=== PATIENT | male | born 1955 | race Caucasian/White ===

== ENCOUNTER 2018-07-13 08:00 | Day surgery (SDC) | payer BC ==
[2018-07-13] MEDS ORDERED: Ringers Lactate 1,000 ML IV ONE (08:10)
[2018-07-13 08:38] LABS: Absolute Lymphocytes (CBC) 1.2 K/uL (0.7-4.9); Absolute Monocytes 0.5 K/uL (0.1-1.3); Absolute Neutrophil 2.9 K/uL (1.8-8.0); Basophils % 0.4 % (0-1.3); Eosinophils % 4.4 % (0-4.4); Hematocrit 48.8 % (39.6-49.0); Lymphocytes % 24.9 % (15.3-44.8); MCH 30.5 pg (27.0-35.0); MCV 89.9 fL (80-100); Monocytes % 10.2 % (3.3-12.3); RBC Red Blood Cell Count 5.42 M/uL (4.33-5.43)
[2018-07-13] MEDS ORDERED: SIMETHICONE 40 MG/ 0.6 ML ONE (08:42)
[2018-07-13 08:53] LABS: Potassium 3.9 mmol/L (3.5-5.1)
[2018-07-13] MEDS ORDERED: PROPOFOL 200 MG/20 ML VIAL IV ONE (09:07)
[2018-07-13] MEDS ORDERED: LIDOCAINE 1% MPF 2 ML AMPULE ONE (09:07)
--- NOTE | 2018-07-13 09:28 | RAD REPORT ---
EXAM DESCRIPTION: Ryland Soler (2 Views)07/13/2018 8:43 am CLINICAL HISTORY: Preop for colonoscopy COMPARISON: October 2017 FINDINGS: The lungs appear clear of acute infiltrate. The heart is normal size IMPRESSION: No acute abnormalities displayed
--- NOTE | 2018-07-13 09:36 | ENDO RPT ---
[address], [address] COLONOSCOPY PROCEDURE REPORT EXAM DATE: 07/13/2018 PATIENT NAME: Allan Driver MR #: [id number] BIRTHDATE: 1955 ATTENDING: Mk Anders M.D. STATUS: outpatient LEARNING TECHNOLOGIST: Marta Valentino and Maite Lima RN INDICATIONS: The patient is a 63 yr old Male here for a colonoscopy due to history of colon cancer PROCEDURE PERFORMED: Colonoscopy MEDICATIONS: Per Anesthesia. ESTIMATED BLOOD LOSS: None CONSENT: The patient understands the risks and benefits of the procedure and understands that these risks include, but are not limited to: sedation, allergic reaction, infection, perforation and/or bleeding. Alternative means of evaluation and treatment include, among others: physical exam, x-rays, and/or surgical intervention. The patient elects to proceed with this endoscopic procedure. DESCRIPTION OF PROCEDURE: During intra-op preparation period all mechanical medical equipment was checked for proper function. Hand hygiene and appropriate measures for infection prevention was taken. Procedure, possible complications, alternatives including, but not limited to possibility of bleeding, perforation, tear, infection, sepsis, need for surgery, need for blood transfusion, were explained to the patient. After the risks, benefits and alternatives of the procedure were thoroughly explained, Informed consent was verified, confirmed and timeout was successfully executed by the treatment team. The patient was placed in the left lateral position. A digital rectal exam was performed and revealed an enlarged prostate. After appropriate level of anesthesia, the scope was passed. The EC-[id number] ([id number]) endoscope was introduced through the anus and advanced to the cecum, which was identified by the ileocecal valve. The quality of the prep was good. The instrument was then slowly withdrawn as the colon was fully examined. Scope withdrawal time was 10 minutes. COLON FINDINGS: Mild diverticulosis was noted throughout the entire examined colon. Retroflexed views revealed no abnormalities. The scope was then completely withdrawn from the patient and the procedure terminated. ADVERSE EVENTS: There were no complications. IMPRESSIONS: 1. Mild diverticulosis was noted throughout the entire examined colon 2. Internal hemorrhoids RECOMMENDATIONS: 1. fiber rich diet 2. follow-up: office 1 week(s) 3. increase dietary water 4. no seeds in diet RECALL: Return in 1 year(s) history of colon cancer Mk Anders M.D. eSigned: Mk Anders M.D. 07/13/2018 9:36 AM cc: Luis Antonio Ortega M.D. CPT CODES: ICD9 CODES: PATIENT NAME: Allan Driver MR#: [id number]
[2018-07-13 10:33] VITALS: TEMP 98
[2018-07-13 10:35] VITALS: BP 117/76; O2SAT 96
--- NOTE | 2018-07-13 17:13 | EKG ---
Test Date: 2018-07-13 Test Time: 08:18:29 Technical Assistance Consultant: MAX MEASUREMENT RESULTS: Intervals: Rate: 64 SD: 148 QRSD: 92 QT: 424 QTc: 437 [place]: P: 61 SD: 148 QRS: -39 T: -13 INTERPRETIVE STATEMENTS: Sinus rhythm with premature supraventricular complexes Left axis deviation Possible anterior, age undetermined Abnormal ECG Compared to ECG 10/30/2017 14:04:19 Left-axis deviation now present Possible myocardial infarct finding now present Electronically Signed On 07-13-18 17:13:18 WINERY CELLAR HAND by Edvin Nicole
== END 2018-07-13 10:30 | disposition home or self-care (01) ==
LOC: OR 08:00
PROVIDERS: ATTEND Surgery
PROC: 0DJD8ZZ Inspection of Lower Intestinal Tract, Via Natural or Artificial Opening Endoscopic (ICD-10-PCS; principal; 2018-07-13 09:00)
DX: K57.90 Diverticulosis of intestine, part unspecified, without perforation or abscess without bleeding (principal); K64.8 Other hemorrhoids; I10 Essential (primary) hypertension; Z85.038 Personal history of other malignant neoplasm of large intestine
CPT/HCPCS: 36415; 71046; 80048; 85025; 93005; G0103; J2001; J2704

== ENCOUNTER 2020-02-04 12:56 | Emergency (ER) | payer BC, OTHER ==
[2020-02-04] MEDS ORDERED: HYDROCODONE/APAP 10/325 TAB ONE (16:06)
[2020-02-04] MEDS ORDERED: KETOROLAC 30 MG/ML INJ ONE (16:06)
--- OUTSIDE RECORDS SUMMARY | 2020-02-04 16:19 | XMS REPORT | Summary of Care ---
:1955 Author Organization [facility] [place] Address [address] [place] [address]- Encounter HQ Bela(FIN) [id number] Date(s): 01/09/20 - 01/09/20 [facility] [place] [address] [place] [address]- [phone] Discharge Disposition: Home or Self Care Attending Physician: Rancho Snow MD Referring Physician: Rancho Snow MD Vital Signs Most recent to oldest [Reference Range]: 1 Height 182.88 cm (01/09/20 11:23 AM) Blood Pressure [90-140/60-90 mmHg] 173/102 mmHg *HI* (01/09/20 11:23 AM) Respiratory Rate [14-20 BRMIN] 16 BRMIN (01/09/20 11:23 AM) Peripheral Pulse Rate [60-100 bpm] 68 bpm (01/09/20 11:23 AM) Weight 91.364 kg (01/09/20 11:23 AM) Body Mass Index 27.32 m2 (01/09/20 11:23 AM) Problem List Condition Effective Dates Status Health Status Informant Hip pain, right(Confirmed) Active HTN - Hypertension(Confirmed) Active Radiculopathy, lumbar Active region(Confirmed) Paresthesia(Confirmed) Active Allergies, Adverse Reactions, Alerts No Known Allergies Medications baclofen 10 mg oral tablet 10 mg = 1 tab, PO, BID, # 60 tab, 4 Refill(s), Pharmacy: [facility]/pharmacy #[id number] Start Date: 01/09/20 Stop Date: 06/07/20 Status: OrderedcloNIDine 0.1 mg oral tablet 0.1 mg = 1 tab, PO, Daily, 0 Refill(s) Start Date: 01/09/20 Status: Orderedhydrochlorothiazide 12.5 mg oral tablet 12.5 mg = 1 tab, PO, Daily, # 30 tab, 0 Refill(s) Start Date: 01/09/20 Status: OrderedLotrel 10 mg-20 mg oral capsule 1 cap, PO, Daily, # 30 cap, 0 Refill(s) Start Date: 01/09/20 Status: Orderedmagnesium oxide 250 mg oral tablet 250 mg = 1 tab, PO, Daily, 0 Refill(s) Start Date: 01/09/20 Status: OrderedToprol-XL 200 mg oral tablet, extended release 200 mg = 1 tab, PO, Daily, 0 Refill(s) Start Date: 01/09/20 Status: Ordered Results No data available for this section Immunizations No data available for this section Procedures No data available for this section Social History Social History Type Response Employment/School Status: Employed. Smoking Status Never smoker; Exposure to To bacco Smoke None; Cigarette Smoking Last 365 Days No; Reg Smoking Cessation Counseling No entered on: 01/09/20 Assessment and Plan No data available for this section
--- OUTSIDE RECORDS SUMMARY | 2020-02-04 16:19 | XMS REPORT | Summary of Care ---
:1955 Author Organization [facility] Address [address] [place] [address]- Encounter HQ Bela(FIN) [id number] Date(s): 02/01/20 - 02/01/20 [facility] [address] [place], [place] [address]- [phone] Discharge Disposition: Home or Self Care Attending Physician: Rancho Snow MD Referring Physician: Rancho Snow MD Vital Signs Most recent to oldest [Reference Range]: 1 Height 187.96 cm (02/01/20 11:28 AM) Temperature Oral [96.4-99.1 DegF] 99.7 DegF *HI* (02/01/20 11:28 AM) Blood Pressure [90-140/60-90 mmHg] 159/90 mmHg *HI* (02/01/20 11:28 AM) Respiratory Rate [14-20 BRMIN] 16 BRMIN (02/01/20 11:28 AM) Peripheral Pulse Rate [60-100 bpm] 71 bpm (02/01/20 11:28 AM) Weight 90 kg (02/01/20 11:28 AM) Body Mass Index 25.47 m2 (02/01/20 11:28 AM) Problem List Condition Effective Dates Status Health Status Informant Hip pain, right(Confirmed) Active HTN - Hypertension(Confirmed) Active Radiculopathy, lumbar Active region(Confirmed) Colon cancer(Confirmed) Active Leg pain(Confirmed) Active Paresthesia(Confirmed) Active Allergies, Adverse Reactions, Alerts No Known Allergies Medications gabapentin 300 mg oral capsule 300 mg = 1 cap, PO, BID, # 60 cap, 2 Refill(s), Pharmacy: [facility]/pharmacy #[id number] Start Date: 02/01/20 Stop Date: 05/01/20 Status: Ordered Results No data available for this section Immunizations No data available for this section Procedures No data available for this section Social History Social History Type Response Employment/School Status: Employed. Smoking Status Never smoker; Exposure to To bacco Smoke None; Cigarette Smoking Last 365 Days No; Reg Smoking Cessation Counseling No entered on: 02/01/20 Assessment and Plan No data available for this section
--- OUTSIDE RECORDS SUMMARY | 2020-02-04 16:19 | XMS REPORT | Continuity of Care Document ---
:1955 Author Organization [facility] Care Team Providers Name Role Phone [facility] Unavailable Un available Problems Problem Status Onset Classification Date Comments Sourc e Date Reported Hip pain Active Problem 02/03/2020 [facility] (finding) Neuro Hypertensive Active Problem 02/03/2020 [facility] disorder, Neuro systemic arterial (disorder) Lumbar Active Problem 02/03/2020 [facility] radiculopathy Neuro (disorder) Paresthesia Active Problem 02/03/2020 [facility] (finding) Neuro Malignant tumor Active Problem 02/03/2020 [facility] of colon Neuro (disorder) Pain in lower Active Problem 02/03/2020 [facility] limb (finding) Neuro Medications Medication Details Route Status Patient Ordering Order Source Instructions Provider Date gabapentin 300 MG 300 mg = Active [facility] Oral Capsule 1 cap, 020 Neuro PO, BID, # 60 cap, 2 Refill(s) , Pharmacy: [facility]/pharm [facility] #[id number] baclofen 10 mg oral 10 mg = 1 Active Mi naveen tablet tab, PO, 020 Neuro BID, # 60 tab, 4 Refill(s) , Pharmacy: [facility]/pharm acy #[id number] magnesium oxide 250 250 mg = Active Mis christa mg oral tablet 1 tab, 020 Neuro PO, Daily, 0 Refill(s) Amlodipine 10 MG / 1 cap, Active [facility] Benazepril PO, 020 Neuro hydrochloride 20 MG Daily, # Oral Capsule [Lotrel 30 cap, 0 10/20] Refill(s) 24 HR Metoprolol 200 mg = Active [facility] r Tartrate 200 MG 1 tab, 020 Neuro Extended Release PO, Tablet [Toprol] Daily, 0 Refill(s) Clonidine 0.1 mg = Active [facility] Hydrochloride 0.1 MG 1 tab, 020 Jade ro Oral Tablet PO, Daily, 0 Refill(s) hydrochlorothiazide 12.5 mg = Active Mi naveen 12.5 mg oral tablet 1 tab, 020 Neur o PO, Daily, # 30 tab, 0 Refill(s) Allergies, Adverse Reactions, Alerts No Known Medication Allergies Immunizations No Data Provided for This Section Results No Data Provided for This Section Pathology Reports No Data Provided for This Section Diagnostic Reports No Data Provided for This Section Consultation Notes No Data Provided for This Section Discharge Summaries No Data Provided for This Section History and Physicals No Data Provided for This Section Vital Signs Vital Sign Value Date Comments Source Systolic (mm Hg) 159 02/01/2020 [facility] Diastolic (mm Hg) 90 02/01/2020 [facility] 16 02/01/2020 [facility] Height 187.96 cm 02/01/2020 [facility] Weight 90 02/01/2020 [facility] BMI Calculated 25.47 02/01/2020 [facility] Temperature Oral (F) 99.7 F 02/01/2020 [facility] Systolic (mm Hg) 173 01/09/2020 [facility] Diastolic (mm Hg) 102 [facility] 68 01/09/2020 [facility] Respitory Rate 16 01/09/2020 [facility] Height 182.88 cm 01/09/2020 [facility] Weight 91.364 01/09/2020 [facility] BMI Calculated 27.32 01/09/2020 [facility] [place] [facility] Encounters Location Location Encounter Encounter Reason Attending ADM [place] Stat Source Details Type Number For Provider Date Date Visit Outpatient [id number] [facility] 01/08 Active [facility] [id number] [place] 01/08 01/09 [facility]2019 [facility] [place] [facility] [id number] [place] 01/31 Active [facility] Outpatient [id number] [place] 01/31 02/01 [facility] [place]20192020 Neuro [place] [facility] [id number] [place] 03/04 Active [facility] Greg Procedures No Data Provided for This Section Assessment and Plan No Data Provided for This Section Plan of Care No Data Provided for This Section Social History Social History Date Source Social History TypeResponse 01/09/2020 [facility] Employment/School Status: Employed. Smoking Status Never smoker; Exposure to Tobacco Smoke None; Cigarette Smoking Last 365 Days No; Reg Smoking Cessation Counseling No entered on: 6/5/20 Family History No Data Provided for This Section Advance Directives No Data Provided for This Section Functional Status No Data Provided for This Section
--- NOTE | 2020-02-04 16:33 | RAD REPORT ---
EXAM DESCRIPTION: RAD - Hip Right 2 View - 02/04/2020 4:11 pm CLINICAL HISTORY: Right hip pain FINDINGS: No fracture or dislocation is seen. Mild to moderate osteoarthritis involves the right hip mainly consisting of joint space narrowing and subchondral sclerosis
--- NOTE | 2020-02-04 16:33 | RAD REPORT ---
EXAM DESCRIPTION: RAD - Pelvis - 02/04/2020 4:11 pm CLINICAL HISTORY: Right hip pain FINDINGS: No fracture or dislocation is seen. Mild to moderate osteoarthritis involves the right hip mainly consisting of joint space narrowing and subchondral sclerosis
[2020-02-04 17:17] LABS: Urine Blood NEGATIVE (NEG); Urine Glucose NEGATIVE (NEG); Urine Protein NEGATIVE (NEG)
[2020-02-04 17:26] LABS: Urine Bacteria NONE SEEN /HPF (NONE SEEN); Urine Culture Reflex Order NOT NEEDED; Urine RBC <5 /HPF (NONE SEEN)
--- NOTE | 2020-02-04 18:53 | RAD REPORT ---
EXAM DESCRIPTION: MRI - Lumbar Spine Wo Con - 02/04/2020 6:21 pm CLINICAL HISTORY: Right leg radiculopathy COMPARISON: None. TECHNIQUE: Sagittal T1, T2 and STIR weighted sequences were obtained. Axial T1 and T2 sequences were obtained through the lumbar disc levels. FINDINGS: Round area of increased signal on T1 weighted sequences within the L1 vertebral body proba bubba hemangioma Mild spondylosis L1-2 Disc bulge with annular fissure L2-3. Mild narrowing of the thecal sac which measures 9.5 millimeters Small left lateral disc bulge L3-4 results in mild moderate narrowing of neural foramina. Thecal sac measures 9.5 millimeters Small right lateral disc bulge L4-5 in combination with facet hypertrophy result in mild to moderate narrowing of the right neural foramina. Mild narrowing of the thecal sac Mild spondylosis L5-S1 Small right paracentral disc herniation T12-L1 IMPRESSION: Spondylosis L3-4 resulting in mild to moderate left foraminal stenosis Spondylosis L4-5 resulting in mild to moderate right foraminal stenosis Mild central spinal stenosis L2-3 and L3-4 Small right paracentral disc herniation T12-L1
--- NOTE | 2020-02-04 19:22 | ER ---
Nurse's Notes [facility] Name: Allan Driver Age: 64 yrs Sex: Male : 1955 Arrival Date: 02/04/2020 Time: 13:00 Bed 30 Private MD: Rancho Snow W Diagnosis: Low back pain;Radiculopathy, lumbar region Presentation: 02/03 13:26 Chief complaint: Patient states: Diagnosed with arthritis to R hip/ lumbar and bulging ss disc pressing on sciatic nerve [address] Snow. Pt reports that pain has not improved and now he is unable to walk using his R leg. Coronavirus screen: Proceed with normal triage. Patient denies a cough. Patient denies shortness of breath or difficulty breathing. Patient denies measured and/or subjective temperature greater than 100.4F prior to today's visit. Patient denies travel on a cruise ship or to a country the [facility] currently lists as an affected area. Patient denies contact with known and/or suspected case of COVID-19. Ebola Screen: Patient denies exposure to infectious person. Patient denies travel to an Ebola-affected area in the 21 days before illness onset. Initial Sepsis Screen: Does the patient meet any 2 criteria? No. Patient's initial sepsis screen is negative. Does the patient have a suspected source of infection? No. Patient's initial sepsis screen is negative. Risk Assessment: Do you want to hurt yourself or someone else? Patient reports no desire to harm self or others. Onset of symptoms was 2019. 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 - Social history:: Smoking status: Patient denies any tobacco usage or history of. Screenin:15 Abuse screen: Denies threats or abuse. Nutritional screening: No deficits noted. aa5 Tuberculosis screening: No symptoms or risk factors identified. Fall Risk No fall in past 12 months (0 pts). No secondary diagnosis (0 pts). No IV (0 pts). Ambulatory Aid- None/Bed Rest/Nurse Assist (0 pts). Mental Status- Oriented to own ability (0 pts). Total [place] Fall Scale indicates No Risk (0-24 pts). Assessment: 15:15 General: Appears uncomfortable, Behavior is calm, cooperative. Pain: Complains of pain aa5 in right hip Pain does not radiate. Pain currently is 8 out of 10 on a pain scale. Quality of pain is described as sharp, Is continuous, Aggravated by increased activity, weight bearing, Pt reports unable to bear weight to right leg at this time. Neuro: Level of Consciousness is awake, alert, obeys commands, Oriented to person, place, time, situation. Cardiovascular: Capillary refill < 3 seconds is brisk in bilateral fingers Patient's skin is warm and dry. Respiratory: Airway is patent Respiratory effort is even, unlabored, Respiratory pattern is regular, symmetrical. GI: No signs and/or symptoms were reported involving the gastrointestinal system. : No signs and/or symptoms were reported regarding the genitourinary system. EENT: No signs and/or symptoms were reported regarding the EENT system. Derm: Skin is pink, warm \T\ dry. Musculoskeletal: Range of motion: intact in all extremities. 15:55 Reassessment: To bedside to medicate pt, portable x-ray at bedside. . aa5 16:06 Reassessment: Patient is alert, oriented x 3, equal unlabored respirations, skin aa5 warm/dry/pink. Pt notified of wait time for radiology results, call mcpherson within reach . 17:00 Reassessment: Pt reports pain has improved, rates pain 5/10 on a pain scale. Pt able to aa5 bear weight to right leg at this time, ambulatory to restroom with assistance, pt refused wheelchair to restroom at this time, pt hunching over while ambulating to restroom, PA notified of findings. . 17:00 Reassessment: Urine micro sent to lab . aa5 18:05 Reassessment: Pt currently in MRI. aa5 18:55 Reassessment: Patient is alert, oriented x 3, equal unlabored respirations, skin aa5 warm/dry/pink. Pt sitting up in bed, pt states pain has increased after MRI, PA was notified. . 19:05 General: Appears in no apparent distress. Behavior is calm, cooperative, appropriate jv1 for age. Pain: Complains of pain in right hip pain Pain does not radiate. Pain currently is 5 out of 10 on a pain scale. Quality of pain is described as sharp, Is continuous. Neuro: Level of Consciousness is awake, alert, obeys commands, Oriented to person, place, time, situation. Cardiovascular: Capillary refill < 3 seconds is brisk in bilateral fingers Patient's skin is warm and dry. Respiratory: Airway is patent Respiratory effort is even, unlabored, Respiratory pattern is regular, symmetrical. GI: No signs and/or symptoms were reported involving the gastrointestinal system. : No signs and/or symptoms were reported regarding the genitourinary system. EENT: No signs and/or symptoms were reported regarding the EENT system. Derm: Skin is pink, warm \T\ dry. Musculoskeletal: Range of motion: intact in all extremities. 19:54 Reassessment: Provider changed order of dexamethasone to be given IM instead of IV. jv1 20:11 Reassessment: Patient is alert, oriented x 3, equal unlabored respirations, skin jv1 warm/dry/pink. pt alert oriented x 3, no negative reactions from medicines given. pt state he is feeling better. Patient states feeling better. Vital Signs: 13:26 BP 147 / 93; Pulse 62; Resp 16; Temp 98.3(TE); Pulse Ox 100% on R/A; Weight 88.45 kg; ss Height 6 ft. 2 in. (187.96 cm); Pain 8/10; 17:10 BP 145 / 95; Pulse 70; Resp 16 S; Pulse Ox 99% on R/A; aa5 18:55 BP 135 / 95; Pulse 72; Resp 18 S; Pulse Ox 98% on R/A; aa5 19:55 BP 142 / 90; Pulse 75; Resp 18; Temp 98.5; Pulse Ox 99% on R/A; Pain 4/10; jv1 20:12 BP 129 / 93; Pulse 77; Resp 18; Temp 98.2; Pulse Ox 99% ; Pain 1/10; jv1 13:26 Body Mass Index 25.04 (88.45 kg, 187.96 cm) ss ED Course: 13:00 Patient arrived in ED. as 13:00 Rancho Snow MD is Private Physician. as 13:29 Triage completed. ss 13:29 Arm band placed on right wrist. ss 15:13 Sandy Taveras, RN is Primary Nurse. aa5 15:15 Patient has correct armband on for positive identification. Placed in gown. Bed in low aa5 position. Call light in reach. Side rails up X2. 15:21 Yandel Bear PA is PHCP. cp 15:21 Xiang Washburn MD is Attending Physician. cp 16:12 XRAY Pelvis In Process Unspecified. EDMS 16:12 XRAY Hip RIGHT 2 view In Process Unspecified. EDMS 18:21 MRI Lumbar Spine wo Con In Process Unspecified. EDMS 19:00 Report given to MERRY Padilla. aa5 19:20 Rancho Snow MD is Referral Physician. cp 20:13 No provider procedures requiring assistance completed. Patient did not have IV access jv1 during this emergency room visit. Administered Medications: 16:05 Drug: HYDROcodone-acetaminophen 10 mg-325 mg 1 tabs Route: PO; aa5 17:00 Follow up: Response: Pain is decreased aa5 16:05 Drug: TORadol 30 mg Route: IM; Site: right deltoid; aa5 17:00 Follow up: Response: No adverse reaction; Pain is decreased aa5 19:54 CANCELLED (md changed order): Decadron - Dexamethasone 10 mg IVP once jv1 19:54 Drug: Dexamethasone 10 mg Route: IM; Site: right gluteus; jv1 20:14 Follow up: Response: No adverse reaction jv1 Outcome: 19:21 Discharge ordered by MD. cp 20:13 Discharged to home ambulatory. jv1 20:13 Condition: stable 20:13 Discharge instructions given to patient, Instructed on discharge instructions, follow up and referral plans. medication usage, Demonstrated understanding of instructions, follow-up care, Prescriptions given X 3. 20:14 Patient left the ED. jv1 Signatures: Dispatcher [employer] EDIN Jada Sosa as Sandy Taveras, RN RN aa5 Jenny Martines RN RN Yandel Bear PA PA cp Valerie Santos RN RN jv1
--- NOTE | 2020-02-04 19:22 | EDPHYS ---
Physician Documentation [facility] Name: Allan Driver Age: 64 yrs Sex: Male : 1955 Arrival Date: 02/04/2020 Time: 13:00 Bed 30 Private MD: Rancho Snow W ED Physician Xiang Washburn HPI: 02/03 15:32 This 64 yrs old Male presents to ER via Ambulatory with complaints of Trouble cp Walking - sciatic nerve. 15:35 The patient presents to the emergency department with weakness of the right lower cp extremity, that is moderate, difficult walking, paresthesias of the right lower extremity, that is moderate. Onset: The symptoms/episode began/occurred 3 day(s) ago, and became worse yesterday. Associated signs and symptoms: Pertinent positives: pain to right hip, Pertinent negatives: altered mental status, fever, bowel or bladder incontinence, saddle anesthesia. Severity of symptoms: in the emergency department the symptoms are unchanged despite home interventions. Patient's baseline: Neuro: alert and fully oriented, Motor: no deficits, Ambulation: walks without assistance, Speech: normal, The patient has a previous history of lower back injury. Patient reports receiving steroid injections for lower back pain in the past. Historical: - Allergies: 13:29 No Known Allergies; ss - PMHx: 13:29 adrenal mass; colon cancer; Hypertension; ss - PSHx: 13:29 colectomy; ss - Immunization history:: Adult Immunizations up to date. - Social history:: Smoking status: Patient denies any tobacco usage or history of. ROS: 15:40 Constitutional: Negative for body aches, chills, fever, poor PO intake. cp 15:40 Eyes: Negative for injury, pain, redness, and discharge. cp 15:40 Cardiovascular: Negative for chest pain, edema. 15:40 Respiratory: Negative for cough, shortness of breath, wheezing. 15:40 Abdomen/GI: Negative for abdominal pain, vomiting, diarrhea, constipation, black/tarry stool, rectal bleeding, bowel incontinence. 15:40 Back: Positive for pain at rest, pain with movement, of the right low back. 15:40 : Negative for urinary symptoms, flank pain, difficulty urinating, bladder incontinence, testicular pain 15:40 MS/extremity: Positive for pain, paresthesias, of the right leg, Negative for injury or acute deformity, decreased range of motion, swelling. 15:40 Neuro: Positive for weakness, of the right leg, Negative for altered mental status, headache. 15:40 All other systems are negative. Exam: 15:45 Constitutional: The patient appears in no acute distress, alert, awake, cp non-diaphoretic, non-toxic, well developed, well nourished, uncomfortable. 15:45 Head/Face: Normocephalic, atraumatic. cp 15:45 Eyes: Periorbital structures: appear normal, Conjunctiva: normal, no exudate, no injection, Sclera: no appreciated abnormality, Lids and lashes: appear normal, bilaterally. 15:45 Neck: ROM/movement: is normal, is supple, without pain, no range of motions limitations. 15:45 Chest/axilla: Inspection: normal. 15:45 Cardiovascular: Rate: normal, Rhythm: regular. 15:45 Respiratory: the patient does not display signs of respiratory distress, Respirations: normal, no use of accessory muscles, no retractions, labored breathing, is not present. 15:45 Abdomen/GI: Inspection: abdomen appears normal, Bowel sounds: active, all quadrants, Palpation: abdomen is soft and non-tender, in all quadrants. 15:45 Back: pain, that is moderate, of the right low back, ROM is painful, with all cp movement, vertebral tenderness, is not appreciated, Straight leg raises: right lower extremity illicits pain, at 45 degrees. 15:45 Musculoskeletal/extremity: ROM: limited passive range of motion due to pain, in the right leg, Perfusion: the extremity is normally perfused throughout, the right leg decreased sensation, DVT Exam: No signs of deep vein thrombosis. 15:45 Neuro: Motor: moves all fours, strength is normal, Sensation: numbness, that is cp moderate, of the right leg, Gait: is unsteady, Deep tendon reflexes are 2+ (normal) in the right patellar, right Achilles, left patellar and left Achilles, Babinski testing is normal, negative clonus test bilaterally. Vital Signs: 13:26 BP 147 / 93; Pulse 62; Resp 16; Temp 98.3(TE); Pulse Ox 100% on R/A; Weight 88.45 kg; ss Height 6 ft. 2 in. (187.96 cm); Pain 8/10; 17:10 BP 145 / 95; Pulse 70; Resp 16 S; Pulse Ox 99% on R/A; aa5 18:55 BP 135 / 95; Pulse 72; Resp 18 S; Pulse Ox 98% on R/A; aa5 19:55 BP 142 / 90; Pulse 75; Resp 18; Temp 98.5; Pulse Ox 99% on R/A; Pain 4/10; jv1 20:12 BP 129 / 93; Pulse 77; Resp 18; Temp 98.2; Pulse Ox 99% ; Pain 1/10; jv1 13:26 Body Mass Index 25.04 (88.45 kg, 187.96 cm) ss MDM: 15:30 Patient medically screened. 19:20 Data reviewed: vital signs, nurses notes, lab test result(s), radiologic studies, MRI, cp plain films, I have discussed the patient's presentation/case with the attending Emergency Department Physician; and as a result, I will discharge patient. 19:20 Counseling: I had a detailed discussion with the patient and/or guardian regarding: the cp historical points, exam findings, and any diagnostic results supporting the discharge/admit diagnosis, lab results, radiology results, the need for outpatient follow up, for definitive care, a family practitioner, a neurologist, to return to the emergency department if symptoms worsen or persist or if there are any questions or concerns that arise at home. Response to treatment: the patient's symptoms have markedly improved after treatment, and as a result, I will discharge patient. ED course: VSS. Pain markedly improved and patient observed ambulating w/o assistance. Will discharge to home for continued monitoring. 19:24 ED course: no active prescriptions for narcotic pain meds found on website of [facility] prescription monitoring for patient. 02/03 15:32 Order name: Urine Microscopic Only; Complete Time: 19: cp 02/03 17:13 Order name: Urine Dipstick--Ancillary (enter results); Complete Time: 19:07 em1 02/03 15:31 Order name: XRAY Pelvis; Complete Time: 19:07 cp 02/03 15:31 Order name: XRAY Hip RIGHT 2 view; Complete Time: 19:07 cp 02/03 15:34 Order name: MRI Lumbar Spine wo Con; Complete Time: 19:07 cp 02/03 15:32 Order name: Urine Dipstick-Ancillary (obtain specimen); Complete Time: 17:06 cp Administered Medications: 16:05 Drug: HYDROcodone-acetaminophen 10 mg-325 mg 1 tabs Route: PO; aa5 17:00 Follow up: Response: Pain is decreased aa5 16:05 Drug: TORadol 30 mg Route: IM; Site: right deltoid; aa5 17:00 Follow up: Response: No adverse reaction; Pain is decreased aa5 19:54 CANCELLED ( changed order): Decadron - Dexamethasone 10 mg IVP once jv1 19:54 Drug: Dexamethasone 10 mg Route: IM; Site: right gluteus; jv1 20:14 Follow up: Response: No adverse reaction jv1 Disposition: 02/04 03:33 Co-signature as Attending Physician, Xiang Washburn MD I agree with the assessment and kdr plan of care. Disposition: 02/04/20 19:21 Discharged to Home. Impression: Low back pain, Radiculopathy, lumbar region. - Condition is Stable. - Discharge Instructions: Back Pain, Adult, Lumbosacral Radiculopathy, Back Exercises. - Prescriptions for Tylenol- Codeine #3 300-30 mg Oral Tablet - take 2 tablets by ORAL route every 6 hours As needed; 20 tablet. Cyclobenzaprine 10 mg Oral Tablet - take 1 tablet by ORAL route every 8 hours As needed; 20 tablet. Medrol (Shaquille) 4 mg Oral Tablets, Dose Pack - take 1 tablet by ORAL route as directed - follow package instructions; 1 packet. - Medication Reconciliation Form, Thank You Letter, Antibiotic Education, Prescription Opioid Use form. - Follow up: Rancho Snow MD; When: 2 - 3 days; Reason: Recheck today's complaints. Follow up: Private Physician; When: 2 - 3 days; Reason: Recheck today's complaints. - Problem is an ongoing problem. - Symptoms have improved. Signatures: Dispatcher [employer] EDMS Xiang Washburn MD MD [facility] Sandy Taveras RN RN aa5 Jenny Martines RN RN ss Yandel Bear, GARRY PA cp Valerie Santos RN RN jv1 Corrections: (The following items were deleted from the chart) 02/03 19:54 19:10 Decadron - Dexamethasone 10 mg IVP once ordered. cp jv1 20:14 19:21 02/04/2020 19:21 Discharged to Home. Impression: Low back pain; Radiculopathy, jv1 lumbar region. Condition is Stable. Forms are Medication Reconciliation Form, Thank You Letter, Antibiotic Education, Prescription Opioid Use. Follow up: Rancho Snow; When: 2 - 3 days; Reason: Recheck today's complaints. Follow up: Private Physician; When: 2 - 3 days; Reason: Recheck today's complaints. Problem is an ongoing problem. Symptoms have improved. cp
[2020-02-04] MEDS ORDERED: dexAMETHasone 10 MG/ML VIAL ONE (19:50)
[2020-02-04 20:25] VITALS: O2SAT 99
[2020-02-04 20:27] VITALS: BP 129/93; TEMP 98.2
== END 2020-02-04 20:14 | disposition home or self-care (01) ==
LOC: ER 12:56
DX: M54.16 Radiculopathy, lumbar region (principal); I10 Essential (primary) hypertension; Z85.038 Personal history of other malignant neoplasm of large intestine
CPT/HCPCS: 72170; 73502; 72148; 96372; 99283; J1100; 81003; 81015

== ENCOUNTER 2020-08-24 14:45 | Emergency (ER) | payer OTHER ==
--- OUTSIDE RECORDS SUMMARY | 2020-08-24 14:48 | XMS REPORT | Summary of Care ---
:1955 Author Organization [facility] Address [address] [place] [address] Care Team Providers Name Role Phone Alvin Clark MD Primary Care Provider Reason for Visit Reason Comments Notification Encounter Details Date Type Department Care Team Description 06/12/2020 Telephone [facility] Orthopaedic Toby Franks MD Notification Surgery- [place] [address] [facility] [address], [place] [address] [address], [place] [phone] Allergies No Known Allergiesdocumented as of this encounter (statuses as of 06/13/2020) Medications Medication Sig Dispensed Refills Start Date End Date Status cloniDINE (CATAPRES-TTS 3) Apply 1 Patch 0 Active 0.3 mg/24 hr patch to skin weekly. amlodipine-benazepril Take 1 0 Active (LOTREL) 10-20 mg per capsule by capsule mouth daily. metoprolol succinate XL Take 200 mg 0 Active (TOPROL XL) 200 mg 24 hr by mouth tablet daily. hydroCHLOROthiazide 25 mg Take 25 mg by 0 04/21/2020 Active tablet mouth every morning. cloNIDine HCL 0.1 mg Take 1 tablet 0 03/28/2020 Active tablet by mouth 2 (two) times daily. tamsulosin 0.4 mg 24 hr Take 0.4 mg 0 2020 Active capsule by mouth daily. HYDROcodone-acetaminophen TAKE 1 TABLET 0 05/02/2020 Active 7.5-325 mg per tablet BY MOUTH TWICE A DAY FOR 15 DAYS meloxicam 15 mg tablet Take 1 tablet 30 tablet 0 05/16/2020 Active by mouth daily for 30 days. documented as of this encounter (statuses as of 06/13/2020) Active Problems No known active problemsdocumented as of this encounter (statuses as of 06/13/2020) Social History Tobacco Use Types Packs/Day Years Used Date Never Smoker Smokeless Tobacco: Never Used Alcohol Use Drinks/Week oz/Week Comments Yes 0 Standard drinks or equivalent 0.0 Approx. 1-2 beers daily Sex Assigned at Date Recorded Not on file COVID-19 Exposure Response Date Recorded In the last month, have you been in contact with No / Unsure 05/22/2020 8:51 AM CDT someone who was confirmed or suspected to have Coronavirus / COVID-19? documented as of this encounter Last Filed Vital Signs Not on filedocumented in this encounter Miscellaneous Notes Telephone Encounter - Madelin Hall - 06/13/2020 9:30 AM CDTCalled patient and asked him to call registration for the quote. There was no answer so I left a message with the number to the hospital. Madelin Hall 06/13/2020 9:32 AM elephone Encounter - Radha Doyle - 06/12/2020 3:25 PM CDTPatient called checking the status of his quote for surgery? Please call the patient when ready. Thank you. documented in this encounter Plan of Treatment Health Maintenance Due Date Last Done Comments HEPATITIS C (HCV) SCREEN 1955 Depression Screening 1968 DTaP,Tdap,and Td Vaccines (1 - 02/28/1975 Tdap) COLON CANCER SCREENING ANNUAL 02/28/2006 FIT/FOBT COLON CANCER SCREENING FIT DNA 02/28/2006 EVERY 3 YEARS COLON CANCER SCREENING 02/28/2006 SIGMOIDOSCOPY EVERY 5 YEARS COLONOSCOPY 02/28/2006 Colorectal Cancer Screening 02/28/2006 Zoster Recombinant Vaccine 02/28/2006 (SHINGRIX) (1 of 2) INFLUENZA VACCINE (#1) 2020 PNEUMOCOCCAL 0-64 YEARS COMBINED Aged Out No longer eligible based on SERIES patient's age to complete this topic documented as of this encounter Implants Implanted Type Area Production 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 Manager Device Shelf Model / Serial Identifier Expiration / Lot Date Lens LENS Left: Eye Jesu 10/26/2020 [id number] / Implanted: Qty: 1 on 01/28/2016 by Shad Tong MD at [facility] 5 [id number] / [id number] Acrysof Iq LENS Right: Jesu 08/28/2020 [id number] / Implanted: Qty: 1 on 02/11/2016 by Shad Tong MD at [facility] Eye 1 [id number] / [id number] documented as of this encounter Results Not on filedocumented in this encounter Insurance Payer Benefit Plan / Subscriber ID Effective Dates Phone Addre ss Type Group COMMERCIAL COMMERCIAL [id number] 2020-Mariama [place]/PPO/PO NON-CONTRACT NON-CONTRACT t S GENERIC GENERIC documented as of this encounter
--- OUTSIDE RECORDS SUMMARY | 2020-08-24 14:48 | XMS REPORT | Continuity of Care Document ---
:1955 Author Organization [facility] Care Team Providers Name Role Phone [facility] Unavailable Un available Problems Problem Status Onset Classification Date Comments Sourc e Date Reported Hip pain Active Problem 04/19/2020 [facility] (finding) Neuro Hypertensive Active Problem 04/19/2020 Mische r disorder, Neuro systemic arterial (disorder) Lumbar Active Problem 04/19/2020 [facility] radiculopathy Neuro (disorder) Paresthesia Active Problem 04/19/2020 [facility] (finding) Neuro Malignant tumor Active Problem 04/19/2020 Mis christa of colon Neuro (disorder) Pain in lower Active Problem 04/19/2020 Misch er limb (finding) Neuro Medications Medication Details Route Status Patient Ordering Order Source Instructions Provider Date tramadol 50 mg = 1 Active [facility] hydrochloride 50 MG tab, PO, 020 Jade ro Oral Tablet Q8H, X 30 day, # 90 tab, 1 Refill(s) , Pharmacy: [id number], 187.96, cm, 02/01/20 11:28:00 CDT, Height, 90, kg, 02/01/20 11:28:00 CDT, Weight gabapentin 300 MG 300 mg = Active Misch er Oral Capsule 1 cap, 020 Neuro PO, BID, # 60 cap, 2 Refill(s) , Pharmacy: [id number] baclofen 10 mg oral 10 mg = 1 Active Mi naveen tablet tab, PO, 020 Neuro BID, # 60 tab, 4 Refill(s) , Pharmacy: [id number] magnesium oxide 250 250 mg = Active Mis christa mg oral tablet 1 tab, 020 Neuro PO, Daily, 0 Refill(s) Amlodipine 10 MG / 1 cap, Active Misch er Benazepril PO, 020 Neuro hydrochloride 20 MG Daily, # Oral Capsule [Lotrel 30 cap, 0 06/17] Refill(s) 24 HR Metoprolol 200 mg = [...] Comments Source Systolic (mm Hg) 159 [place] [facility] [place] Diastolic (mm Hg) 90 02/01/2020 [facility] [place] Heart Rate 71 02/01/2020 [facility] Respitory Rate 16 02/01/2020 [facility] Height 187.96 cm 02/01/2020 [facility] Weight 90 02/01/2020 [facility] BMI Calculated 25.47 02/01/2020 [facility] Temperature Oral (F) 99.7 F 02/01/2020 [facility] Systolic (mm Hg) 173 01/09/2020 [facility] [place]ade ro Diastolic (mm Hg) 102 01/09/2020 [facility] [place] Heart Rate 68 01/09/2020 [facility] Respitory Rate 16 01/09/2020 [facility] Height 182.88 cm 01/09/2020 [facility] Weight 91.364 01/09/2020 [facility] BMI Calculated 27.32 01/09/2020 [facility] Encounters Location Location Encounter Encounter Reason Attending ADM MT Stat us Source Details Type Number For Provider Date Date Visit Outpatient [id number] [place] 01[place]08 [facility] [place] [facility] [id number] [place] 01[place]08 [place]09 [facility] [facility] /2019 [place] Out[place] [id number] [place] 01/31 Active [facility]2019 [place] [facility] Outpatient [id number] [place] 01/31 02/01 [facility] /2019 Neuro [place] Outpatient [id number] [place] 03/04 Active [facility] Krell Greg Outpatient [id number] [place] 03/04 Active [facility] Ambulatory [id number] [place] 03/04 03/04 [facility] [place] /2019 Neuro [place] [facility] Ambulatory [id number] [place] 03/04 03/04 [facility] [place] /2019 Neuro [place] [facility] Outside [id number] 04/15 04/17 Mis christa Neurology Medical /2019 Neuro [place] Records Procedures No Data Provided for This Section [...] Smoking Cessation Counseling No entered on: 02/01/20 Family History No Data Provided for This Section Advance Directives No Data Provided for This Section Functional Status No Data Provided for This Section
--- OUTSIDE RECORDS SUMMARY | 2020-08-24 14:48 | XMS REPORT | Continuity of Care Document ---
:1955 Author Organization [facility] t Address [address] [place] [address] Care Team Providers Name Role Phone Tiny GOYAL L Attending Clinician Gabriela REECE S Attending Clinician Benjamin Snow Attending Clinician Problems Condition Condition Condition Status Onset Resolution Last Treating Co mments Source Name Details Category Date Date Treatment Clinician Date Hip pain Problem Active 2020-04-19 Mem oria (finding) 00:36:43 l Hip pain Delfin n (finding) Active Problem 04/19/2020 [facility] Hypertensi Problem Active 2020-04-19 M emoria ve 00:36:43 l disorder, Greg systemic Hypertensi arterial ve (disorder) disorder, systemic arterial (disorder) Active Problem 04/19/2020 [facility] Lumbar Problem Active 2020-04-19 Memor ia radiculopa 00:36:43 l thy Lumbar Greg (disorder) radiculopa thy (disorder) Active Problem 04/19/2020 [facility] Paresthesi Problem Active 2020-04-19 M emoria a 00:36:43 l (finding) Greg Paresthesi a (finding) Active Problem 04/19/2020 [facility] Malignant Problem Active 2020-04-19 Me moria tumor of 00:36:43 l colon [place] (disorder) Malignant tumor of colon (disorder) Active Problem 04/19/2020 [facility] Pain in Problem Active 2020-04-19 Isaias jose m lower limb 00:36:43 l (finding) Pain in Herm amparo lower limb (finding) Active Problem 04/19/2020 [facility] Allergies, Adverse Reactions, Alerts This patient has no known allergies or adverse reactions. Social History Social Habit Start Date Stop Date Quantity Comments Source Social History 2020-01-09 2020-01-09 [facility] 23:35:06 23:35:06 Medications Ordered Filled Start Stop Current Ordering Indication Dosage Frequency Signature Comments Components Source Medication Medication Date Date Medication? Clinician (SIG) Name Name tramadol Yes 50 mg = 1 Isaias jose m hydrochlori 6-18 tab, PO, l de 50 MG 00:35: Q8H, X 30 Herm amparo Oral Tablet 00 day, # 90 tab, 1 Refill(s), Pharmacy: [id number], 187.96, cm, 02/01/20 11:28:00 CDT, Height, 90, kg, 02/01/20 11:28:00 CDT, Weight gabapentin 2019- Yes 300 mg = 1 M emoria 300 MG Oral 6-05 cap, PO, l Capsule 17:15: BID, # 60 Mary nn 00 cap, 2 Refill(s), Pharmacy: [id number] baclofen 10 2019-0 Yes 10 mg = 1 M emoria mg oral 5-13 tab, PO, l tablet 16:59: BID, # 60 Delfin n 00 tab, 4 Refill(s), Pharmacy: [id number] magnesium 2019-0 Yes 250 mg = 1 Me moria oxide 250 5-13 tab, PO, l mg oral 16:27: Daily, 0 Delfin n tablet 00 Refill(s) Amlodipine 2019-0 Yes 1 cap, PO, M emoria 10 MG / 5-13 Daily, # l Benazepril 16:27: 30 cap, 0 He rmann hydrochlori 00 Refill(s) de 20 MG Oral Capsule [Lotrel 06/17] 24 HR 2019-0 Yes 200 mg = 1 Memori a Metoprolol 5-13 tab, PO, l Tartrate 16:27: Daily, 0 Mary nn 200 MG 00 Refill(s) Extended Release Tablet [Toprol] Clonidine 2019-0 Yes 0.1 mg = 1 Me moria Hydrochlori 5-13 tab, PO, l de 0.1 MG 16:27: Daily, 0 Herm amparo Oral Tablet 00 Refill(s) hydrochloro 2020-0 Yes 12.5 mg = M gradyria thiazide 5-13 1 tab, PO, l 12.5 mg 16:27: Daily, # Delfin n oral tablet 00 30 tab, 0 Refill(s) Vital Signs Vital Name Observation Time Observation Value Comments Source Systolic (mm Hg) 2020-02-01 16:28:00 Isaias rial [place] Diastolic (mm Hg) 2020-02-01 16:28:00 Mem orial [place] Heart Rate 2020-02-01 16:28:00 [facility] Respitory Rate 2020-02-01 16:28:00 Memori al [place] Height 2020-02-01 16:28:00 187.96 cm [facility] [place] Weight 2020-02-01 16:28:00 [facility] [place] BMI Calculated 2020-02-01 16:28:00 Memori al [place] Temperature Oral (F) 2020-02-01 16:28:00 99.7 F [facility] Systolic (mm Hg) 2020-01-09 16:23:00 Isaias rial [place] Diastolic (mm Hg) 2020-01-09 16:23:00 Mem orial Greg Heart Rate 2020-01-09 16:23:00 [facility] [place] Respitory Rate 2020-01-09 16:23:00 Memori al [place] Height 2020-01-09 16:23:00 182.88 cm [facility] [place] Weight 2020-01-09 16:23:00 [facility] [place] BMI Calculated 2020-01-09 16:23:00 Memori al Greg Procedures This patient has no known procedures. Encounters Start End Encounter Admission Attending Care Care Encounter Source Date/Time Date/Time Type Type Clinicians Facility Department ID 2020-06-12 2020-06-12 [id number] 00:00:00 00:00:00 Toby Hingi [id number] Surgical [id number] Specialti [id number] [address] 2020-06-09 2020-06-09 Telephone Tiny [facility] [id number] 00:00:00 00:00:00 Toby Reis [employer] [id number] Surgical [id number] Specialti [id number] [address] 2020-05-22 2020-05-22 Office Gabriela NMARMOND [id number] 08:41:49 09:33:[address] [facility] [id number] Surgical .[id number] Special [id number] [address] 2020-04-15 2020-04-16 Outpatient MHMISCHER MHMISCHER [id number] 09:13:53 23:59:59 00 2020-03-04 2020-03-04 Outpatient Gwendolyn GABBYSCHER MISCHER [id number] 15:45:00 15:45:00 [place] 02 Benjamin 2020-03-04 2020-03-04 Outpatient Gwendolyn MISCHER MHMISCHER [id number] 15:45:00 15:45:00 [place] 03 Benjamin 2020-02-01 2020-02-01 Outpatient MICHEL SnowMISCHER MHMISCHER [id number] 11:15:00 23:59:59 [place] Benjamin 2020-01-09 2020-01-09 Outpatient Gwendolyn MISCHER MISCHER [id number] 11:30:00 23:59:59 [place] 00 Benjamin Results This patient has no known results.
--- OUTSIDE RECORDS SUMMARY | 2020-08-24 14:49 | XMS REPORT | Summary of Care ---
:1955 Author Organization [facility] Address [address] [place] [address] Care Team Providers Name Role Phone Alvin Clark MD Primary Care Provider Reason for Visit Reason Comments Notification Closing encounter Encounter Details Date Type Department Care Team Description 06/09/2020 Telephone [facility] Orthopaedic Toby Franks otification (Closing Surgery- Maxx Reis MD encounter) [address], [address] [place] [place] [address] [address] [place], [place] [phone] [id number] Allergies No Known Allergiesdocumented as of this encounter (statuses as of 06/29/2020) Medications Medication Sig Dispensed Refills Start Date End Date Status cloniDINE (CATAPRES-TTS Apply 1 Patch 0 Active 3) 0.3 mg/24 hr patch to skin weekly. [...] Take 1 tablet 30 tablet 0 05/16/2020 by mouth daily for 30 days. documented as of this encounter (statuses as of 06/29/2020) Active Problems No known active problemsdocumented as of this encounter (statuses as of 06/29/2020) Social History Tobacco Use Types Packs/Day Years [...] this encounter Miscellaneous Notes Telephone Encounter - Sepideh Mejia RN - 06/29/2020 6:18 PM [facility]STAccess Center[facility] Open Encounter Maintenance Chart Review: see encounter from 06/12/2020. Nurse Note: RN closing encounter in [facility] r/t clinical action items completed. Sepideh Mejia RN [facility] Access Center Triage Nurse elephone Encounter - Radha Doyle - 06/09/2020 9:10 AM CDTPatient is still waiting on a quote for his Right Hip Replacement? He also is thinking about having his surgery on 06/30/2020 but is waiting on quote to make that final decision. He also uses Dr. Clark as his action installer and I will send a cardiac clearance once decision on surgery date has been made. Thank you. 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 Device Shelf Model / Serial Identifier Expiration / Lot Date Lens LENS Left: Eye Jesu 10/26/2020 [id number] / Implanted: Qty: 1 on 01/28/2016 by Shad Tong MD at [facility] 7 [id number] / [id number] Acrysof Iq LENS Right: Jesu 08/28/2020 [id number] / Implanted: Qty: 1 on 02/11/2016 by Shad Tong MD at [facility] Eye 1 [id number] / [id number] documented as of this encounter Results Not on filedocumented in this encounter Insurance Payer Benefit Plan / Subscriber ID Effective Dates Phone Addre ss Type Group COMMERCIAL COMMERCIAL [id number] 2020-[place]/PPO/PO NON-CONTRACT NON-CONTRACT t S GENERIC GENERIC documented as of this encounter
[2020-08-24 16:17] LABS: Urine Bacteria >50 /HPF (NONE SEEN)
[2020-08-24 16:19] LABS: Urine Blood 1+ (NEG); Urine Glucose NEGATIVE (NEG); Urine Protein TRACE (NEG); Urine Specific Gravity 1.025 (1.005-1.030)
[2020-08-24] MEDS ORDERED: ONDANSETRON 4 MG/2 ML VIAL ONE (20:03)
[2020-08-24] MEDS ORDERED: FENTANYL CITR 100 MCG/2 ML ONE (20:03)
[2020-08-24] MEDS ORDERED: NA CHLORIDE 0.9% 500 ML ONE ×2 (20:03→21:40)
[2020-08-24] MEDS ORDERED: CEFTRIAXONE/SWI 1gm 1 GM/10 ML SYR ONE (20:04)
[2020-08-24 20:07] LABS: Absolute Lymphocytes (CBC) 1.3 K/uL (0.7-4.9); Basophils % 0.5 % (0-1.3); Hematocrit 42.3 % (39.6-49.0); Lymphocytes % 13.2 % (15.3-44.8); RBC Red Blood Cell Count 4.78 M/uL (4.33-5.43)
[2020-08-24 20:26] LABS: Albumin 3.3 g/dL (3.4-5.0); Bilirubin Direct 0.2 mg/dL (0-0.2); Bilirubin Total 0.8 mg/dL (0.2-1.0); Potassium 3.8 mmol/L (3.5-5.1); Protein, Total 7.5 g/dL (6.4-8.2)
--- NOTE | 2020-08-24 20:47 | RAD REPORT ---
EXAM DESCRIPTION: CT - Stone Protocol - 08/24/2020 8:11 pm CLINICAL HISTORY: left side abdomen pain COMPARISON: Abdomen Pelvis Wo Contrast dated 10/31/2017 TECHNIQUE: Axial 5 mm thick images were obtained without oral or IV contrast. The [id number] span s the entirety of the system including uppermost abdomen and lung bases. All CT scans are performed using dose optimization technique as appropriate and may include automated exposure control or mA/KV adjustment according to patient size. FINDINGS: No hydronephrosis is present and no obstructing ureteral calculi. No suspicious renal mass es. Isodense masses and pyelonephritis are not excluded on a stone protocol CT scan. A 2.7 centimeter left adrenal adenoma is present unchanged from comparison. Urinary bladder is mostly contracted. Enl arged prostate gland is present projecting into the bladder base. Numerous phleboliths are present al adonay the pelvic floor. Imaged portions of the liver, spleen and pancreas show no suspicious findings on non-contrast imaging . No gallbladder or biliary tree abnormality identified. Small hiatal hernia is present. No acute bowel finding. Moderate stool volume present in the colon. S urgical clips are present of the small bowel right colon anastomosis. No mass or bulky lymphadenopathy. Bilateral fat filled inguinal hernias are present. No free air, jacy e fluid or inflammatory stranding. No significant bony abnormality. IMPRESSION: No hydronephrosis or obstructing calculi. No acute finding identifiable. Isodense masses and pyelonephritis are not excluded on stone protocol technique. Patient has an enlarged prostate gland projecting into the bladder base. This is not substantially di fferent from 2018.
--- NOTE | 2020-08-24 21:08 | ER ---
Nurse's Notes [facility] Name: Allan Driver Age: 65 yrs Sex: Male : 1955 Arrival Date: 08/24/2020 Time: 14:48 Bed 15 Private MD: Diagnosis: Urinary tract infection, site not specified Presentation: 08/24 15:31 Chief complaint: Patient states: Difficulty urinating x 1 week. Reports L hip pain to L ca1 groin pain since last night. Reports burning with urination, urinary urgency and frequency. Denies fever. Coronavirus screen: Client denies travel out of the [place] in the last 14 days. At this time, the client does not indicate any symptoms associated with coronavirus-19. Ebola Screen: Patient negative for fever greater than or equal to 101.5 degrees Fahrenheit, and additional compatible Ebola Virus Disease symptoms Patient denies exposure to infectious person. Patient denies travel to an Ebola-affected area in the 21 days before illness onset. No symptoms or risks identified at this time. Initial Sepsis Screen: Does the patient meet any 2 criteria? No. Patient's initial sepsis screen is negative. Does the patient have a suspected source of infection? No. Patient's initial sepsis screen is negative. Risk Assessment: Do you want to hurt yourself or someone else? Patient reports no desire to harm self or others. Onset of symptoms was August 24, 2020. 15:31 Method Of Arrival: Wheelchair ca1 15:31 Acuity: NAYANA 3 ca1 Historical: - Allergies: 15:37 No Known Allergies; ca1 - PMHx: 15:37 adrenal mass; Hypertension; colon cancer; ca1 - PSHx: 15:37 colectomy; ca1 - Immunization history:: Adult Immunizations up to date, Flu vaccine is not up to date. - Social history:: Smoking status: Patient denies any tobacco usage or history of. Screenin:30 Abuse screen: Denies threats or abuse. Denies injuries from another. Nutritional zb screening: No deficits noted. Tuberculosis screening: No symptoms or risk factors identified. Fall Risk None identified. Assessment: 19:30 General: Appears in no apparent distress. uncomfortable, Behavior is calm, cooperative, zb appropriate for age, Denies fever, feeling ill, fatigue, chills. Pain: Complains of pain in left femoral area Pain radiates to groin Pain currently is 1 out of 10 on a pain scale. at worst was 10 out of 10 on a pain scale. Quality of pain is described as throbbing, Pain began 1 day ago. Is continuous, Alleviated by nothing. Aggravated by repositioning, Also complains of nausea. Neuro: Level of Consciousness is awake, alert, obeys commands, Oriented to person, place, time, situation. Cardiovascular: Heart tones S1 S2 present Capillary refill < 3 seconds in bilateral fingers Patient's skin is warm and dry. Respiratory: Airway is patent Respiratory effort is even, unlabored, Respiratory pattern is regular, symmetrical, Breath sounds are clear bilaterally. GI: Abdomen is round distended, Bowel sounds present X 4 quads. Abd is non tender X 4 quads Abd is rigid X 4 quads. Reports constipation. : : Reports burning with urination, since yesterday. EENT: No signs and/or symptoms were reported regarding the EENT system. Derm: Skin is intact, is healthy with good turgor, Skin is dry, Skin is normal, Skin temperature is warm. Musculoskeletal: Circulation, motion, and sensation intact. Capillary refill < 3 seconds, in bilateral fingers. Range of motion: intact in all extremities. 20:30 Reassessment: Patient appears in no apparent distress at this time. Patient and/or zb family updated on plan of care and expected duration. Pain level reassessed. Patient is alert, oriented x 3, equal unlabored respirations, skin warm/dry/pink. pt at bedside. 21:37 Reassessment: Patient appears in no apparent distress at this time. Patient and/or zb family updated on plan of care and expected duration. Pain level reassessed. Patient is alert, oriented x 3, equal unlabored respirations, skin warm/dry/pink. pt wheeled to restroom d/c pending completion of IV fluids pt states he feels a little better. still continues to grimance with movement. 22:16 Reassessment: Patient appears in no apparent distress at this time. Patient and/or zb family updated on plan of care and expected duration. Pain level reassessed. Patient is alert, oriented x 3, equal unlabored respirations, skin warm/dry/pink. pt still experiencing some discomfort. family at bedside expressing desire to leave. Vital Signs: 15:31 BP 114 / 72; Pulse 54; Resp 18 S; Temp 97.9(TE); Pulse Ox 100% on R/A; Weight 92.99 kg ca1 (M); Height 6 ft. 2 in. (187.96 cm); Pain 10/10; 21:30 BP 124 / 83; Pulse 62; Resp 18; Pulse Ox 100% on R/A; zb 22:17 BP 116 / 80; Pulse 68; Resp 18; Pulse Ox 99% on R/A; zb 15:31 Body Mass Index 26.32 (92.99 kg, 187.96 cm) ca1 ED Course: 14:48 Patient arrived in ED. ag5 15:35 Triage completed. ca1 15:37 Arm band placed on right wrist. ca1 19:15 Yandel Bear PA is PHCP. cp 19:16 Iraj Borden MD is Attending Physician. cp 19:30 Patient has correct armband on for positive identification. Call light in reach. Adult zb w/ patient. Pulse ox on. NIBP on. Door closed. Noise minimized. 19:30 Inserted saline lock: 20 gauge in right antecubital area, using aseptic technique. zb 19:37 Shelli Bates, RN is Primary Nurse. zb 20:11 CT Stone Protocol In Process Unspecified. EDMS 22:18 No provider procedures requiring assistance completed. IV discontinued, intact, zb bleeding controlled, No redness/swelling at site. Pressure dressing applied. Administered Medications: 20:00 Drug: fentaNYL (PF) 25 mcg Route: IVP; Site: right antecubital; zb 20:10 Follow up: Response: No adverse reaction; RASS: Alert and Calm (0) zb 20:00 Drug: NS 0.9% 500 ml Route: IV; Rate: bolus; Site: right antecubital; zb 21:30 Follow up: Response: No adverse reaction; IV Status: Completed infusion; IV Intake: zb 500ml 20:01 Drug: Rocephin 1 grams Route: IV; Rate: calculated rate; Site: right antecubital; zb 20:30 Follow up: Response: No adverse reaction; IV Status: Completed infusion; IV Intake: 10mlzb 20:01 Drug: Zofran (Ondansetron) 4 mg Route: IVP; Site: right antecubital; zb 20:30 Follow up: Response: No adverse reaction zb 21:00 Drug: fentaNYL (PF) 25 mcg Route: IVP; Site: right antecubital; zb 22:19 Follow up: Response: No adverse reaction; RASS: Alert and Calm (0) zb 21:33 Drug: Cipro 500 mg Route: PO; zb 22:19 Follow up: Response: No adverse reaction zb 21:36 Drug: NS 0.9% 500 ml Route: IV; Rate: bolus; Site: right antecubital; zb 22:21 Follow up: Response: No adverse reaction; IV Status: Completed infusion; IV Intake: zb 500ml Intake: 20:30 IV: 10ml; Total: 10ml. zb 21:30 IV: 500ml; Total: 510ml. zb 22:21 IV: 500ml; Total: 1010ml. zb Outcome: 21:07 Discharge ordered by MD. cp 22:18 Discharged to home via wheelchair. zb 22:18 Condition: stable 22:18 Discharge instructions given to patient, family, Instructed on discharge instructions, follow up and referral plans. medication usage, Demonstrated understanding of instructions, follow-up care, medications, Prescriptions given X 3. 22:36 Patient left the ED. dm5 Signatures: Dispatcher [employer] EDViviane Garcia RN RN [email or web address] Yandel Bear PA PA cp Acob, Cheryl RN Melisa Leiva Zipporah, RN RN zb
--- NOTE | 2020-08-24 21:08 | EDPHYS ---
Physician Documentation [facility] Name: Allan Driver Age: 65 yrs Sex: Male : 1955 Arrival Date: 08/24/2020 Time: 14:48 Bed 15 Private MD: ED Physician Iraj Borden HPI: 08/24 19:35 This 65 yrs old Male presents to ER via Wheelchair with complaints of cp Abdominal Pain, Groin Pain, Hip Pain. 19:35 The patient presents with abdominal pain in the left lower quadrant. cp 19:35 Onset: The symptoms/episode began/occurred last night. cp 19:35 The patient presents with urinary symptoms, dysuria, times 1 week. Associated signs and cp symptoms: Pertinent negatives: fever. Historical: - Allergies: 15:37 No Known Allergies; ca1 - PMHx: 15:37 adrenal mass; Hypertension; colon cancer; ca1 - PSHx: 15:37 colectomy; ca1 - Immunization history:: Adult Immunizations up to date, Flu vaccine is not up to date. - Social history:: Smoking status: Patient denies any tobacco usage or history of. ROS: 19:45 Constitutional: Negative for body aches, chills, fever, poor PO intake. cp 19:45 Eyes: Negative for injury, pain, redness, and discharge. cp 19:45 ENT: Negative for ear pain, sore throat, difficulty swallowing, difficulty handling secretions. 19:45 Respiratory: Negative for cough, shortness of breath, wheezing. 19:45 Abdomen/GI: Positive for abdominal pain, of the left lower quadrant, Negative for vomiting, diarrhea, constipation. 19:45 : Positive for urinary symptoms, urinary frequency, burning with urination, difficulty urinating, Negative for testicular pain 19:45 Neuro: Negative for altered mental status, headache, weakness. 19:45 All other systems are negative. Exam: 19:50 Constitutional: The patient appears in no acute distress, alert, awake, non-toxic, well cp developed, well nourished, uncomfortable. 19:50 Head/Face: Normocephalic, atraumatic. cp 19:50 Eyes: Periorbital structures: appear normal, Conjunctiva: normal, no exudate, no injection, Sclera: no appreciated abnormality, Lids and lashes: appear normal, bilaterally. 19:50 ENT: External ear(s): are unremarkable, Nose: is normal, Mouth: Lips: moist, Oral mucosa: moist, Posterior pharynx: Airway: no evidence of obstruction, patent. 19:50 Chest/axilla: Inspection: normal, Palpation: is normal, no crepitus, no tenderness. 19:50 Cardiovascular: Rate: bradycardic, Rhythm: regular. 19:50 Respiratory: the patient does not display signs of respiratory distress, Respirations: normal, no use of accessory muscles, no retractions, labored breathing, is not present, Breath sounds: are clear throughout, no decreased breath sounds, no stridor, no wheezing. 19:50 Abdomen/GI: Inspection: abdomen appears normal, Bowel sounds: active, all quadrants, Palpation: soft, in all quadrants, moderate abdominal tenderness, in the left lower quadrant, rebound tenderness, is not appreciated, involuntary guarding, is not appreciated. 19:50 Back: CVA tenderness, is absent. 19:50 Neuro: Orientation: to person, place \T\ time. Mentation: is normal, Motor: moves all fours, strength is normal. Vital Signs: 15:31 BP 114 / 72; Pulse 54; Resp 18 S; Temp 97.9(TE); Pulse Ox 100% on R/A; Weight 92.99 kg ca1 (M); Height 6 ft. 2 in. (187.96 cm); Pain 10/10; 21:30 BP 124 / 83; Pulse 62; Resp 18; Pulse Ox 100% on R/A; zb 22:17 BP 116 / 80; Pulse 68; Resp 18; Pulse Ox 99% on R/A; zb 15:31 Body Mass Index 26.32 (92.99 kg, 187.96 cm) ca1 MDM: 19:27 Patient medically screened. cp 21:06 Data reviewed: vital signs, nurses notes, lab test result(s), radiologic studies, CT cp scan, and as a result, I will discharge patient. 21:06 Differential diagnosis: UTI, urinary retention, prostatitis, urethritis, kidney stone cp diverticulitis, non-specific abd pain, Pyelonephritis. 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 Response to treatment: the patient's symptoms have mildly improved after treatment, and as a result, I will discharge patient. 08/24 15:55 Order name: Urine Culture [facility] 08/24 15:55 Order name: Urine Microscopic Only; Complete Time: 19:26 [facility] 08/24 20:10 Interpretation: Normal except: UWBC 10-20; URBC 5-10; UBACT >50. 08/24 15:56 Order name: Urine Dipstick--Ancillary (enter results); Complete Time: 19:26 [facility] 08/24 20:10 Interpretation: Normal except: UBLD 1+; U NIT POSITIVE; UESTR 1+. 08/24 19:33 Order name: Basic Metabolic Panel; Complete Time: 20:28 08/24 20:28 Interpretation: Normal except: BUN 30; CRE 1.70; GFR 41. 08/24 19:33 Order name: CBC with Diff; Complete Time: 20:09 08/24 20:09 Interpretation: Normal except: JAMIA% 78.2; LYM% 13.2. 08/24 19:33 Order name: Hepatic Function; Complete Time: 20:28 08/24 19:33 Order name: Lipase; Complete Time: 20:28 08/24 19:33 Order name: CT Stone Protocol; Complete Time: 20:48 08/24 15:49 Order name: Urine Dipstick-Ancillary (obtain specimen); Complete Time: 15:49 [facility] 08/24 19:33 Order name: IV Saline Lock; Complete Time: 19:48 08/24 19:33 Order name: Labs collected and sent; Complete Time: 19:48 08/24 20:49 Order name: PO challenge; Complete Time: 21:43 cp Administered Medications: 20:00 Drug: fentaNYL (PF) 25 mcg Route: IVP; Site: right antecubital; zb 20:10 Follow up: Response: No adverse reaction; RASS: Alert and Calm (0) zb 20:00 Drug: NS 0.9% 500 ml Route: IV; Rate: bolus; Site: right antecubital; zb 21:30 Follow up: Response: No adverse reaction; IV Status: Completed infusion; IV Intake: zb 500ml 20:01 Drug: Rocephin 1 grams Route: IV; Rate: calculated rate; Site: right antecubital; zb 20:30 Follow up: Response: No adverse reaction; IV Status: Completed infusion; IV Intake: 10mlzb 20:01 Drug: Zofran (Ondansetron) 4 mg Route: IVP; Site: right antecubital; zb 20:30 Follow up: Response: No adverse reaction zb 21:00 Drug: fentaNYL (PF) 25 mcg Route: IVP; Site: right antecubital; zb 22:19 Follow up: Response: No adverse reaction; RASS: Alert and Calm (0) zb 21:33 Drug: Cipro 500 mg Route: PO; zb 22:19 Follow up: Response: No adverse reaction zb 21:36 Drug: NS 0.9% 500 ml Route: IV; Rate: bolus; Site: right antecubital; zb 22:21 Follow up: Response: No adverse reaction; IV Status: Completed infusion; IV Intake: zb 500ml Disposition: 08/24/20 21:07 Discharged to Home. Impression: Urinary tract infection, site not specified. - Condition is Fair. - Discharge Instructions: Urinary Tract Infection, Adult. - Prescriptions for Zofran 4 mg Oral Tablet - take 1 tablet by ORAL route every 12 hours As needed; 20 tablet. Cipro 500 mg Oral Tablet - take 1 tablet by ORAL route every 12 hours for 10 days; 20 tablet. Tramadol 50 mg Oral Tablet - take 1 tablet by ORAL route every 8 hours as needed; 12 tablet. - Work release form, Medication Reconciliation Form, Thank You Letter, Antibiotic Education, Prescription Opioid Use form. - Follow up: Private Physician; When: 2 - 3 days; Reason: Recheck today's complaints. - Problem is new. - Symptoms have improved. Addendum: 08/31/2020 07:37 Co-signature as Attending Physician, Iraj Borden MD I agree with the assessment and t w4 plan of care. Signatures: Dispatcher [employer] EDViviane Garcia RN RN dm5 Yandel Bear PA PA cp Wadley, Terrence, MD MD tw4 Lesly Tracy RN RN ca1 Brown, Shelli, RN RN zb Corrections: (The following items were deleted from the chart) 08/24 22:36 21:07 08/24/2020 21:07 Discharged to Home. Impression: Urinary tract infection, site dm5 not specified. Condition is Fair. Forms are Medication Reconciliation Form, Thank You Letter, Antibiotic Education, Prescription Opioid Use. Follow up: Private Physician; When: 2 - 3 days; Reason: Recheck today's complaints. Problem is new. Symptoms have improved. cp
[2020-08-24] MEDS ORDERED: CIPROFLOXACIN HCL 500 MG TAB ONE (21:40)
[2020-08-24 22:57] VITALS: TEMP 97.9
[2020-08-24 23:00] VITALS: BP 116/80; O2SAT 99
[2020-08-25] MEDS ORDERED: LIDOCAINE VISCOUS 2% SOLN 15 ML UDC ONE (23:37)
[2020-08-28] MEDS ORDERED: ONDANSETRON 4 MG/2 ML VIAL ONE (15:14)
[2020-08-28] MEDS ORDERED: MORPHINE 4 MG/ML SYR ONE ×2 (15:14→18:06)
[2020-08-28] MEDS ORDERED: NA CHLORIDE 0.9% 100 ML ONE (17:31)
[2020-08-28] MEDS ORDERED: CEFTRIAXONE/SWI 1gm 1 GM/10 ML SYR ONE (17:31)
[2020-08-28] MEDS ORDERED: NA CHLORIDE 0.9% 1,000 ML ONE (18:07)
== END 2020-08-24 22:36 | disposition home or self-care (01) ==
LOC: ER 14:45
DX: N39.0 Urinary tract infection, site not specified (principal); I10 Essential (primary) hypertension; Z85.038 Personal history of other malignant neoplasm of large intestine
CPT/HCPCS: 96365; 96361; 87088; 85025; 87086; 80048; 36415; 80076; 87077; 87186; 83690; 76377; 74176; 96375; 99284; J3010; J0696; J7040 ×2; J2405; 81003; 81015

== ENCOUNTER 2020-08-28 14:21 | Observation (INO) | payer OTHER ==
--- OUTSIDE RECORDS SUMMARY | 2020-08-28 14:24 | XMS REPORT | Continuity of Care Document ---
:1955 Author Organization [facility] Care Team Providers Name Role Phone [facility] Unavailable Un available Problems Problem Status Onset [...] # 90 tab, 1 Refill(s) , Pharmacy: [id number], 187.96, cm, 02/01/20 11:28:00 CDT, Height, 90, kg, 02/01/20 11:28:00 CDT, Weight gabapentin 300 MG 300 mg = Active Misch er Oral Capsule 1 cap, 020 Neuro PO, BID, # 60 cap, 2 Refill(s) , Pharmacy: [facility] #[id number] baclofen 10 mg oral 10 mg = 1 Active Mi naveen tablet tab, PO, 020 Neuro BID, # 60 tab, 4 Refill(s) , Pharmacy: [facility][id number] magnesium oxide 250 250 mg [...] Comments Source Systolic (mm Hg) 159 02/01/2020 [facility] Jade ro Diastolic (mm Hg) 90 02/01/2020 [facility] Ne uro Heart Rate 71 02/01/2020 [facility] Neuro Respitory Rate 16 02/01/2020 [facility] Neuro Height 187.96 cm 02/01/2020 [facility] Neuro Weight 90 02/01/2020 [facility] Neuro BMI Calculated 25.47 02/01/2020 [facility] Neuro Temperature Oral (F) 99.7 F 02/01/2020 [facility] Neuro Systolic (mm Hg) 173 01/09/2020 [facility] Jade ro Diastolic (mm Hg) 102 01/09/2020 [facility] Ne uro Heart Rate 68 01/09/2020 [facility] Neuro Respitory Rate 16 01/09/2020 [facility] Neuro Height 182.88 cm 01/09/2020 [facility] Neuro Weight 91.364 01/09/2020 [facility] Neuro BMI Calculated 27.32 01/09/2020 [facility] Neuro Encounters Location Location Encounter Encounter Reason Attending ADM NH Stat us Source Details Type Number For Provider Date Date Visit Outpatient [id number] [place] 01/08 [facility]2019 [place] MNA Outpatient [id number] [place] 01/08 01/09 [facility] Neurology [facility] /2019 [place] Outpatient [id number] [place] 01[place]31 Active [facility]2019 [place] MNA Outpatient [id number] [place] 01/31 02/01 [facility] Neurology [facility] /2019 [place] Outpatient [id number] [place] 03/04 Active [facility] K[place] Greg Outpatient [id number] [place] 03/04 Active [facility] Krell Greg MNA Ambulatory [id number] [place] 03/04 03/04 [facility] [place] /2019 [place] MNA Ambulatory [id number] [place] 03/04 03/04 [facility] [place] /2019 [place] MNA Outside [id number] 04/15 04/17 [facility] /2019 [place] Records Procedures No Data Provided for This [...]
--- OUTSIDE RECORDS SUMMARY | 2020-08-28 14:24 | XMS REPORT | Continuity of Care Document ---
:1955 Author Organization [facility] t Address [address] [place] [address] Care Team Providers Name Role Phone Tiny [...] Me moria tumor of 00:36:43 l colon [place] (disorder) Malignant tumor of colon (disorder) Active [...] Quantity Comments Source Social History 2020-01-09 2020-01-09 [facility] artis 23:35:06 23:35:06 Medications Ordered Filled Start Stop Current Ordering Indication Dosage Frequency Signature Comments Components Source Medication Medication Date Date Medication? Clinician (SIG) Name Name tramadol Yes 50 mg = 1 Isaias jose m hydrochlori 6-18 tab, PO, l de 50 MG 00:35: Q8H, X 30 Herm amparo Oral Tablet 00 day, # 90 tab, 1 Refill(s), Pharmacy: [id number], 187.96, cm, 02/01/20 11:28:00 CDT, Height, 90, kg, 02/01/20 11:28:00 CDT, Weight gabapentin 2019- Yes 300 mg = 1 M emoria 300 MG Oral 6-05 cap, PO, l Capsule 17:15: BID, # 60 Mary nn 00 cap, 2 Refill(s), Pharmacy: [id number] baclofen 10 2019-0 Yes 10 mg = 1 M emoria mg oral 5-13 tab, PO, l tablet 16:59: BID, # 60 Delfin n 00 tab, 4 Refill(s), Pharmacy: [id number] magnesium 2019-0 Yes 250 mg = [...] Systolic (mm Hg) 2020-02-01 16:28:00 Isaias rial [place] Diastolic (mm Hg) 2020-02-01 16:28:00 Mem orial [place] Heart Rate 2020-02-01 16:28:00 [facility] Respitory Rate 2020-02-01 16:28:00 Memori al [place] Height 2020-02-01 16:28:00 187.96 cm [facility] [place] Weight 2020-02-01 16:28:00 [facility] [place] BMI Calculated 2020-02-01 16:28:00 Memori al [place] Temperature Oral (F) 2020-02-01 16:28:00 99.7 F [facility] Systolic (mm Hg) 2020-01-09 16:23:00 Isaias rial [place] Diastolic (mm Hg) 2020-01-09 16:23:00 Mem orial [place] Heart Rate 2020-01-09 16:23:00 [facility] [place] Respitory Rate 2020-01-09 16:23:00 Memori al [place] Height 2020-01-09 16:23:00 182.88 cm [facility] [place] Weight 2020-01-09 16:23:00 [facility] [place] BMI Calculated 2020-01-09 16:23:00 Memori al [place] Procedures This patient has no known procedures. Encounters Start End Encounter Admission Attending Care Care Encounter Source Date/Time Date/Time Type Type Clinicians Facility Department ID 2020-06-12 2020-06-12 [id number] 00:00:00 00:00:00 Toby Soteira [id number] Surgical [id number] Specialti [id number] [address] [place] 2020-06-09 2020-06-09 Telephone Tiny [facility] [id number] 00:00:00 00:00:00 Toby Reis Sample6 [id number] Surgical [id number] Specialti [id number] [address] [place] 2020-05-22 2020-05-22 Office Gabriela DEARMOND [id number] 08:41:49 09:33:00 Visit [facility] [id number] Surgical .[id number] Special [id number] [address] [place] 2020-04-15 2020-04-16 Outpatient MHMISCHER MHMISCHER [id number] 09:13:53 23:59:59 00 2020-03-04 2020-03-04 Outpatient Gwendolyn GABBYSCHER MISCHER [id number] 15:45:00 15:45:00 [place] 02 [place] 2020-03-04 2020-03-04 Outpatient Gwendolyn MISCHER MHMISCHER [id number] 15:45:00 15:45:00 [place] 03 [place] 2020-02-01 2020-02-01 Outpatient MICHEL SnowMISCHER MHMISCHER [id number] 11:15:00 23:59:59 [place] Benjamin 2020-01-09 2020-01-09 Outpatient Gwendolyn MISCHER MISCHER [id number] 11:30:00 23:59:59 [place] 00 Benjamin Results This patient has no known results.
[2020-08-28 15:14] LABS: Absolute Lymphocytes (CBC) 0.9 K/uL (0.7-4.9); Basophils % 0.5 % (0-1.3); Hematocrit 45.2 % (39.6-49.0); Lymphocytes % 13.1 % (15.3-44.8); MPV 7.8 fL (7.6-11.3); RBC Red Blood Cell Count 5.18 M/uL (4.33-5.43)
--- NOTE | 2020-08-28 15:14 | RAD REPORT ---
EXAM DESCRIPTION: CT - Stone Protocol - 08/28/2020 3:02 pm CLINICAL HISTORY: ABD PAIN COMPARISON: Stone Protocol dated 08/24/2020 TECHNIQUE: Axial 3 mm thick images were obtained without oral or IV contrast. The [id number] span s the entirety of the system including uppermost abdomen and lung bases. All CT scans are performed using dose optimization technique as appropriate and may include automated exposure control or mA/KV adjustment according to patient size. FINDINGS: Trace amount of pleural thickening or pleural effusions seen at the left base. Cardiac kim houette is enlarged without pericardial effusion. No hydronephrosis is present and no obstructing ureteral calculi. No suspicious renal masses. Isodens e masses and pyelonephritis are not excluded on a stone protocol CT scan. A 2.5 centimeter left adren al mass is present showing 6 Hounsfield units attenuation consistent with adenoma. Urinary bladder is fully contracted precluding assessment of bladder lumen or bladder florentino. No bladder calculi seen. Prominent prostate gland seen. Imaged portions of the liver, spleen and pancreas show no suspicious findings on non-contrast imaging . No gallbladder or biliary tree abnormality identified. No gastric dilatation or wall thickening. No small bowel dilatation. Moderate stool volume seen throu ghout the colon. Anastomosis near the tip of the cecum and ileocecal valve noted and stable. Rectum a nastomosis without suspicious finding. No mass or bulky lymphadenopathy. Large bilateral fat filled inguinal hernias present. No free air, f ree fluid or inflammatory stranding. Disc and bone degenerative changes are present. No acute bone finding. IMPRESSION: No hydronephrosis, obstructing calculus or acute renal/ureteral finding. Isodense masses and pyelonephritis are not excluded on stone protocol technique. Urinary bladder is fully contracted precluding accurate assessment of the bladder florentino or bladder roman men.
[2020-08-28 15:24] LABS: Potassium 3.9 mmol/L (3.5-5.1)
[2020-08-28 15:56] LABS: Urine Amorphous Sediment 1+ /HPF (NONE SEEN); Urine Bacteria 20-50 /HPF (NONE SEEN); Urine Mucus 1+ /HPF (NONE SEEN); Urine RBC <5 /HPF (NONE SEEN)
[2020-08-28 16:12] LABS: Urine Blood TRACE (NEG); Urine Glucose NEGATIVE (NEG); Urine Protein 2+ (NEG); Urine Specific Gravity >1.030 (1.005-1.030)
--- NOTE | 2020-08-28 17:08 | RAD REPORT ---
EXAM DESCRIPTION: US - Scrotum Testicles - 08/28/2020 4:40 pm CLINICAL HISTORY: testicular pain and swelling Preliminary findings provided at the time of the study. COMPARISON: Pelvis dated 02/04/2020 FINDINGS: Bilateral homogeneous testicular tissue with no mass lesion. Doppler evaluation shows a no rmal, symmetric blood flow pattern. A 2 millimeter right epididymal cyst is present. No bilateral epi didymal enlargement or hyperemia. Small to moderate left hydrocele is present. No varicocele seen. No scrotal wall thickening or edema. IMPRESSION: Small to moderate left hydrocele. Exam otherwise unremarkable.
--- NOTE | 2020-08-28 18:46 | ER ---
Nurse's Notes [facility] Name: Allan Driver Age: 65 yrs Sex: Male : 1955 Arrival Date: 08/28/2020 Time: 14:23 Bed 18 Private MD: Rodrigo Turcios R Diagnosis: Urinary tract infection, site not specified;Acute kidney failure;Left testicular pain;Hydrocele, unspecified Presentation: 08/28 14:27 Chief complaint: Patient states: Was here Tuesday and was diagnosed with UTI. No kidney ca1 stone. Prescribed abx and tramadol. Pain persisted and still the same. Reports LLQ, L inguinal area pain, L testicular pain and swelling. Denies fever. Coronavirus screen: Client denies travel out of the [place] in the last 14 days. At this time, the client does not indicate any symptoms associated with coronavirus-19. Ebola Screen: Patient negative for fever greater than or equal to 101.5 degrees Fahrenheit, and additional compatible Ebola Virus Disease symptoms Patient denies exposure to infectious person. Patient denies travel to an Ebola-affected area in the 21 days before illness onset. No symptoms or risks identified at this time. Initial Sepsis Screen: Does the patient meet any 2 criteria? No. Patient's initial sepsis screen is negative. Does the patient have a suspected source of infection? No. Patient's initial sepsis screen is negative. Risk Assessment: Do you want to hurt yourself or someone else? Patient reports no desire to harm self or others. Onset of symptoms was August 28, 2020. 14:27 Method Of Arrival: Ambulatory ca1 14:27 Acuity: NAYANA 3 ca1 Triage Assessment: 14:31 General: Appears distressed, uncomfortable, Behavior is cooperative, appropriate for bp age, anxious. Pain: Complains of pain in left lower quadrant. EENT: No deficits noted. Neuro: No deficits noted. Cardiovascular: No deficits noted. Respiratory: No deficits noted. GI: Reports lower abdominal pain. : No signs and/or symptoms were reported regarding the genitourinary system. Derm: No deficits noted. Musculoskeletal: No deficits noted. Historical: - Allergies: 14:30 No Known Allergies; ca1 - PMHx: 14:30 adrenal mass; colon cancer; Hypertension; ca1 - PSHx: 14:30 colectomy; ca1 - Immunization history:: Adult Immunizations up to date, Flu vaccine is not up to date. - Social history:: Smoking status: Patient denies any tobacco usage or history of. Screenin:30 Abuse screen: Denies threats or abuse. Denies injuries from another. Nutritional bp screening: No deficits noted. Tuberculosis screening: No symptoms or risk factors identified. Fall Risk None identified. Assessment: 14:30 General: SEE TRIAGE NOTE. bp 16:30 Reassessment: No changes from previously documented assessment. Patient and/or family bp updated on plan of care and expected duration. Pain level reassessed. Patient is alert, oriented x 3, equal unlabored respirations, skin warm/dry/pink. U/S COMPLETED. 18:02 Reassessment: Patient appears in no apparent distress at this time. No changes from bp previously documented assessment. Patient and/or family updated on plan of care and expected duration. Pain level reassessed. Patient is alert, oriented x 3, equal unlabored respirations, skin warm/dry/pink. IVF INFUSING. 18:27 Reassessment: No changes from previously documented assessment. Patient and/or family bp updated on plan of care and expected duration. Pain level reassessed. Patient is alert, oriented x 3, equal unlabored respirations, skin warm/dry/pink. REPEAT U/S COMPLETE. 19:24 Reassessment: admiting dr to bedside discussing plans to admit. ll2 19:25 Reassessment: Patient and/or family updated on plan of care and expected duration. Pain ll2 level reassessed. Patient is alert, oriented x 3, equal unlabored respirations, skin warm/dry/pink. 20:01 Reassessment: report given to MERRY Stuart. ll2 Vital Signs: 14:27 BP 112 / 80; Pulse 58; Resp 15 S; Temp 97.1(TE); Pulse Ox 99% on R/A; Weight 92.99 kg ca1 (R); Height 6 ft. 2 in. (187.96 cm) (R); Pain 7/10; 15:30 BP 101 / 66; Pulse 60; Resp 16; Pulse Ox 98% ; bp 16:30 BP 117 / 76; Pulse 55; Resp 16; Pulse Ox 96% ; bp 17:30 BP 121 / 86; Pulse 56; Resp 19; Pulse Ox 96% ; bp 18:29 BP 118 / 74; Pulse 63; Resp 16; Pulse Ox 95% ; bp 14:27 Body Mass Index 26.32 (92.99 kg, 187.96 cm) ca1 ED Course: 14:23 Patient arrived in ED. ag5 14:23 Rodrigo Turcios MD is Private Physician. ag5 14:29 Triage completed. ca1 14:30 Antonio Nugent, RN is Primary Nurse. bp 14:30 Arm band placed on right wrist. ca1 14:30 Patient has correct armband on for positive identification. Placed in gown. Bed in low bp position. Call light in reach. Side rails up X2. Adult w/ patient. 14:32 Corazon Og FNP-C is PHCP. kb 14:32 Yandel Rhoades MD is Attending Physician. kb 15:01 Inserted saline lock: 20 gauge in right antecubital area, using aseptic technique. dh4 Blood collected. 15:02 CT Stone Protocol In Process Unspecified. EDMS 16:40 US Scrotum Testicles In Process Unspecified. EDMS 18:34 US Rp Exam Complete In Process Unspecified. EDMS 18:45 Preet Chu MD is Hospitalizing Provider. kb 19:25 Pulse ox on. NIBP on. ll2 19:25 COVID swab sent to lab. ll2 20:01 Report given to report given to MERRY stuart. ll2 20:08 No provider procedures requiring assistance completed. Patient admitted, IV remains in ll2 place. Administered Medications: 15:10 Drug: morphine 4 mg Route: IVP; Site: right antecubital; bp 17:13 Follow up: Response: No adverse reaction bp 15:10 Drug: Zofran (Ondansetron) 4 mg Route: IVP; Site: right antecubital; bp 17:12 Follow up: Response: No adverse reaction bp 17:15 Drug: Rocephin 1 grams Route: IV; Rate: calculated rate; Site: right antecubital; bp 17:58 Drug: morphine 4 mg Route: IVP; Site: right antecubital; bp 17:58 Drug: NS 0.9% 1000 ml Route: IV; Rate: 1000 ml; Site: right antecubital; bp 19:23 Follow up: Response: No adverse reaction; IV Status: Completed infusion; IV Intake: ll2 1000ml Intake: 19:23 IV: 1000ml; Total: 1000ml. ll2 Outcome: 18:46 Decision to Hospitalize by Provider. kb 20:08 Admitted to Med/surg accompanied by tech, via wheelchair, Report called to MERRY stuart ll2 20:08 Condition: stable 20:08 Instructed on the need for admit. 20:08 Patient left the ED. ll2 Signatures: Dispatcher [employer] EDCorazon Barone, TRAY LINE WORKER-C TRAY LINE WORKER-Antonio Coelho, RN RN Lesly Tracy RN RN [facility] Melisa Kelly [facility] Domingo Barajas [facility] Marycarmen Benson RN RN ll2
--- NOTE | 2020-08-28 18:46 | EDPHYS ---
Physician Documentation [facility] Name: Allan Driver Age: 65 yrs Sex: Male : 1955 Arrival Date: 08/28/2020 Time: 14:23 Bed 18 Private MD: Rodrigo Turcios R ED Physician Yandel Rhoades HPI: 08/28 15:03 This 65 yrs old Male presents to ER via Ambulatory with complaints of UTI. kb 15:03 The patient presents with scrotal pain, of the left side, with swelling, with erythema. kb Onset: The symptoms/episode began/occurred 5 day(s) ago. Modifying factors: The symptoms are alleviated by nothing, the symptoms are aggravated by movement, pressure. Associated signs and symptoms: Pertinent positives: abdominal pain, Pertinent negatives: constipation, diarrhea, dysuria, fever, hematuria, nausea, vomiting. Severity of symptoms: At their worst the symptoms were moderate, in the emergency department the symptoms are unchanged. The patient has not experienced similar symptoms in the past. The patient has been recently seen at the [facility] Emergency Department, this week. Pt states he was seen here on Tuesday and diagnosed with a UTI. States he has had left groin and abd pain since last week. Tuesday the pain got worse and moved into the left testicle. Came on Tuesday because he couldn't stand the pain any longer. States he was sent home with pain medication and antibiotics, but they haven't helped. Now c/o more severe left testicle and left groin pain with testicular swelling. Tried to follow up with DR Wallace and Tam, but neither are seeing patients.. Historical: - Allergies: 14:30 No Known Allergies; ca1 - PMHx: 14:30 adrenal mass; colon cancer; Hypertension; ca1 - PSHx: 14:30 colectomy; ca1 - Immunization history:: Adult Immunizations up to date, Flu vaccine is not up to date. - Social history:: Smoking status: Patient denies any tobacco usage or history of. ROS: 18:40 Constitutional: Negative for fever, chills, and weight loss, Cardiovascular: Negative kb for chest pain, palpitations, and edema, Respiratory: Negative for shortness of breath, cough, wheezing, and pleuritic chest pain, Back: Negative for injury and pain, MS/Extremity: Negative for injury and deformity, Skin: Negative for injury, rash, and discoloration, Neuro: Negative for headache, weakness, numbness, tingling, and seizure. 18:40 Abdomen/GI: Positive for abdominal pain, Negative for nausea, vomiting, and diarrhea. 18:40 : Positive for testicular pain of the left testicle. Exam: 18:40 Constitutional: This is a well developed, well nourished patient who is awake, alert, kb and in no acute distress. Head/Face: Normocephalic, atraumatic. Chest/axilla: Normal chest wall appearance and motion. Nontender with no deformity. No lesions are appreciated. Cardiovascular: Regular rate and rhythm with a normal S1 and S2. No gallops, murmurs, or rubs. Normal PMI, no JVD. No pulse deficits. Respiratory: Lungs have equal breath sounds bilaterally, clear to auscultation and percussion. No rales, rhonchi or wheezes noted. No increased work of breathing, no retractions or nasal flaring. Skin: Warm, dry with normal turgor. Normal color with no rashes, no lesions, and no evidence of cellulitis. MS/ Extremity: Pulses equal, no cyanosis. Neurovascular intact. Full, normal range of motion. Neuro: Awake and alert, GCS 15, oriented to person, place, time, and situation. Cranial nerves II-XII grossly intact. Motor strength 5/5 in all extremities. Sensory grossly intact. Cerebellar exam normal. Normal gait. 18:40 Abdomen/GI: Inspection: abdomen appears normal, Bowel sounds: normal, in all quadrants, Palpation: soft, in all quadrants, mild abdominal tenderness, in the left lower quadrant. 18:40 : Male external genitalia: swelling, of the left testicle is noted, scrotal, that is mild, tenderness, of the left testicle is noted, that is moderate. Vital Signs: 14:27 BP 112 / 80; Pulse 58; Resp 15 S; Temp 97.1(TE); Pulse Ox 99% on R/A; Weight 92.99 kg ca1 (R); Height 6 ft. 2 in. (187.96 cm) (R); Pain 7/10; 15:30 BP 101 / 66; Pulse 60; Resp 16; Pulse Ox 98% ; bp 16:30 BP 117 / 76; Pulse 55; Resp 16; Pulse Ox 96% ; bp 17:30 BP 121 / 86; Pulse 56; Resp 19; Pulse Ox 96% ; bp 18:29 BP 118 / 74; Pulse 63; Resp 16; Pulse Ox 95% ; bp 14:27 Body Mass Index 26.32 (92.99 kg, 187.96 cm) ca1 MDM: 14:32 Patient medically screened. kb 18:38 Data reviewed: vital signs, nurses notes. Data interpreted: Pulse oximetry: on room air kb is 95 %. Interpretation: normal. Counseling: I had a detailed discussion with the patient and/or guardian regarding: the historical points, exam findings, and any diagnostic results supporting the discharge/admit diagnosis, lab results, radiology results, the need for further work-up and treatment in the hospital. Physician consultation: Preet hCu MD was contacted at 18:39, regarding admission, to the medical/surgical unit. patient's condition, and will see patient in ED, shortly. 08/28 14:34 Order name: Basic Metabolic Panel; Complete Time: 15:30 kb 08/28 14:34 Order name: CBC with Diff; Complete Time: 15:30 kb 08/28 14:34 Order name: Urine Microscopic Only; Complete Time: 15:57 kb 08/28 15:03 Order name: Urine Dipstick--Ancillary (enter results); Complete Time: 16:15 em1 08/28 15:57 Order name: Urine Culture EDUT 08/28 14:34 Order name: CT Stone Protocol; Complete Time: 15:16 kb 08/28 14:43 Order name: US Scrotum Testicles; Complete Time: 17:09 kb 08/28 17:23 Order name: US Rp Exam Complete; Complete Time: 19:26 kb 08/28 14:34 Order name: IV Saline Lock; Complete Time: 15:00 kb 08/28 14:34 Order name: Labs collected and sent; Complete Time: 15:00 kb 08/28 14:34 Order name: Urine Dipstick-Ancillary (obtain specimen); Complete Time: 15:00 kb 08/28 19:23 Order name: Diet Heart Healthy; Complete Time: 19:24 ll2 Administered Medications: 15:10 Drug: morphine 4 mg Route: IVP; Site: right antecubital; bp 17:13 Follow up: Response: No adverse reaction bp 15:10 Drug: Zofran (Ondansetron) 4 mg Route: IVP; Site: right antecubital; bp 17:12 Follow up: Response: No adverse reaction bp 17:15 Drug: Rocephin 1 grams Route: IV; Rate: calculated rate; Site: right antecubital; bp 17:58 Drug: morphine 4 mg Route: IVP; Site: right antecubital; bp 17:58 Drug: NS 0.9% 1000 ml Route: IV; Rate: 1000 ml; Site: right antecubital; bp 19:23 Follow up: Response: No adverse reaction; IV Status: Completed infusion; IV Intake: ll2 1000ml Disposition: 08/29 06:59 Co-signature as Attending Physician, Yandel Rhoades MD I agree with the assessment and killian plan of care. Disposition: 08/28/20 18:46 Hospitalization ordered by Preet Chu for Observation. Preliminary diagnosis are Urinary tract infection, site not specified, Acute kidney failure, Left testicular pain, Hydrocele, unspecified. - Bed requested for Telemetry/MedSurg (observation). - Status is Observation. ll2 - Condition is Stable. - Problem is new. - Symptoms are unchanged. Signatures: Dispatcher [employer] EDUT Corazon Og, BLAINE-C OIL DISPENSER-Keshia Ashraf RN RN mw Anderson, Corey, MD MD cha Peltier, Brian, RN RN Lesly Howard, RN Marycarmen Rojas, RN RN ll2 Corrections: (The following items were deleted from the chart) 08/28 19:31 19:12 CORONAVIRUS+MR.LAB.BRZ ordered. [facility] EDUT 19:36 18:46 Hospitalization Ordered by Preet Chu MD for Observation. Preliminary diagnosis is Urinary tract infection, site not specified; Acute kidney failure; Left testicular pain; Hydrocele, unspecified. Bed requested for Telemetry/MedSurg (observation). Status is Observation. Condition is Stable. Problem is new. Symptoms are unchanged. kb 20:08 19:36 08/28/2020 18:46 Hospitalization Ordered by Preet Chu MD for Observation. ll2 Preliminary diagnosis is Urinary tract infection, site not specified; Acute kidney failure; Left testicular pain; Hydrocele, unspecified. Bed requested for Telemetry/MedSurg (observation). Status is Observation. Condition is Stable. Problem is new. Symptoms are unchanged. mw
--- NOTE | 2020-08-28 19:21 | RAD REPORT ---
EXAM DESCRIPTION: US - Renal Ultrasound-Complete - 08/28/2020 6:34 pm CLINICAL HISTORY: acute renal failure COMPARISON: Stone Protocol dated 08/28/2020 FINDINGS: The right kidney measures 11.1 x 4.8 x 4.7 cm. The left kidney measures 11.9 x 6.4 x 4.5 cm. Renal cortical thickness and echogenicity are normal. No hydronephrosis or suspicious renal mass. Urinary bladder is contracted. There is a 2.7 centimeter echogenic focus at the base of the bladder t hat could be mass or hematoma. Assessment is limited in the setting of a tightly contracted bladder. IMPRESSION: No hydronephrosis or suspicious renal mass. Approximately 2.7 centimeter bladder base mass could be a true soft tissue mass or hematoma. Assessme nt is limited due to the contracted bladder.
--- NOTE | 2020-08-28 19:40 | P.HP ---
Certification for Inpatient Patient admitted to: Observation With expected LOS: <2 Midnights Practitioner: I am a practitioner with admitting privileges, knowledge of patient current condition, hospital course, and medical plan of care. Services: Services provided to patient in accordance with Admission requirements found in Title 42 Section 412.3 of the Code of Federal Regulations Patient History Date of Service: 08/28/20 Primary Care Provider: none Reason for admission: JAMISON, LLQ/Groin pain History of Present Illness: 65yo M, PMH: HTN, BPH, colon cancer s/p resection (no chemo/radiation) who presents to ED due to continued LLQ abdominal and L scrotal pain. Symptoms started 2 weeks ago, with dark, foul-smelling urine, associated with a weak stream and dysuria. He presented to the ED on the 08/24, was diagnosed with a UTI, negative CT abdomen/pelvis time and discharged home with ciprofloxacin and tramadol. Patient states his UTI symptoms resolved (strong stream now, no dysuria, clear urine, no odor), however he continues with this LLQ abdominal & L scrotal pain. The pain is described as achy at baseline, 1- 3/10, but with movement or palpation goes up to 8/10 - mainly of his left scrotum. He feels the tramadol improved slightly, nothing else seems to make this worsen. This severe pain only lasts for a few seconds with movement/pal pation. He also endorses some slight constipation since starting the tramadol. He last had a bowel movement yesterday which was reportedly normal for him. He denies any history of kidney stones or "kidney problems". In the ED, a CBC was unremarkable, CMP notable for elevated creatinine 2.42) was 1.7 ~ 4 days ago), UA: 20-50 bacteria trace blood, which is improved from [address] abdomen/pelvis stone protocol: No hydronephrosis, and no obstructing calculus, or acute renal/ureteral finding. Stable left adrenal adenoma. Scrotal ultrasound: Normal symmetric blood flow, small to moderate left hydrocele present. Otherwise unremarkable Allergies No Known Allergies Allergy (Verified 07/13/18 08:45) Home Medications: Metoprolol Succinate [Toprol Xl] 200 mg PO DAILY 07/18/14 Tamsulosin [Flomax*] 0.4 mg PO DAILY 10/30/17 Amlodipine Besylate/Benazepril [Lotrel 10-20 mg Capsule] 07/13/18 Amlodipine Besylate/Benazepril [Lotrel 10-20 mg Capsule] 1 tab PO DAILY 07/13/18 Clonidine HCl [Catapres] 1 tab PO BID 07/13/18 hydroCHLOROthiazide [Hydrochlorothiazide] 1 tab PO DAILY 07/13/18 - Past Medical/Surgical History Diabetic: No -: HTN -: h/o colon cancer, s/p resection, no chemo/radiation -: BPH -: colon surgery -: polyps removed from throat - Family History Father -: Heart disease, Hypertension Mother -: Heart disease, Cancer - Social History Smoking Status: Never smoker Alcohol use: Yes CD- Drugs: No Place of Residence: Home Review of Systems 10-point ROS is otherwise unremarkable Physical Examination - Physical Exam General: Alert, In no apparent distress, Oriented x3 HEENT: Sclerae nonicteric Neck: Supple Respiratory: Clear to auscultation bilaterally Cardiovascular: No edema, Regular rate/rhythm Gastrointestinal: Soft and benign, Non-distended, Tenderness (mild LLQ) Integumentary: No rashes, No significant lesion Neurological: Normal speech, Normal affect External genitalia: Other (moderate TTP of L scrotum, no obvious mass/skin changes) - Studies Laboratory Data (last 24 hrs) 08/28/20 14:57: WBC 7.0 D, Hgb 15.3, Hct 45.2, Plt Count 358 D 08/28/20 14:57: Sodium 139, Potassium 3.9, BUN 22 H, Creatinine 2.42 H, Glucose 125 H Assessment and Plan - Advance Directives Does patient have a Living Will: No Does patient have a Durable POA for Healthcare: No Physician Review Additional Text: UTI, cystitis LLQ abdominal pain, L scrotal pain JAMISON on CKDIII HTN BPH h/o colon cancer s/p resection UTI, cystitis LLQ abdominal pain, L scrotal pain -pt does not appear septic -most of patient's UTI symptoms seemed resolved, however continues with this pain and some bacteria noted in UA in ED -continue coverage with Rocephin -pain control with Tramadol/Tylenol, and morphine for severe/breakthrough -unclear etiology of L scrotal pain, hydrocele noted on U/S, no other finding, good flow, no evidence of testicular torsion -will check urine G/C, on rocephin, and will give 1g Azithro PO now -urine culture from 08/24 growing E. coli common no sensitivities reported. JAMISON on CKDIII -unclear etiology of JAMISON - unlikely obstructive, since patient has had improvement in stream and CT negative, has had increased fluid intake as well, ?infectious -pt denies history of kidney disease, however review of EMR shows GFR: 30-40s over the past several years -will hydrate with IVF overnight, ur spec gravity was elevated -consider renal consult in AM if no improvement HTN BPH h/o colon cancer s/p resection -BP on low-normal side in ED, will hold ARB, otherwise confirm and continue home meds VTE: lovenox Code: full Dispo: anticipate dc home in 24-48hrs Time Spent Managing Pts Care (In Minutes): 60
[2020-08-28] MEDS ORDERED: ACETAMINOPHEN 500 MG TAB PO PRN (20:31)
[2020-08-28] MEDS ORDERED: ONDANSETRON 4 MG/2 ML VIAL IV PRN (20:31)
[2020-08-28] MEDS ORDERED: MORPHINE 2 MG/ML SYR IV PRN (20:31)
[2020-08-28] MEDS ORDERED: TRAMADOL HCL 50 MG TAB PO PRN (20:31)
[2020-08-28] MEDS ORDERED: AZITHROMYCIN 250 MG TAB PO SCH (21:00)
[2020-08-28] MEDS: NA CHLORIDE 0.9% 1,000 ML IV SCH (22:29)
[2020-08-28] MEDS: DOCUSATE NA 100 MG CAP PO SCH (23:40)
[2020-08-28 23:44] VITALS: BMI 26.3
[2020-08-29 06:57] LABS: Absolute Lymphocytes (CBC) 1.1 K/uL (0.7-4.9); Basophils % 0.4 % (0-1.3); Hematocrit 39.3 % (39.6-49.0); Lymphocytes % 16.7 % (15.3-44.8); MPV 7.7 fL (7.6-11.3); RBC Red Blood Cell Count 4.52 M/uL (4.33-5.43)
[2020-08-29 07:17] LABS: Albumin 2.8 g/dL (3.4-5.0); Bilirubin Total 0.3 mg/dL (0.2-1.0); Magnesium 2.4 mg/dL (1.8-2.4); Potassium 3.8 mmol/L (3.5-5.1); Protein, Total 6.4 g/dL (6.4-8.2)
[2020-08-29] MEDS: NA CHLORIDE 0.9% 1,000 ML IV SCH (07:24)
[2020-08-29] MEDS ORDERED: POTASSIUM CL SA 10 MEQ TAB PO ONE (09:00)
[2020-08-29] MEDS ORDERED: ENOXAPARIN 40 MG/0.4 ML SQ SCH (09:00)
[2020-08-29] MEDS ORDERED: CEFTRIAXONE/SWI 1gm 1 GM/10 ML SYR IV SCH (09:00)
[2020-08-29] MEDS ORDERED: CEFTRIAXONE 1 GM/NS 50 ML 1 GM/50 ML BAG IV SCH (09:00)
[2020-08-29] MEDS ORDERED: TAMSULOSIN 0.4 MG SR CAP PO SCH (09:00)
[2020-08-29] MEDS: DOCUSATE NA 100 MG CAP PO SCH (09:05)
[2020-08-29 10:10] VITALS: O2SAT 93
[2020-08-29 13:08] VITALS: BP 133/85; TEMP 98.4
--- NOTE | 2020-08-29 15:09 | P.DS ---
Admission Date: 08/28/20 Discharge Date: 08/29/20 Primary Care Provider: none Disposition: ROUTINE DISCHARGE Discharge Condition: FAIR Reason for Admission: JAMISON, LLQ/Groin pain - Problems (1) UTI (urinary tract infection) Status: Acute (2) Lesion of bladder Status: Acute (3) Hydrocele in adult Status: Acute (4) Epididymal cyst Status: Acute (5) BPH (benign prostatic hyperplasia) Status: Chronic Qualifiers: Lower urinary tract symptom presence: unspecified whether lower urinary tract symptoms present Qualified Code(s): N40.0 - Benign prostatic hyperplasia without lower urinary tract symptoms (6) Acute renal failure Status: Acute (7) Inguinal hernia Status: Acute Brief History of Present Illness: 65-year-old gentleman with a history of hypertension, BPH, colon cancer status post resection and chemotherapy presented to the emergency department with a complaint no left lower quadrant pain and left scrotal pain. Patient reported intermittent sharp pain in the left inguinal area radiating to involve the left scrotum. Patient was in the emergency department on August 24 for urinary symptoms. He was diagnosed with UTI. CT abdomen and pelvis was unremarkable. He was discharged with oral ciprofloxacin. Patient stated his urinary symptoms improved but later developed the left inguinal pain. Repeat CT abdomen and pelvis done in the ED was unremarkable. It did report significant bilateral fat containing inguinal hernia. Renal ultrasound done reported a 2.7 cm lesion in the base of the bladder. Scrotal ultrasound reported left hydrocele and right epididymis cyst. UA was positive for bacteria but no pyuria. Patient was hospitalized for further management. Hospital Course: Patient was placed under observation and given a shot of azithromycin 1 g to treat epididymitis and urethritis. His serum creatinine was elevated above baseline suggesting acute renal failure. Acute renal failure responded to IV hydration. Serum creatinine trended down. Patient's symptoms improved out on the floor. He was afebrile, no leukocytosis. Case discussed urology. Patient will benefit from outpatient urology follow up. He has been provided Dr. Latif's Office contact to call next week Tuesday09/01/2020 for an appointment. Patient is deemed clinically stable for discharge. He is discharged with Augmentin and Doxycycline to continue treatment for the UTI. Vital Signs/Physical Exam: Temp Pulse Resp BP Pulse Ox 98.4 F 69 18 133/85 97 08/29/20 12:00 08/29/20 12:00 08/29/20 12:00 08/29/20 12:00 08/29/20 12:00 General: Alert, In no apparent distress, Oriented x3 HEENT: Mucous membr. moist/pink Neck: JVD not distended Respiratory: Clear to auscultation bilaterally, Normal air movement Cardiovascular: No edema, Regular rate/rhythm, Normal S1 S2 Capillary refill: <2 Seconds Gastrointestinal: Normal bowel sounds, Soft and benign, No tenderness Musculoskeletal: No swelling Integumentary: No rashes Neurological: Normal strength at 5/5 x4 extr Laboratory Data at Discharge: WBC 6.8 K/uL (4.3-10.9) 08/29/20 05:56 Hgb 13.3 g/dL (13.6-17.9) L 08/29/20 05:56 Hct 39.3 % (39.6-49.0) L 08/29/20 05:56 Plt Count 280 K/uL (152-406) D 08/29/20 05:56 Sodium 143 mmol/L (136-145) 08/29/20 05:56 Potassium 3.8 mmol/L (3.5-5.1) 08/29/20 05:56 BUN 23 mg/dL (7-18) H 08/29/20 05:56 Creatinine 2.08 mg/dL (0.55-1.3) H 08/29/20 05:56 Glucose 85 mg/dL (74-106) 08/29/20 05:56 Magnesium 2.4 mg/dL (1.8-2.4) 08/29/20 05:56 Total Bilirubin 0.3 mg/dL (0.2-1.0) 08/29/20 05:56 AST 11 U/L (15-37) L 08/29/20 05:56 ALT 16 U/L (12-78) 08/29/20 05:56 Alkaline Phosphatase 62 U/L (45-117) 08/29/20 05:56 Home Medications: Metoprolol Succinate [Toprol Xl] 200 mg PO DAILY 07/18/14 Tamsulosin [Flomax*] 0.4 mg PO DAILY 10/30/17 Amlodipine Besylate/Benazepril [Lotrel 10-20 mg Capsule] 1 tab PO DAILY 07/13/18 Clonidine HCl [Catapres] 0.03 tab PO BID 07/13/18 hydroCHLOROthiazide [Hydrochlorothiazide] 25 tab PO DAILY 07/13/18 Aspirin [Aspirin EC 81 MG] 81 mg PO DAILY 08/28/20 Magnesium [Magnesium Gluconate] 200 mg PO DAILY 08/28/20 Amox/Clavulanate [Augmentin 875-125 Tab] 875 mg PO BID #14 tab 08/29/20 Doxycycline Hyclate [Vibramycin] 100 mg PO BID #14 capsule 08/29/20 New Medications: Amox/Clavulanate [Augmentin 875-125 Tab] 875 mg PO BID #14 tab Doxycycline Hyclate [Vibramycin] 100 mg PO BID #14 capsule Diet: AHA Activity: Ad raman Followup: Rodrigo Turcios MD [Primary Care Provider] - José Antonio White [COURTESY - CAN ADMIT] - (Please call Office at [phone] on Tuesday09/01/2020 for an appointment.)
== END 2020-08-29 15:40 | disposition home or self-care (01) ==
LOC: ER 14:21 → ERHOLD 19:34 → 2ND 20:03
PROVIDERS: ADMIT Hospitalist; ATTEND Internal Medicine
DX: N39.0 Urinary tract infection, site not specified (principal); N17.9 Acute kidney failure, unspecified; K40.90 Unilateral inguinal hernia, without obstruction or gangrene, not specified as recurrent; N40.0 Benign prostatic hyperplasia without lower urinary tract symptoms; N43.3 Hydrocele, unspecified; Z20.828 Contact with and (suspected) exposure to other viral communicable diseases; N50.3 Cyst of epididymis; N32.9 Bladder disorder, unspecified; Z85.038 Personal history of other malignant neoplasm of large intestine; Z92.21 Personal history of antineoplastic chemotherapy; I12.9 Hypertensive chronic kidney disease with stage 1 through stage 4 chronic kidney disease, or unspecified chronic kidney disease; N18.30 Chronic kidney disease, stage 3 unspecified
CPT/HCPCS: 96361; 87088; 85025 ×2; 87086; 80048; 36415; 83735; 80053; 76377; 74176; 76870; 76770; 94760 ×2; 96375; 96374; 99285; U0003; J1650; J0696; J7030 ×2; 81003; 81015

== ENCOUNTER 2020-09-01 13:32 | Emergency (ER) | payer OTHER ==
--- OUTSIDE RECORDS SUMMARY | 2020-09-01 13:35 | XMS REPORT | Continuity of Care Document ---
:1955 Author Organization [employer] Care Team Providers Name Role Phone [employer] Unavailable Un available Problems Problem Status Onset [...] # 90 tab, 1 Refill(s) , Pharmacy: [facility] #[id number], 187.96, cm, 02/01/20 11:28:00 CDT, Height, 90, kg, 02/01/20 11:28:00 CDT, Weight gabapentin 300 MG 300 mg = Active Misch er Oral Capsule 1 cap, 020 Neuro PO, BID, # 60 cap, 2 Refill(s) , Pharmacy: [facility][id number] baclofen 10 mg oral 10 mg = 1 Active Mi naveen tablet tab, PO, 020 Neuro BID, # 60 tab, 4 Refill(s) , Pharmacy: [facility][id number] magnesium oxide 250 250 mg [...] Comments Source Systolic (mm Hg) 159 02/01/2020 [facility] [place] ro Diastolic (mm Hg) 90 02/01/2020 [facility] [place] Ne uro Heart Rate 71 02/01/2020 [facility] [place] [facility] Respitory Rate 16 02/01/2020 [facility] [place] [facility] Height 187.96 cm 02/01/2020 [facility] [place] [facility] Weight 90 02/01/2020 [facility] BMI Calculated 25.47 02/01/2020 [facility] [place] [facility] Temperature Oral (F) 99.7 F 02/01/2020 [facility] [place] [facility] Systolic (mm Hg) 173 01/09/2020 [facility] [place] ro Diastolic (mm Hg) 102 01/09/2020 [facility] [place] Ne uro Heart Rate 68 01/09/2020 [facility] [place] [facility] Respitory Rate 16 01/09/2020 [facility] [place] [facility] Height 182.88 cm 01/09/2020 [facility] [place] [facility] Weight 91.364 01/09/2020 [facility] [place] [facility] BMI Calculated 27.32 01/09/2020 [facility] [place] [facility] Encounters Location Location Encounter Encounter Reason Attending ADM NC Stat us Source Details Type Number For Provider Date Date Visit Outpatient [id number] [place] 01[place]08 [place] [address] [place] [facility] Outpatient [id number] [place] 01/08 01/09 [facility] [place] [facility] /2019 [facility] [place] Outpatient [id number] [place] 01/31 Active [place] [address] [place] [facility] Outpatient [id number] [place] 01/31 02/01 [facility] [place] [facility] [place] Out[place] [id number] [place] 03/04 Active [facility] [place] Outpatient [id number] [place] 03/04 Active [facility] Ambulatory [id number] [place] 03/04 03/04 [facility] [place] [facility] Ambulatory [id number] [place] 03/04 03/04 [facility] [place] [facility] Outside [id number] 04/15 04/17 [facility] /2019 [facility] [place] Records Procedures No Data Provided for This [...]
--- OUTSIDE RECORDS SUMMARY | 2020-09-01 13:35 | XMS REPORT | Continuity of Care Document ---
:1955 Author Organization [facility] t Address [address] [place] [address] Care Team Providers Name Role Phone Tiny [...] 2020-04-19 M emoria ve 00:36:43 l disorder, Elwin systemic Hypertensi arterial ve (disorder) disorder, systemic arterial (disorder) Active Problem 04/19/2020 [facility] Lumbar Problem Active 2020-04-19 Memor ia radiculopa 00:36:43 l thy Lumbar Elwin (disorder) radiculopa thy (disorder) Active Problem 04/19/2020 [facility] Paresthesi Problem Active 2020-04-19 M emoria a 00:36:43 l (finding) Greg Paresthesi a (finding) Active Problem 04/19/2020 [facility] Malignant Problem Active 2020-04-19 Me moria tumor of 00:36:43 l colon Elwin (disorder) Malignant tumor of colon (disorder) Active [...] Quantity Comments Source Social History 2020-01-09 2020-01-09 [facility] 23:35:06 23:35:06 Medications Ordered Filled Start Stop Current Ordering Indication Dosage Frequency Signature Comments Components Source Medication Medication Date Date Medication? Clinician (SIG) Name Name tramadol Yes 50 mg = 1 Isaias jose m hydrochlori 6-18 tab, PO, l de 50 MG 00:35: Q8H, X 30 Herm amparo Oral Tablet 00 day, # 90 tab, 1 Refill(s), Pharmacy: [facility] #[id number], 187.96, cm, 02/01/20 11:28:00 CDT, Height, 90, kg, 02/01/20 11:28:00 CDT, Weight gabapentin 2019- Yes 300 mg = 1 M emoria 300 MG Oral 6-05 cap, PO, l Capsule 17:15: BID, # 60 Mary nn 00 cap, 2 Refill(s), Pharmacy: [facility] #[id number] baclofen 10 2019-0 Yes 10 mg = 1 M emoria mg oral 5-13 tab, PO, l tablet 16:59: BID, # 60 Delfin n 00 tab, 4 Refill(s), Pharmacy: [facility] #[id number] magnesium 2019-0 Yes 250 mg = [...] hydrochloro 2020-0 Yes 12.5 mg = M ridge thiazide 5-13 1 tab, PO, l 12.5 mg 16:27: Daily, # Delfin n oral tablet 00 30 tab, 0 Refill(s) Vital Signs Vital Name Observation Time Observation Value Comments Source Systolic (mm Hg) 2020-02-01 16:28:00 Isaias rial [place] Diastolic (mm Hg) 2020-02-01 16:28:00 Mem orial Greg Heart Rate 2020-02-01 16:28:00 [facility] [place] Respitory Rate 2020-02-01 16:28:00 Memori al Greg Height 2020-02-01 16:28:00 187.96 cm [facility] [place] Weight 2020-02-01 16:28:00 [facility] [place] BMI Calculated 2020-02-01 16:28:00 Memori al [place] Temperature Oral (F) 2020-02-01 16:28:00 99.7 F [facility] Systolic (mm Hg) 2020-01-09 16:23:00 Isaias rial [place] Diastolic (mm Hg) 2020-01-09 16:23:00 Mem orial [place] Heart Rate 2020-01-09 16:23:00 [facility] [place] Respitory Rate 2020-01-09 16:23:00 Memori al [place] Height 2020-01-09 16:23:00 182.88 cm [facility] Greg Weight 2020-01-09 16:23:00 [facility] Greg BMI Calculated 2020-01-09 16:23:00 Memori al [place] Procedures This patient has no known procedures. Encounters Start End Encounter Admission Attending Care Care Encounter Source Date/Time Date/Time Type Type Clinicians Facility Department ID 2020-06-12 2020-06-12 [id number] 00:00:00 00:00:00 [facility] [id number] Surgical [id number] Specialti [id number] [address] [place] 2020-06-09 2020-06-09 [facility] [id number] 00:00:00 00:00:00 [facility] [id number] Surgical [id number] Specialti [id number] es [address] [place] 2020-05-22 2020-05-[address] [facility] [id number] 08:41:49 09:33:00 Visit [facility] [id number] Surgical .[id number] Special [id number] es [address] [place] 2020-04-15 2020-04-16 Outpatient MHMISCHER MHMISCHER [id number] 09:13:53 23:59:59 00 2020-03-04 2020-03-04 [id number] 15:45:00 15:45:00 [place] 02 Benjamin 2020-03-04 2020-03-04 Outpatient Gwendolyn MISCHER MISCHER [id number] 15:45:00 15:45:00 [place] 03 Benjamin 2020-02-01 2020-02-01 Outpatient MICHEL SnowMISCHER MISCHER [id number] 11:15:00 23:59:59 [place] Benjamin 2020-01-09 2020-01-09 Outpatient Gwendolyn MISCHER MISCHER [id number] 11:30:00 23:59:59 [place] 00 Benjamin Results This patient has no known results.
--- NOTE | 2020-09-01 20:00 | ER ---
Nurse's Notes [facility] Name: Allan Driver Age: 65 yrs Sex: Male : 1955 Arrival Date: 09/01/2020 Time: 13:35 Bed Waiting Private MD: Diagnosis: Presentation: 09/01 13:45 Chief complaint: Patient states: groin pain x 2 weeks ago. Pt states "I saw a nurse aa5 practitioner and they gave me pain medication but today I woke up and there is a mass or something on my groin, they did a CT scan and ultrasound but they couldn't see anything". Coronavirus screen: Client denies travel out of the [place] in the last 14 days. At this time, the client does not indicate any symptoms associated with coronavirus-19. Ebola Screen: Patient negative for fever greater than or equal to 101.5 degrees Fahrenheit, and additional compatible Ebola Virus Disease symptoms. Initial Sepsis Screen: Does the patient meet any 2 criteria? No. Patient's initial sepsis screen is negative. Does the patient have a suspected source of infection? No. Patient's initial sepsis screen is negative. Risk Assessment: Do you want to hurt yourself or someone else? Patient reports no desire to harm self or others. Onset of symptoms was July 2020. 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 - Social history:: Smoking status: Patient denies any tobacco usage or history of. Vital Signs: 13:45 BP 165 / 98; Pulse 67; Resp 18 S; Temp 99.1(O); Pulse Ox 99% on R/A; aa5 ED Course: 13:35 Patient arrived in ED. rg4 13:45 Arm band placed on. aa5 13:47 Triage completed. aa5 19:59 Patient's name was called from ER lobby. No response. Unable to locate patient. Will ca1 disposition as left without being seen by a provider. Administered Medications: No medications were administered Outcome: 19:59 Patient left the ED. ca1 Signatures: Sandy Taveras, RN RN aa5 Margarette Eagle rg4 Lesly Tracy, RN RN ca1
[2020-09-01 20:19] VITALS: BP 165/98; TEMP 99.1; O2SAT 99
== END 2020-09-01 19:59 | disposition left against medical advice (07) ==
LOC: ER 13:32
DX: Z53.21 Procedure and treatment not carried out due to patient leaving prior to being seen by health care provider (principal)
CPT/HCPCS: 99281

== ENCOUNTER 2021-04-08 06:35 | Observation (INO) | payer OTHER ==
[2021-04-06 13:59] LABS: Urine Appearance CLEAR (Clear); Urine Bilirubin NEGATIVE (Negative); Urine Blood NEGATIVE (Negative); Urine Color YELLOW (Yellow); Urine Glucose NEGATIVE (Negative); Urine Protein NEGATIVE (Negative); Urine pH 6.5 (5.0-7.0)
[2021-04-06 14:00] LABS: Urine Microscopic Reflex NO UMIC
[2021-04-06 14:00] LABS: Absolute Lymphocytes (CBC) 1.3 K/uL (0.7-4.9); Basophils % 0.7 % (0-1.3); Hematocrit 41.4 % (39.6-49.0); Lymphocytes % 23.1 % (15.3-44.8); MPV 7.3 fL (7.6-11.3); RBC Red Blood Cell Count 4.72 M/uL (4.33-5.43)
[2021-04-06 14:13] LABS: Protime INR 0.99
[2021-04-06 14:29] LABS: Albumin 3.7 g/dL (3.4-5.0); Bilirubin Total 0.6 mg/dL (0.2-1.0); Potassium 3.6 mmol/L (3.5-5.1); Protein, Total 6.8 g/dL (6.4-8.2)
--- NOTE | 2021-04-06 14:35 | RAD REPORT ---
EXAM DESCRIPTION: RAD - Chest Pa And Lat (2 Views) - 04/06/2021 2:07 pm CLINICAL HISTORY: preop COMPARISON: Chest Pa And Lat (2 Views) dated 07/13/2018; Chest Single View dated 10/30/2017; Chest Sin gle View dated 07/15/2016; CHEST SINGLE VIEW dated 07/18/2014 FINDINGS: No evidence of edema or pneumonia. Mild cardiomegaly.No acute osseous abnormality. No sign ificant pleural effusions or pneumothorax. IMPRESSION: No acute cardiopulmonary disease.
--- NOTE | 2021-04-07 13:05 | EKG ---
Test Date: 2021-04-06 Test Time: 12:40:46 Retail Merchandising Manager: LUPE MEASUREMENT RESULTS: Intervals: Rate: 42 CA: 156 QRSD: 94 QT: 478 QTc: 399 [place]: P: 58 CA: 156 QRS: 73 T: -1 INTERPRETIVE STATEMENTS: Sinus rhythm with 2nd degree AV block with 2:1 AV conduction Cannot rule out Anterior infarct, age undetermined Abnormal ECG Compared to ECG 07/13/2018 08:18:29 Myocardial infarct finding now present Atrial premature complex(es) no longer present Left-axis deviation no longer present Electronically Signed On 04-07-21 13:04:45 CDT by Amari Bryant
[2021-04-08] MEDS ORDERED: CELECOXIB 100 MG CAPSULE ONE (07:04)
[2021-04-08] MEDS ORDERED: ACETAMINOPHEN 500 MG TAB ONE (07:04)
[2021-04-08] MEDS ORDERED: CEFAZOLIN/SWI 2gm 2 GM/20 ML SYR ONE (07:05)
[2021-04-08] MEDS ORDERED: Oxycodone HCl/Acetaminophen 1 TAB TAB ONE (07:05)
[2021-04-08] MEDS ORDERED: Ringers Lactate 1,000 ML IV ONE ×2 (07:05→10:02)
[2021-04-08] MEDS ORDERED: GABAPENTIN 100 MG CAP ONE (07:05)
[2021-04-08] MEDS ORDERED: propofoL 200 MG/20 ML VIAL IV ONE (07:33)
[2021-04-08] MEDS ORDERED: ROCURONIUM 50 MG/5 ML VIAL IV ONE (07:33)
[2021-04-08] MEDS ORDERED: GLYCOPYRROLATE 0.2 MG/ML SYR ONE (07:34)
[2021-04-08] MEDS ORDERED: LIDOCAINE 2% MPF 5 ML VIAL ONE (07:34)
[2021-04-08] MEDS ORDERED: FENTANYL CITR 250 MCG/5 ML ONE (07:35)
[2021-04-08] MEDS ORDERED: MIDAZOLAM HCL 2 MG/2 ML INJ ONE (07:35)
[2021-04-08] MEDS ORDERED: ONDANSETRON 4 MG/2 ML VIAL ONE (07:38)
[2021-04-08] MEDS ORDERED: TRANEXAMIC ACID 1,000 MG in NA CHLORIDE 0.9% 50 ML IV ONE (08:00)
[2021-04-08] MEDS ORDERED: EPHEDRINE SULF 50 MG/ML VIAL ONE (09:39)
[2021-04-08] MEDS ORDERED: NS 0.9% VIAL 10 ML ONE (09:39)
--- NOTE | 2021-04-08 09:43 | P.BOP ---
Preoperative diagnosis: right hip arthritis Postoperative diagnosis: same Primary procedure: right IDA Estimated blood loss: 150 ccs Anesthesia: General Transferred to: Recovery Room Condition: Good
[2021-04-08] MEDS ORDERED: DOCUSATE NA 100 MG CAP PO PRN (09:48)
[2021-04-08] MEDS ORDERED: MORPHINE/NS PCA 50 MG/50 ML PCA.SYRING IV PRN (09:48)
[2021-04-08] MEDS ORDERED: NALOXONE 0.4 MG/ML VIAL IV PRN (09:48)
--- NOTE | 2021-04-08 09:56 | RAD REPORT ---
EXAM DESCRIPTION: RAD - Hip Right 1 View - 04/08/2021 9:11 am CLINICAL HISTORY: RT HIP WITH COMPARISON: Hip Right 2 View dated 02/04/2020; Chest Pa And Lat (2 Views) dated 04/06/2021 FINDINGS: Single view demonstrating a a right hip arthroplasty which appears located. No definite me dial or complications. IMPRESSION: Surgical changes from right hip arthroplasty.
[2021-04-08] MEDS: HYDROMORPHONE HCL 1 MG/ML INJ ONE ×6 (10:33→12:20)
[2021-04-08 11:01] LABS: Hematocrit 37.6 % (39.6-49.0)
--- OUTSIDE RECORDS SUMMARY | 2021-04-08 12:19 | XMS REPORT | Continuity of Care Document ---
:1955 Author Organization [facility] t Address [address] [place] [address] Care Team Providers Name Role Phone Bianka Garcia Attending Clinician Benjamin Snow Attending Clinician Problems [...] Memor ia radiculopa 00:36:43 l thy Lumbar [place] (disorder) radiculopa thy (disorder) Active Problem 04/19/2020 [facility] Malignant Problem Active 2020-04-19 Me moria tumor of 00:36:43 l colon [place] (disorder) Malignant tumor of colon (disorder) Active Problem 04/19/2020 [facility] Pain in Problem Active 2020-04-19 Isaias jose m lower limb 00:36:43 l (finding) Pain in Herm amparo lower limb (finding) Active Problem 04/19/2020 [facility] Paresthesi Problem Active 2020-04-19 M emoria a 00:36:43 l (finding) Greg Paresthesi a (finding) Active Problem 04/19/2020 [facility] Allergies, Adverse Reactions, Alerts This patient has no known allergies or adverse reactions. Social History Social Habit Start Date Stop Date Quantity Comments Source Social History 2020-01-09 2020-01-09 [facility] 23:35:06 23:35:06 Medications Ordered Filled Start Stop Current Ordering Indication Dosage Frequency Signature Comments Components Source Medication Medication Date Date Medication? Clinician (SIG) Name Name tramadol 2019-0 Yes 50 mg = 1 Isaias jose m hydrochlori 6-18 tab, PO, l de 50 MG 00:35: Q8H, X 30 Herm amparo Oral Tablet 00 day, # 90 tab, 1 Refill(s), Pharmacy: [facility] #[id number], 187.96, cm, 02/01/20 11:28:00 CDT, Height, 90, kg, 02/01/20 11:28:00 CDT, Weight gabapentin 2019-0 Yes 300 mg = 1 M emoria 300 MG Oral 6-05 cap, PO, l Capsule 17:15: BID, # 60 Mary nn 00 cap, 2 Refill(s), Pharmacy: [facility] #[id number] baclofen 10 2019-0 Yes 10 mg = 1 M emoria mg oral 5-13 tab, PO, l tablet 16:59: BID, # 60 Delfin n 00 tab, 4 Refill(s), Pharmacy: [facility] #[id number] magnesium 2019-0 Yes 250 mg = 1 Me moria oxide 250 5-13 tab, PO, l mg oral 16:27: Daily, 0 Delfin n tablet 00 Refill(s) Amlodipine 2020-0 Yes 1 cap, PO, M emoria 10 MG / 5-13 Daily, # l Benazepril 16:27: 30 cap, 0 He rmann hydrochlori 00 Refill(s) de 20 MG Oral Capsule [Lotrel 06/17] 24 HR 2020-0 Yes 200 mg = 1 Memori a Metoprolol 5-13 tab, PO, l Tartrate 16:27: Daily, 0 Mary nn 200 MG 00 Refill(s) Extended Release Tablet [Toprol] Clonidine 2020-0 Yes 0.1 mg = 1 Me moria Hydrochlori 5-13 tab, PO, l de 0.1 MG 16:27: Daily, 0 Herm amparo Oral Tablet 00 Refill(s) hydrochloro 2019-0 Yes 12.5 mg = M emoria thiazide 5-13 1 tab, PO, l 12.5 mg 16:27: Daily, # Delfin n oral tablet 00 30 tab, 0 Refill(s) Vital Signs Vital Name Observation Time Observation Value Comments Source Systolic (mm Hg) 2020-02-01 16:28:00 Isaias rial [place] Diastolic (mm Hg) 2020-02-01 16:28:00 Mem orial [place] Heart Rate 2020-02-01 16:28:00 [facility] [place] Respitory Rate 2020-02-01 16:28:00 Memori al [place] Height 2020-02-01 16:28:00 187.96 cm [facility] Greg Weight 2020-02-01 16:28:00 [facility] [place] BMI Calculated 2020-02-01 16:28:00 Memori al [place] Temperature Oral (F) 2020-02-01 16:28:00 99.7 F [facility] [place] Systolic (mm Hg) 2020-01-09 16:23:00 Isaias rial Greg Diastolic (mm Hg) 2020-01-09 16:23:00 Mem orial [place] Heart Rate 2020-01-09 16:23:00 [facility] [place] Respitory Rate 2020-01-09 16:23:00 Memori al [place] Height 2020-01-09 16:23:00 182.88 cm [facility] [place] Weight 2020-01-09 16:23:00 [facility] [place] BMI Calculated 2020-01-09 16:23:00 Memori al [place] Procedures This patient has no known procedures. Encounters Start End Encounter Admission Attending Care Care Encounter Source Date/Time Date/Time Type Type Clinicians Facility Department ID 2020-11-04 2020-11-04 Office DAWIT Ochoa [id number] 09:31:29 09:46:29 Visit [facility] [id number] Surgical [id number] Specialti [id number] es [address] [place] 2020-04-15 2020-04-17 Outside nullFlavo MNA [id number] Memoria 14:13:53 04:59:59 Medical r Neurology 00 l Records [place] Greg 2020-04-15 2020-04-16 Outpatient MHMISCHER MHMISCHER [id number] 09:13:53 23:59:59 00 2020-03-04 2020-03-04 Ambulatory nullFlavo MNA [id number] Memoria 20:45:00 20:45:00 Pre-Reg r Neurology 02 l Garrick Ruelasann 2020-03-04 2020-03-04 Ambulatory nullFlavo MNA [id number] Memoria 20:45:00 20:45:00 Pre-Reg r Neurology 03 l Garrick Ruelasann 2020-03-04 2020-03-04 Outpatient MHIE MHIE [id number] Memoria 15:45:00 15:45:00 03 l Greg 2020-03-04 2020-03-04 Outpatient MHIE MHIE [id number] Memoria 15:45:00 15:45:00 02 jess Greg 2020-03-04 2020-03-04 Outpatient Gwendolyn MHMISCHER MHMISCHER [id number] 15:45:00 15:45:00 [place] 02 Benjamin 2020-03-04 2020-03-04 Outpatient Gwendolyn MHMISCHER MHMISCHER [id number] 15:45:00 15:45:00 [place] 03 Benjamin 2020-02-01 2020-02-02 Outpatient nullFlavo MNA [id number] Memoria 16:15:00 04:59:59 r Neurology 01 l Garrick Garza 2020-02-01 2020-02-01 Outpatient Gwendolyn MHMISCHER MHMISCHER [id number] 11:15:00 23:59:59 [place] 01 Benjamin 2020-02-01 2020-02-01 Outpatient MHIE MHIE [id number] Memoria 11:15:00 11:15:00 01 jess Garza 2020-01-09 2020-01-10 Outpatient nullFlavo MNA [id number] Memoria 16:30:00 04:59:59 r Neurology 00 l Garrick Garza 2020-01-09 2020-01-09 Outpatient Gwendolyn MHMISCHER MHMISCHER [id number] 11:30:00 23:59:59 [place] 00 Benjamin 2020-01-09 2020-01-09 Outpatient MHIE MHIE [id number] Memoria 11:30:00 11:30:00 00 jess Colindres This patient has no known results.
[2021-04-08 13:48] VITALS: BMI 25.7
--- NOTE | 2021-04-08 15:34 | P.CNS ---
Date of Consult: 04/08/21 Reason for Consult: Medical management Requesting Physician: Robinson Wu Chief Complaint: Right total hip arthroplasty History of Present Illness: Patient is a 66-year-old gentleman who came to the hospital with right total hip arthroplasty. Patient is having arthritic changes. Decision was made to go ahead and repair of the right hip. Patient has a history of hypertension and chronic kidney disease. Will go ahead and resume his home medications and monitor his renal function throughout the hospital stay. Continue monitoring H&H. Physical therapy evaluation pending. Patient will go home on pain medication and anti coagulation depending on how well he is doing with physical therapy today and in the morning. Allergies No Known Allergies Allergy (Verified 04/06/21 13:19) Home Medications: Metoprolol Succinate [Toprol Xl] 200 mg PO DAILY 07/18/14 Tamsulosin [Flomax*] 0.4 mg PO DAILY 10/30/17 Amlodipine Besylate/Benazepril [Lotrel 10-20 mg Capsule] 1 tab PO DAILY 07/13/18 cloNIDine HCL [Catapres] 0.03 tab PO DAILY 07/13/18 hydroCHLOROthiazide [Hydrochlorothiazide] 25 tab PO TID 07/13/18 Aspirin [Aspirin EC 81 MG] 81 mg PO DAILY 08/28/20 Magnesium [Magnesium Gluconate] 200 mg PO DAILY 08/28/20 Hydrocodone Bit/Acetaminophen [Hydrocodon-Acetaminoph 7.5-325] 1 each PO BID 04/06/21 - Past Medical/Surgical History Diabetic: No -: HTN -: arthritis -: BPH -: CKD Stage 3 -: colon surgery -: polyps removed from throat -: alonzo cataract removal - Family History Father Medical History: Heart disease, Hypertension Mother Medical History: Heart disease, Cancer - Social History Smoking Status: Former smoker Alcohol use: Yes CD- Drugs: No Caffeine use: Yes Place of Residence: Home Review of Systems 10-point ROS is otherwise unremarkable Physical Examination Temp Pulse Resp BP Pulse Ox 97.2 F 56 16 107/67 04/08/21 12:08 04/08/21 12:08 04/08/21 12:08 04/08/21 12:08 General: Alert, In no apparent distress, Oriented x3 HEENT: Atraumatic, PERRLA, Mucous membr. moist/pink, EOMI, Sclerae nonicteric Neck: Supple, 2+ carotid pulse no bruit, No LAD, Without JVD or thyroid abnormality Respiratory: Clear to auscultation bilaterally, Normal air movement Cardiovascular: Regular rate/rhythm, Normal S1 S2, No murmurs Gastrointestinal: Normal bowel sounds, Soft and benign, Non-distended, No tenderness Musculoskeletal: No clubbing, No swelling, Tenderness Integumentary: No rashes Neurological: Normal gait, Normal speech, Normal strength at 5/5 x4 extr, Normal tone, Sensation intact, Cranial nerves 3-12 intact, Normal affect Lymphatics: No axilla or inguinal lymphadenopathy Laboratory Data (last 24 hrs) 04/08/21 10:52: Hgb 12.9 L, Hct 37.6 L - Problems (1) Status post total hip replacement, right Current Visit: Yes Status: Acute (2) Chronic kidney disease (CKD), stage III (moderate) Onset Date: 10/31/17 Current Visit: No Status: Chronic (3) Hypertension Current Visit: No Status: Chronic Conclusions/ Impression: Plan: 1. Strict blood pressure control 2. Monitor renal function 3. H and H 4. Pain control along with anti coagulation and physical therapy evaluation 5. Anticipate discharge home as long as everything is arrange for discharge. Critical Care: No Time Spent Managing Pts care (In Minutes): 45
[2021-04-08] MEDS: NA CHLORIDE 0.9% 1,000 ML IV SCH (17:30)
[2021-04-08] MEDS: CEFAZOLIN/SWI 1gm 1 GM/10 ML SYR IV SCH (17:31)
[2021-04-08] MEDS: METOPROLOL TAR 50 MG TAB PO SCH (17:31)
--- NOTE | 2021-04-08 18:09 | OP ---
Date of Procedure: 04/08/2021 Surgeon: Robinson Wu MD Preoperative Diagnosis: Right severe hip arthritis. Postoperative Diagnosis: Right severe hip arthritis. Procedure: Right total hip arthroplasty using the [place] system. Estimated Blood Loss: 150 mL. Complications: There were no complications. Pathology Specimens: No pathology specimens sent other than the head. Indications For Operation: Mr. Driver is a 66-year-old male, who has suffered from very significant ba ck pain as well as hip pain for some time. The risks, benefits, and alternatives to different method s of treating his hip have been discussed with him. Despite conservative care, he continued to have pain and difficulty ambulating. It is explained to him carefully that this may not alleviate some of his back symptoms, but he does have a significant amount of arthritis of the hip and that this could alleviate these symptoms. He says he understands things as presented as well as the other risks spe cifically outlined including dislocation, wound healing problems, infection, DVT as well as others, a nd he agrees to proceed. Description Of Procedure: The patient was taken to the operating room and placed in supine position. General anesthesia was obtained by staff. Following this, he was then rolled left side down with a n axillary roll. All bony prominences being checked by Anesthesia. After this, the right lower extr emity was then prepped and draped in the usual fashion procedure. A standard posterior lateral incis ion was taken down carefully through the skin and soft tissues. Meticulous hemostasis being maintain ed using Bovie electrocautery. This leads down to the fascia. A small stab wound was made in the fa scia. The gluteal tendon was palpated to ensure correct level. This was then followed superiorly un til the tendons of the gluteus kristopher are encountered. This was then spread using finger pressure. Charnley was carefully placed after sciatic nerve was palpated and the external rotators and capsule were then taken down and tagged for later repair. The hip was then dislocated. It was found to be very significant arthritic with more or less and egg-shaped. A standard neck cut was then performed and any bony fragments are removed. This allowed for visualization of the acetabulum. The labrum wa s then removed in a circumferential pattern and any soft tissue was removed from the anterior of the acetabulum. After this, it was then sequentially reamed to a size 57. There was good bleeding bone, especially posteriorly and superiorly. There may be a slight amount of sclerosis anterior-inferior, but it was felt that this was appropriate size. A size 58 was then placed and found to seat well. The attention was then turned to the femur where the box blank machine feeder was used for lateralization and the c anal-finding reamer was then placed. It was then broached up sequentially to a size 6, which appeare d to fit well. X-rays were brought in to ensure good position and seating of the top as well as size of the femoral implant, which appeared to be doing well. The femoral broach was then removed. The wound was copiously irrigated and the liner was placed for the hip. A size 7 was then placed without difficulty. It was then trialed with a +4, a -4. A +4 appeared to be too long limiting motion, -4 appeared to be too short, not given the appropriate stability I would like. Therefore, decision made to go with a neutral. This was then placed without difficulty. It was then brought to full flexion , adduction to slightly past midline and internal rotation to 40 degrees before becoming unstable. T his felt to be appropriate. The final ball placement was confirmed. The wound was copiously irrigat ed. The external rotators and capsule were then repaired back to the greater trochanter via bone malena nisha. This was then irrigated. The fascia was closed in a watertight fashion using heavy Vicryl sut ures. The skin was then closed using Vicryl sutures followed by alex. The patient was then place d in Aquacel dressing, abduction pillow, awakened, and taken to the recovery room in good condition. There were no complications. SE/MODL Voice ID: [id number] Report ID: [id number]
[2021-04-08 21:05] VITALS: O2SAT 98
[2021-04-09] MEDS: CEFAZOLIN/SWI 1gm 1 GM/10 ML SYR IV SCH ×2 (00:08→08:53)
[2021-04-09] MEDS: HYDROCODONE/APAP 7.5/325 MG TAB PO PRN ×2 (00:16→08:49)
[2021-04-09] MEDS: METOPROLOL TAR 50 MG TAB PO SCH (05:18)
[2021-04-09 05:40] LABS: Hematocrit 38.6 % (39.6-49.0)
[2021-04-09 06:01] LABS: Potassium 3.6 mmol/L (3.5-5.1)
[2021-04-09] MEDS ORDERED: ASPIRIN EC 81 MG TAB PO SCH (09:00)
[2021-04-09] MEDS ORDERED: METOPROLOL SUCCINATE 200 MG PO SCH (09:00)
[2021-04-09] MEDS ORDERED: ENOXAPARIN 40 MG/0.4 ML SQ SCH (09:00)
[2021-04-09] MEDS ORDERED: TAMSULOSIN 0.4 MG SR CAP PO SCH (09:00)
[2021-04-09] MEDS ORDERED: METOPROLOL XL 100 MG TAB PO SCH (09:00)
[2021-04-09] MEDS: NA CHLORIDE 0.9% 1,000 ML IV SCH (12:00)
[2021-04-09 16:15] VITALS: BP 116/76; TEMP 98.1
--- NOTE | 2021-04-13 09:38 | P.DS ---
Discharge Date: 04/09/21 Disposition: ROUTINE DISCHARGE Discharge Condition: GOOD Reason for Admission: Right total hip arthroplasty - Problems (1) Status post total hip replacement, right Status: Acute (2) Chronic kidney disease (CKD), stage III (moderate) Onset Date: 10/31/17 Status: Chronic (3) Hypertension Status: Chronic Brief History of Present Illness: Patient is a 66-year-old gentleman who came to the hospital with right total hip arthroplasty. Patient is having arthritic changes. Decision was made to go ahead and repair of the right hip. Patient has a history of hypertension and chronic kidney disease. Will go ahead and resume his home medications and monitor his renal function throughout the hospital stay. Continue monitoring H&H. Physical therapy evaluation pending. Patient will go home on pain medication and anti coagulation depending on how well he is doing with physical therapy today and in the morning. Hospital Course: Patient's pain is controlled. Patient decided he wanted to go home without patient followup. At this time, patient is stable for discharge. Vital Signs/Physical Exam: Temp Pulse Resp BP Pulse Ox 98.1 F 70 18 116/76 94 04/09/21 16:00 04/09/21 16:00 04/09/21 16:00 04/09/21 16:00 04/09/21 16:00 General: Alert, In no apparent distress, Oriented x3 Laboratory Data at Discharge: WBC 5.50 K/uL (4.3-10.9) 04/06/21 13:50 Hgb 13.4 g/dL (13.6-17.9) L 04/09/21 05:13 Hct 38.6 % (39.6-49.0) L 04/09/21 05:13 Plt Count 222 K/uL (152-406) 04/06/21 13:50 PT 11.4 SECONDS (9.5-12.5) 04/06/21 13:50 INR 0.99 04/06/21 13:50 APTT 27.2 SECONDS (24.3-36.9) 04/06/21 13:50 Sodium 142 mmol/L (136-145) 04/09/21 05:13 Potassium 3.6 mmol/L (3.5-5.1) 04/09/21 05:13 BUN 26 mg/dL (7-18) H 04/09/21 05:13 Creatinine 1.64 mg/dL (0.55-1.3) H 04/09/21 05:13 Glucose 103 mg/dL (74-106) 04/09/21 05:13 Total Bilirubin 0.6 mg/dL (0.2-1.0) 04/06/21 13:50 AST 14 U/L (15-37) L 04/06/21 13:50 ALT 24 U/L (12-78) 04/06/21 13:50 Alkaline Phosphatase 48 U/L (45-117) 04/06/21 13:50 Home Medications: Metoprolol Succinate [Toprol Xl] 200 mg PO DAILY 07/18/14 Tamsulosin [Flomax*] 0.4 mg PO BEDTIME 10/30/17 Amlodipine Besylate/Benazepril [Lotrel 10-20 mg Capsule] 1 tab PO DAILY 07/13/18 cloNIDine HCL [Catapres] 0.03 tab PO DAILY 07/13/18 hydroCHLOROthiazide [Hydrochlorothiazide] 25 tab PO TID 07/13/18 Aspirin [Aspirin EC 81 MG] 81 mg PO DAILY 08/28/20 Magnesium [Magnesium Gluconate] 200 mg PO DAILY 08/28/20 Hydrocodone 7.5/APAP 325 [Todd 7.5/325 mg] 1 tab PO Q12H PRN #20 tab 04/09/21 Rivaroxaban [Xarelto] 10 mg PO DAILY #20 tablet 04/09/21 New Medications: Hydrocodone 7.5/APAP 325 [Todd 7.5/325 mg] 1 tab PO Q12H PRN #20 tab PRN Reason: Pain Rivaroxaban [Xarelto] 10 mg PO DAILY #20 tablet Diet: AHA Activity: Fall precautions Followup: Robinson Wu MD [ACTIVE - CAN ADMIT] - Time spent managing pt's care (in minutes): 35
== END 2021-04-09 18:40 | disposition home or self-care (01) ==
LOC: OR 06:35 → 2ND 12:16
PROVIDERS: ADMIT Orthopaedic Surgery; ATTEND Orthopaedic Surgery
PROC: 0SR906A Replacement of Right Hip Joint with Oxidized Zirconium on Polyethylene Synthetic Substitute, Uncemented, Open Approach (ICD-10-PCS; principal; 2021-04-08 07:30)
DX: M16.11 Unilateral primary osteoarthritis, right hip (principal); I12.9 Hypertensive chronic kidney disease with stage 1 through stage 4 chronic kidney disease, or unspecified chronic kidney disease; N18.30 Chronic kidney disease, stage 3 unspecified; N40.0 Benign prostatic hyperplasia without lower urinary tract symptoms; Z87.891 Personal history of nicotine dependence; Z20.822 Contact with and (suspected) exposure to COVID-19; Z80.9 Family history of malignant neoplasm, unspecified; Z82.49 Family history of ischemic heart disease and other diseases of the circulatory system
CPT/HCPCS: 93005; 85025; 80048; 36415 ×2; 86900; 86850; 85610; 86901; 88305; 88311; 85730; 85018 ×3; 85014 ×3; 81003; 80053; 71046; 73501; 97116 ×3; 97161; 97530 ×2; 94010; 27130; U0003; J2704; J1650; J2250; J3010; J2270; J1170 ×3; J0690 ×2; J7120 ×2; J7030 ×3; J2405; G0379; G0378 ×2

== ENCOUNTER 2021-04-12 19:14 | Emergency (ER) | payer OTHER ==
--- OUTSIDE RECORDS SUMMARY | 2021-04-12 19:18 | XMS REPORT | Continuity of Care Document ---
:1955 Author Organization [facility] t Address [address] [place] [address] Care Team Providers Name Role Phone Bianka Garcia Attending Clinician Benjamin Snow Attending Clinician Problems Condition Condition Condition Status Onset Resolution Last Treating Co mments Source Name Details Category Date Date Treatment Clinician Date Malignant Problem Active 2020-04-19 Me moria tumor of 00:36:43 l colon [place] (disorder) Malignant tumor of colon (disorder) Active Problem 04/19/2020 [facility] Pain in Problem Active 2020-04-19 Isaias jose m lower limb 00:36:43 l (finding) Pain in Herm amparo lower limb (finding) Active Problem 04/19/2020 [facility] Paresthesi Problem Active 2020-04-19 M emoria a 00:36:43 l (finding) [place] Paresthesi a (finding) Active Problem 04/19/2020 [facility] Hip pain Problem Active 2020-04-19 Mem oria (finding) 00:36:43 l Hip pain Delfin n (finding) Active Problem 04/19/2020 [facility] Hypertensi Problem Active 2020-04-19 M emoria ve 00:36:43 l disorder, [place] systemic Hypertensi arterial ve (disorder) disorder, systemic arterial (disorder) Active Problem 04/19/2020 [facility] Lumbar Problem Active 2020-04-19 Memor ia radiculopa 00:36:43 l thy Lumbar [place] (disorder) radiculopa thy (disorder) Active Problem 04/19/2020 [facility] Allergies, Adverse Reactions, Alerts This patient has no known allergies or adverse reactions. Social History Social Habit Start Date Stop Date Quantity Comments Source Social History 2020-01-09 2020-01-09 [facility] 23:35:06 23:35:06 Medications Ordered Filled Start Stop Current Ordering Indication Dosage Frequency Signature Comments Components Source Medication Medication Date Date Medication? Clinician (SIG) Name Name tramadol 2020-0 Yes 50 mg = 1 Isaias jose m hydrochlori 6-18 tab, PO, l de 50 MG 00:35: Q8H, X 30 Herm amparo Oral Tablet 00 day, # 90 tab, 1 Refill(s), Pharmacy: [facility] #[id number], 187.96, cm, 02/01/20 11:28:00 CDT, Height, 90, kg, 02/01/20 11:28:00 CDT, Weight tramadol 2020-0 Yes 50 mg = 1 Isaias jose m hydrochlori 6-18 tab, PO, l de 50 MG 00:35: Q8H, X 30 Herm amparo Oral Tablet 00 day, # 90 tab, 1 Refill(s), Pharmacy: [id number], 187.96, cm, 02/01/20 11:28:00 CDT, Height, 90, kg, 02/01/20 11:28:00 CDT, Weight gabapentin 2020-0 Yes 300 mg = 1 M emoria 300 MG Oral 6-05 cap, PO, l Capsule 17:15: BID, # 60 Mary nn 00 cap, 2 Refill(s), Pharmacy: [id number] gabapentin 2020-0 Yes 300 mg = 1 M emoria 300 MG Oral 6-05 cap, PO, l Capsule 17:15: BID, # 60 Mary nn 00 cap, 2 Refill(s), Pharmacy: [id number] baclofen 10 2020-0 Yes 10 mg = 1 M emoria mg oral 5-13 tab, PO, l tablet 16:59: BID, # 60 Delfin n 00 tab, 4 Refill(s), Pharmacy: [id number] baclofen 10 2020-0 Yes 10 mg = 1 M emoria mg oral 5-13 tab, PO, l tablet 16:59: BID, # 60 Delfin n 00 tab, 4 Refill(s), Pharmacy: [id number] magnesium 2020-0 Yes 250 mg = 1 Me moria oxide 250 5-13 tab, PO, l mg oral 16:27: Daily, 0 Delfin n tablet 00 Refill(s) Clonidine 2020-0 Yes 0.1 mg = 1 Me moria Hydrochlori 5-13 tab, PO, l de 0.1 MG 16:27: Daily, 0 Herm amparo Oral Tablet 00 Refill(s) hydrochloro 2020-0 Yes 12.5 mg = M emoria thiazide 5-13 1 tab, PO, l 12.5 mg 16:27: Daily, # Delfin n oral tablet 00 30 tab, 0 Refill(s) Amlodipine 2020-0 Yes 1 cap, PO, [...] hydrochloro 2020-0 Yes 12.5 mg = M emoria thiazide 5-13 1 tab, PO, l 12.5 mg 16:27: Daily, # Delfin n oral tablet 00 30 tab, 0 Refill(s) magnesium 2020-0 Yes 250 mg = 1 Me moria [...] MG 00 Refill(s) Extended Release Tablet [Toprol] Vital Signs Vital Name Observation Time Observation Value Comments Source Systolic (mm Hg) 2020-02-01 16:28:00 Isaias rial [place] Diastolic (mm Hg) 2020-02-01 16:28:00 Mem orial Greg Heart Rate 2020-02-01 16:28:00 Memorial Greg Respitory Rate 2020-02-01 16:28:00 Memori al [place] Height 2020-02-01 16:28:00 187.96 cm [facility] [place] Weight 2020-02-01 16:28:00 [facility] [place] BMI Calculated 2020-02-01 16:28:00 Memori al [place] Temperature Oral (F) 2020-02-01 16:28:00 99.7 F [facility] [place] Systolic (mm Hg) 2020-01-09 16:23:00 Isaias rial [place] Diastolic (mm Hg) 2020-01-09 16:23:00 Mem orial Greg Heart Rate 2020-01-09 16:23:00 [facility] [place] Respitory Rate 2020-01-09 16:23:00 Memori al Greg Height 2020-01-09 16:23:00 182.88 cm [facility] Greg Weight 2020-01-09 16:23:00 [facility] Greg BMI Calculated 2020-01-09 16:23:00 Memori al Greg Procedures This patient has no known procedures. Encounters Start End Encounter Admission Attending Care Care Encounter Source Date/Time Date/Time Type Type Clinicians Facility Department ID 2020-11-04 2020-11-04 Office DAWIT Ochoa [id number] 09:31:29 09:46:29 Visit [facility] [id number] Surgical [id number] Specialti [id number] es [address] [place] 2020-04-15 2020-04-17 Outside nullFlavo MNA [id number] Memoria 14:13:53 04:59:59 Medical r Neurology 00 l Records [place] 2020-04-15 2020-04-17 Outside nullFlavo MNA [id number] Memoria 14:13:53 04:59:59 Medical r Neurology 00 l Records [place] 2020-04-15 2020-04-16 [id number] 09:13:53 23:59:59 2020-03-04 2020-03-04 Ambulatory nullFlavo MNA [id number] Memoria 20:45:00 20:45:00 Pre-Reg r Neurology 03 l Garrick Garza 2020-03-04 2020-03-04 Ambulatory nullFlavo MNA [id number] Memoria 20:45:00 20:45:00 Pre-Reg r Neurology 02 l Garrick [place] 2020-03-04 2020-03-04 Ambulatory nullFlavo MNA [id number] Memoria 20:45:00 20:45:00 Pre-Reg r Neurology 02 l Garrick Garza 2020-03-04 2020-03-04 Ambulatory nullFlavo MNA [id number] Memoria 20:45:00 20:45:00 Pre-Reg r Neurology 03 jess Garza 2020-03-04 2020-03-04 Outpatient MHIE MHIE [id number] Memoria 15:45:00 15:45:00 03 jess [place] 2020-03-04 2020-03-04 Outpatient MHIE MHIE [id number] Memoria 15:45:00 15:45:00 02 jess [place] 2020-03-04 2020-03-04 Outpatient MICHEL SnowMISCHER MHMISCHER [id number] 15:45:00 15:45:00 [place] 02 Benjamin 2020-03-04 2020-03-04 Outpatient MICHEL SnowMISCHER MHMISCHER [id number] 15:45:00 15:45:00 [place] 03 Benjamin 2020-02-01 2020-02-02 Outpatient nullFlavo MNA [id number] Memoria 16:15:00 04:59:59 r Neurology 01 jess [place] 2020-02-01 2020-02-02 Outpatient nullFlavo MNA [id number] Memoria 16:15:00 04:59:59 r Neurology 01 jess [place] 2020-02-01 2020-02-01 Outpatient Gwendolyn MHMISCHER MHMISCHER [id number] 11:15:00 23:59:59 [place] 01 Benjamin 2020-02-01 2020-02-01 Outpatient MHIE MHIE [id number] Memoria 11:15:00 11:15:00 01 jess [place] 2020-01-09 2020-01-10 Outpatient nullFlavo MNA [id number] Memoria 16:30:00 04:59:59 r Neurology 00 l Garrick Garza 2020-01-09 2020-01-10 Outpatient nullFlavo MNA [id number] Memoria 16:30:00 04:59:59 r Neurology 00 l Garrick Garza 2020-01-09 2020-01-09 Outpatient SIMIN Snow [facility] [id number] 11:30:00 23:59:59 [place] 00 Benjamin 2020-01-09 2020-01-09 Outpatient [facility] [id number] Memoria 11:30:00 11:30:00 00 l Greg Results This patient has no known results.
[2021-04-12] MEDS ORDERED: MORPHINE 4 MG/ML SYR ONE (21:03)
--- NOTE | 2021-04-12 21:44 | RAD REPORT ---
EXAM DESCRIPTION: US - Extrem Venous W Compress Nolan - 04/12/2021 9:32 pm CLINICAL HISTORY: Lower extremity swelling, worse today COMPARISON: None. TECHNIQUE: Real-time sonographic evaluation of the bilateral lower extremity deep venous systems was performed. FINDINGS: Normal compressibility, flow augmentation, phasic flow and spontaneous flow is identified in both the left and right lower extremity deep venous systems. No intraluminal filling defects seen. IMPRESSION: No DVT in either lower extremity.
--- NOTE | 2021-04-12 21:56 | EDPHYS ---
Physician Documentation [facility] Name: Allan Driver Age: 66 yrs Sex: Male : 1955 Arrival Date: 04/12/2021 Time: 19:18 Bed 9 Private MD: ED Physician Iraj Borden HPI: 04/12 20:40 This 66 yrs old Male presents to ER via Wheelchair with complaints of Hip cp Pain, Knee Pain. 20:40 The patient presents with pain, that is acute. cp 20:40 The complaints affect the left leg. Context: resulted from an unknown cause, the cp patient can fully bear weight, the patient is able to ambulate, with moderate difficulty. Onset: The symptoms/episode began/occurred today. Associated signs and symptoms: Pertinent negatives fever, shortness of breath. Patient reports having total right hip replaced 04-08-2021. Started having pain to left leg today. Reports he is currently taking Xarelto. Patient reports he did take prescribed pain medication [employer]. Historical: - Allergies: 19:34 No Known Allergies; bb - PMHx: 19:34 adrenal mass; colon cancer; Hypertension; bb - PSHx: 19:34 right hip replacement; bb - Immunization history:: Adult Immunizations up to date, Client reports having NOT received the Covid vaccine. - Social history:: Smoking status: Patient denies any tobacco usage or history of. ROS: 20:45 MS/extremity: Positive for pain, of the left leg. cp 20:45 Eyes: Negative for injury, pain, redness, and discharge. cp 20:45 Constitutional: Negative for body aches, chills, fever, poor PO intake. 20:45 Cardiovascular: Negative for chest pain, palpitations. 20:45 Respiratory: Negative for cough, shortness of breath, wheezing. 20:45 Abdomen/GI: Negative for abdominal pain, nausea, vomiting, and diarrhea. cp 20:45 Neuro: Negative for altered mental status, dizziness, headache, numbness, weakness. 20:45 All other systems are negative. Exam: 20:50 Constitutional: The patient appears in no acute distress, alert, awake, cp non-diaphoretic, non-toxic, well developed, well nourished. 20:50 Head/Face: Normocephalic, atraumatic. cp 20:50 Eyes: Periorbital structures: appear normal, Conjunctiva: normal, no exudate, no cp injection, Sclera: no appreciated abnormality, Lids and lashes: appear normal, bilaterally. 20:50 ENT: External ear(s): are unremarkable, Nose: is normal, Mouth: Lips: moist, Oral mucosa: moist, Posterior pharynx: Airway: no evidence of obstruction, patent. 20:50 Chest/axilla: Inspection: normal. 20:50 Cardiovascular: Rate: normal, Edema: noted to right leg, JVD: is not appreciated. 20:50 Respiratory: the patient does not display signs of respiratory distress, Respirations: normal, no use of accessory muscles, no retractions, labored breathing, is not present, Breath sounds: are clear throughout, no decreased breath sounds. 20:50 Musculoskeletal/extremity: Extremities: grossly normal except: noted in the right leg and left leg: pain, swelling and mild edema noted to right leg. 20:50 Skin: no rash present. Vital Signs: 19:33 BP 131 / 82; Pulse 72; Resp 18 S; Temp 98.9(TE); Pulse Ox 99% on R/A; Weight 90.72 kg bb (R); Height 6 ft. 2 in. (187.96 cm) (R); Pain 7/10; 21:43 BP 131 / 81; Pulse 79; Resp 16 S; Pulse Ox 95% on R/A; Pain 5/10; bb 19:33 Body Mass Index 25.68 (90.72 kg, 187.96 cm) bb MDM: 20:22 Patient medically screened. cp 21:00 Differential diagnosis: cellulitis, DVT. cp 21:55 Data reviewed: vital signs, nurses notes, radiologic studies, ultrasound, and as a cp result, I will discharge patient. 21:55 Counseling: I had a detailed discussion with the patient and/or guardian regarding: the cp historical points, exam findings, and any diagnostic results supporting the discharge/admit diagnosis, radiology results, to return to the emergency department if symptoms worsen or persist or if there are any questions or concerns that arise at home. 21:55 Response to treatment: the patient's symptoms have markedly improved after treatment, cp VSS. Pain improved. US negative for DVT. Will discharge to home for continued monitoring. 04/12 20:37 Order name: US Extremity Venous W Compression Nolan; Complete Time: 21:54 cp 04/12 21:54 Interpretation: Report reviewed. cp Administered Medications: 20:43 Drug: morphine 4 mg {Note: RASS 0.} Route: IM; Site: right deltoid; bb 21:43 Follow up: Response: No adverse reaction; Pain is decreased; RASS: Alert and Calm (0) bb Disposition Summary: 04/12/21 21:55 Discharge Ordered Location: Home cp Problem: new cp Symptoms: have improved cp Condition: Stable cp Diagnosis - Pain in left leg cp Followup: cp - With: Private Physician - When: 2 - 3 days - Reason: Worsening of condition Discharge Instructions: - Discharge Summary Sheet cp - Musculoskeletal Pain cp Forms: - Medication Reconciliation Form cp - Thank You Letter cp - Antibiotic Education cp - Prescription Opioid Use cp Signatures: Dispatcher [employer] EDEsmer Li RN RN bb Yandel Bear PA PA cp Corrections: (The following items were deleted from the chart) 20:04 19:59 Influenza Screen (A \T\ B)+BA.LAB.BRZ ordered. EDMS EDMS 20:04 19:59 CORONAVIRUS+MR.LAB.BRZ ordered. EDMS EDMS 20:04 19:59 Group A Streptococcus Rapid Sc+BA.LAB.BRZ ordered. EDMS EDMS 04/13 04:23 04/12 20:00 MS/extremity: Positive for pain, of the left leg, cp cp
--- NOTE | 2021-04-12 21:56 | ER ---
Nurse's Notes [facility] Name: Allan Driver Age: 66 yrs Sex: Male : 1955 Arrival Date: 04/12/2021 Time: 19:18 Bed 9 Private MD: Diagnosis: Pain in left leg Presentation: 04/12 19:33 Chief complaint: Patient states: he had right hip replacement 04/08/21 and now his right bb hip is very painful he also is having pain in his left leg. Coronavirus screen: At this time, the client does not indicate any symptoms associated with coronavirus-19. Ebola Screen: No symptoms or risks identified at this time. Initial Sepsis Screen: Does the patient meet any 2 criteria? No. Patient's initial sepsis screen is negative. Does the patient have a suspected source of infection? No. Patient's initial sepsis screen is negative. Risk Assessment: Do you want to hurt yourself or someone else? Patient reports no desire to harm self or others. Onset of symptoms was April 12, 2021. 19:33 Method Of Arrival: Wheelchair bb 19:33 Acuity: NAYANA 3 bb Triage Assessment: 19:34 General: Appears uncomfortable, Behavior is cooperative, anxious. Pain: Complains of bb pain in right leg Pain currently is 7 out of 10 on a pain scale. Neuro: Level of Consciousness is awake, alert, obeys commands, Oriented to person, place, time, situation. Cardiovascular: Capillary refill < 3 seconds Patient's skin is warm and dry. Respiratory: Respiratory effort is even, unlabored, Respiratory pattern is regular. GI: No signs and/or symptoms were reported involving the gastrointestinal system. Derm: Skin is pink, warm \T\ dry. Musculoskeletal: Circulation, motion, and sensation intact. Reports pain in right leg. Historical: - Allergies: 19:34 No Known Allergies; bb - PMHx: 19:34 adrenal mass; colon cancer; Hypertension; bb - PSHx: 19:34 right hip replacement; bb - Immunization history:: Adult Immunizations up to date, Client reports having NOT received the Covid vaccine. - Social history:: Smoking status: Patient denies any tobacco usage or history of. Screenin:17 Abuse screen: Denies threats or abuse. Nutritional screening: No deficits noted. bb Tuberculosis screening: No symptoms or risk factors identified. Fall Risk None identified. Assessment: 20:17 Reassessment: Patient is alert, oriented x 3, equal unlabored respirations, skin bb warm/dry/pink. see triage assessment. 20:48 Reassessment: US at bedside. vg1 21:42 Reassessment: Patient is alert, oriented x 3, equal unlabored respirations, skin bb warm/dry/pink. Patient states feeling better. 22:14 Reassessment: Patient is alert, oriented x 3, equal unlabored respirations, skin bb warm/dry/pink. pt verbalized understanding of and agrees to plan of care discharge instructions given pt assisted to exit via wheelchair picked up by family. Vital Signs: 19:33 BP 131 / 82; Pulse 72; Resp 18 S; Temp 98.9(TE); Pulse Ox 99% on R/A; Weight 90.72 kg bb (R); Height 6 ft. 2 in. (187.96 cm) (R); Pain 7/10; 21:43 BP 131 / 81; Pulse 79; Resp 16 S; Pulse Ox 95% on R/A; Pain 5/10; bb 19:33 Body Mass Index 25.68 (90.72 kg, 187.96 cm) bb ED Course: 19:18 Patient arrived in ED. wm 19:34 Triage completed. bb 19:34 Arm band placed on Patient placed in waiting room, Patient notified of wait time. bb 20:15 Yandel Bear PA is PHCP. cp 20:15 Iraj Borden MD is Attending Physician. cp 20:17 Esmer Olivo, RN is Primary Nurse. bb 20:17 Patient has correct armband on for positive identification. Call light in reach. bb 21:31 US Extremity Venous W Compression Nolan In Process Unspecified. EDMS 22:15 No provider procedures requiring assistance completed. Patient did not have IV access bb during this emergency room visit. Administered Medications: 20:43 Drug: morphine 4 mg {Note: RASS 0.} Route: IM; Site: right deltoid; bb 21:43 Follow up: Response: No adverse reaction; Pain is decreased; RASS: Alert and Calm (0) bb Outcome: 21:55 Discharge ordered by MD. cp 22:15 Discharged to home via wheelchair, with family. bb 22:15 Condition: stable 22:15 Discharge instructions given to patient, Instructed on discharge instructions, follow up and referral plans. Demonstrated understanding of instructions, follow-up care. 22:15 Patient left the ED. bb Signatures: Dispatcher [employer] Esmer Lugo, RN RN bb Yandel Bear PA PA cp Garcia, Victoria RN RN vg1 Lavonne Morgan
[2021-04-12 22:23] VITALS: TEMP 98.9
[2021-04-12 22:25] VITALS: BP 131/81; O2SAT 95
== END 2021-04-12 22:15 | disposition home or self-care (01) ==
LOC: ER 19:14
DX: M79.605 Pain in left leg (principal); Z96.641 Presence of right artificial hip joint; Z98.890 Other specified postprocedural states; Z79.01 Long term (current) use of anticoagulants
CPT/HCPCS: 93970; 96372; 99283

== ENCOUNTER 2021-09-22 06:35 | Day surgery (SDC) | payer OTHER, MEDICARE ==
[2021-09-16 10:47] LABS: Absolute Lymphocytes (CBC) 1.5 K/uL (0.7-4.9); Hematocrit 43.9 % (39.6-49.0); Lymphocytes % 26.6 % (15.3-44.8); MPV 7.6 fL (7.6-11.3); RBC Red Blood Cell Count 5.16 M/uL (4.33-5.43)
[2021-09-16 11:05] LABS: Carcinoembryonic Antigen 1.9 ng/mL (0-5.0); Potassium 3.5 mmol/L (3.5-5.1)
[2021-09-22] MEDS ORDERED: EPINEPHRINE/PF 1 MG/ML AMP ONE (06:51)
[2021-09-22] MEDS ORDERED: LIDOCAINE 1% MPF 5 ML VIAL ONE (07:14)
[2021-09-22] MEDS ORDERED: propofoL 200 MG/20 ML VIAL IV ONE (07:14)
[2021-09-22] MEDS: Ringers Lactate 1,000 ML IV ONE ×2 (07:15→07:24)
--- NOTE | 2021-09-22 07:55 | ENDO RPT ---
[address], [address] COLONOSCOPY PROCEDURE REPORT EXAM DATE: 09/22/2021 PATIENT NAME: Allan Driver MR #: [id number] BIRTHDATE: 1955 ATTENDING: Mk Anders M.D. STATUS: outpatient MBA INTERN: Shania Degroot RN INDICATIONS: The patient is a 66 yr old Male here for a colonoscopy due to history of colon cancer PROCEDURE PERFORMED: Colonoscopy with biopsy MEDICATIONS: Per Anesthesia. ESTIMATED BLOOD LOSS: None CONSENT: The patient understands the risks and benefits of the procedure and understands that these risks include, but are not limited to: sedation, allergic reaction, infection, perforation and/or bleeding. Alternative means of evaluation and treatment include, among others: physical exam, x-rays, and/or surgical intervention. The patient elects to proceed with this endoscopic procedure. DESCRIPTION OF PROCEDURE: During intra-op preparation period all mechanical medical equipment was checked for proper function. Hand hygiene and appropriate measures for infection prevention was taken. Procedure, possible complications, alternatives including, but not limited to possibility of bleeding, perforation, tear, infection, sepsis, need for surgery, need for blood transfusion, were explained to the patient. After the risks, benefits and alternatives of the procedure were thoroughly explained, Informed consent was verified, confirmed and timeout was successfully executed by the treatment team. The patient was placed in the left lateral position. A digital rectal exam was performed and revealed an enlarged prostate. After appropriate level of anesthesia, the scope was passed. The EC-[id number] ([id number]) endoscope was introduced through the anus and advanced to the cecum, which was identified by the ileocecal valve. The quality of the prep was good. The instrument was then slowly withdrawn as the colon was fully examined. Scope withdrawal time was 13 minutes. COLON FINDINGS: A small polypoid shaped polyp was found in the transverse colon. A biopsy was performed. Retroflexed views revealed no abnormalities. The scope was then completely withdrawn from the patient and the procedure terminated. ADVERSE EVENTS: There were no complications. IMPRESSIONS: Small polyp was found in the transverse colon; biopsy was performed RECOMMENDATIONS: 1. follow-up: office 1 week(s) 2. fiber rich diet 3. Metamucil RECALL: Return in 2 year(s) for Colonoscopy. Mk Anders M.D. eSigned: Mk Anders M.D. 09/22/2021 7:54 AM cc: Luis Antonio Ortega M.D. CPT CODES: ICD9 CODES: PATIENT NAME: Allan DriverHudson MR#: [id number]
[2021-09-22 09:07] VITALS: BP 101/62; TEMP 98.2; O2SAT 98
== END 2021-09-22 08:25 | disposition home or self-care (01) ==
LOC: OR 06:35
PROVIDERS: ATTEND Surgery
PROC: 0DBL8ZX Excision of Transverse Colon, Via Natural or Artificial Opening Endoscopic, Diagnostic (ICD-10-PCS; principal; 2021-09-22 07:30)
DX: R10.9 Unspecified abdominal pain (principal); D12.3 Benign neoplasm of transverse colon; Z85.038 Personal history of other malignant neoplasm of large intestine; Z20.822 Contact with and (suspected) exposure to COVID-19
CPT/HCPCS: 85025; 80048; 36415; 88305; 82378; 45380; U0002; J2704; J7120; J0171

== ENCOUNTER 2021-11-09 08:30 | Day surgery (SDC) | payer OTHER ==
[2021-11-09] MEDS ORDERED: CEFAZOLIN SODIUM 1 GM/VIAL ONE (08:53)
[2021-11-09] MEDS ORDERED: Ringers Lactate 1,000 ML IV ONE (08:53)
[2021-11-09] MEDS ORDERED: ACETAMINOPHEN 500 MG TAB ONE (09:22)
[2021-11-09] MEDS ORDERED: BUPIVACAINE 0.25% PF 30 ML VIAL IJ ONE (10:35)
[2021-11-09] MEDS ORDERED: ROCURONIUM 50 MG/5 ML VIAL IV ONE (10:42)
[2021-11-09] MEDS ORDERED: dexAMETHasone 10 MG/ML VIAL ONE (10:42)
[2021-11-09] MEDS ORDERED: FENTANYL CITR 100 MCG/2 ML ONE (10:42)
[2021-11-09] MEDS ORDERED: ONDANSETRON 4 MG/2 ML VIAL ONE (10:42)
[2021-11-09] MEDS ORDERED: KETOROLAC 30 MG/ML INJ ONE (10:42)
[2021-11-09] MEDS ORDERED: LIDOCAINE 1% MPF 30 ML VIAL ONE (10:42)
[2021-11-09] MEDS ORDERED: MIDAZOLAM HCL 2 MG/2 ML INJ ONE (10:42)
[2021-11-09] MEDS ORDERED: propofoL 200 MG/20 ML VIAL IV ONE (10:42)
[2021-11-09] MEDS ORDERED: Phenylephrine HCl 10 MG/ML 1 ML VIAL ONE (10:43)
[2021-11-09] MEDS ORDERED: EPHEDRINE SULF 50 MG/ML VIAL ONE (10:43)
[2021-11-09] MEDS ORDERED: NS 0.9% VIAL 10 ML ONE (10:43)
[2021-11-09] MEDS ORDERED: Mastisol Adhesive Liq ONE (11:14)
[2021-11-09] MEDS ORDERED: NEOSTIGMINE 1 MG/ML -5 ML ONE (11:19)
[2021-11-09] MEDS ORDERED: GLYCOPYRROLATE 0.2 MG/ML SYR ONE (11:19)
[2021-11-09] MEDS: HYDROMORPHONE HCL 1 MG/ML INJ ONE ×2 (11:59→12:16)
--- NOTE | 2021-11-09 12:18 | P.OP ---
Yoke Presser: Oly OCONNELL Preoperative diagnosis: Bilateral inguinal hernia, multiple skin tags of the right chest,neck and f Postoperative diagnosis: Same Primary procedure: Repair bilateral inguinal hernia and excision of multiple skin tags x7 Anesthesia: General Estimated blood loss: Minimal Specimen: Cord lipoma, hernia sac and skin tags x7 Findings: As above Operative Technique: Patient brought to the OR placed in supine position general anesthesia begun. Patient prepped and draped in the usual sterile fashion on the face neck and right chest first. Then, Marcaine 0.5% infiltrated locally. Multiple skin tags excised with 15 blade. They ranged in size between 5 mm and 1 cm. There was one on the face, one on the right neck and 5 on the right chest wall. Sterile dressing applied. Then, both groins prepped draped in the usual sterile fashion. Marcaine 0.5% infiltrated in a field block fashion in both groins. 15 blade used to make a 4 cm incision between the pubic tubercle and the anterior iliac superior spine. Subcutaneous tissue divided and Jess's fascia identified and divided. Aponeurosis of the external abdominal oblique muscle identified and mobilized inferiorly to expose the shelving edge. Then, the external ring opened with a 15 blade. Ilioinguinal nerve and cord structures identified. The the ilioinguinal nerve retracted out of the field of dissection. The cord was was dissected and a large cord lipoma and a small hernia sac was identified. Both structures were excised and sent to pathology as specimen. 2-0 Prolene suture ligature was used to tie off the end. Then Marlex mesh plug was placed in the internal ring and secured with VersaTack stapler. Onlay mesh was placed on the inguinal floor secured medially to the pubic tubercle, superiorly to the conjoined tendon, inferiorly to the shelving edge and laterally to each other. Then cord structures and ilioinguinal nerve were placed back in their anatomic location. 2-0 Prolene was used to close the aponeurosis. 3-0 chromic was used to close Jess's fascia. And 3-0 chromic was used to close the subcutaneous tissue and closed skin. Exact same operation occurred on the right side with similar findings but on a smaller scale. Sterile dressing was applied and patient was awakened. She tolerated the procedure in stable condition and taken to recovery in good general condition. CC: Dr. Turcios
[2021-11-09] MEDS ORDERED: HYDROCODONE/APAP 7.5/325 MG TAB PO PRN (12:24)
[2021-11-09] MEDS ORDERED: NA CHLORIDE 0.9% 1,000 ML ONE (12:25)
[2021-11-09] MEDS ORDERED: HYDROCODONE/APAP 7.5/325 MG TAB ONE (13:44)
[2021-11-09 13:52] VITALS: BP 104/70; O2SAT 97
[2021-11-09 16:14] VITALS: TEMP 97
== END 2021-11-09 16:10 | disposition home or self-care (01) ==
LOC: OR 08:30
PROVIDERS: ATTEND Surgery
PROC: 0HB1XZZ Excision of Face Skin, External Approach (ICD-10-PCS; 2021-11-09)
PROC: 0HB4XZZ Excision of Neck Skin, External Approach (ICD-10-PCS; 2021-11-09)
PROC: 0HB5XZZ Excision of Chest Skin, External Approach (ICD-10-PCS; 2021-11-09)
PROC: 0YUA0JZ Supplement Bilateral Inguinal Region with Synthetic Substitute, Open Approach (ICD-10-PCS; principal; 2021-11-09 09:45)
DX: K40.20 Bilateral inguinal hernia, without obstruction or gangrene, not specified as recurrent (principal); L91.8 Other hypertrophic disorders of the skin; Z20.822 Contact with and (suspected) exposure to COVID-19
CPT/HCPCS: 88302; 88304; 49525; 49505; 11200; U0003; J2704; J2370; J2250; J3010; J1100; J1170; J2710; J7120; J7030; J2405; J0690

== ENCOUNTER 2022-03-19 14:55 | Emergency (ER) | payer OTHER, MEDICARE ==
--- OUTSIDE RECORDS SUMMARY | 2022-03-19 14:59 | XMS REPORT | Continuity of Care Document ---
:1955 Author Organization [facility] t Address [address] [place] [address] Care Team Providers Name Role Phone Bianka OCHOA Attending Clinician Unavailable Adelaida REECE S Attending Clinician Tiny GOYAL, L Attending Clinician Lino GOYAL S Attending Clinician Bianka KEENAN Attending Clinician Unavailable Doctor Unassigned, Name Attending Clinician Unavailable Payers Payer Name Policy Type Policy Number Effective Date Expiration Date S kathia [employer] [id number] 2020 NON-CONTRACT 00:00:00 [employer] [place] [id number] 2013 00:00:00 Problems Condition Condition Condition Status Onset Resolution Last Treating Co mments Source Name Details Category Date Date Treatment Clinician Date No known No known Disease Unive rs active active ity of problems problems [facility] Malignant Problem Active 2020-04-19 Me moria tumor of 00:36:43 l colon Greg (disorder) Malignant tumor of colon (disorder) Active Problem 04/19/2020 [facility] Pain in Problem Active 2020-04-19 Isaias jose m lower limb 00:36:43 l (finding) Pain in Herm amparo lower limb (finding) Active Problem 04/19/2020 [facility] Paresthesi Problem Active 2020-04-19 M emoria a 00:36:43 l (finding) [place] Paresthesi a (finding) Active Problem 04/19/2020 [facility] Hip pain Problem Active 2020-04-19 Mem oria (finding) 00:36:43 l Hip pain Delfin n (finding) Active Problem 04/19/2020 [facility] Hypertensi Problem Active 2020-04-19 M emoria ve 00:36:43 l disorder, [place] systemic Hypertensi arterial ve (disorder) disorder, systemic arterial (disorder) Active Problem 04/19/2020 [facility] Lumbar Problem Active 2020-04-19 Memor ia radiculopa 00:36:43 l thy Lumbar [place] (disorder) radiculopa thy (disorder) Active Problem 04/19/2020 [facility] Allergies, Adverse Reactions, Alerts Allergy Allergy Status Severity Reaction(s) Onset Inactive Treating Comm ents Source Name Type Date Date Clinician NO KNOWN Drug Active Univers ALLERGIE Class ity of S [facility] Social History Social Habit Start Date Stop Date Quantity Comments Source Exposure to Not sure [facility]-2 [facility] (event) [place] Tobacco use and 2020-11-04 2020-11-04 Never used Universit y of exposure 00:00:00 00:00:00 [facility] Alcohol intake 2020-11-04 2020-11-04 Current drinker Unive rsity of 00:00:00 00:00:00 of alcohol [facility] (finding) Branch Social History 2020-01-09 2020-01-09 [facility] 23:35:06 23:35:06 Alcohol Comment 2016-01-27 2016-01-27 Approx. 1-2 Universi ty of 00:00:00 00:00:00 beers daily [facility] [birth year] Universit y of 00:00:00 00:00:00 [facility] Smoking Status Start Date Stop Date Source Never smoker [facility] Medications Ordered Filled Start Stop Current Ordering Indication Dosage Frequency Signature Comments Components Source Medication Medication Date Date Medication? Clinician (SIG) Name Name meloxicam 2020- No 15mg Take 1 Unive rs 15 mg 9-18 10-19 tablet by ity of tablet 00:00: 04:59 mouth [place] 00 :00 daily for Medical 30 days. Branch meloxicam 2020- No 15mg Take 1 Unive rs 15 mg 9-18 10-19 tablet by ity of tablet 00:00: 04:59 mouth [place] 00 :00 daily for Medical 30 days. Branch meloxicam 2020-0 2020- No 15mg Take 1 Unive rs 15 mg 9-18 10-19 tablet by ity of tablet 00:00: 04:59 mouth [place] 00 :00 daily for Medical 30 days. Branch meloxicam 2020-0 2020- No 15mg Take 1 Unive rs 15 mg 9-18 10-19 tablet by ity of tablet 00:00: 04:59 mouth [place] 00 :00 daily for Medical 30 days. Branch meloxicam 2020-0 2020- No 15mg Take 1 Unive rs 15 mg 9-18 10-19 tablet by ity of tablet 00:00: 04:59 mouth [place] 00 :00 daily for Medical 30 days. Branch meloxicam 2020-0 2020- No 15mg Take 1 Unive rs 15 mg 9-18 10-19 tablet by ity of tablet 00:00: 04:59 mouth [place] 00 :00 daily for Medical 30 days. [place] FENTanyl PF 2019-0 2020- No 50ug 50 mcg, Un yovanny (SUBLIMAZE 05-02 Intramuscu it y of (PF)) 06:30: 05:25 lar, ONCE, [place] injection 00 :00 1 dose, Medical 50 mcg 05/02/20 Branch at 0130, Routine HYDROcodone 2020-0 2020- No 1{tbl} 1 tablet, Univers -acetaminop 05-02 Oral, ity of hen (NORCO) 06:15: 05:25 [place]CE[place]325 mg [place] :00 dose, Fri Medic al tablet 1 05/02/20 at [place] tablet 0115, Routine HYDROcodone 2020-0 Yes TAKE 1 Univ ers -acetaminop 9-04 TABLET BY ity of hen 7.5-325 00:00: MOUTH [place] mg per 00 TWICE A Medical tablet DAY FOR 15 Branch DAYS HYDROcodone 2020-0 Yes TAKE 1 Univ ers -acetaminop 9-04 TABLET BY ity of hen 7.5-325 00:00: MOUTH [place] mg per 00 TWICE A Medical tablet DAY FOR 15 Branch DAYS HYDROcodone 2020-0 Yes TAKE 1 Univ ers -acetaminop 9-04 TABLET BY ity of hen 7.5-325 00:00: MOUTH [place] mg per 00 TWICE A Medical tablet DAY FOR 15 Branch DAYS HYDROcodone 2020-0 Yes TAKE 1 Univ ers -acetaminop 9-04 TABLET BY ity of hen 7.5-325 00:00: MOUTH [place] mg per 00 TWICE A Medical tablet DAY FOR 15 Branch DAYS HYDROcodone 2020-0 Yes TAKE 1 Univ ers -acetaminop 9-04 TABLET BY ity of hen 7.5-325 00:00: MOUTH [place] mg per 00 TWICE A Medical tablet DAY FOR 15 Branch DAYS HYDROcodone 2020-0 Yes TAKE 1 Univ ers -acetaminop 9-04 TABLET BY ity of hen 7.5-325 00:00: MOUTH [place] mg per 00 TWICE A Medical tablet DAY FOR 15 Branch DAYS HYDROcodone 2020-0 Yes TAKE 1 Univ ers -acetaminop 9-04 TABLET BY ity of hen 7.5-325 00:00: MOUTH [place] mg per 00 TWICE A Medical tablet DAY FOR 15 Branch DAYS HYDROcodone 2020-0 Yes TAKE 1 Univ ers -acetaminop 9-04 TABLET BY ity of hen 7.5-325 00:00: MOUTH [place] mg per 00 TWICE A Medical tablet DAY FOR 15 Branch DAYS HYDROcodone 2020-0 Yes TAKE 1 Univ ers -acetaminop 9-04 TABLET BY ity of hen 7.5-325 00:00: MOUTH [place] mg per 00 TWICE A Medical tablet DAY FOR 15 Branch DAYS HYDROcodone 2020-0 Yes TAKE 1 Univ ers -acetaminop 9-04 TABLET BY ity of hen 7.5-325 00:00: MOUTH [place] mg per 00 TWICE A Medical tablet DAY FOR 15 Branch DAYS HYDROcodone 2020-0 Yes TAKE 1 Univ ers -acetaminop 9-04 TABLET BY ity of hen 7.5-325 00:00: MOUTH [place] mg per 00 TWICE A Medical tablet DAY FOR 15 Branch DAYS hydroCHLORO 2020-0 Yes 25mg Take 25 mg Univers thiazide 25 8-24 by mouth ity of mg tablet 00:00: every [place] 00 morning. Medical Branch hydroCHLORO 2020-0 Yes 25mg Take 25 mg Univers thiazide 25 8-24 by mouth ity of mg tablet 00:00: every [place] 00 morning. Medical Branch hydroCHLORO 2020-0 Yes 25mg Take 25 mg Univers thiazide 25 8-24 by mouth ity of mg tablet 00:00: every [place] 00 morning. Medical Branch hydroCHLORO 2020-0 Yes 25mg Take 25 mg Univers thiazide 25 8-24 by mouth ity of mg tablet 00:00: every [place] 00 morning. Medical Branch hydroCHLORO 2020-0 Yes 25mg Take 25 mg Univers thiazide 25 8-24 by mouth ity of mg tablet 00:00: every [place] morning. Medical Branch hydroCHLORO 2020-0 Yes 25mg Take 25 mg Univers thiazide 25 8-24 by mouth ity of mg tablet 00:00: every [place] morning. Medical Branch hydroCHLORO 2020-0 Yes 25mg Take 25 mg Univers thiazide 25 8-24 by mouth ity of mg tablet 00:00: every [place] morning. Medical Branch hydroCHLORO 2020-0 Yes 25mg Take 25 mg Univers thiazide 25 8-24 by mouth ity of mg tablet 00:00: every [place] morning. Medical Branch hydroCHLORO 2020-0 Yes 25mg Take 25 mg Univers thiazide 25 8-24 by mouth ity of mg tablet 00:00: every [place] morning. Medical Branch hydroCHLORO 2020-0 Yes 25mg Take 25 mg Univers thiazide 25 8-24 by mouth ity of mg tablet 00:00: every [place] morning. Medical Branch hydroCHLORO 2020-0 Yes 25mg Take 25 mg Univers thiazide 25 8-24 by mouth ity of mg tablet 00:00: every [place] morning. Medical Branch cloNIDine 2020-0 Yes 1{tbl} Take 1 Univ ers HCL 0.1 mg 7-31 tablet by ity of tablet 00:00: mouth 2 (two) Medical times Branch daily. cloNIDine 2020-0 Yes 1{tbl} Take 1 Univ ers HCL 0.1 mg 7-31 tablet by ity of tablet 00:00: mouth 2 (two) Medical times Branch daily. cloNIDine 2020-0 Yes 1{tbl} Take 1 Univ ers HCL 0.1 mg 7-31 tablet by ity of tablet 00:00: mouth 2 (two) Medical times Branch daily. cloNIDine 2020-0 Yes 1{tbl} Take 1 Univ ers HCL 0.1 mg 7-31 tablet by ity of tablet 00:00: mouth 2 (two) Medical times Branch daily. cloNIDine 2020-0 Yes 1{tbl} Take 1 Univ ers HCL 0.1 mg 7-31 tablet by ity of tablet 00:00: mouth 2 (two) Medical times Branch daily. cloNIDine 2020-0 Yes 1{tbl} Take 1 Univ ers HCL 0.1 mg 7-31 tablet by ity of tablet 00:00: mouth 2 (two) Medical times Branch daily. cloNIDine 2020-0 Yes 1{tbl} Take 1 Univ ers HCL 0.1 mg 7-31 tablet by ity of tablet 00:00: mouth 2 (two) Medical times Branch daily. cloNIDine 2020-0 Yes 1{tbl} Take 1 Univ ers HCL 0.1 mg 7-31 tablet by ity of tablet 00:00: mouth 2 (two) Medical times Branch daily. cloNIDine 2020-0 Yes 1{tbl} Take 1 Univ ers HCL 0.1 mg 7-31 tablet by ity of tablet 00:00: mouth 2 (two) Medical times Branch daily. cloNIDine 2020-0 Yes 1{tbl} Take 1 Univ ers HCL 0.1 mg 7-31 tablet by ity of tablet 00:00: mouth (two) Medical times Branch daily. cloNIDine 2020-0 Yes 1{tbl} Take 1 Univ ers HCL 0.1 mg 7-31 tablet by ity of tablet 00:00: mouth (two) Medical times Branch daily. tamsulosin 2020-0 Yes .4mg Take 0.4 Uni vers 0.4 mg 24 7-03 mg by ity of hr capsule 00:00: mouth 00 daily. Medical Branch tamsulosin 2020-0 Yes .4mg Take 0.4 Uni vers 0.4 mg 24 7-03 mg by ity of hr capsule 00:00: mouth 00 daily. Medical Branch tamsulosin 2020-0 Yes .4mg Take 0.4 Uni vers 0.4 mg 24 7-03 mg by ity of hr capsule 00:00: mouth 00 daily. Medical Branch tamsulosin 2020-0 Yes .4mg Take 0.4 Uni vers 0.4 mg 24 7-03 mg by ity of hr capsule 00:00: mouth [place] 00 daily. Medical Branch tamsulosin 2020-0 Yes .4mg Take 0.4 Uni vers 0.4 mg 24 7-03 mg by ity of hr capsule 00:00: mouth [place] 00 daily. Medical Branch tamsulosin 2020-0 Yes .4mg Take 0.4 Uni vers 0.4 mg 24 7-03 mg by ity of hr capsule 00:00: mouth [place] 00 daily. Medical Branch tamsulosin 2020-0 Yes .4mg Take 0.4 Uni vers 0.4 mg 24 7-03 mg by ity of hr capsule 00:00: mouth [place] 00 daily. Medical Branch tamsulosin 2020-0 Yes .4mg Take 0.4 Uni vers 0.4 mg 24 7-03 mg by ity of hr capsule 00:00: mouth [place] 00 daily. Medical Branch tamsulosin 2020-0 Yes .4mg Take 0.4 Uni vers 0.4 mg 24 7-03 mg by ity of hr capsule 00:00: mouth [place] 00 daily. Medical Branch tamsulosin 2020-0 Yes .4mg Take 0.4 Uni vers 0.4 mg 24 7-03 mg by ity of hr capsule 00:00: mouth [place] 00 daily. Medical Branch tamsulosin 2020-0 Yes .4mg Take 0.4 Uni vers 0.4 mg 24 7-03 mg by ity of hr capsule 00:00: mouth [place] 00 daily. Medical Branch tramadol 2020-0 Yes 50 mg = 1 Isaias jose m hydrochlori 6-18 tab, PO, l de 50 MG 00:35: Q8H, X 30 Herm amparo Oral Tablet 00 day, # 90 tab, 1 Refill(s), Pharmacy: [facility] #[id number], 187.96, cm, 02/01/20 11:28:00 CDT, Height, 90, kg, 02/01/20 11:28:00 CDT, Weight tramadol 2020-0 Yes 50 mg = 1 Isaias jose m hydrochlori 6-18 tab, PO, l de 50 MG 00:35: Q8H, X 30 Herm amparo Oral Tablet 00 day, # 90 tab, 1 Refill(s), Pharmacy: [facility] #[id number], 187.96, cm, 02/01/20 11:28:00 CDT, Height, 90, kg, 02/01/20 11:28:00 CDT, Weight gabapentin 2020-0 Yes 300 mg = 1 M emoria 300 MG Oral 6-05 cap, PO, l Capsule 17:15: BID, # 60 Mary nn 00 cap, 2 Refill(s), Pharmacy: [facility] #[id number] gabapentin 2020-0 Yes 300 mg = 1 M emoria 300 MG Oral 6-05 cap, PO, l Capsule 17:15: BID, # 60 Mary nn 00 cap, 2 Refill(s), Pharmacy: [facility] #[id number] baclofen 10 2020-0 Yes 10 mg = 1 M emoria mg oral 5-13 tab, PO, l tablet 16:59: BID, # 60 Delfin n 00 tab, 4 Refill(s), [id number] baclofen 10 2020-0 Yes 10 mg = 1 M emoria mg oral 5-13 tab, PO, l tablet 16:59: BID, # 60 Delfin n 00 tab, 4 Refill(s), [id number] magnesium 2020-0 Yes 250 mg = [...] 00 Refill(s) Extended Release Tablet [Toprol] Clonidine Yes 0.1 mg = 1 Me moria Hydrochlori 5-13 tab, PO, l de 0.1 MG 16:27: Daily, 0 Herm amparo Oral Tablet 00 Refill(s) hydrochloro Yes 12.5 mg = M emoria thiazide 5-13 1 tab, PO, l 12.5 mg 16:27: Daily, # Delfin n oral tablet 00 30 tab, 0 Refill(s) cloniDINE Yes 1{patch Apply 1 Un yovanny (CATAPRES-T 6-15 } Patch to ity of TS 3) 0.3 19:22: skin [place] mg/24 hr 14 weekly. Medical patch Branch amlodipine- Yes 1{capsu Take 1 U nivers benazepril 6-15 le} capsule by ity of (LOTREL) 19:22: mouth [place] 10-20 mg 14 daily. Medical per capsule Branch metoprolol Yes 200mg Take 200 Un yovanny succinate 6-15 mg by ity of XL (TOPROL 19:22: mouth [place] XL) 200 mg 14 daily. Medical 24 hr Branch tablet cloniDINE Yes 1{patch Apply 1 Un yovanny (CATAPRES-T 6-15 } Patch to ity of TS 3) 0.3 19:22: skin [place] mg/24 hr 14 weekly. Medical patch Branch amlodipine- Yes 1{capsu Take 1 U nivers benazepril 6-15 le} capsule by ity of (LOTREL) 19:22: mouth [place] 10-20 mg 14 daily. Medical per capsule Branch metoprolol Yes 200mg Take 200 Un yovanny succinate 6-15 mg by ity of XL (TOPROL 19:22: mouth [place] XL) 200 mg 14 daily. Medical 24 hr Branch tablet cloniDINE Yes 1{patch Apply 1 Un yovanny (CATAPRES-T 6-15 } Patch to ity of TS 3) 0.3 19:22: skin [place] mg/24 hr 14 weekly. Medical patch Branch amlodipine- Yes 1{capsu Take 1 U nivers benazepril 6-15 le} capsule by ity of (LOTREL) 19:22: mouth [place] 10-20 mg 14 daily. Medical per capsule Branch metoprolol Yes 200mg Take 200 Un yovanny succinate 6-15 mg by ity of XL (TOPROL 19:22: mouth [place] XL) 200 mg 14 daily. Medical 24 hr Branch tablet cloniDINE Yes 1{patch Apply 1 Un yovanny (CATAPRES-T 6-15 } Patch to ity of TS 3) 0.3 19:22: skin [place] mg/24 hr 14 weekly. Medical patch Branch amlodipine- Yes 1{capsu Take 1 U nivers benazepril 6-15 le} capsule by ity of (LOTREL) 19:22: mouth [place] 10-20 mg 14 daily. Medical per capsule Branch metoprolol Yes 200mg Take 200 Un yovanny succinate 6-15 mg by ity of XL (TOPROL 19:22: mouth [place] XL) 200 mg 14 daily. Medical 24 hr Branch tablet cloniDINE Yes 1{patch Apply 1 Un yovanny (CATAPRES-T 6-15 } Patch to ity of TS 3) 0.3 19:22: skin [place] mg/24 hr 14 weekly. Medical patch Branch amlodipine- Yes 1{capsu Take 1 U nivers benazepril 6-15 le} capsule by ity of (LOTREL) 19:22: mouth [place] 10-20 mg 14 daily. Medical per capsule Branch metoprolol Yes 200mg Take 200 Un yovanny succinate 6-15 mg by ity of XL (TOPROL 19:22: mouth [place] XL) 200 mg 14 daily. Medical 24 hr Branch tablet cloniDINE Yes 1{patch Apply 1 Un yovanny (CATAPRES-T 6-15 } Patch to ity of TS 3) 0.3 19:22: skin [place] mg/24 hr 14 weekly. Medical patch Branch amlodipine- Yes 1{capsu Take 1 U nivers benazepril 6-15 le} capsule by ity of (LOTREL) 19:22: mouth [place] 10-20 mg 14 daily. Medical per capsule Branch metoprolol Yes 200mg Take 200 Un yovanny succinate 6-15 mg by ity of XL (TOPROL 19:22: mouth [place] XL) 200 mg 14 daily. Medical 24 hr Branch tablet cloniDINE Yes 1{patch Apply 1 Un yovanny (CATAPRES-T 6-15 } Patch to ity of TS 3) 0.3 19:22: skin [place] mg/24 hr 14 weekly. Medical patch Branch amlodipine- Yes 1{capsu Take 1 U nivers benazepril 6-15 le} capsule by ity of (LOTREL) 19:22: mouth [place] 10-20 mg 14 daily. Medical per capsule Branch metoprolol Yes 200mg Take 200 Un yovanny succinate 6-15 mg by ity of XL (TOPROL 19:22: mouth [place] XL) 200 mg 14 daily. Medical 24 hr Branch tablet cloniDINE Yes 1{patch Apply 1 Un yovanny (CATAPRES-T 6-15 } Patch to ity of TS 3) 0.3 19:22: skin [place] mg/24 hr 14 weekly. Medical patch Branch amlodipine- Yes 1{capsu Take 1 U nivers benazepril 6-15 le} capsule by ity of (LOTREL) 19:22: mouth [place] 10-20 mg 14 daily. Medical per capsule Branch metoprolol Yes 200mg Take 200 Un yovanny succinate 6-15 mg by ity of XL (TOPROL 19:22: mouth [place] XL) 200 mg 14 daily. Medical 24 hr Branch tablet cloniDINE Yes 1{patch Apply 1 Un yovanny (CATAPRES-T 6-15 } Patch to ity of TS 3) 0.3 19:22: skin [place] mg/24 hr 14 weekly. Medical patch Branch amlodipine- Yes 1{capsu Take 1 U nivers benazepril 6-15 le} capsule by ity of (LOTREL) 19:22: mouth [place] 10-20 mg 14 daily. Medical per capsule Branch metoprolol Yes 200mg Take 200 Un yovanny succinate 6-15 mg by ity of XL (TOPROL 19:22: mouth [place] XL) 200 mg 14 daily. Medical 24 hr Branch tablet cloniDINE Yes 1{patch Apply 1 Un yovanny (CATAPRES-T 6-15 } Patch to ity of TS 3) 0.3 19:22: skin [place] mg/24 hr 14 weekly. Medical patch Branch amlodipine- Yes 1{capsu Take 1 U nivers benazepril 6-15 le} capsule by ity of (LOTREL) 19:22: mouth [place] 10-20 mg 14 daily. Medical per capsule Branch metoprolol Yes 200mg Take 200 Un yovanny succinate 6-15 mg by ity of XL (TOPROL 19:22: mouth [place] XL) 200 mg 14 daily. Medical 24 hr Branch tablet cloniDINE 2015- Yes 1{patch Apply 1 Un yovanny (CATAPRES-T 6-15 } Patch to ity of TS 3) 0.3 19:22: skin [place] mg/24 hr 14 weekly. Medical patch Branch amlodipine- Yes 1{capsu Take 1 U nivers benazepril 6-15 le} capsule by ity of (LOTREL) 19:22: mouth [place] 10-20 mg 14 daily. Medical per capsule Branch metoprolol Yes 200mg Take 200 Un yovanny succinate 6-15 mg by ity of XL (TOPROL 19:22: mouth [place] XL) 200 mg 14 daily. Medical 24 hr Branch tablet cloniDINE Yes 1{patch Apply 1 Un yovanny (CATAPRES-T 6-15 } Patch to ity of TS 3) 0.3 19:22: skin [place] mg/24 hr 14 weekly. Medical patch Branch amlodipine- Yes 1{capsu Take 1 U nivers benazepril 6-15 le} capsule by ity of (LOTREL) 19:22: mouth [place] 10-20 mg 14 daily. Medical per capsule Branch metoprolol Yes 200mg Take 200 Un yovanny succinate 6-15 mg by ity of XL (TOPROL 19:22: mouth [place] XL) 200 mg 14 daily. Medical 24 hr Branch tablet cloniDINE Yes 1{patch Apply 1 Un yovanny (CATAPRES-T 6-15 } Patch to ity of TS 3) 0.3 19:22: skin [place] mg/24 hr 14 weekly. Medical patch Branch amlodipine- Yes 1{capsu Take 1 U nivers benazepril 6-15 le} capsule by ity of (LOTREL) 19:22: mouth [place] 10-20 mg 14 daily. Medical per capsule Branch metoprolol Yes 200mg Take 200 Un yovanny succinate 6-15 mg by ity of XL (TOPROL 19:22: mouth [place] XL) 200 mg 14 daily. Medical 24 hr Branch tablet Vital Signs Vital Name Observation Time Observation Value Comments Source Systolic blood 2020-11-04 15:42:00 178 mm[Hg] Univer sity of pressure [facility] Branch Diastolic blood 2020-11-04 15:42:00 100 mm[Hg] Unive rsity of pressure [facility] Heart rate 2020-11-04 15:42:00 70 /min Universi ty of [facility] Branch Body height 2020-11-04 15:37:00 188 cm Universi ty of [facility] Branch Body weight 2020-11-04 15:37:00 88.451 kg Universi ty of [facility] Branch BMI 2020-11-04 15:37:00 25.04 kg/m2 Universi ty of [facility] Branch Systolic blood 2020-11-04 15:42:00 178 mm[Hg] Univer sity of [facility] Branch Diastolic blood 2020-11-04 15:42:00 100 mm[Hg] Unive rsity of [facility] Heart rate 2020-11-04 15:42:00 70 /min Universi ty of [facility] Branch Body height 2020-11-04 15:37:00 188 cm Universi ty of [facility] Branch Body weight 2020-11-04 15:37:00 88.451 kg Universi ty of [facility] Branch BMI 2020-11-04 15:37:00 25.04 kg/m2 Universi ty of [facility] Branch Systolic blood 2020-05-22 13:52:00 147 mm[Hg] Univer sity of pressure [facility] Branch Diastolic blood 2020-05-22 13:52:00 87 mm[Hg] Unive rsity of pressure [facility] Branch Heart rate 2020-05-22 13:47:00 68 /min Universi ty of [facility] Branch Systolic blood 2020-05-15 14:02:00 168 mm[Hg] Univer sity of pressure [facility] Branch Diastolic blood 2020-05-15 14:02:00 96 mm[Hg] Unive rsity of pressure [facility] Branch Heart rate 2020-05-15 14:02:00 58 /min Universi ty of [facility] Branch Body height 2020-05-15 13:57:00 188 cm Universi ty of [facility] Branch Body weight 2020-05-15 13:57:00 88.451 kg stated Universi ty of [place] [facility] BMI 2020-05-15 13:57:00 25.04 kg/m2 Universi [facility] Systolic blood 2020-05-02 05:00:00 150 mm[Hg] Univer sity of pressure [facility] Diastolic blood 2020-05-02 05:00:00 92 mm[Hg] Unive rsity of pressure [facility] Heart rate 2020-05-02 05:00:00 59 /min [facility] Body temperature 2020-05-02 05:00:00 [facility]22 [facility] 2020-05-02 05:00:00 20 /[facility] Body height 2020-05-02 05:00:00 188 cm [facility] Body weight 2020-05-02 05:00:00 88.451 kg [facility] BMI 2020-05-02 05:00:00 25.04 kg/m2 [facility] Oxygen saturation in 2020-05-02 05:00:00 100 /min [facility] Arterial blood by [facility] Pulse oximetry Branch Systolic (mm Hg) 2020-02-01 16:28:00 Isaias rial [place] Diastolic (mm Hg) 2020-02-01 16:28:00 Mem orial [place] Heart Rate 2020-02-01 16:28:00 [facility] Greg Respitory Rate 2020-02-01 16:28:00 Memori al Greg Height 2020-02-01 16:28:00 187.96 cm [facility] Greg Weight 2020-02-01 16:28:00 [facility] Greg BMI Calculated 2020-02-01 16:28:00 Memori al [place] Temperature Oral (F) 2020-02-01 16:28:00 99.7 F [facility] Greg Systolic (mm Hg) 2020-01-09 16:23:00 Isaias rial [place] Diastolic (mm Hg) 2020-01-09 16:23:00 Mem orial [place] Heart Rate 2020-01-09 16:23:00 Memorial [place] Respitory Rate 2020-01-09 16:23:00 Memori al Greg Height 2020-01-09 16:23:00 182.88 cm [facility] Greg Weight 2020-01-09 16:23:00 [facility] BMI Calculated 2020-01-09 16:23:00 Mai Rios Procedures Procedure Date / Time Performing Clinician Source Performed XR HIP 1 VW BILATERAL 2020-05-15 14:12:34 Purnima Ochoa [facility] ASSIGNMENT OF BENEFITS 2020-05-02 05:31:22 Doctor Unassigned, [facility] [place] [facility] 2020-05-02 05:01:00 Doctor Unassigned, [facility] AGREEMENTS AND [facility] AUTHORIZATIONS NOTICE OF PRIVACY 2020-05-02 04:52:29 Doctor Unassigned, [facility] PRACTICES [facility] Encounters Start End Encounter Admission Attending Care Care Encounter Source Date/Time Date/Time Type Type Clinicians Facility Department ID 2020-11-04 2020-11-04 Outpatient Emperatriz OCHOA [facility] [id number] Univers 10:00:00 10:00:00 PURNIMA [id number] [facility] 2020-11-04 2020-11-04 Outpatient Emperatriz OCHOA [facility] [id number] Univers 10:00:00 10:00:00 PURNIMA [facility] 2020-11-04 2020-11-04 [facility] [id number] 09:31:29 09:46:29 Visit [facility] [id number] Surgical [id number] Specialti [id number] es [address] [place] 2020-11-04 2020-11-04 [facility] [id number] Univers 09:31:29 09:46:29 Visit [facility] [id number] it y of Surgical [id number] Malick as Specialti [id number] Mt dical es 198 Branch [place] 2020-10-28 2020-10-28 Outpatient Emperatriz OCHOA [facility] [id number] Univers 11:00:00 11:00:00 PURNIMA [id number] [facility] 2020-10-28 2020-10-28 Outpatient Emperatriz OCHOA [facility] [id number] Univers 11:00:00 11:00:00 PURNIMA [facility] 2020-06-12 2020-06-12 [facility] [id number] Univers 00:00:00 00:00:00 [facility] [id number] it y of Surgical [id number] [place] as Specialti [id number] Me dical es 198 [facility] 2020-06-09 2020-06-09 [facility] [id number] Univers 00:00:00 00:00:00 [facility] [id number] it y of Surgical [id number] Malick as Specialti [id number] Mt dical es 198 [facility] 2020-05-22 2020-05-22 Office [facility] [id number] Univers 08:41:49 09:33:00 Visit [facility] [id number] it y of Surgical [id number] Malick as Specialti [id number] Mt dical es 198 [facility] 2020-05-22 2020-05-22 [facility] [id number] -[id number] Univers 08:45:00 08:45:00 PURNIMA [id number] ity of [facility] 2020-05-22 2020-05-22 [facility] [id number] Univers 08:45:00 08:45:00 PURNIMA ity of [facility] 2020-05-22 2020-05-22 Telephone [facility] [id number] Univers 00:00:00 00:00:00 [facility] [id number] it y of Surgical [id number] [place] as Specialti [phone] Mt dical es 198 [facility] 2020-05-15 2020-05-15 [facility] [id number] Univers 09:12:33 23:59:00 Encounter [facility] [id number] ity of Surgical [id number] [place] as Specialti [phone] Mt dical es 809 [facility] 2020-05-15 2020-05-15 Office [facility] [id number] Univers 08:44:16 08:59:16 Visit [facility] [id number] it y of Surgical [id number] [place] as Specialti [phone] Mt dical es 198 [facility] 2020-05-15 2020-05-15 Outpatient R [facility] [id number] Univers 08:45:00 08:45:00 PURNIMA ity [facility] 2020-05-15 2020-05-15 Telephone [facility] [id number] Univers 00:00:00 00:00:00 [facility] [id number] it y of Surgical [id number] [place] as Specialti [phone] [facility] es 198 [facility] 2020-05-02 2020-05-02 Emergency [facility] [id number] Univers 00:02:00 00:53:00 Melinda Carl[place] [id number] ity [facility] [id number] [place] [facility] [phone] [facility] [address] [place] 2020-05-02 2020-05-02 Emergency X [facility] ERT [id number] Univers 00:02:00 [facility]:02:00 [facility] 2020-05-02 Orders Doctor NILE [id number] Univers 00:00:00 00:00:00 Only Unassigned, TYLER [id number] ity of [place] [facility] [id number] Malick as [phone] [facility] [address] [place] 2020-04-15 2020-04-17 Outside nullFlavo MNA [id number] Memoria 14:13:53 04:59:59 Medical r Neurology 00 l Records Garrick [place] 2020-03-04 2020-03-04 Ambulatory nullFlavo MNA [id number] Memoria 20:45:00 20:45:00 Pre-Reg r Neurology 03 l Garrick Ruelasann 2020-03-04 2020-03-04 Ambulatory nullFlavo MNA [id number] Memoria 20:45:00 20:45:00 Pre-Reg r Neurology 02 l Garrick Garza 2020-02-01 2020-02-02 Outpatient nullFlavo MNA [id number] Memoria 16:15:00 04:59:59 r Neurology 01 l Garrick Garza 2020-01-09 2020-01-10 Outpatient nullFlavo MNA [id number] Memoria 16:30:00 04:59:59 r Neurology 00 l Garrick Garza Results Test Description Test Time Test Comments Results Result Sour e Comments XR HIP 1 VW 2020-05-15 X-rays reveal [facility] 14:52:58 minor [facility] degenerative Branch changes in the medial portion of his right femoral acetabular joint
[2022-03-19 15:51] LABS: Urine Blood Negative (Negative); Urine Glucose Negative (Negative); Urine Protein Negative (Negative); Urine Specific Gravity 1.025 (1.005-1.030); Urine pH 5.5 (5.0-7.0)
[2022-03-19 16:03] LABS: Absolute Lymphocytes (CBC) 1.6 K/uL (0.7-4.9); Hematocrit 44.5 % (39.6-49.0); Lymphocytes % 24.7 % (15.3-44.8); MCV 87.4 fL (80-100); MPV 7.7 fL (7.6-11.3)
[2022-03-19 16:18] LABS: Albumin 3.6 g/dL (3.4-5.0); Bilirubin Total 0.6 mg/dL (0.2-1.0); Potassium 3.4 mmol/L (3.5-5.1); Protein, Total 7.1 g/dL (6.4-8.2)
--- NOTE | 2022-03-19 17:00 | RAD REPORT ---
EXAM DESCRIPTION: CT - Abdomen Pelvis Wo Contrast - 03/19/2022 4:53 pm CLINICAL HISTORY: Abdominal pain. Abdominal pain, acute, nonlocalized COMPARISON: Abdomen Pelvis W Contrast dated 07/14/2021 TECHNIQUE: CT imaging of the abdomen and pelvis was performed without contrast. Solid organ, bowel a nd vascular assessment is limited due to lack of IV and oral contrast. All CT scans are performed using dose optimization technique as appropriate and may include automated exposure control or mA/KV adjustment according to patient size. FINDINGS: The lower lung hansen are clear. The liver, spleen, pancreas, right adrenal gland and kidneys are within normal limits for a limited n on-contrast examination.27 mm left adrenal mass is present. This appears unchanged since prior study. No bowel obstruction, free air, free fluid or abscess. Postsurgical changes are present colon. Posts urgical clips are also present both inguinal regions. Right total hip arthroplasty.Moderate lumbosacral degenerative changes. IMPRESSION: No acute intra-abdominal or pelvic findings. A limited non-contrast examination was performed as detailed.
[2022-03-19] MEDS ORDERED: MORPHINE 4 MG/ML SYR ONE (18:52)
[2022-03-19] MEDS ORDERED: dexAMETHasone 4 MG/ML VIAL ONE (18:53)
--- NOTE | 2022-03-19 19:01 | ER ---
Nurse's Notes [facility] Name: Allan Driver Age: 67 yrs Sex: Male : 1955 Arrival Date: 03/19/2022 Time: 14:57 Bed 17 Private MD: Osorio Granados C Diagnosis: Pain in leg, unspecified;Radiculopathy, lumbosacral region Presentation: 03/19 15:18 Chief complaint: Patient states: Double hernia surgery in October. Pt c/o of constant ld1 pain in lower abdomen/left groin X 3 weeks. Coronavirus screen: At this time, the client does not indicate any symptoms associated with coronavirus-19. Ebola Screen: No symptoms or risks identified at this time. Initial Sepsis Screen: Does the patient meet any 2 criteria? No. Patient's initial sepsis screen is negative. Does the patient have a suspected source of infection? No. Patient's initial sepsis screen is negative. Risk Assessment: Do you want to hurt yourself or someone else? Patient reports no desire to harm self or others. Onset of symptoms was March 19, 2022. 15:18 Method Of Arrival: Ambulatory ld1 15:18 Acuity: NAYANA 3 ld1 Triage Assessment: 15:18 General: Appears in no apparent distress. uncomfortable, Behavior is calm, cooperative, ld1 appropriate for age. Pain: Complains of pain in abdomen and left femoral area Pain does not radiate. Pain currently is 0 out of 10 on a pain scale. at worst was 10 out of 10 on a pain scale. Quality of pain is described as stabbing. EENT: No signs and/or symptoms were reported regarding the EENT system. Neuro: Level of Consciousness is awake, alert, obeys commands, Oriented to person, place, time, situation. Cardiovascular: Capillary refill < 3 seconds Patient's skin is warm and dry. Respiratory: Airway is patent Respiratory effort is even, unlabored. GI: Abdomen is round non-distended. : No signs and/or symptoms were reported regarding the genitourinary system. Historical: - Allergies: 15:21 No Known Allergies; ld1 - PMHx: 15:21 adrenal mass; colon cancer; Hypertension; ld1 15:23 enlarged heart; ld1 - PSHx: 15:21 Right hip replacement; Hernia surgery; ld1 - Immunization history:: Adult Immunizations up to date, Client reports receiving the 2nd dose of the Covid vaccine. - Social history:: Smoking status: Patient denies any tobacco usage or history of. Patient/guardian denies using alcohol. - Family history:: not pertinent. - Hospitalizations: : No recent hospitalization is reported. Screenin:28 Abuse screen: Denies threats or abuse. Nutritional screening: No deficits noted. bh1 Tuberculosis screening: No symptoms or risk factors identified. Fall Risk None identified. Assessment: 15:28 Reassessment: No changes from previously documented assessment. 1 Vital Signs: 15:18 BP 108 / 80; Pulse 56; Resp 18; Temp 98.5; Pulse Ox 100% on R/A; Weight 92.99 kg; ld1 Height 6 ft. 2 in. (187.96 cm); Pain 2/10; 15:55 BP 101 / 76; Pulse 76; Resp 20; Pulse Ox 96% on R/A; bh1 16:42 BP 100 / 70; Pulse 62; Resp 18; Pulse Ox 100% ; bh1 17:16 BP 111 / 75; Pulse 68; Resp 20; Pulse Ox 97% on R/A; bh1 18:00 BP 107 / 68; Pulse 70; Resp 18; Pulse Ox 100% on R/A; bh1 18:52 BP 119 / 90; Pulse 72; Resp 18; Pulse Ox 95% on R/A; bh1 15:18 Body Mass Index 26.32 (92.99 kg, 187.96 cm) ld1 ED Course: 14:57 Patient arrived in ED. mr 14:57 Osorio Granados MD is Private Physician. mr 15:18 Arm band placed on right wrist. ld1 15:21 Triage completed. ld1 15:24 Ronel Morris, RN is Primary Nurse. bh1 15:28 Cullen Chu MD is Attending Physician. rn 15:28 No apparent distress. Awaiting ED provider evaluation. bh1 15:28 Patient has correct armband on for positive identification. Pulse ox on. NIBP on. bh1 15:28 No provider procedures requiring assistance completed. Patient did not have IV access bh1 during this emergency room visit. 15:54 Lipase Sent. bh1 15:54 CMP Sent. bh1 15:54 CBC with Diff Sent. bh1 15:55 Inserted saline lock: 20 gauge in left forearm, using aseptic technique. Blood 1 collected. 16:[address] bh1 16:54 Abdomen In Process Unspecified. EDMS 17:18 No apparent distress. Resting quietly. Awaiting lab results, Awaiting radiology results.bh1 18:00 No apparent distress. Resting quietly. Awaiting disposition. 1 18:52 No apparent distress. Resting quietly. Awaiting disposition. [facility] 19:00 Osorio Granados MD is Referral Physician. rn 19:10 Primary Nurse role handed off by Ronel Morris RN 3 19:10 Shruthi Novak, MERRY is Primary Nurse. 3 Administered Medications: 18:51 Drug: Decadron - Dexamethasone 10 mg Route: IVP; Site: left antecubital; [facility] 18:52 Follow up: Response: No adverse reaction [facility] 18:52 Drug: morphine 4 mg Route: IVP; Infused Over: 4 mins; Site: left antecubital; [facility] 18:52 Follow up: Response: No adverse reaction [facility] Medication: 15:28 VIS not applicable for this client. [facility] Outcome: 19:00 Discharge ordered by . rn 19:19 Discharged to home ambulatory. kd3 19:19 Condition: stable 19:19 Discharge instructions given to patient, family, Instructed on discharge instructions, follow up and referral plans. Demonstrated understanding of instructions, follow-up care, medications, Prescriptions given X 1. 19:20 Patient left the ED. 3 Signatures: Dispatcher [employer] JOISC Alexander Candi Cullen Crawford MD MD rn Dibbern, Lauren, RN RN ld1 Shruthi Novak RN RN 3 Ronel Morris, MERRY RN 1 Corrections: (The following items were deleted from the chart) 15:22 15:18 Pulse 56bpm; Resp 18bpm; Pulse Ox 100% RA; Temp 98.5F; 92.99 kg; Height 6 ft. 2 ld1 in.; BMI: 26.3; Pain 2/10; ld1
--- NOTE | 2022-03-19 19:01 | EDPHYS ---
Physician Documentation [facility] Name: Allan Driver Age: 67 yrs Sex: Male : 1955 Arrival Date: 03/19/2022 Time: 14:57 Bed 17 Private MD: Osorio Granados C ED Physician Cullen Chu HPI: 03/19 17:15 This 67 yrs old Male presents to ER via Ambulatory with complaints of groin pain. rn 17:44 The patient presents with pain. The complaints affect the left inner thigh. Onset: The rn symptoms/episode began/occurred 3 week(s) ago. Associated signs and symptoms: Pertinent negatives fever, swelling, warmth, weakness. Severity of symptoms: At their worst the symptoms were moderate, in the emergency department the symptoms are unchanged. The patient has experienced similar episodes in the past. The patient has been recently seen by a physician:. Pt reports bilateral hernia surgery 4 months ago, since then has been having intermittent left groin pain, radiates down leg, no weakness. Seen at [place] this week without acute findings and discharged. Followed up with Dr. Anders and told surgical sites look fine. No trauma.. Historical: - Allergies: 15:21 No Known Allergies; ld1 - PMHx: 15:21 adrenal mass; colon cancer; Hypertension; ld1 15:23 enlarged heart; ld1 - PSHx: 15:21 Right hip replacement; Hernia surgery; ld1 - Immunization history:: Adult Immunizations up to date, Client reports receiving the 2nd dose of the Covid vaccine. - Social history:: Smoking status: Patient denies any tobacco usage or history of. Patient/guardian denies using alcohol. - Family history:: not pertinent. - Hospitalizations: : No recent hospitalization is reported. ROS: 17:44 Constitutional: Negative for fever, chills, and weight loss, Eyes: Negative for injury, rn pain, redness, and discharge, Neck: Negative for injury, pain, and swelling, Cardiovascular: Negative for chest pain, palpitations, and edema, Respiratory: Negative for shortness of breath, cough, wheezing, and pleuritic chest pain, Abdomen/GI: Negative for abdominal pain, nausea, vomiting, diarrhea, and constipation, Back: Negative for injury : Negative for injury, bleeding, discharge, and swelling, MS/Extremity: + tingling to left leg, + left groin pain Skin: Negative for injury, rash, and discoloration, Neuro: Negative for headache, weakness, and seizure. Exam: 17:44 Constitutional: This is a well developed, well nourished patient who is awake, alert, rn and in no acute distress. Head/Face: Normocephalic, atraumatic. Cardiovascular: Regular rate and rhythm. No pulse deficits. Respiratory: No increased work of breathing, no retractions or nasal flaring. Abdomen/GI: soft, non-tender Skin: Warm, dry with normal turgor. Normal color with no rashes, no lesions, and no evidence of cellulitis. MS/ Extremity: Pulses equal, no cyanosis. Neurovascular intact. + left groin with tenderness, no swelling or mass. No erythema. NO lesions. Neuro: Awake and alert, GCS 15 Vital Signs: 15:18 BP 108 / 80; Pulse 56; Resp 18; Temp 98.5; Pulse Ox 100% on R/A; Weight 92.99 kg; ld1 Height 6 ft. 2 in. (187.96 cm); Pain 2/10; 15:55 BP 101 / 76; Pulse 76; Resp 20; Pulse Ox 96% on R/A; bh1 16:42 BP 100 / 70; Pulse 62; Resp 18; Pulse Ox 100% ; bh1 17:16 BP 111 / 75; Pulse 68; Resp 20; Pulse Ox 97% on R/A; bh1 18:00 BP 107 / 68; Pulse 70; Resp 18; Pulse Ox 100% on R/A; bh1 18:52 BP 119 / 90; Pulse 72; Resp 18; Pulse Ox 95% on R/A; bh1 15:18 Body Mass Index 26.32 (92.99 kg, 187.96 cm) ld1 MDM: 15:28 Patient medically screened. rn 18:57 Differential diagnosis: radiculopathy, post-surgical pain. Data reviewed: vital signs, rn nurses notes, lab test result(s), radiologic studies, CT scan, and as a result, I will discharge patient. Counseling: I had a detailed discussion with the patient and/or guardian regarding: the historical points, exam findings, and any diagnostic results supporting the discharge/admit diagnosis, lab results, radiology results, the need for outpatient follow up, to return to the emergency department if symptoms worsen or persist or if there are any questions or concerns that arise at home. Response to treatment: the patient's symptoms have mildly improved after treatment, and as a result, I will discharge patient. Special discussion: I discussed with the patient/guardian in detail that at this point there is no indication for admission to the hospital. It is understood, however, that if the symptoms persist or worsen the patient needs to return immediately for re-evaluation. ED course: COnsulted with Dr. Anders and Darwin, has appt with Dr. Granados on Tuesday, Dr. Anders agrees with steroids and f/u. . 03/19 15:29 Order name: CBC with Diff; Complete Time: 16:21 03/19 15:29 Order name: CMP; Complete Time: 16: 03/19 15:29 Order name: Lipase; Complete Time: 16: 03/19 15:29 Order name: CT Abd/Pelvis - IV Contrast Only 03/19 15:51 Order name: Urine Dipstick-Ancillary; Complete Time: 16:21 EDMS 03/19 15:29 Order name: IV Saline Lock; Complete Time: 15:54 03/19 15:29 Order name: Labs collected and sent; Complete Time: 15:54 03/19 15:29 Order name: Urine Dipstick-Ancillary (obtain specimen); Complete Time: 15:54 03/19 16:38 Order name: Abdomen ; Complete Time: 17:51 EDMS Administered Medications: 18:51 Drug: Decadron - Dexamethasone 10 mg Route: IVP; Site: [facility]cubital; [facility] 18:52 Follow up: Response: No adverse reaction [facility] 18:52 Drug: morphine 4 mg Route: IVP; Infused Over: 4 mins; Site: left antecubital; [facility] 18:52 Follow up: Response: No adverse reaction [facility] Disposition Summary: 03/19/22 19:00 Discharge Ordered Location: Home rn Problem: an ongoing problem rn Symptoms: have improved rn Condition: Stable rn Diagnosis - Pain in leg, unspecified rn - Radiculopathy, lumbosacral region rn Followup: rn - With: Osorio Granados MD - When: As needed - Reason: Recheck today's complaints, Re-evaluation by your physician Discharge Instructions: - Discharge Summary Sheet rn - Lumbosacral Radiculopathy rn - Neuropathic Pain rn Forms: - Medication Reconciliation Form rn - Thank You Letter rn - Antibiotic group burner machine - Prescription Opioid Use rn Prescriptions: - Medrol ([place]) 4 mg Oral Tablets, Dose Pack - take 1 tablet by ORAL route as directed - follow package instructions; 1 rn packet; Refills: 0, Product Selection Permitted Signatures: Dispatcher [employer] EDMS Cullen Chu MD MD rn Dibbern, Lauren RN RN ld1 Ronel Morris RN RN bh1 Corrections: (The following items were deleted from the chart) 16:38 15:33 Abdomen ordered. EDVA EDMS
[2022-03-19 19:46] VITALS: TEMP 98.5
[2022-03-19 19:57] VITALS: BP 119/90; O2SAT 95
== END 2022-03-19 19:20 | disposition home or self-care (01) ==
LOC: ER 14:55
DX: M79.605 Pain in left leg (principal); M54.17 Radiculopathy, lumbosacral region; I10 Essential (primary) hypertension; Z85.038 Personal history of other malignant neoplasm of large intestine
CPT/HCPCS: 85025; 36415; 81003; 83690; 80053; 74176; 96375; 96374; 99284; J1100

== ENCOUNTER 2022-06-10 15:54 | Emergency (ER) | payer OTHER, MEDICARE ==
--- OUTSIDE RECORDS SUMMARY | 2022-06-10 16:00 | XMS REPORT | Continuity of Care Document ---
:1955 Author Organization [facility] t Address [address] [place] [address] Care Team Providers Name Role Phone PURNIMA OCHOA Attending Clinician Unavailable Purnima Garcia Attending Clinician Toby Franks MD Attending Clinician Ekaterina Keenan MD Attending Clinician EKATERINA KEENAN Attending Clinician Unavailable Doctor Unassigned, [place] Attending Clinician Unavailable Rancho Snow Attending Clinician Payers Payer Name Policy Type Policy Number Effective Date Expiration Date Bianka bae COMM[employer]CIAL [id number] 2020 NON-CONTRACT 00:00:00 [employer]IC [employer] [place] [id number] 2013 00:00:00 Problems Condition Condition Condition Status Onset Resolution Last Treating Co mments Source Name Details Category Date Date Treatment Clinician Date No known No known Disease Unive rs active active ity of problems problems [facility] Hip pain Hip pain Problem Active 2022-04-05 Memoria (finding) (finding) 02:48:02 l Active Greg Problem 04/05/2022 [facility] Hypertensi Hypertens Problem Active 2022-04-05 Memoria ve tristin 02:48:02 l disorder, disorder, Herm amparo systemic systemic arterial arterial (disorder) (disorder) Active Problem 04/05/2022 [facility] Lumbar Lumbar Problem Active 2022-04-05 Isaias jose m radiculopa radiculopa 02:48:02 l thy thy Reynolds (disorder) (disorder) Active Problem 04/05/2022 [facility] Malignant Problem Active 2022-04-05 Me moria tumor of Malignant 02:48:02 l colon tumor of Reynolds (disorder) colon (disorder) Active Problem 04/05/2022 [facility] Pain in Pain in Problem Active 2022-04-05 Me moria lower limb lower limb 02:48:02 l (finding) (finding) Herm amparo Active Problem 04/05/2022 [facility] Paresthesi Paresthes Problem Active 2022-04-05 Memoria a ia 02:48:02 l (finding) (finding) Herm amparo Active Problem 04/05/2022 [facility] Allergies, Adverse Reactions, Alerts Allergy Allergy Status Severity Reaction(s) Onset Inactive Treating Comm ents Source Name Type Date Date Clinician NO KNOWN Drug Active Univers ALLERGIE Class ity of S [facility] Social History Social Habit Start Date Stop Date Quantity Comments Source Exposure to Not sure [facility]-CoV-2 [facility] (event) [place] Tobacco use and 2020-11-04 2020-11-04 Never used Universit y of exposure 00:00:00 00:00:00 [facility] Alcohol intake 2020-11-04 2020-11-04 Current drinker Unive rsity of 00:00:00 00:00:00 of alcohol [facility] (finding) [place] Social History 2020-01-09 2020-01-09 [facility] artis 23:35:06 23:35:06 Alcohol Comment 2016-01-27 2016-01-27 Approx. 1-2 Universi ty of 00:00:00 00:00:00 beers daily [facility] Sex [birth year] Universit y of 00:00:00 00:00:00 [facility] Smoking Status Start Date Stop Date Source Never smoker [facility] Medications Ordered Filled Start Stop Current Ordering [...] 00 :00 daily for Medical 30 days. [place] meloxicam 2020-0 2020- No 15mg Take 1 Unive rs 15 mg 9-18 10-19 tablet by ity of tablet 00:00: 04:59 mouth [place] 00 :00 daily for Medical 30 days. [place] meloxicam 2020-0 2020- No 15mg Take 1 Unive rs 15 mg 9-18 10-19 tablet by ity of tablet 00:00: 04:59 mouth [place] 00 :00 daily for Medical 30 days. [place] meloxicam 2020-0 2020- No 15mg Take 1 Unive rs 15 mg 9-18 10-19 tablet by ity of tablet 00:00: 04:59 mouth [place] 00 :00 daily for Medical 30 days. [place] meloxicam 2020-0 2020- No 15mg Take 1 Unive rs 15 mg 9-18 10-19 tablet by ity of tablet 00:00: 04:59 mouth [place] 00 :00 daily for Medical 30 days. [place] FENTanyl PF 2019-0 2019- No 50ug 50 mcg, Un yovanny (SUBLIMAZE 05-02 Intramuscu it y of (PF)) 06:30: 05:25 lar, ONCE, [place] injection 00 :00 1 dose, Medical 50 mcg 05/02/20 Branch at 0130, Routine HYDROcodone 2019-0 2020- No 1{tbl} 1 tablet, Univers -acetaminop 05-02 Oral, ity of hen (NORCO) 06:15: 05:25 [place]CE[place] 10[place]325 mg [place] :00 dose, Fri Medic al tablet 1 05/02/20 at [place] tablet 0115, Routine HYDROcodone 2019-0 Yes TAKE 1 Univ ers -acetaminop 9-04 [...] mouth ity of mg tablet 00:00: every 00 morning. Medical Branch hydroCHLORO 2020-0 Yes 25mg Take 25 mg Univers thiazide 25 8-24 by mouth ity of mg tablet 00:00: every 00 morning. Medical Branch hydroCHLORO 2020-0 Yes 25mg Take 25 mg Univers thiazide 25 8-24 by mouth ity of mg tablet 00:00: every 00 morning. Medical Branch hydroCHLORO 2020-0 Yes 25mg Take 25 mg Univers thiazide 25 8-24 by mouth ity of mg tablet 00:00: every [place] morning. Medical Branch hydroCHLORO 2020-0 Yes 25mg Take 25 mg Univers thiazide 25 8-24 by mouth ity of mg tablet 00:00: every [place] morning. Medical Branch hydroCHLORO 2020-0 Yes 25mg Take 25 mg Univers thiazide 25 8-24 by mouth ity of mg tablet 00:00: every [place] morning. Medical Branch hydroCHLORO 2020-0 Yes 25mg Take 25 mg Univers thiazide 25 8-24 by mouth ity of mg tablet 00:00: every [place] morning. Medical Branch hydroCHLORO 2020-0 Yes 25mg Take 25 mg Univers thiazide 25 8-24 by mouth ity of mg tablet 00:00: every [place] morning. Medical Branch hydroCHLORO 2020-0 Yes 25mg Take 25 mg Univers thiazide 25 8-24 by mouth ity of mg tablet 00:00: every [place] morning. Medical Branch hydroCHLORO 2020-0 Yes 25mg Take 25 mg Univers thiazide 25 8-24 by mouth ity of mg tablet 00:00: every [place] morning. Medical Branch hydroCHLORO 2020-0 Yes 25mg Take 25 mg Univers thiazide 25 8-24 by mouth ity of mg tablet 00:00: every [place] morning. Medical Branch cloNIDine 2020-0 Yes 1{tbl} [...] day, # 90 tab, 1 Refill(s), Pharmacy: [id number], 187.96, cm, 02/01/20 11:28:00 CDT, Height, 90, kg, 02/01/20 11:28:00 CDT, Weight tramadol 2020-0 Yes 50 mg = 1 Isaias jose m hydrochlori 6-18 tab, PO, l de 50 MG 00:35: Q8H, X 30 Herm amparo Oral Tablet 00 day, # 90 tab, 1 Refill(s), [facility]acy: [id number], 187.96, cm, 02/01/20 11:28:00 CDT, Height, 90, kg, 02/01/20 11:28:00 CDT, Weight tramadol 2020-0 Yes 50 mg = 1 Isaias jose m hydrochlori 6-18 tab, PO, l de 50 MG 00:35: Q8H, X 30 Herm amparo Oral Tablet 00 day, # 90 tab, 1 Refill(s), Pharmacy: [facility] #[id number], 187.96, cm, 02/01/20 11:28:00 CDT, Height, 90, kg, 02/01/20 11:28:00 CDT, Weight gabapentin 2020-0 Yes 300 mg = 1 M emoria 300 MG Oral 6-05 cap, PO, l Capsule 17:15: BID, # 60 Mary nn 00 cap, 2 Refill(s), [id number] gabapentin 2020-0 Yes 300 mg = 1 M emoria 300 MG Oral 6-05 cap, PO, l Capsule 17:15: BID, # 60 Mary nn 00 cap, 2 Refill(s), [facility]acy: [id number] gabapentin 2020-0 Yes 300 mg = 1 M emoria 300 MG Oral 6-05 cap, PO, l Capsule 17:15: BID, # 60 Mary nn 00 cap, 2 Refill(s), Pharmacy: [id number] baclofen 10 2020-0 Yes 10 mg = 1 M emoria mg oral 5-13 tab, PO, l tablet 16:59: BID, # 60 Delfin n 00 tab, 4 Refill(s), Pharmacy: [id number] baclofen 10 2020-0 Yes 10 mg = 1 M emoria mg oral 5-13 tab, PO, l tablet 16:59: BID, # 60 Delfin n 00 tab, 4 Refill(s), Pharmacy: [id number] baclofen 10 2020-0 Yes 10 mg = 1 M emoria mg oral 5-13 tab, PO, l tablet 16:59: BID, # 60 Delfin n 00 tab, 4 Refill(s), Pharmacy: [id number] magnesium 2020-0 Yes 250 mg = [...] Branch metoprolol Yes 200mg Take 200 Un yovanyn succinate 6-15 mg by ity of XL [...] 15:42:00 178 mm[Hg] Univer sity of pressure [facility] Branch Diastolic blood 2020-11-04 15:42:00 100 mm[Hg] Unive rsity of pressure [facility] Heart rate 2020-11-04 15:42:00 70 /min Universi ty of [facility] Branch Body height 2020-11-04 15:37:00 188 cm Universi ty of [facility] Branch Body weight 2020-11-04 15:37:00 88.451 kg Universi ty of [facility] Branch BMI 2020-11-04 15:37:00 25.04 kg/m2 Universi ty of [facility] Branch Systolic blood 2020-11-04 15:42:00 178 mm[Hg] Univer sity of [facility] Diastolic blood 2020-11-04 15:42:00 100 mm[Hg] Unive rsity of [facility] Heart rate 2020-11-04 15:42:00 70 /min Universi ty of [facility] Branch Body height 2020-11-04 15:37:00 188 cm Universi ty of [facility] Branch Body weight 2020-11-04 15:37:00 88.451 kg Universi ty of [facility] Branch BMI 2020-11-04 15:37:00 25.04 kg/m2 Universi ty of [facility] Branch Systolic blood 2020-05-22 13:52:00 147 mm[Hg] Univer sity of pressure [facility] Branch Diastolic blood 2020-05-22 13:52:00 87 mm[Hg] Unive rsity of pressure [facility] Branch Heart rate 2020-05-22 13:47:00 68 /min Universi ty of [facility] Branch Systolic blood 2020-05-15 14:02:00 168 mm[Hg] Univer sity of pressure [facility] Branch Diastolic blood 2020-05-15 14:02:00 96 mm[Hg] Unive rsity of pressure [facility] Branch Heart rate 2020-05-15 14:02:00 58 /min Universi ty of [facility] Branch Body height 2020-05-15 13:57:00 188 cm Universi ty of [facility] Branch Body weight 2020-05-15 13:57:00 88.451 kg stated [facility] BMI 2020-05-15 13:57:00 25.04 kg/m2 Universi [facility] Systolic blood 2020-05-02 05:00:00 150 mm[Hg] Univer sity of pressure [facility] Diastolic blood 2020-05-02 05:00:00 92 mm[Hg] Unive rsity of pressure [facility] Heart rate 2020-05-02 05:00:00 59 /min [facility] Body temperature 2020-05-02 05:00:00 [facility].22 [facility] 2020-05-02 05:00:00 20 /[facility] height 2020-05-02 05:00:00 188 cm [facility] Body weight 2020-05-02 05:00:00 88.451 kg [facility] BMI 2020-05-02 05:00:00 25.04 kg/m2 [facility] Oxygen saturation in 2020-05-02 05:00:00 100 /min [facility] Arterial blood by [facility] Pulse oximetry Branch Systolic (mm Hg) 2020-02-01 16:28:00 Isaias rial Reynolds Diastolic (mm Hg) 2020-02-01 16:28:00 Mem orial Greg Heart Rate 2020-02-01 16:28:00 [facility] Respitory Rate 2020-02-01 16:28:00 Memori al Reynolds Height 2020-02-01 16:28:00 187.96 cm [facility] Greg Weight 2020-02-01 16:28:00 [facility] Greg BMI Calculated 2020-02-01 16:28:00 Memori al Reynolds Temperature Oral (F) 2020-02-01 16:28:00 99.7 F [facility] Greg Systolic (mm Hg) 2020-01-09 16:23:00 Isaias rial Reynolds Diastolic (mm Hg) 2020-01-09 16:23:00 Mem orial Reynolds Heart Rate 2020-01-09 16:23:00 [facility] Greg Respitory Rate 2020-01-09 16:23:00 Memori al Greg Height 2020-01-09 16:23:00 182.88 cm [facility] Weight 2020-01-09 16:23:00 [facility] BMI Calculated 2020-01-09 16:23:00 Mai Rios Procedures Procedure Date / Time Performing Clinician Source Performed XR HIP 1 VW BILATERAL 2020-05-15 14:12:34 Purnima Ochoa [facility] ASSIGNMENT OF BENEFITS 2020-05-02 05:31:22 Doctor Unassigned, Un [facility] [place] [facility] EMERGENCY SERVICES 2020-05-02 05:01:00 Doctor Unassigned, [facility] AGREEMENTS AND [place] [facility] AUTHORIZATIONS NOTICE OF PRIVACY 2020-05-02 04:52:29 Doctor Unassigned, [facility] PRACTICES [place] [facility] Encounters Start End Encounter Admission Attending Care Care Encounter Source Date/Time Date/Time Type Type Clinicians Facility Department ID 2022-04-01 2022-04-03 Outside nullFlavo MNA [id number] Memoria 13:32:36 04:59:59 Medical r Neurology 01 l Records Garrick Garza 2022-04-01 2022-04-02 Outpatient MHMISCHER MHMISCHER [id number] 08:32:36 23:59:59 2020-11-04 2020-11-04 Outpatient Emperatriz OCHOA [facility] [id number] Univers 10:00:00 10:00:00 [facility] 2020-11-04 2020-11-04 [facility] [id number] 09:31:29 09:46:29 Visit [facility] [id number] Surgical [id number] Specialti [id number] [address] 2020-11-04 2020-11-04 [facility] [id number] Univers 09:31:29 09:46:29 Visit [facility] [id number] it y of Surgical [id number] [place] as Specialti [id number] [place] [address] 2020-10-28 2020-10-28 Outpatient Emperatriz OCHOA [facility] [id number] Univers 11:00:00 11:00:00 [facility] 2020-06-12 2020-06-[address] [facility] [id number] Univers 00:00:00 00:00:00 [facility] [id number] it y of Surgical [id number] [place] as Specialti [phone] [place]ical [place] [address] [facility] 2020-06-09 2020-06-09 Telephone FranksOn license of [facility] [id number] Univers 00:00:00 00:00:00 [facility] [id number] it y of Surgical [id number] [place] as Specialti [id number] [place] [address] [facility] 2020-05-22 2020-05-22 Office [facility] [id number] Univers 08:41:49 09:33:00 Visit Purnima S Health [id number] it y of Surgical [id number] Malick as Specialti [id number] [place]ical [place] [address] [facility] 2020-05-22 2020-05-22 Outpatient [facility] [id number] Univers 08:45:00 08:45:00 PURNIMA ity of [facility] 2020-05-22 2020-05-22 Telephone [facility] [id number] Univers 00:00:00 00:00:00 Purnima S Health [id number] it y of Surgical [id number] Malick as Specialti [id number] [place]ical [place] [address] [facility] 2020-05-15 2020-05-15 [facility] [id number] Univers 09:12:33 23:59:00 Encounter Purnima S Health [id number] ity of Surgical [id number] Malick as Specialti [id number] [place]ical [place] [address] [facility] 2020-05-15 2020-05-15 Office [facility] [id number] Univers 08:44:16 08:59:16 Visit Purnima S Health [id number] it y of Surgical [id number] Malick as Specialti [id number] Me dical es [address] [facility] 2020-05-15 2020-05-15 Outpatient [facility] [id number] Univers 08:45:00 08:45:00 PURNIMA ity [facility] 2020-05-15 2020-05-15 Telephone [facility] [id number] Univers 00:00:00 00:00:00 [facility] [id number] it y of Surgical [id number] Malick as Specialti [id number] Me dical es [address] [facility] 2020-05-02 2020-05-02 Emergency [facility] [id number] Univers 00:02:00 00:53:00 Sclinda [place] [id number] ity of [place] 4.2.7.2.686 [facility] [id number] [address] 2020-05-02 2020-05-02 Emergency X [facility] ERT [id number] Univers 00:02:00 00:02:00 [facility] 2020-05-02 2020-05-02 Orders Doctor NILE [id number] Univers 00:00:00 00:00:00 Only Unassigned, TYLER [id number] ity of [place] [facility] 4.2.7.2.686 Malick as [id number] [address] 2020-04-15 2020-04-17 Outside nullFlavo MNA [id number] Memoria 14:13:53 04:59:59 Medical r Neurology 00 l Records Garrick Garza 2020-04-15 2020-04-17 Outside nullFlavo MNA [id number] Memoria 14:13:53 04:59:59 Medical r Neurology 00 l Records Garrick Ruelasann 2020-04-15 2020-04-16 Outpatient MHMISCHER MHMISCHER [id number] 09:13:53 23:59:59 00 2020-03-04 2020-03-04 Ambulatory nullFlavo MNA [id number] Memoria 20:45:00 20:45:00 Pre-Reg r Neurology 02 l Garrick Garza 2020-03-04 2020-03-04 Ambulatory nullFlavo MNA [id number] Memoria 20:45:00 20:45:00 Pre-Reg r Neurology 03 l Garrick Reynolds 2020-03-04 2020-03-04 Ambulatory nullFlavo MNA [id number] Memoria 20:45:00 20:45:00 Pre-Reg r Neurology 03 l Garrick Reynolds 2020-03-04 2020-03-04 Ambulatory nullFlavo MNA [id number] Memoria 20:45:00 20:45:00 Pre-Reg r Neurology 02 l Garrick Greg 2020-03-04 2020-03-04 Outpatient MHIE MHIE [id number] Memoria 15:45:00 15:45:00 03 jess Reynolds 2020-03-04 2020-03-04 Outpatient MHIE MHIE [id number] Memoria 15:45:00 15:45:00 02 jess Reynolds 2020-03-04 2020-03-04 Outpatient MALICK SnowSCHER MHMISCHER [id number] 15:45:00 15:45:00 [place] 02 Benjamin 2020-03-04 2020-03-04 Outpatient MICHEL SnowMISCHER MHMISCHER [id number] 15:45:00 15:45:00 [place] 03 Benjamin 2020-02-01 2020-02-02 Outpatient nullFlavo MNA [id number] Memoria 16:15:00 04:59:59 r Neurology 01 l [place] Reynolds 2020-02-01 2020-02-02 Outpatient nullFlavo MNA [id number] Memoria 16:15:00 04:59:59 r Neurology 01 l [place] Greg 2020-02-01 2020-02-01 Outpatient MICHEL SnowMISCHER MHMISCHER [id number] 11:15:00 23:59:59 [place] 01 Benjamin 2020-02-01 2020-02-01 Outpatient MHIE MHIE [id number] Memoria 11:15:00 11:15:00 01 jess Reynolds 2020-01-09 2020-01-10 Outpatient nullFlavo MNA [id number] Memoria 16:30:00 04:59:59 r Neurology 00 l [place] Greg 2020-01-09 2020-01-10 Outpatient nullFlavo MNA [id number] Memoria 16:30:00 04:59:59 r Neurology 00 l [place] 2020-01-09 2020-01-09 Outpatient SIMIN Snow VANIA [id number] 11:30:00 23:59:59 [place] 00 Benjamin 2020-01-09 2020-01-09 Outpatient EFRAIN ZUNIGA [id number] Memoria 11:30:00 11:30:00 00 l Greg Results Test Description Test Time Test Comments Results Result Sour e Comments XR HIP 1 VW 2020-05-15 X-rays reveal University of BILATERAL 14:52:58 minor [facility] degenerative Branch changes in the medial portion of his right femoral acetabular joint
--- NOTE | 2022-06-10 17:55 | ER ---
Nurse's Notes [facility] Name: Allan Driver Age: 67 yrs Sex: Male : 1955 Arrival Date: 06/10/2022 Time: 15:59 Bed IW2 Private MD: Osorio Granados C Diagnosis: Acute pharyngitis, unspecified;Otitis media, unspecified, bilateral;Cough Presentation: 06/10 16:07 Chief complaint: Patient states: entire family has upper respiratory; since Tuesday sore 5 throat and feeling like crap, worn out. Coronavirus screen: Vaccine status: Patient reports receiving the 2nd dose of the covid vaccine. Client denies travel out of the [place] in the last 14 days. Ebola Screen: Patient negative for fever greater than or equal to 101.5 degrees Fahrenheit, and additional compatible Ebola Virus Disease symptoms Patient denies exposure to infectious person. Patient denies travel to an Ebola-affected area in the 21 days before illness onset. Initial Sepsis Screen: Does the patient meet any 2 criteria? No. Patient's initial sepsis screen is negative. Does the patient have a suspected source of infection? No. Patient's initial sepsis screen is negative. Risk Assessment: Do you want to hurt yourself or someone else? Patient reports no desire to harm self or others. Onset of symptoms was June 08, 2022. 16:07 Method Of Arrival: Ambulatory [facility] 16:07 Acuity: NAYANA 3 jh5 Triage Assessment: 16:09 General: Appears uncomfortable, slender, well groomed, well developed, Behavior is 5 calm, cooperative, appropriate for age. Pain: Complains of pain in throat. EENT: Reports nasal congestion nasal discharge pain in right ear and left ear and throat. Historical: - PMHx: 16:09 adrenal mass; colon cancer; Enlarged Heart; Hypertension; jh5 - PSHx: 16:09 hernia surgery; Right hip replacement; [facility] - Immunization history:: Adult Immunizations up to date. - Social history:: Smoking status: Patient denies any tobacco usage or history of. Vital Signs: 16:07 BP 140 / 100; Pulse 93; Resp 18; Pulse Ox 97% ; Weight 95.25 kg; Height 6 ft. 2 in. [facility] (187.96 cm); Pain 6/10; 16:07 Body Mass Index 26.96 (95.25 kg, 187.96 cm) [facility] ED Course: 15:59 Patient arrived in ED. rg4 15:59 Osorio Granados MD is Private Physician. rg4 15:59 Yandel Bear PA is PHCP. cp 15:59 Cullen Chu MD is Attending Physician. cp 16:09 Triage completed. 5 16:09 Arm band placed on right wrist. 5 16:17 Influenza Screen (a \\T\\ B) Sent. 5 16:17 Strep Sent. 5 16:17 COVID-19 SARS RT PCR (Document "Date of Onset" if Symptomatic) Sent. 5 Administered Medications: No medications were administered Outcome: 17:54 Discharge ordered by . cp 18:08 Patient left the ED. [facility] Signatures: Yandel Bear PA PA cp Garcia, Rubi rg4 Karen Brown, RN RN [facility]
--- NOTE | 2022-06-10 17:55 | EDPHYS ---
Physician Documentation [facility] Name: Allan Driver Age: 67 yrs Sex: Male : 1955 Arrival Date: 06/10/2022 Time: 15:59 Bed IW2 Private MD: Osorio Granados C ED Physician Cullen Chu HPI: 06/10 16:20 This 67 yrs old Male presents to ER via Ambulatory with complaints of Sore Throat, cp Weakness, Ear Pain. 16:20 The patient presents with sore throat, dysphagia, of solids. The patient describes cp throat pain as constant. Onset: The symptoms/episode began/occurred 3 day(s) ago. Severity of symptoms: in the emergency department the symptoms are unchanged, despite home interventions. Associated signs and symptoms: Pertinent positives: cough, earache, Pertinent negatives diarrhea, fever, vomiting. Historical: - PMHx: 16:09 adrenal mass; colon cancer; Enlarged Heart; Hypertension; 5 - PSHx: 16:09 hernia surgery; Right hip replacement; [facility] - Immunization history:: Adult Immunizations up to date. - Social history:: Smoking status: Patient denies any tobacco usage or history of. ROS: 16:25 Constitutional: Negative for body aches, fever, poor PO intake. cp 16:25 Eyes: Negative for injury, pain, redness, and discharge. cp 16:25 ENT: Positive for ear pain, sore throat, Negative for drainage from ear(s), difficulty handling secretions. 16:25 Cardiovascular: Negative for chest pain, palpitations. 16:25 Respiratory: Positive for cough, "sounds productive", Negative for shortness of breath, wheezing. 16:25 Abdomen/GI: Negative for abdominal pain, vomiting, diarrhea, constipation. 16:25 Neuro: Positive for weakness, Negative for altered mental status, dizziness, headache. 16:25 All other systems are negative. Exam: 16:30 Constitutional: The patient appears in no acute distress, alert, awake, cp non-diaphoretic, non-toxic, well developed, well nourished. 16:30 Head/Face: Normocephalic, atraumatic. cp 16:30 Eyes: Periorbital structures: appear normal, Conjunctiva: normal, no exudate, no injection, Sclera: no appreciated abnormality, Lids and lashes: appear normal, bilaterally. 16:30 ENT: External ear(s): are unremarkable, Ear canal(s): are normal, clear, TM's: erythema, that is mild, bilaterally, Nose: is normal, Mouth: Lips: moist, Oral mucosa: moist, Posterior pharynx: Airway: no evidence of obstruction, patent, Tonsils: no enlargement, no exudate, swelling, is not appreciated, erythema, that is moderate, exudate, is not appreciated. 16:30 Neck: ROM/movement: is normal, is supple, without pain, no range of motions limitations, no meningismus. 16:30 Chest/axilla: Inspection: normal, Palpation: is normal, no crepitus, no tenderness. 16:30 Cardiovascular: Rate: normal, Rhythm: regular. 16:30 Respiratory: the patient does not display signs of respiratory distress, Respirations: normal, no use of accessory muscles, no retractions, labored breathing, is not present, Breath sounds: bronchial sounds, that are mild, are heard diffusely, decreased breath sounds, are not appreciated, stridor, is not appreciated, wheezing: is not appreciated. 16:30 Abdomen/GI: Exam negative for discomfort, distension, guarding, Inspection: abdomen appears normal. Vital Signs: 16:07 BP 140 / 100; Pulse 93; Resp 18; Pulse Ox 97% ; Weight 95.25 kg; Height 6 ft. 2 in. jh5 (187.96 cm); Pain 6/10; 16:07 Body Mass Index 26.96 (95.25 kg, 187.96 cm) jh5 MDM: 16:30 Differential diagnosis: group A strep tonsillitis, influenza, peritonsillar abscess cp pharyngitis, retropharyngeal abcess tonsillitis. 17:03 Patient medically screened. cp 17:54 Data reviewed: vital signs, nurses notes, lab test result(s). cp 17:54 Counseling: I had a detailed discussion with the patient and/or guardian regarding: the cp historical points, exam findings, and any diagnostic results supporting the discharge/admit diagnosis, lab results, to return to the emergency department if symptoms worsen or persist or if there are any questions or concerns that arise at home. 06/10 16:12 Order name: COVID-19 SARS RT PCR (Document "Date of Onset" if Symptomatic) 06/10 16:12 Order name: Influenza Screen (a \\T\\ B) cp 06/10 16:12 Order name: Strep cp 06/10 16:54 Order name: Throat Culture EDMS Administered Medications: No medications were administered Disposition Summary: 06/10/22 17:54 Discharge Ordered Location: Home cp Problem: new cp Symptoms: are unchanged cp Condition: Stable cp Diagnosis - Acute pharyngitis, unspecified cp - Otitis media, unspecified, bilateral cp - Cough cp Followup: cp - With: Private Physician - When: 2 - 3 days - Reason: Worsening of condition Discharge Instructions: - Discharge Summary Sheet cp - Pharyngitis cp - Sore Throat cp - Cough, Adult cp Forms: - Medication Reconciliation Form cp - Thank You Letter cp - Antibiotic Education cp - Prescription Opioid Use cp Prescriptions: - Ibuprofen 800 mg Oral Tablet - take 1 tablet by ORAL route every 8 hours As needed take with food; 30 tablet; cp Refills: 0, Product Selection Permitted - Tessalon Perles 100 mg Oral Capsule - take 2 capsule by ORAL route every 8 hours As needed; 20 capsule; Refills: 0, cp Product Selection Permitted - Zithromax Z-Shaquille 250 mg Oral Tablet - take 1 tablet by ORAL route as directed for 5 days Day 1 - take two (2) tablets cp one time. Day 2, 3, 4 , 5 take one (1) tablet once daily.; 6 tablet; Refills: 0, Product Selection Permitted Addendum: 06/14/2022 21:06 Co-signature as Attending Physician, Cullen Chu MD. r n Signatures: Dispatcher [employer] EDMS Cullen Chu MD MD rn Page, Corey, PA PA cp Rees, Jessica, RN RN jh5
[2022-06-10 18:15] VITALS: BP 140/100; O2SAT 97
== END 2022-06-10 18:08 | disposition home or self-care (01) ==
LOC: ER 15:54
DX: J02.9 Acute pharyngitis, unspecified (principal); R05.9 Cough, unspecified; H66.93 Otitis media, unspecified, bilateral; I10 Essential (primary) hypertension; Z20.822 Contact with and (suspected) exposure to COVID-19
CPT/HCPCS: 87070; 87081; 87804 ×2; 99282; U0003

== ENCOUNTER 2023-04-19 13:09 | Emergency (ER) | payer OTHER, MEDICARE ==
--- OUTSIDE RECORDS SUMMARY | 2023-04-19 13:12 | XMS REPORT | Continuity of Care Document ---
:1955 Author Organization Formerly [facility] t Address [address] [place] [address] [place] [id number] Care Team Providers Name Role Phone PURNIMA OCHOA Attending Clinician Unavailable Purnima Garcia Attending Clinician Toby Franks MD Attending Clinician Ekaterina Keenan MD Attending Clinician EKATERINA KEENAN Attending Clinician Unavailable Doctor Unassigned, [employer] Attending Clinician Unavailable [place] Snow Attending Clinician Payers Payer Name Policy Type Policy Number Effective Date Expiration Date Bianka bae [email or web address] [id number] 2020 NON-CONTRACT 00:00:00 [employer] [place] [id number] 2013 00:00:00 Problems Condition Condition Condition Status Onset Resolution Last Treating Co mments Source Name Details Category Date Date Treatment Clinician Date No known No known Disease Unive rs active active ity of problems problems [facility] Malignant Malignant Problem Active 2022-04-05 Memoria tumor of tumor of 02:48:02 l colon colon [place] (disorder) (disorder) Active Problem 04/05/2022 [facility] Pain in Pain in Problem Active 2022-04-05 Me moria lower limb lower limb 02:48:02 l (finding) (finding) Herm amparo Active Problem 04/05/2022 [facility] Paresthesi Paresthes Problem Active 2022-04-05 Memoria a ia 02:48:02 l (finding) (finding) Herm amparo Active Problem 04/05/2022 [facility] Hip pain Hip pain Problem Active 2022-04-05 Memoria (finding) (finding) 02:48:02 l Active [place] Problem 04/05/2022 [facility] Hypertensi Hypertens Problem Active 2022-04-05 Memoria ve tristin 02:48:02 l disorder, disorder, Herm amparo systemic systemic arterial arterial (disorder) (disorder) Active Problem 04/05/2022 [facility] Lumbar Lumbar Problem Active 2022-04-05 Isaias jose m radiculopa radiculopa 02:48:02 l thy thy [place] (disorder) (disorder) Active Problem 04/05/2022 [facility] Allergies, Adverse Reactions, Alerts Allergy Allergy Status Severity Reaction(s) Onset Inactive Treating Comm ents Source Name Type Date Date Clinician NO KNOWN Drug Active Univers ALLERGIE Class ity of S [facility] Social History Social Habit Start Date Stop Date Quantity Comments Source Exposure to Not sure [facility]-CoV-2 [facility] (event) [place] Tobacco use and 2020-11-04 2020-11-04 Never used Universit y of exposure 00:00:00 00:00:00 [facility] Alcohol intake 2020-11-04 2020-11-04 Current drinker Unive rsity of 00:00:00 00:00:00 of alcohol [facility] (finding) [place] Social History 2020-01-09 2020-01-09 [facility] 23:35:06 23:35:06 Alcohol Comment 2016-01-27 2016-01-27 Approx. 1-2 Universi ty of 00:00:00 00:00:[address] [facility] Sex Ass[birth year] Universit y of 00:00:00 00:00:00 [facility] Smoking Status Start Date Stop Date Source Never smoker [facility] Medications Ordered Filled Start Stop Current [...] 00 :00 daily for Medical 30 days. [place] meloxicam 2020-0 2020- No 15mg Take 1 Unive rs 15 mg 9-18 10-19 tablet by ity of tablet 00:00: 04:59 mouth [place] 00 :00 daily for Medical 30 days. [place] meloxicam 2020-0 2020- No 15mg Take 1 Unive rs 15 mg 9-18 10-19 tablet by ity of tablet 00:00: 04:59 mouth [place] 00 :00 daily for Medical 30 days. [place] meloxicam 2020-0 2020- No 15mg Take 1 Unive rs 15 mg 9-18 10-19 tablet by ity of tablet 00:00: 04:59 mouth [place] 00 :00 daily for Medical 30 days. [place] meloxicam 2020-0 2020- No 15mg Take 1 Unive rs 15 mg 9-18 10-19 tablet by ity of tablet 00:00: 04:59 mouth [place] 00 :00 daily for Medical 30 days. [place] FENTanyl PF 2019-0 2019- No 50ug 50 [...] Fri Medic al tablet 1 05/02/20 at [place] tablet 0115, Routine HYDROcodone 2019-0 Yes TAKE [...] mouth ity of mg tablet 00:00: every [place] morning. Medical Branch hydroCHLORO 2020-0 Yes 25mg Take 25 mg Univers thiazide 25 8-24 by mouth ity of mg tablet 00:00: every [place] morning. Medical Branch hydroCHLORO 2020-0 Yes 25mg Take 25 mg Univers thiazide 25 8-24 by mouth ity of mg tablet 00:00: every [place] morning. Medical Branch hydroCHLORO 2020-0 Yes 25mg Take 25 mg Univers thiazide 25 8-24 by mouth ity of mg tablet 00:00: every [place] morning. Medical Branch hydroCHLORO 2020-0 Yes 25mg Take 25 mg Univers thiazide 25 8-24 by mouth ity of mg tablet 00:00: every [place] morning. Medical Branch hydroCHLORO 2020-0 Yes 25mg Take 25 mg Univers thiazide 25 8-24 by mouth ity of mg tablet 00:00: every [place] morning. Medical Branch hydroCHLORO 2020-0 Yes 25mg Take 25 mg Univers thiazide 25 8-24 by mouth ity of mg tablet 00:00: every [place] morning. Medical Branch hydroCHLORO 2020-0 Yes 25mg Take 25 mg Univers thiazide 25 8-24 by mouth ity of mg tablet 00:00: every [place] morning. Medical Branch cloNIDine 2020-0 Yes 1{tbl} [...] by ity of hr capsule 00:00: mouth daily. Medical Branch tamsulosin 2020-0 Yes .4mg Take 0.4 Uni vers 0.4 mg 24 7-03 mg by ity of hr capsule 00:00: mouth daily. Medical Branch tamsulosin 2020-0 Yes .4mg [...] day, # 90 tab, 1 Refill(s), Pharmacy: [id number], 187.96, cm, 02/01/20 11:28:00 CDT, Height, 90, kg, 02/01/20 11:28:00 CDT, Weight tramadol 2020-0 Yes 50 mg = 1 Isaias jose m hydrochlori 6-18 tab, PO, l de 50 MG 00:35: Q8H, X 30 Herm amparo Oral Tablet 00 day, # 90 tab, 1 Refill(s), Pharmacy: [id number], 187.96, cm, 02/01/20 11:28:00 CDT, Height, 90, kg, 02/01/20 11:28:00 CDT, Weight gabapentin 2020-0 Yes 300 mg = 1 M emoria 300 MG Oral 6-05 cap, PO, l Capsule 17:15: BID, # 60 Mary nn 00 cap, 2 Refill(s), Pharmacy: [facility] #[id number] gabapentin 2020-0 Yes 300 mg = 1 M emoria 300 MG Oral 6-05 cap, PO, l Capsule 17:15: BID, # 60 Mary nn 00 cap, 2 Refill(s), Pharmacy: [facility] #[id number] baclofen 10 2020-0 Yes 10 mg = 1 M emoria mg oral 5-13 tab, PO, l tablet 16:59: BID, # 60 Delfin n 00 tab, 4 Refill(s), Pharmacy: [facility] #[id number] baclofen 10 2020-0 Yes 10 mg = 1 M emoria mg oral 5-13 tab, PO, l tablet 16:59: BID, # 60 Delfin n 00 tab, 4 Refill(s), Pharmacy: [facility] #[id number] magnesium 2020-0 Yes 250 mg = [...] hr 14 weekly. Medical patch Branch amlodipine- 2016-0 Yes 1{capsu Take 1 U nivers benazepril [...] 14 daily. Medical per capsule Branch metoprolol 2016-0 Yes 200mg Take 200 Un yovanny succinate 6-15 mg by ity of XL (TOPROL 19:22: mouth [place] XL) 200 mg 14 daily. Medical 24 hr Branch tablet Vital Signs Vital Name Observation Time Observation Value Comments Source Systolic blood 2020-11-04 15:42:00 178 mm[Hg] Univer sity of pressure [facility] Diastolic blood 2020-11-04 15:42:00 100 mm[Hg] Unive rsity of [facility] Heart rate 2020-11-04 15:42:00 70 /min Universi [facility] Body height 2020-11-04 15:37:00 188 cm [facility]i [facility] Body weight 2020-11-04 15:37:00 88.451 kg [facility]i [facility] BMI 2020-11-04 15:37:00 25.04 kg/m2 [facility]i [facility] Systolic blood 2020-11-04 15:42:00 178 mm[Hg] Univer sity of [facility] Diastolic blood 2020-11-04 15:42:00 100 mm[Hg] Unive rsity of [facility] Heart rate 2020-11-04 15:42:00 70 /min [facility]i [facility] Body height 2020-11-04 15:37:00 188 cm [facility] Body weight 2020-11-04 15:37:00 88.451 kg [facility]i [facility] BMI 2020-11-04 15:37:00 25.04 kg/m2 [facility]i [facility] Systolic blood 2020-05-22 13:52:00 147 mm[Hg] Univer sity of [facility] Diastolic blood 2020-05-22 13:52:00 87 mm[Hg] Unive rsity of [facility] Heart rate 2020-05-22 13:47:00 68 /min [facility]i [facility] Systolic blood 2020-05-15 14:02:00 168 mm[Hg] Univer sity of pressure [facility] Diastolic blood 2020-05-15 14:02:00 96 mm[Hg] Unive rsity of [facility] Heart rate 2020-05-15 14:02:00 58 /min Universi [facility] Body height 2020-05-15 13:57:00 188 cm Universi ty of [place] [facility] [place] Body weight 2020-05-15 13:57:00 88.451 kg stated Universi ty of [facility] Branch BMI 2020-05-15 13:57:00 25.04 kg/m2 Universi [facility] Systolic blood 2020-05-02 05:00:00 150 mm[Hg] Univer sity of pressure [facility] Diastolic blood 2020-05-02 05:00:00 92 mm[Hg] Unive rsity of pressure [facility] Heart rate 2020-05-02 05:00:00 59 /min Universi ty of [facility] Body temperature 2020-05-02 05:00:00 36.22 Matilde [facility] Respiratory rate 2020-05-02 05:00:00 20 /min Univ ersity of [facility] Body height 2020-05-02 05:00:00 188 [address] [facility] Body weight 2020-05-02 05:00:00 88.451 kg Universi ty [facility] Branch BMI 2020-05-02 05:00:00 25.04 kg/m2 [facility]i [facility] Oxygen saturation in 2020-05-02 05:00:00 100 /min [facility] Arterial blood by [facility] Pulse oximetry Branch Systolic (mm Hg) 2020-02-01 16:28:00 Isaias rial [place] Diastolic (mm Hg) 2020-02-01 16:28:00 Mem orial [place] Heart Rate 2020-02-01 16:28:00 [facility] Respitory Rate 2020-02-01 16:28:00 Memori al Greg Height 2020-02-01 16:28:00 187.96 cm [facility] [place] Weight 2020-02-01 16:28:00 [facility] BMI Calculated 2020-02-01 16:28:00 Memori al Greg Temperature Oral (F) 2020-02-01 16:28:00 99.7 F [facility] [place] Systolic (mm Hg) 2020-01-09 16:23:00 Isaias rial [place] Diastolic (mm Hg) 2020-01-09 16:23:00 Mem orial Greg Heart Rate 2020-01-09 16:23:00 [facility] [place] Respitory Rate 2020-01-09 16:23:00 Memori al [place] Height 2020-01-09 16:23:00 182.88 cm Swetha Garza Weight 2020-01-09 16:23:00 Swetha Garza BMI Calculated 2020-01-09 16:23:00 Mai Rios Procedures Procedure Date / Time Performing Clinician Source Performed XR HIP 1 VW BILATERAL 2020-05-15 14:12:34 Purnima Ochoa [facility] ASSIGNMENT OF BENEFITS 2020-05-02 05:31:22 Doctor Unassigned, [facility] [employer] [facility] EMERGENCY SERVICES 2020-05-02 05:01:00 Doctor Unassigned, [facility] AGREEMENTS AND [employer] [facility] AUTHORIZATIONS NOTICE OF PRIVACY 2020-05-02 04:52:29 Doctor Marcelassigned, [facility] PRACTICES [employer] [place] [facility] Encounters Start End Encounter Admission Attending Care Care Encounter Source Date/Time Date/Time Type Type Clinicians Facility Department ID 2022-04-01 2022-04-03 Outside nullFlavo [facility] [id number] Memoria 13:32:36 04:59:59 Medical r Neurology 01 l Records Garrick Garza 2022-04-01 2022-04-03 Outside nullFlavo [facility] [id number] Memoria 13:32:36 04:59:59 Medical r Neurology 01 l Records Garrick Garza 2022-04-01 2022-04-02 Outpatient MHMISCHER MHMISCHER [id number] 08:32:36 23:59:59 2020-11-04 2020-11-04 Outpatient R ADELAIDA [facility] [id number] Univers 10:00:00 10:00:[address] [facility] 2020-11-04 2020-11-04 [facility] [id number] 09:31:29 09:46:29 Visit Purnima [facility] [id number] Surgical [id number] Specialti [id number] [facility] [place] 2020-11-04 2020-11-04 [facility] [id number] Univers 09:31:29 09:46:29 Visit Purnima [facility] [id number] it y of Surgical [id number] [place] as Specialti [id number] Mo dical es 198 [facility] 2020-10-28 2020-10-28 Outpatient R ADELAIDA [facility] [id number] Univers 11:00:00 11:00:00 PURNIMA ity [facility] 2020-06-12 2020-06-12 Telephone [facility] [id number] Univers 00:00:00 00:00:00 [facility] [id number] it y of Surgical [id number] Malick as Specialti [id number] Mo dical es 198 [facility] 2020-06-09 2020-06-09 Telephone [facility] [id number] Univers 00:00:00 00:00:00 [facility] [id number] it y of Surgical [id number] Malick as Specialti [id number] Mo dical es 198 [facility] 2020-05-22 2020-05-22 Office [facility] [id number] Univers 08:41:49 09:33:00 Visit Purnima S Health [id number] it y of Surgical [id number] Malick as Specialti [id number] Mo dical es 198 [facility] 2020-05-22 2020-05-22 Outpatient Emperatriz [facility] [id number] Univers 08:45:00 08:45:00 [facility] 2020-05-22 2020-05-22 Telephone [facility] [id number] Univers 00:00:00 00:00:00 Purnima S Health [id number] it y of Surgical [id number] Malick as Specialti [id number] Mo dical es 198 [facility] 2020-05-15 2020-05-15 [facility] [id number] Univers 09:12:33 23:59:00 Encounter Purnima S Health [id number] ity of Surgical [id number] Malick as Specialti [id number] Me dical es 809 [facility] 2020-05-15 2020-05-15 Office [facility] [id number] Univers 08:44:16 08:59:16 Visit [facility] [id number] it y of Surgical [id number] Malick as Specialti [id number] Me dical es 198 [facility] 2020-05-15 2020-05-15 Outpatient R [facility] [id number] Univers 08:45:00 08:45:00 PURNIMA ity [facility] 2020-05-15 2020-05-15 Telephone [facility] [id number] Univers 00:00:00 00:00:00 [facility] [id number] it y of Surgical [id number] Malick as Specialti [id number] Mo dical es 198 [facility] 2020-05-02 2020-05-02 Emergency [facility] [id number] Univers 00:02:00 00:53:00 Orlinda Carlton [place] [id number] ity of [place] 4.2.7.2.686 [facility] [id number] [facility] 084 [place] 2020-05-02 2020-05-02 Emergency X [facility] ERT [id number] Univers 00:02:00 00:02:00 [facility] 2020-05-02 2020-05-02 Orders Doctor DOWD [id number] [id number] Univers 00:00:00 00:00:00 Only Unassigned, TYLER [id number] ity of [employer] [facility] 4.2.7.2.686 Malick as [id number] [facility] 009 [place] 2020-04-15 2020-04-17 Outside nullFlavo MNA [id number] Memoria 14:13:53 04:59:59 Medical r Neurology 00 l Records Garrick Garza 2020-04-15 2020-04-17 Outside nullFlavo MNA [id number] Memoria 14:13:53 04:59:59 Medical r Neurology 00 l Records Garrick Garza 2020-04-15 2020-04-16 Outpatient MHMISCHER MHMISCHER [id number] 09:13:53 23:59:59 2020-03-04 2020-03-04 Ambulatory nullFlavo MNA [id number] Memoria 20:45:00 20:45:00 Pre-Reg r Neurology 03 l Garrick Garza 2020-03-04 2020-03-04 Ambulatory nullFlavo MNA [id number] Memoria 20:45:00 20:45:00 Pre-Reg r Neurology 02 l Garrick Garza 2020-03-04 2020-03-04 Ambulatory nullFlavo MNA [id number] Memoria 20:45:00 20:45:00 Pre-Reg r Neurology 03 l Garrick Garza 2020-03-04 2020-03-04 Ambulatory nullFlavo MNA [id number] Memoria 20:45:00 20:45:00 Pre-Reg r Neurology 02 l Garrick [place] 2020-03-04 2020-03-04 Outpatient MHIE MHIE [id number] Memoria 15:45:00 15:45:00 03 jess [place] 2020-03-04 2020-03-04 Outpatient MHIE MHIE [id number] Memoria 15:45:00 15:45:00 02 jess [place] 2020-03-04 2020-03-04 Outpatient MALICK SnowSCHER MHMISCHER [id number] 15:45:00 15:45:00 [place] 02 Benjamin 2020-03-04 2020-03-04 Outpatient MALICK SnowSCHER MHMISCHER [id number] 15:45:00 15:45:00 [place] 03 Benjamin 2020-02-01 2020-02-02 Outpatient nullFlavo MNA [id number] Memoria 16:15:00 04:59:59 r Neurology 01 jess Mccauley [place] 2020-02-01 2020-02-02 Outpatient nullFlavo MNA [id number] Memoria 16:15:00 04:59:59 r Neurology 01 l Garrick [place] 2020-02-01 2020-02-01 Outpatient MICHEL SnowMISCHER MHMISCHER [id number] 11:15:00 23:59:59 [place] 01 Benjamin 2020-02-01 2020-02-01 Outpatient MHIE MHIE [id number] Memoria 11:15:00 11:15:00 01 l Greg 2020-01-09 2020-01-10 Outpatient nullFlavo MNA [id number] Memoria 16:30:00 04:59:59 r Neurology 00 l Garrick Garza 2020-01-09 2020-01-10 Outpatient nullFlavo MNA [id number] Memoria 16:30:00 04:59:59 r Neurology 00 l Garrick Garza 2020-01-09 2020-01-09 Outpatient SIMIN Snow [facility] [id number] 11:30:00 23:59:59 [place] 00 Benjamin 2020-01-09 2020-01-09 Outpatient IE JERALD [id number] Memoria 11:30:00 11:30:00 00 jess Garza Results Test Description Test Time Test Comments Results Result [facility] e Comments XR HIP 1 VW 2020-05-15 X-rays reveal University of BILATERAL 14:52:58 minor [facility] degenerative Branch changes in the medial portion of his right femoral acetabular joint
[2023-04-19] MEDS ORDERED: ASPIRIN 81 MG CHEWABLE TABLET ONE (13:46)
[2023-04-19 13:55] LABS: Lymphocytes % 16.2 % (15.3-44.8); MCV 87.4 fL (80-100); MPV 7.5 fL (7.6-11.3); Platelets 200 thou/uL (152-406); RBC Red Blood Cell Count 5.38 M/uL (4.33-5.43)
--- NOTE | 2023-04-19 14:25 | RAD REPORT ---
EXAM DESCRIPTION: RAD - Chest Single View - 04/19/2023 2:07 pm CLINICAL HISTORY: CHEST PAIN Chest pain. COMPARISON: <Comparisons> FINDINGS: Portable technique limits examination quality. The lungs are grossly clear. The heart is normal in size. No displaced fractures. IMPRESSION: No acute intrathoracic process suspected.
[2023-04-19 15:12] LABS: Magnesium 2.2 mg/dL (1.6-2.4); Troponin High Sensitivity 16.5 pg/mL (<58.9)
--- NOTE | 2023-04-19 17:23 | ER ---
Nurse's Notes [facility] Name: Allan Driver Age: 68 yrs Sex: Male : 1955 Arrival Date: 04/19/2023 Time: 13:09 Bed 2 Private MD: Diagnosis: Chest pain, unspecified;Chronic kidney disease, unspecified;Hypokalemia Presentation: 04/19 13:21 Chief complaint: Patient states: chest tightness to left side of chest radiating up to aa5 left shoulder x 1 week ago. Coronavirus screen: At this time, the client does not indicate any symptoms associated with coronavirus-19. Ebola Screen: Patient denies travel to an Ebola-affected area in the 21 days before illness onset. Initial Sepsis Screen: Does the patient meet any 2 criteria? No. Patient's initial sepsis screen is negative. Does the patient have a suspected source of infection? No. Patient's initial sepsis screen is negative. Risk Assessment: Do you want to hurt yourself or someone else? Patient reports no desire to harm self or others. Onset of symptoms was March 2023. 13:21 Method Of Arrival: Ambulatory aa5 13:21 Acuity: NAYANA 2 aa5 Historical: - Allergies: 13:23 No Known Allergies; aa5 - PMHx: 13:20 adrenal mass; colon cancer; Enlarged Heart; Hypertension; Irregular heart rate; aa5 - PSHx: 13:20 hernia surgery; Right hip replacement; aa5 13:22 colon resection; aa5 - Immunization history:: Adult Immunizations unknown. - Social history:: Smoking status: Patient denies any tobacco usage or history of. Screenin:44 [facility] ED Fall Risk Assessment (Adult) History of falling in the last 3 months, ld1 including since admission No falls in past 3 months (0 pts). Abuse screen: Denies threats or abuse. Denies injuries from another. Nutritional screening: No deficits noted. Tuberculosis screening: No symptoms or risk factors identified. Assessment: 13:44 General: Appears in no apparent distress. comfortable, Behavior is calm, cooperative, ld1 appropriate for age. Pain: Complains of pain in chest Pain radiates to anterior aspect of right shoulder Pain currently is 3 out of 10 on a pain scale. at worst was 9 out of 10 on a pain scale. Quality of pain is described as heavy, pressure, Pain began 2-3 days ago. Is intermittent. Neuro: Level of Consciousness is awake, alert, obeys commands, Oriented to person, place, time, situation. Cardiovascular: Capillary refill < 3 seconds Patient's skin is warm and dry. Rhythm is sinus rhythm. Respiratory: Airway is patent Respiratory effort is even, unlabored. GI: Abdomen is flat, non-distended. : No signs and/or symptoms were reported regarding the genitourinary system. EENT: No signs and/or symptoms were reported regarding the EENT system. Derm: No signs and/or symptoms reported regarding the dermatologic system. Musculoskeletal: No signs and/or symptoms reported regarding the musculoskeletal system. Vital Signs: 13:21 BP 137 / 90; Pulse 77; Resp 16 S; Temp 98(TE); Pulse Ox 99% on R/A; Weight 92.99 kg aa5 (R); Height 6 ft. 2 in. (R); 13:44 BP 126 / 91; Pulse 66; Resp 15; Pulse Ox 99% on R/A; Pain 3/10; ld1 14:35 BP 117 / 86; Pulse 58; Resp 16; Pulse Ox 95% on R/A; ld1 15:18 BP 121 / 84; Pulse 55; Resp 13; Pulse Ox 98% on R/A; ld1 16:25 BP 123 / 87; Pulse 57; Resp 19; Pulse Ox 96% on R/A; ld1 13:21 Body Mass Index 26.32 (92.99 kg, 187.96 cm) aa5 13:44 Pain Scale: Adult ld1 ED Course: 13:15 Patient arrived in ED. aa5 13:17 Osmar Baker DO is Attending Physician. ms3 13:20 Arm band placed on. aa5 13:21 Triage completed. aa5 13:33 Nova Baker, RN is Primary Nurse. ld1 13:44 Patient has correct armband on for positive identification. Placed in gown. Bed in low ld1 position. Call light in reach. Side rails up X2. 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 Pulse ox on. NIBP on. Door closed. Noise minimized. Warm blanket given. 13:44 No provider procedures requiring assistance completed. Inserted saline lock: 20 gauge ld1 in left antecubital area, using aseptic technique. Blood collected. 13:44 Patient maintains SpO2 saturation greater than 95% on room air. ld1 14:09 XRAY Chest (1 view) In Process Unspecified. EDMS 17:31 IV discontinued, intact, bleeding controlled, No redness/swelling at site. ld1 Administered Medications: 13:43 Drug: Aspirin PO Chewable Tablet 324 mg Route: PO; ld1 17:31 Drug: Potassium Chloride PO Liquid 40 mEq Route: PO; ld1 Medication: 13:44 VIS not applicable for this client. ld1 Outcome: 17:23 Discharge ordered by . ms3 17:31 Discharged to home ambulatory. ld1 17:31 Condition: stable 17:31 Discharge instructions given to patient, Instructed on discharge instructions, follow up and referral plans. Demonstrated understanding of instructions, follow-up care. 17:31 Patient left the ED. ld1 Signatures: Dispatcher [employer] EDMS Sandy Taveras RN RN aa5 Osmar Baker DO DO ms3 Nova Baker RN RN ld1 Corrections: (The following items were deleted from the chart) 13:23 13:21 Pulse 77bpm; Resp 16bpm; Spontaneous; Pulse Ox 99% RA; Temp 98F Temporal; aa5 aa5 13:23 13:21 Pulse 77bpm; Resp 16bpm; Spontaneous; Pulse Ox 99% RA; Temp 98F Temporal; 92.99 aa5 kg Reported; Height 6 ft. 2 in. Reported; BMI: 26.3; aa5 13:24 13:21 Acuity: NAYANA 3 aa5 aa5
--- NOTE | 2023-04-19 17:23 | EDPHYS ---
Physician Documentation [facility] Name: Allan Driver Age: 68 yrs Sex: Male : 1955 Arrival Date: 04/19/2023 Time: 13:09 Bed 2 Private MD: ED Physician Osmar Baker HPI: 04/19 13:38 This 68 yrs old Male presents to ER via Ambulatory with complaints of Chest Pain. ms3 13:38 68-year-old male with past medical history of adrenal mass, colon cancer, enlarged ms3 heart, hypertension, irregular heartbeat presents for left chest tightness radiating to the left shoulder this been ongoing for 1 week. Patient states he developed palpitations that lasted for seconds last night. Patient rates his discomfort a 5/10 and describes it as being tight. Patient denies shortness of breath, nausea, vomiting, diaphoresis.. Historical: - Allergies: 13:23 No Known Allergies; aa5 - PMHx: 13:20 adrenal mass; colon cancer; Enlarged Heart; Hypertension; Irregular heart rate; aa5 - PSHx: 13:20 hernia surgery; Right hip replacement; aa5 13:22 colon resection; aa5 - Immunization history:: Adult Immunizations unknown. - Social history:: Smoking status: Patient denies any tobacco usage or history of. ROS: 13:38 Constitutional: Negative for fever, and chills. Neck: Negative for injury, pain, and ms3 swelling. 13:38 Respiratory: Negative for shortness of breath, cough, wheezing, and pleuritic chest pain, Abdomen/GI: Negative for abdominal pain, nausea, vomiting, diarrhea, and constipation, MS/Extremity: Negative for injury and deformity, Skin: Negative for injury, rash, and discoloration. 13:38 Cardiovascular: Positive for chest pain. 13:38 All other systems are negative. Exam: 13:38 Constitutional: This is a well developed, well nourished patient who is awake, alert, ms3 and in no acute distress. Head/Face: Normocephalic, atraumatic. Neck: Trachea midline, no cervical lymphadenopathy. Supple, full range of motion without nuchal rigidity, or vertebral point tenderness. No Meningismus. Chest/axilla: Normal chest wall appearance and motion. Nontender with no deformity. Cardiovascular: Regular rate and rhythm with a normal S1 and S2. No gallops, murmurs, or rubs. Normal PMI, no JVD. No pulse deficits. Respiratory: Lungs have equal breath sounds bilaterally, clear to auscultation and percussion. No rales, rhonchi or wheezes noted. No increased work of breathing, no retractions or nasal flaring. Abdomen/GI: Soft, non-tender, with normal bowel sounds. No distension or tympany. No guarding or rebound. No evidence of tenderness throughout. Skin: Warm, dry with normal turgor. Normal color with no rashes, no lesions, and no evidence of cellulitis. MS/ Extremity: Pulses equal, no cyanosis. Neurovascular intact. Full, normal range of motion. 13:38 ECG was reviewed by the Attending Physician. Vital Signs: 13:21 BP 137 / 90; Pulse 77; Resp 16 S; Temp 98(TE); Pulse Ox 99% on R/A; Weight 92.99 kg aa5 (R); Height 6 ft. 2 in. (R); 13:44 BP 126 / 91; Pulse 66; Resp 15; Pulse Ox 99% on R/A; Pain 3/10; ld1 14:35 BP 117 / 86; Pulse 58; Resp 16; Pulse Ox 95% on R/A; ld1 15:18 BP 121 / 84; Pulse 55; Resp 13; Pulse Ox 98% on R/A; ld1 16:25 BP 123 / 87; Pulse 57; Resp 19; Pulse Ox 96% on R/A; ld1 13:21 Body Mass Index 26.32 (92.99 kg, 187.96 cm) aa5 13:44 Pain Scale: Adult ld1 MDM: 13:24 Patient medically screened. ms3 17:13 Differential diagnosis: abnormal EKG, acute myocardial infarction, coronary artery ms3 disease pneumonia, pneumothorax. HEART Score: History: Slightly Suspicious (0), ECG: Normal (0), Age: > or = 65 years (2), Risk Factors: 1 or 2 risk factors (1), Troponin: < or = 1 x Normal Limit (0), Total Score = 3. The patient was given aspirin in the Emergency Department. Data reviewed: vital signs, nurses notes, lab test result(s), EKG, radiologic studies, and as a result, I will discharge patient. Consideration of Admission/Observation Escalation of care including admission/observation considered. HEART Score 3, Repeat troponin downtrending. I considered the following discharge prescriptions or medication management in the emergency department Medications were administered in the Emergency Department. See MAR. Independent interpretation of the following test(s) in the Emergency Department EKG: See my EKG interpretation above X-Ray: My interpretation is CXR image reviewed by me do not show PTX or PNA. Care significantly affected by the following chronic conditions: Hypertension. Counseling: I had a detailed discussion with the patient and/or guardian regarding the historical points, exam findings, and any diagnostic results supporting the discharge/admit diagnosis, lab results, radiology results, the need for outpatient follow up, to return to the emergency department if symptoms worsen or persist or if there are any questions or concerns that arise at home. Special discussion: Based on the patient's history, exam, and Dx evaluation, there is no indication for emergent intervention or inpatient Tx. It is understood by the patient/guardian that if the Sx's persist or worsen they need to return immediately for re-evaluation. ED course: On reevaluation patient symptoms improved, patient alert and oriented x4, no apparent distress, nontoxic-appearing, ambulatory in emergency department. 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 Patient understands and agrees with plan. All questions were answered. Return precautions discussed include nausea, shortness of breath, diaphoresis, worsening symptoms, or any concerns.. 04/19 13:24 Order name: Basic Metabolic Panel; Complete Time: 15:49 ms3 04/19 13:24 Order name: CBC with Diff; Complete Time: 14:12 ms3 04/19 13:24 Order name: Magnesium; Complete Time: 15:49 ms3 04/19 13:24 Order name: Troponin HS; Complete Time: 15:49 ms3 04/19 16:04 Order name: Troponin High Sensitivity; Complete Time: 17:13 ld1 04/19 13:24 Order name: XRAY Chest (1 view); Complete Time: 14:43 ms3 04/19 13:24 Order name: EKG; Complete Time: 13:25 ms3 04/19 13:24 Order name: Cardiac monitoring; Complete Time: 13:33 ms3 04/19 13:24 Order name: EKG - Nurse/Tech; Complete Time: 13:33 ms3 04/19 13:24 Order name: IV Saline Lock; Complete Time: 13:43 ms3 04/19 13:24 Order name: Labs collected and sent; Complete Time: 13:43 ms3 04/19 13:24 Order name: O2 Per Protocol; Complete Time: 13:33 ms3 04/19 13:24 Order name: O2 Sat Monitoring; Complete Time: 13:33 ms3 EC:38 Rhythm is regular. QRS [place] is Normal. ME interval is normal. QRS interval is normal. ms3 Clinical impression: NSR w/ Non-specific ST/T Changes. Interpreted by me. Reviewed by me. Administered Medications: :43 Drug: Aspirin PO Chewable Tablet 324 mg Route: PO; ld1 17:31 Drug: Potassium Chloride PO Liquid 40 mEq Route: PO; ld1 Disposition Summary: 04/19/23 17:23 Discharge Ordered Location: Home ms3 Condition: Stable ms3 Diagnosis - Chest pain, unspecified ms3 - Chronic kidney disease, unspecified ms3 - Hypokalemia ms3 Followup: ms3 - With: Private Physician - When: 2 - 3 days - Reason: Recheck today's complaints Discharge Instructions: - Discharge Summary Sheet ms3 - Nonspecific Chest Pain, Adult ms3 - Hypokalemia ms3 Forms: - Medication Reconciliation Form ms3 - Thank You Letter ms3 - Antibiotic Education ms3 - Prescription Opioid Use ms3 - Patient Portal Instructions ms3 - Leadership Thank You Letter ms3 Signatures: Dispatcher [employer] Sandy Hickman RN RN aa5 Osmar Baker DO DO ms3 Nova Baker RN RN ld1
[2023-04-19] MEDS ORDERED: POTASSIUM CL SA 10 MEQ TAB PO ONE (17:37)
[2023-04-19 17:41] VITALS: TEMP 98
[2023-04-19 17:48] VITALS: BP 123/87; O2SAT 96
--- NOTE | 2023-04-20 12:58 | EKG ---
Test Date: 2023-04-19 Test Time: 13:30:58 Health Information Specialist: ANA MARIA MEASUREMENT RESULTS: Intervals: Rate: 62 OK: 156 QRSD: 108 QT: 396 QTc: 401 [place]: P: 76 OK: 156 QRS: -12 T: 3 INTERPRETIVE STATEMENTS: Normal sinus rhythm Possible Anterior infarct, age undetermined Abnormal ECG Compared to ECG 04/06/2021 12:40:46 No significant changes Electronically Signed On 04-20-23 12:57:39 CDT by Brayan Lee
== END 2023-04-19 17:31 | disposition home or self-care (01) ==
LOC: ER 13:09
DX: R07.89 Other chest pain (principal); E87.6 Hypokalemia; I12.9 Hypertensive chronic kidney disease with stage 1 through stage 4 chronic kidney disease, or unspecified chronic kidney disease; N18.9 Chronic kidney disease, unspecified; Z85.038 Personal history of other malignant neoplasm of large intestine
CPT/HCPCS: 36415; 71045; 80048; 83735; 84484; 85025; 93005; 99285

== ENCOUNTER 2023-05-02 21:35 | Emergency (ER) | payer OTHER, MEDICARE ==
--- OUTSIDE RECORDS SUMMARY | 2023-05-02 21:39 | XMS REPORT | Continuity of Care Document ---
:1955 Author Organization [facility] [place] t Address [address] [facility] [address] [place] [address] Care Team Providers Name Role Phone Alvin Clark Cardiology Attending Clinician Unavailable PURNIMA SON Attending Clinician Unavailable Purnima Garcia Attending Clinician Toby Franks MD Attending Clinician Ekaterina Huynh MD Attending Clinician EKATERINA HUYNH Attending Clinician Unavailable Doctor Unassigned, [place] Attending Clinician Unavailable [place] Attending Clinician Alvin Clark Cardiology Admitting Clinician Unavailable Payers Payer Name Policy Type Policy Number Effective Date Expiration Date Bianka bae COMMERCIAL [id number] 2020 NON-CONTRACT 00:00:00 GENERIC [employer] OF [place] [id number] 2013 00:00:00 Problems Condition Condition Condition Status Onset Resolution Last Treating Co mments Source Name Details Category Date Date Treatment Clinician Date No known No known Disease Unive rs active active ity of problems problems [facility] Malignant Malignant Problem Active 2022-04-05 Memoria tumor of tumor of 02:48:02 l colon colon [place] (disorder) (disorder) Active Problem 04/05/2022 [facility] [...] m radiculopa radiculopa 02:48:02 l thy thy [place] (disorder) (disorder) Active Problem 04/05/2022 [facility] Allergies, Adverse Reactions, Alerts Allergy Allergy Status Severity Reaction(s) Onset Inactive Treating Comm ents Source Name Type Date Date Clinician No Known DA Active [facility]ie 04-28 [place] [facility] NO KNOWN Drug Active Univers ALLERGIE Class ity of S [facility] Social History Social Habit Start Date Stop Date Quantity Comments Source Exposure to Not sure University of SARS-CoV-2 [place] [facility] (event) [facility] Tobacco use and 2020-11-04 2020-11-04 Never used Universit y of exposure 00:00:00 00:00:00 [facility] Alcohol intake 2020-11-04 2020-11-04 Current drinker Unive rsity of 00:00:00 00:00:00 of alcohol [place] [facility] (finding) [facility] Social History 2020-01-09 2020-01-09 Swetha wisdom 23:35:06 23:35:06 Alcohol Comment 2016-01-27 2016-01-27 Approx. 1-2 Universi ty of 00:00:00 00:00:00 beers daily [facility] Sex Ass[birth year] At [birth year] Universit y of 00:00:00 00:00:00 [facility] Smoking Status Start Date Stop Date Source Never smoker University [facility] Medications Ordered Filled Start Stop Current Ordering Indication Dosage Frequency Signature Comments Components Source Medication Medication Date Date Medication? Clinician (SIG) Name Name meloxicam 2020-0 2020- No 15mg Take 1 Unive rs 15 mg 9-18 10-19 tablet by ity of tablet 00:00: 04:59 mouth [place] 00 :00 daily for Medical 30 days. [place] meloxicam 2020-0 2020- No 15mg Take 1 Unive rs 15 mg 9-18 10-19 tablet by ity of tablet 00:00: 04:59 mouth [place] 00 :00 daily for Medical 30 days. [place] meloxicam 2020-0 2020- No 15mg Take 1 Unive rs 15 mg 9-18 10-19 tablet by ity of tablet 00:00: 04:59 mouth [place] 00 :00 daily for Medical 30 days. [place] meloxicam 2020-0 2020- No 15mg Take 1 Unive rs 15 mg 9-18 10-19 tablet by ity of tablet 00:00: 04:59 mouth [place] 00 :00 daily for Medical 30 days. [place] meloxicam 2020-0 2020- No 15mg Take 1 Unive rs 15 mg 9-18 10-19 tablet by ity of tablet 00:00: 04:59 mouth [place] 00 :00 daily for Medical 30 days. [place] meloxicam 2020-0 2020- No 15mg Take 1 Unive rs 15 mg 9-18 10-19 tablet by ity of tablet 00:00: 04:59 mouth [place] 00 :00 daily for Medical 30 days. [place] FENTanyl PF 2019-0 2020- No 50ug 50 mcg, Un yovanny (SUBLIMAZE 05-02 Intramuscu it y of (PF)) 06:30: 05:25 lar, ONCE, [place] injection 00 :00 1 dose, Medical 50 mcg 05/02/20 [place] at 0130, Routine HYDROcodone 2019-0 2020- No 1{tbl} 1 tablet, Univers -acetaminop 05-02 Oral, ity of hen (NORCO) 06:15: 05:25 [place]CE[place] 10[place]325 mg 00 :00 dose, Fri Medic al tablet 1 05/02/20 at Branch tablet 0115, Routine HYDROcodone 2020-0 Yes TAKE [...] mouth ity of mg tablet 00:00: every [place] morning. Medical Branch hydroCHLORO 2020-0 Yes 25mg Take 25 mg Univers thiazide 25 8-24 by mouth ity of mg tablet 00:00: every [place] morning. Medical Branch hydroCHLORO 2020-0 Yes 25mg Take 25 mg Univers thiazide 25 8-24 by mouth ity of mg tablet 00:00: every [place] morning. Medical Branch hydroCHLORO 2020-0 Yes 25mg Take 25 mg Univers thiazide 25 8-24 by mouth ity of mg tablet 00:00: every [place] morning. Medical Branch hydroCHLORO 2020-0 Yes 25mg Take 25 mg Univers thiazide 25 8-24 by mouth ity of mg tablet 00:00: every [place] morning. Medical Branch hydroCHLORO 2020-0 Yes 25mg Take 25 mg Univers thiazide 25 8-24 by mouth ity of mg tablet 00:00: every [place] morning. Medical Branch hydroCHLORO 2020-0 Yes 25mg Take 25 mg Univers thiazide 25 8-24 by mouth ity of mg tablet 00:00: every [place] morning. Medical Branch hydroCHLORO 2020-0 Yes 25mg Take 25 mg Univers thiazide 25 8-24 by mouth ity of mg tablet 00:00: every [place] morning. Medical Branch hydroCHLORO 2020-0 Yes 25mg Take 25 mg Univers thiazide 25 8-24 by mouth ity of mg tablet 00:00: every [place] morning. Medical Branch hydroCHLORO 2020-0 Yes 25mg Take 25 mg Univers thiazide 25 8-24 by mouth ity of mg tablet 00:00: every [place] morning. Medical Branch hydroCHLORO 2020-0 Yes 25mg Take 25 mg Univers thiazide 25 8-24 by mouth ity of mg tablet 00:00: every [place] morning. Medical Branch cloNIDine 2020-0 Yes 1{tbl} Take 1 Univ ers HCL 0.1 mg 7-31 tablet by ity of tablet 00:00: mouth 2 [place] (two) Medical times Branch daily. cloNIDine 2020-0 Yes 1{tbl} Take 1 Univ ers HCL 0.1 mg 7-31 tablet by ity of tablet 00:00: mouth 2 [place] (two) Medical times Branch daily. cloNIDine 2020-0 [...] day, # 90 tab, 1 Refill(s), Pharmacy: [facility] #[id number], 187.96, cm, 02/01/20 11:28:00 CDT, Height, 90, kg, 02/01/20 11:28:00 CDT, Weight tramadol 2020-0 Yes 50 mg = 1 Isaias jose m hydrochlori 6-18 tab, PO, l de 50 MG 00:35: Q8H, X 30 Herm amparo Oral Tablet 00 day, # 90 tab, 1 Refill(s), Pharmacy: [facility] #[id number], 187.96, cm, 02/01/20 11:28:00 CDT, Height, 90, kg, 02/01/20 11:28:00 CDT, Weight tramadol 2020-0 Yes 50 mg = 1 Isaias jose m hydrochlori 6-18 tab, PO, l de 50 MG 00:35: Q8H, X 30 Herm amparo Oral Tablet 00 day, # 90 tab, 1 Refill(s), Pharmacy: [facility] #[id number], 187.96, cm, 02/01/20 11:28:00 CDT, Height, 90, kg, 02/01/20 11:28:00 CDT, Weight tramadol 2020-0 Yes 50 mg = 1 Isaias jose m hydrochlori 6-18 tab, PO, l de 50 MG 00:35: Q8H, X 30 Herm amparo Oral Tablet day, # 90 tab, 1 Refill(s), [id number], 187.96, cm, 02/01/20 11:28:00 CDT, Height, 90, kg, 02/01/20 11:28:00 CDT, Weight gabapentin 2020-0 Yes 300 mg = 1 M emoria 300 MG Oral 6-05 cap, PO, l Capsule 17:15: BID, # 60 Mary nn 00 cap, 2 Refill(s), Pharmacy: [facility] #[id number] gabapentin 2020-0 Yes 300 mg = 1 M emoria 300 MG Oral 6-05 cap, PO, l Capsule 17:15: BID, # 60 Mary nn 00 cap, 2 Refill(s), Pharmacy: [facility] #[id number] gabapentin 2020-0 Yes 300 mg = 1 M emoria 300 MG Oral 6-05 cap, PO, l Capsule 17:15: BID, # 60 Mary nn 00 cap, 2 Refill(s), Pharmacy: [facility] #[id number] gabapentin 2020-0 Yes 300 mg = 1 M emoria 300 MG Oral 6-05 cap, PO, l Capsule 17:15: BID, # 60 Mary nn 00 cap, 2 Refill(s), Pharmacy: [facility] #[id number] baclofen 10 2020-0 Yes 10 mg = 1 M emoria mg oral 5-13 tab, PO, l tablet 16:59: BID, # 60 Delfin n 00 tab, 4 Refill(s), Pharmacy: [facility] #[id number] baclofen 10 2020-0 Yes 10 mg = 1 M emoria mg oral 5-13 tab, PO, l tablet 16:59: BID, # 60 Delfin n 00 tab, 4 Refill(s), Pharmacy: [facility] #[id number] baclofen 10 2020-0 Yes 10 mg = 1 M emoria mg oral 5-13 tab, PO, l tablet 16:59: BID, # 60 Delfin n 00 tab, 4 Refill(s), Pharmacy: [facility] #[id number] baclofen 10 2020-0 Yes 10 mg = 1 M emoria mg oral 5-13 tab, PO, l tablet 16:59: BID, # 60 Delfin n 00 tab, 4 Refill(s), Pharmacy: [facility] #[id number] magnesium 2020-0 Yes 250 mg = [...] MG Oral Capsule [Lotrel 06/17] 24 HR Yes 200 mg = 1 Memori a [...] 2020-11-04 15:42:00 178 mm[Hg] Univer sity of [facility] Diastolic blood 2020-11-04 15:42:00 100 mm[Hg] [facility] Heart rate 2020-11-04 15:42:00 70 /min Universi ty [facility] Body height 2020-11-04 15:37:00 188 cm Universi ty [facility] Body weight 2020-11-04 15:37:00 88.451 kg Universi ty [facility] BMI 2020-11-04 15:37:00 25.04 kg/m2 Universi ty [facility] Systolic blood 2020-11-04 15:42:00 178 mm[Hg] Univer sity of [facility] Diastolic blood 2020-11-04 15:42:00 100 mm[Hg] Unive rsity of [facility] Heart rate 2020-11-04 15:42:00 70 /min Universi ty [facility] Body height 2020-11-04 15:37:00 188 cm Universi ty [facility] Body weight 2020-11-04 15:37:00 88.451 kg Universi ty [facility] BMI 2020-11-04 15:37:00 25.04 kg/m2 Universi ty [facility] Systolic blood 2020-05-22 13:52:00 147 mm[Hg] Univer sity of [facility] Diastolic blood 2020-05-22 13:52:00 87 mm[Hg] Unive rsity of [facility] Heart rate 2020-05-22 13:47:00 68 /min Universi ty [facility] Systolic blood 2020-05-15 14:02:00 168 mm[Hg] Univer sity of pressure [place] [facility] [place] Diastolic blood 2020-05-15 14:02:00 96 mm[Hg] Unive rsity of pressure [facility] Heart rate 2020-05-15 14:02:00 58 /min Universi ty of [place] [facility] [place] Body height 2020-05-15 13:57:00 188 cm Universi ty of [facility] Body weight 2020-05-15 13:57:00 88.451 kg stated Universi ty of [facility] BMI 2020-05-15 13:57:00 25.04 kg/m2 Universi ty of [facility] Systolic blood 2020-05-02 05:00:00 150 mm[Hg] Univer sity of pressure [facility] Diastolic blood 2020-05-02 05:00:00 92 mm[Hg] Unive rsity of pressure [facility] Heart rate 2020-05-02 05:00:00 59 /min Universi ty of [facility] Body temperature 2020-05-02 05:00:00 36.22 Matilde Univ ersity of [facility] Respiratory rate 2020-05-02 05:00:00 20 /min Univ ersity of [facility] Body height 2020-05-02 05:00:00 188 cm Universi ty of [facility] Body weight 2020-05-02 05:00:00 88.451 kg Universi ty of [facility] BMI 2020-05-02 05:00:00 25.04 kg/m2 Universi ty [facility] Oxygen saturation in 2020-05-02 05:00:00 100 /min [facility] Arterial blood by [facility] Pulse oximetry Branch Systolic (mm Hg) 2020-02-01 16:28:00 Isaias viera Greg Diastolic (mm Hg) 2020-02-01 16:28:00 Mem orial [place] Heart Rate 2020-02-01 16:28:00 Memorial Greg Respitory Rate 2020-02-01 16:28:00 Massielori al Greg Height 2020-02-01 16:28:00 187.96 cm Memorial [place] Weight 2020-02-01 16:28:00 Memorial [place] BMI Calculated 2020-02-01 16:28:00 Massielori al Greg Temperature Oral (F) 2020-02-01 16:28:00 99.7 F [facility] Systolic (mm Hg) 2020-01-09 16:23:00 Isaias Garza Diastolic (mm Hg) 2020-01-09 16:23:00 Massiel verónicaadair Greg Heart Rate 2020-01-09 16:23:00 Swetha Greg Respitory Rate 2020-01-09 16:23:00 Mai Rios Height 2020-01-09 16:23:00 182.88 cm Swetha Ruelasann Weight 2020-01-09 16:23:00 Swetha Ruelasann BMI Calculated 2020-01-09 16:23:00 Mai Rios Procedures Procedure Date / Time Performing Clinician Source Performed XR HIP 1 VW BILATERAL 2020-05-15 14:12:34 Purnima Son [facility] ASSIGNMENT OF BENEFITS 2020-05-02 05:31:22 Doctor Unassigned, [facility] [place] [facility] EMERGENCY SERVICES 2020-05-02 05:01:00 Doctor Unassigned, [facility] AGREEMENTS AND [place] [facility] AUTHORIZATIONS NOTICE OF PRIVACY 2020-05-02 04:52:29 Doctor Unassigned, [facility] PRACTICES [place] [facility] Encounters Start End Encounter Admission Attending Care Care Encounter Source Date/Time Date/Time Type Type Clinicians Facility Department ID 2023-04-30 2023-04-30 Outpatient DANNIE Clark [facility] [id number] [facility] 06:13:00 06:13:00 Alvin 37 Bong jacobson [facility] 2022-04-01 2022-04-03 Outside nullFlavo [facility] [id number] Memoria 13:32:36 04:59:59 Medical r Neurology 01 l Records Garrick Garza 2022-04-01 2022-04-03 Outside nullFlavo [facility] [id number] Memoria 13:32:36 04:59:59 Medical r Neurology 01 l Records Garrick Garza 2022-04-01 2022-04-02 Outpatient MHMISCHER MHMISCHER [id number] 08:32:36 23:59:59 01 2020-11-04 2020-11-04 Outpatient Emperatriz SON SDARMOND SDARMOND [id number] Univers 10:00:00 10:00:00 PURNIMA [facility] 2020-11-04 2020-11-04 Office Adelaida SDARMOND [id number] Univers 09:31:29 09:46:29 Visit Purnima [facility] [id number] it y of Surgical [id number] Malick as Specialti [id number] Ga dical es 198 [facility] 2020-11-04 2020-11-04 [facility] [id number] 09:31:29 09:46:29 Visit Purnima [facility] [id number] Surgical [id number] Specialti [id number] es 198 [place] 2020-10-28 2020-10-28 [facility] [id number] Univers 11:00:00 11:00:00 [facility] 2020-06-12 2020-06-12 Telephone [facility] [id number] Univers 00:00:00 00:00:00 [facility]y [facility] [id number] it y of Surgical [id number] [place] as Specialti [id number] Ga dical es 198 [facility] 2020-06-09 2020-06-09 Telephone [facility] [id number] Univers 00:00:00 00:00:00 Toby L [facility] [id number] it y of Surgical [id number] [place] as Specialti [id number] Ga dical es 198 [facility] 2020-05-22 2020-05-22 Office [facility] [id number] Univers 08:41:49 09:33:00 Visit Purnima S Patient [employer] [id number] it y of Surgical [id number] [place] as Specialti [id number] Ga dical es 198 [facility] 2020-05-22 2020-05-22 Outpatient R [facility] [id number] Univers 08:45:00 08:45:00 [facility] 2020-05-22 2020-05-22 Telephone [facility] [id number] Univers 00:00:00 00:00:00 Purnima S Health [id number] it y of Surgical [id number] [place]ick as Specialti [id number] Me dical es 198 [facility] 2020-05-15 2020-05-15 Hospital [facility] [id number] Univers 09:12:33 23:59:00 Encounter Purnima [facility] [id number] ity of Surgical [id number] [place] as Specialti [id number] Me dical es [id number] [facility] 2020-05-15 2020-05-15 Office [facility] [id number] Univers 08:44:16 08:59:16 Visit Purnima Rushing [id number] it y of Surgical 4.2.7.2.686 Malick as Specialti [id number] Me dical es 198 [facility] 2020-05-15 2020-05-15 Outpatient R [facility] [id number] Univers 08:45:00 08:45:00 PURNIMA ity [facility] 2020-05-15 2020-05-15 Telephone [facility] [id number] Univers 00:00:00 00:00:00 Purnima [facility] [id number] it y of Surgical 4.2.7.2.686 [place] as Specialti [id number] Ga dical es 198 [facility] 2020-05-02 2020-05-02 Emergency [facility] [id number] Univers 00:02:00 00:53:00 Ekaterina [place] [id number] ity of [place]2.7.2.[place] [employer] [id number] [facility] dakota 084 [place] 2020-05-02 2020-05-02 Emergency X [facility] ERT [id number] Univers 00:02:00 00:02:00 MOMARTHALI ity [facility] 2020-05-02 2020-05-02 Orders Doctor NILE [id number] Univers 00:00:00 00:00:00 Only Unassigned, TYLER 350.1.13.10 ity of [place] [facility] 4.2.7.2.686 Malick as [id number] [address] 2020-04-15 2020-04-17 Outside nullFlavo MNA [id number] Memoria 14:13:53 04:59:59 Medical r Neurology 00 l Records Garrick Ruelasann 2020-04-15 2020-04-17 Outside nullFlavo MNA [id number] Memoria 14:13:53 04:59:59 Medical r Neurology 00 l Records Garrick [place] 2020-04-15 2020-04-16 Outpatient MHMISCHER MHMISCHER [id number] 09:13:53 23:59:59 00 2020-03-04 2020-03-04 Ambulatory nullFlavo MNA [id number] Memoria 20:45:00 20:45:00 Pre-Reg r Neurology 03 l Garrick [place] 2020-03-04 2020-03-04 Ambulatory nullFlavo MNA [id number] Memoria 20:45:00 20:45:00 Pre-Reg r Neurology 02 l Garrick [place] 2020-03-04 2020-03-04 Ambulatory nullFlavo MNA [id number] Memoria 20:45:00 20:45:00 Pre-Reg r Neurology 03 l Garrick [place] 2020-03-04 2020-03-04 Ambulatory nullFlavo MNA [id number] Memoria 20:45:00 20:45:00 Pre-Reg r Neurology 02 l Garrick [place] 2020-03-04 2020-03-04 Outpatient MHIE MHIE [id number] Memoria 15:45:00 15:45:00 03 l [place] 2020-03-04 2020-03-04 Outpatient MHIE MHIE [id number] Memoria 15:45:00 15:45:00 02 jess Greg 2020-03-04 2020-03-04 Outpatient MICHEL SnowMISCHER MHMISCHER [id number] 15:45:00 15:45:00 Rancho 02 Benjamin 2020-03-04 2020-03-04 Outpatient MICHEL SnowMISCHER MHMISCHER [id number] 15:45:00 15:45:00 [place] 03 Benjamin 2020-02-01 2020-02-02 Outpatient nullFlavo MNA [id number] Memoria 16:15:00 04:59:59 r Neurology 01 l Garrick Ruelasann 2020-02-01 2020-02-02 Outpatient nullFlavo MNA [id number] Memoria 16:15:00 04:59:59 r Neurology 01 l [place] 2020-02-01 2020-02-01 Outpatient SIMIN Snow VANIA [id number] 11:15:00 23:59:59 [place] 01 Benjamin 2020-02-01 2020-02-01 Outpatient JERALD JERALD [id number] Memoria 11:15:00 11:15:00 01 l Greg 2020-01-09 2020-01-10 Outpatient nullFlavo MNA [id number] Memoria 16:30:00 04:59:59 r Neurology 00 l [place] Ruelasann 2020-01-09 2020-01-10 Outpatient nullFlavo MNA [id number] Memoria 16:30:00 04:59:59 r Neurology 00 l Garrick Garza 2020-01-09 2020-01-09 [id number] 11:30:00 23:59:59 [place] 00 [place] 2020-01-09 2020-01-09 Outpatient JERALD JERALD [id number] Memoria 11:30:00 11:30:00 00 jess Garza Results Test Description Test Time Test Comments Results Result Comments Source MAGNESIUM 2023-04-30 07:19:00 Test Item Value Reference Range Interpretation Comme nts MAGNESIUM (test code = MAG) 2.2 MG/DL 1.8-2.4 N COMPREHENSIVE METABOLIC [id number] 07:19:00 Test Item Value Reference Range Interpretation Comments SODIUM (test code = 140 mmol/L 134-147 N NA) POTASSIUM (test 3.4 mmol/L 3.4-5.0 N code = K) CHLORIDE (test code 106 mmol/L 100-108 N = CL) CARBON DIOXIDE 30 mmol/L 21-32 N (test code = CO2) ANION GAP (test 4.0 GAP calc 4.0-15.0 N code = GAP) GLUCOSE (test code 109 MG/DL 70-110 N = GLU) BLOOD UREA NITROGEN 27 MG/DL 7-18 H (test code = BUN) GLOMERULAR 38 estGFR >60 L The Glomerular FILTRATION RATE Filtration R ate is a (test code = GFR) calculated parameterbased on serum Creatinin e, patient age and sex. GFR valuesless than 60 mL/min/1.73 squ are meters are kayla cative ofChronic Kidne y Disease. Values less than 15 mL/min/1.73squa re meters indicate Kidney failure. The calculation for GFR is based on the CK D-EPI (2020) calculat ion. This formulais race indifferent and is the recommended for milena for GFRby the N [facility] Kid[facility] Foundati on for Adults.The GFR will not calculate i f the sex is unknown or if thepatient's ag e is <18 years. CREATININE (test 1.9 MG/DL 0.8-1.3 H code = CREAT) TOTAL PROTEIN (test 7.4 G/DL 6.4-8.2 N code = PROT) ALBUMIN (test code 3.8 G/DL 3.4-5.0 N = ALB) GLOBULIN (test code 3.6 GM/dL = GLOB) ALBUMIN/GLOBULIN 1.1 RATIO 1.2-2.2 L RATIO (test code = A/G) CALCIUM (test code 9.5 MG/DL 8.5-10.1 N = CA) BILIRUBIN TOTAL 0.60 MG/DL 0.2-1.2 N (test code = BILT) SGOT/AST (test code 9 Unit/L 15-37 L = AST) SGPT/ALT (test code 20 Unit/L 12-78 N = ALT) ALKALINE 62 Unit/L 50-136 N PHOSPHATASE TOTAL (test code = ALKP) LIPID PROFILE (CORONARY RISK)2023-04-30 07:19:00 Test Item Value Reference Range Interpretation Comments TRIGLYCERIDES (test 357 MG/DL 0-150 H code = TRIG) CHOLESTEROL (test 196 MG/DL 133-200 N code = CHOL) CHOLESTEROL/HDL 5.16 RATIO See_Comment RISK ASSOCIA OPAL WITH RATIO (test code = CHOL/HDL RATIOS: RISK CHOLHDL) MALE FEMALE1/2 AVERAGE 3.43 3.27AVERAG E 4.97 4.442X AVERAGE 9.55 7.053X AVERAGE 23.39 11.04 NOTE THAT THE REFERENCE VALUE IS RELATED TO RISK LEVELS ASRECOMMENDED B Y THE [facility] . [Automated mess age] The system which ge nerated this result tra nsmitted reference range : 0-. The reference range was not used to interpr et this result as normal/abnormal . HDL CHOLESTEROL 38 MG/DL 40-59 L (test code = HDL) NON-HDL CHOLESTEROL 158 mg/dL <130 H (test code = NHDL) LIPOPROTEIN LDL 76 MG/DL 0-129 N <100 OPTIMAL 100 - 129 (test code = LDL) NEAR OPTIM AL/ABOVE [id number] - 15 9 [id number] - 189 HIGH>OR= 190 VE RY HIGHNOTE THAT G UIDELINES ARE PROVIDED BY NATIONAL CHOLESTEROLEDUC ATION PROGRAM ADULT T REATMENT PANEL III LDL/HDL (test code 2.00 Ratio See_Comment N [Automat ed message] The = LDL/HDL) system which [employer] nerated this result tra nsmitted reference range : 1.48-3.22 Avg. The reference range was not used to interpr et this result as normal/abnormal . PROTHROMBIN [id number] 07:09:00 Test Item Value Reference Range Interpretation Comments PT PATIENT (test 10.4 SECONDS 9.3-12.9 N code = PTP) INTERNATIONAL NORMAL 0.94 INR Unit 0.8-1.2 N TARGE T INR BY RATIO (test code = INDICATIO N Indication INR) INR1. Prophylax is of venous thrombos is 2.0 - 3.0 (orthoped ic surgery), Proph ylaxis of venous throm bosis (other than hig h-risk surgery), Treat ment of Deep Vein Thrombosis/Pulm onary Embolism, Preve ntion of systemic emb olism - Tissue heart va lves, Acute Myocardia l Infarction (to prevent systemic emboli sm), Valvular heart disease, Acute Myocardial Infa rction (to prevent sys temic embolism), Valv ular heart disease, Atrial Fibrillation, Bileaflet mecha nical valve in aortic position.2. Mec hanical prosthetic valv es (high risk), 2. 5 - 3.5 Presence of Lup us Anticoagulant o r Antiphospholipi d Antibodies, Pre vention of systemic emb olism - Acute Myocardia l Infarction (to prevent recurrent infar ct). THROMBOPLASTIN TIME [id number] 07:09:00 Test Item Value Reference Range Interpretation Comments THROMBOPLASTIN TIME PARTIAL 31.2 SECONDS 26-35 N (test code = PTT) CBC W/AUTO [id number] 07:03:00 Test Item Value Reference Range Interpretation Comments WHITE BLOOD CELL (test code = 6.7 K/mm3 3.5-11.0 N WBC) RED BLOOD CELL (test code = 5.51 M/mm3 4.70-6.10 N RBC) HEMOGLOBIN (test code = HGB) 16.4 G/DL 12.3-15.9 H HEMATOCRIT (test code = HCT) 49.4 % 35.8-46.7 H MEAN CELL VOLUME (test code = 89.7 Fl 86.3-98.9 N MCV) MEAN CELL HGB (test code = MCH) 29.8 pg 28.9-34.4 N MEAN CELL HGB CONCETRATION 33.2 G/DL 32.1-34.5 N (test code = MCHC) RED CELL DISTRIBUTION WIDTH 13.1 SD 11.5-14.5 N (test code = RDW) PLATELET COUNT (test code = 159 K/mm3 150-450 N PLT) MEAN PLATELET VOLUME (test code 10.50 fL 7.0-9.6 H = MPV) NEUTROPHIL % (test code = NT%) 55.2 % 40-76 N IMMATURE GRANULOCYTE % (test 0.4 % 0.0-5.0 N code = IG%) LYMPHOCYTE % (test code = LY%) 31.3 % 20.5-51.1 N MONOCYTE % (test code = MO%) 9.7 % 1.7-9.3 H EOSINOPHIL % (test code = EO%) 3.0 % 0.0-6.0 N BASOPHIL % (test code = BA%) 0.4 % 0.0-2.0 N NUCLEATED RBC % (test code = 0.0 /100WBC% 0.0-1.0 N NRBC%) NEUTROPHIL # (test code = NT#) 3.7 K/mm3 1.8-7.6 N IMMATURE GRANULOCYTE # (test 0.03 x10 3/uL 0.00-0.03 N code = IG#) LYMPHOCYTE # (test code = LY#) 2.1 K/mm3 0.6-3.0 N MONOCYTE # (test code = MO#) 0.7 K/mm3 0.2-1.5 N EOSINOPHIL # (test code = EO#) 0.2 K/mm3 0.0-0.4 N BASOPHIL # (test code = BA#) 0.0 K/mm3 0.0-0.2 N NUCLEATED RBC # (test code = 0.0 K/mm3 0.00-0.01 N NRBC#) MANUAL DIFF REQUIRED (test code NO DIFF/SCN CRITERIA = MDIFF) XR HIP 1 VW [id number] 14:52:58X-rays reveal minor degenerative changes in the medial portion of his right femoral acetabular [facility] Date/Time Note Provider Source 2023-04-30 09:01:00-00:00 [id number] [facility] [address] [place] [address] 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 TITLE OF PROCEDURE: Left heart catheterization a nd aortic root angiogram. PREOPERATIVE DIAGNOSIS: POSTOPERATIVE DIAGNOSIS: INDICATION FOR THE PROCEDURE: Angina, coronary a rtery disease, ischemia, dilated ascending aorta. ESTIMATED BLOOD LOSS: Minimal. COMPLICATIONS: None. CONTRAST: 50 mL SURGEON: Alvin Clark MD DRIVER HELPER: ANESTHESIA: Conscious sedation with Versed and f entanyl. 1% lidocaine for local anesthesia. FINAL DIAGNOSES: Single vessel coronary artery d isease, calcified arteries, elevated left ventricular end-diastolic pressure. The ascending aorta measures 4.05 cm. RECOMMENDATION: Medical therapy. DESCRIPTION OF PROCEDURE: After informed consent , the patient was brought to the cardiac catheterization lab in a stable fast ing nonsedated state. He was prepped and draped in the usual standard fashion. After conscious sedation, 1% lidocaine was administered to the right common f emoral artery area for local anesthesia. A 6-Mohawk sheath was placed in the right common femoral artery using standard techniques and fluoroscopy after heparinization. Left coronary angiogram showed a mildly calcified arteries. Th e LAD has 3 focal lesions, right after the origin of a large diagonal 30%, 50% and 60%. The first obtuse marginal is a big and branching vessel w ith an eccentric plaque 40%. The right coronary angiogram showed luminal irregularities was a dominant vessel. Left PATIENT NAME: MI DRIVER 7 ventricular angiogram showed ejection fraction o f 60%. Left ventricular end-diastolic pressure of 23. No wall motion abn ormalities or aortic valve gradient. Aortic root angiogram showed the ascen ding aorta to measure around 4.05 cm. The patient was difficult to cannulate either coronary artery with standard catheters, so different catheters were tried and the 3DRC cannulated the right coronary artery and the AL2 cannulated the left systems. The right groin was sealed using Angio-Seal. There were no complications. The patient tolerated the procedure well. He was transferred back to the holding area for observation. He will be managed medically for hi s coronary artery disease, especially with his creatinine of 1.9. Patient w ill continue hydration and be discharged in few hours on medical therapy and r isk factor modification. Dictated By: Alvin Clark MD Date Dictated: 04/30/2023 09:01:45 Date Transcribed: 04/30/2023 09:23:22 ATIF/PENNY Receipt ID: [id number] Authenticated by Alvin Clark MD On 09/2022 10:00:41 AM at 1000 PATIENT NAME: MI DRIVER 7 2023-04-30 06:52:00-00:00 [id number] [address] PATIENT NAME: MI DRIVER ADMIT DATE: 04/30/23 ACCOUNT NO: [id number] ROOM NO: AGE: 68 REPORT TYPE: eELECTROCARDIOGRAM SEX: M ADMITTING PHYSICIAN: ATTENDING PHYSICIAN: Alvin Clark MD Order: [id number] Test Reason : ABN STRESS Test Date/Time Stamp: TueApr 30 2023 06:52:23 Blood Pressure : / mmHG Vent. Rate : 060 BPM Atrial Rate : 060 BPM P-R Int : 152 ms QRS Dur : 094 ms QT Int : 410 ms P-R-T Axes : 050 -27 002 degree s QTc Int : 410 ms Sinus rhythm with premature supraventricular com plexes Possible Anterior infarct , age undetermined Abnormal ECG No previous ECGs available Confirmed by ALVIN CLARK ([id number]) on 04/30/2023 8 :10:08 AM Referred By: Alvin Clark Confirmed by:ALVIN SPENCER at 0810 PATIENT NAME: MI DRIVER 38 2023-04-29 07:51:00-00:00 [facility] [id number] [place] [id number] PATIENT NAME: MI DRIVER ADMIT DATE: 04/30/23 ACCOUNT NO: [id number] ROOM NO: AGE: 68 REPORT TYPE: HISTORY AND PHYSICAL SEX: M ADMITTING PHYSICIAN: ATTENDING PHYSICIAN: Alvin Clark MD Cardiolo gy PATIENT NAME: MI DRIVER ADMIT DATE:04/30/2023 ADMISSION DATE: 04/30/2023 05:30:00 [employer] LIM[employer]: Alvin Clark MD REASON FOR ADMISSION: Angina, abnormal nuclear s tress test, dyspnea, for cardiac catheterization and possible revasculari zation. HISTORY OF PRESENT ILLNESS: Mi is a 68-year- old patient who I have been following in my office since March of 2018. The patient has had multiple cardiovascular risk factors and he has been foll owed up regularly over the years. Lately, he has been having worsen ing chest pains consistent with angina as well as dyspnea. He had an emergency room pre sentation on 04/19/2023 with negative Emergency Room workup, so he was worked up as an outpatient. His nuclear stress test showed ejection fraction of 49% with inferolateral and posterolateral ischemia, which is changed from p revious evaluation. His last echocardiogram showed normal ejection fraction, mitral valve prolapse, tqyg-ps-[id number] aortic insufficiency, and mild mitral regurgitation. He has had angiograms of his renal arteries in the past that were normal. He has had a history of supraventricular tachycardia documented on Holter monitors for which I have been following. The patient was doing wel l until recently, when his symptoms started getting wor se and the nuclear stress test changed. The patient denies any history of congestive heart failure, TIAs or strokes. PAST MEDICAL HISTORY: Remarkable for hypertensio n. He denies a history of hyperlipidemia. He had benign prostatic hyperpla gurjit, sciatica, borderline diabetes, lumbar disk disease and allergies. PAST SURGICAL HISTORY: He has had catara cts, colon procedures, right total hip replacement and double hernia repair in 2021. ALLERGIES: NO KNOWN DRUG ALLERGIES. MEDICATIONS: Aspirin 81 mg daily, tamsul osin 0.4 mg daily, magnesium, he takes Lotrel 10/20 mg daily, hydrocodone as needed, cl onidine 0.3 mg 2 times daily, hydrochlorothiazide 25 mg, he takes meto prolol 200 mg daily, and nitroglycerin as needed. SOCIAL HISTORY: There is no history of smoking. He does drink alcohol socially. There is no history of street drug use . FAMILY HISTORY: Positive for atherosclerotic cardiovascular disease at an early PATIENT NAME: MI DRIVER 8 age. REVIEW OF SYSTEMS: Remarkable for the above, in addition to allergies, sciatica, anxiety. No acute GI or symptoms. N o TIAs or strokes. PHYSICAL EXAMINATION: GENERAL: Reveals a pleasant 68-year-old patient in no acute distress. VITAL SIGNS: Blood pressure 128/86, pulse 52 and regular, bradycardic, respiratory rate 16 and unlabored, temperature a febrile. HEENT: Head atraumatic, normocephalic. EYES AND ENT: Within normal for age. NECK: Supple. No jugular venous distention, brui ts or lymphadenopathy. Normal upstroke. LUNGS: Clear and resonant. HEART: Bradycardic, regular rate and rhy thm, II/ systolic ejection murmur at the mitral area, II/ diastolic murmur at the a ortic area. No gallops. ABDOMEN: Soft, no tenderness, no organomegaly, n o masses or bruits. EXTREMITIES: Trace edema, 2+ distal pulses. No c yanosis or clubbing. NEUROLOGIC: Alert and oriented x3. Examination a ppears to be nonfocal. LABORATORY DATA: Pending. Noninvasive cardiovasc ular workup enclosed. IMPRESSION AND PLAN: This is a 68-year-old patie nt with angina, abnormal nuclear stress test, dyspnea , multiple cardiovascular risk factors, who has high likelihood of significant coronary artery diseas e. He is here for left heart catheterization and possible revascularization. The patient's ejection fraction was mildly diminished by a nuclear stress test. He has had normal ejection fraction by echo. He has had a stable mitral and aortic valve insufficiency. He has mitral valve prolapse and a dilated ascen ding aorta at 4.2, which has been stable. The symptoms and findings at this t glenn are consistent with symptomatic coronary artery disease. The recommendation is we will proceed with left heart catheterization and possible revascul arization. The risks and benefits of the planned proc edures were discussed in detail with the patient and available family members, and he is willing to p roceed. Rest as per orders. Dictated By: Alvin Clark MD Date Dictated: 04/29/2023 07:51:00 Date Transcribed: 04/29/2023 10:06:41 ATIF/NILOTN/GILBERT Receipt ID: [id number] Authenticated and Edited by Alvin Clark MD On 04/30/23 6:30:49 AM at 0632 PATIENT NAME: MI DRIVER 7
--- NOTE | 2023-05-02 22:01 | ER ---
Nurse's Notes [facility] Name: Allan Driver Age: 68 yrs Sex: Male : 1955 Arrival Date: 05/02/2023 Time: 21:35 Bed 16 Private MD: Osorio Granados C Diagnosis: Chest pain, unspecified;Chronic kidney disease, unspecified Presentation: 05/02 21:51 Chief complaint: Patient states: angiogram on Tuesday with Dr. Clark. new onset lg3 intermittent CP starting tonight 2029 with SOB and dizziness. Coronavirus screen: Client denies travel out of the [place] in the last 14 days. At this time, the client does not indicate any symptoms associated with coronavirus-19. Ebola Screen: No symptoms or risks identified at this time. Initial Sepsis Screen: Does the patient meet any 2 criteria? No. Patient's initial sepsis screen is negative. Does the patient have a suspected source of infection? No. Patient's initial sepsis screen is negative. Risk Assessment: Do you want to hurt yourself or someone else? Patient reports no desire to harm self or others. Onset of symptoms was May 02, 2023. 21:51 Method Of Arrival: Ambulatory lg3 21:51 Acuity: NAYANA 3 lg3 Triage Assessment: 21:53 General: Appears in no apparent distress. uncomfortable, Behavior is calm, cooperative. lg3 Pain: Complains of pain in chest Pain currently is 3 out of 10 on a pain scale. at worst was 8 out of 10 on a pain scale. Is intermittent, lasting a few seconds. EENT: No deficits noted. No signs and/or symptoms were reported regarding the EENT system. Neuro: No deficits noted. Reveles Agitation-Sedation Scale (RASS): 0 - Alert and Calm Level of Consciousness is awake, alert, obeys commands, Oriented to person, place, time, situation. Cardiovascular: Reports chest pain, Capillary refill < 3 seconds Clubbing of nail beds is absent JVD is absent Patient's skin is warm and dry. Respiratory: No deficits noted. Airway is patent Respiratory effort is even, unlabored, Respiratory pattern is regular, symmetrical. GI: No deficits noted. No signs and/or symptoms were reported involving the gastrointestinal system. : No deficits noted. No signs and/or symptoms were reported regarding the genitourinary system. Derm: No deficits noted. No signs and/or symptoms reported regarding the dermatologic system. Skin is intact, is healthy with good turgor, Skin is dry, Skin is normal, Skin temperature is warm. Musculoskeletal: No deficits noted. No signs and/or symptoms reported regarding the musculoskeletal system. Circulation, motion, and sensation intact. Range of motion: intact in all extremities. Historical: - Allergies: 21:53 No Known Allergies; lg3 - Home Meds: 21:53 rosuvastatin 10 mg oral tablet daily [Active]; clopidogrel 75 mg oral tablet daily lg3 [Active]; amlodipine 10 mg tablet daily [Active]; aspirin 81 mg Oral capsule daily [Active]; clonidine HCl 0.3 mg Oral tablet 2 times per day [Active]; hydrochlorothiazide 25 mg Oral tablet daily [Active]; magnesium oxide 250 mg magnesium Oral tablet daily [Active]; metoprolol succinate 200 mg oral Capsule, Sprinkle Ext Rel 24hr Dose Pack daily [Active]; tamsulosin 0.4 mg oral capsule daily [Active]; - PMHx: 21:53 adrenal mass; colon cancer; Enlarged Heart; Hypertension; Irregular heart rate; lg3 - PSHx: 21:53 colon resection; hernia surgery; Right hip replacement; lg3 - Immunization history:: Adult Immunizations up to date, Client reports receiving the 2nd dose of the Covid vaccine. - Social history:: Smoking status: Patient denies any tobacco usage or history of. Patient uses alcohol, occasionally. - Family history:: not pertinent. Screenin:32 [facility] ED Fall Risk Assessment (Adult) History of falling in the last 3 months, jw7 including since admission No falls in past 3 months (0 pts) Score/Fall Risk Level 0 - 2 = Low Risk. Abuse screen: Denies threats or abuse. Denies injuries from another. Nutritional screening: No deficits noted. Tuberculosis screening: No symptoms or risk factors identified. Assessment: 21:55 General: see triage assessment. jw7 22:33 Pain: Pain does not radiate. Pain began suddenly. jw7 23:22 Reassessment: Patient appears in no apparent distress at this time. No changes from jw7 previously documented assessment. Patient and/or family updated on plan of care and expected duration. Pain level reassessed. Patient is alert, oriented x 3, equal unlabored respirations, skin warm/dry/pink. Vital Signs: 21:51 Weight 92.99 kg; Height 6 ft. 2 in. ; jw7 21:51 BP 146 / 97; Pulse 74; Resp 19 S; Temp 98.4(O); Pulse Ox 98% on R/A; Height 6 ft. 2 in. lg3 (R); 23:21 BP 120 / 83; Pulse 69; Resp 17 S; Pulse Ox 95% on R/A; jw7 21:51 Body Mass Index 26.32 (92.99 kg, 187.96 cm) lg3 ED Course: 21:36 Patient arrived in ED. mr 21:36 Osorio Granados MD is Private Physician. mr 21:36 Yandel Rhoades MD is Attending Physician. killian 21:48 Gaby Martinez RN is Primary Nurse. jw7 21:50 Inserted saline lock: 20 gauge in left forearm, using aseptic technique. jw7 21:53 Triage completed. lg3 21:53 Arm band placed on right wrist. lg3 22:32 Patient has correct armband on for positive identification. Bed in low position. Call jw7 light in reach. Client placed on continuous cardiac and pulse oximetry monitoring. NIBP monitoring applied. compliance monitor on. 22:33 Patient maintains SpO2 saturation greater than 95% on room air. jw7 22:34 XRAY Chest (1 view) In Process Unspecified. EDMS 22:59 Osorio Granados MD is Referral Physician. killian 22:59 Alvin Clark MD is Referral Physician. [facility] 23:22 No provider procedures requiring assistance completed. IV discontinued, intact, jw7 bleeding controlled, No redness/swelling at site. Pressure dressing applied. 23:23 Provided Education on: discharge instructions. jw7 Administered Medications: 22:30 Drug: morphine IVP or IV 4 mg Route: IVP; Infused Over: 4 mins; Site: left forearm; jw7 23:23 Follow up: Response: No adverse reaction jw7 22:30 Drug: Ondansetron IVP 4 mg Route: IVP; Site: left forearm; jw7 23:23 Follow up: Response: No adverse reaction jw7 22:30 Drug: Clopidogrel PO 150 mg Route: PO; jw7 23:23 Follow up: Response: No adverse reaction jw7 22:30 Drug: Metoprolol PO 50 mg Route: PO; jw7 23:23 Follow up: Response: No adverse reaction jw7 22:30 Drug: Enoxaparin Sub-Q 1 mg/kg Route: Sub-Q; Site: abdomen; jw7 23:23 Follow up: Response: No adverse reaction jw7 22:31 Drug: NS 0.9% IV 1000 ml Route: IV; Rate: 125 ml/hr; Site: left forearm; jw7 23:24 Follow up: Response: No adverse reaction; IV Status: Order to discontinue infusion; IV jw7 Intake: 300ml 22:31 Drug: Famotidine IVP 20 mg Route: IVP; Site: left forearm; jw7 23:24 Follow up: Response: No adverse reaction jw7 22:31 Drug: Aspirin PO Chewable Tablet 162 mg Route: PO; jw7 23:24 Follow up: Response: No adverse reaction jw7 Medication: 23:23 VIS not applicable for this client. jw7 Intake: 23:24 IV: 300ml; Total: 300ml. jw7 Outcome: 22:00 ER care complete, transfer ordered by . killian 23:00 Discharge ordered by . killian 23:22 Discharged to home ambulatory, with family. jw7 23:22 Condition: stable 23:22 Discharge instructions given to patient, family, Instructed on discharge instructions, follow up and referral plans. Demonstrated understanding of instructions, follow-up care. 23:24 Patient left the ED. jw7 Signatures: Dispatcher [employer] EDYandel Gandhi MD MD cha Rivera, Marycarmen Wiley, RN RN lg3 Gaby Martinez RN RN jw7 Corrections: (The following items were deleted from the chart) 22:32 22:31 General: see triage assessment. jw7 jw7
--- NOTE | 2023-05-02 22:01 | EDPHYS ---
Physician Documentation [facility] Name: Allan Driver Age: 68 yrs Sex: Male : 1955 Arrival Date: 05/02/2023 Time: 21:35 Bed 16 Private MD: Osorio Granados C ED Physician Yandel Rhoades HPI: 05/02 21:48 This 68 yrs old Male presents to ER via Unassigned with complaints of Chest killian Pain. 21:48 The patient or guardian reports chest pain that is located primarily in the substernal killian area. Onset: just prior to arrival, today. The pain does not radiate. Associated signs and symptoms: Pertinent positives: shortness of breath. The chest pain is described as a pressure, squeezing. Duration: The patient or guardian reports a single episode, that is still ongoing. Modifying factors: The symptoms are alleviated by nothing. the symptoms are aggravated by nothing. Severity of pain: At its worst the pain was mild in the emergency department the pain is unchanged. The patient has experienced similar episodes in the past, a few times. Historical: - Allergies: 21:53 No Known Allergies; lg3 - Home Meds: 21:53 rosuvastatin 10 mg oral tablet daily [Active]; clopidogrel 75 mg oral tablet daily lg3 [Active]; amlodipine 10 mg tablet daily [Active]; aspirin 81 mg Oral capsule daily [Active]; clonidine HCl 0.3 mg Oral tablet 2 times per day [Active]; hydrochlorothiazide 25 mg Oral tablet daily [Active]; magnesium oxide 250 mg magnesium Oral tablet daily [Active]; metoprolol succinate 200 mg oral Capsule, Sprinkle Ext Rel 24hr Dose Pack daily [Active]; tamsulosin 0.4 mg oral capsule daily [Active]; - PMHx: 21:53 adrenal mass; colon cancer; Enlarged Heart; Hypertension; Irregular heart rate; lg3 - PSHx: 21:53 colon resection; hernia surgery; Right hip replacement; lg3 - Immunization history:: Adult Immunizations up to date, Client reports receiving the 2nd dose of the Covid vaccine. - Social history:: Smoking status: Patient denies any tobacco usage or history of. Patient uses alcohol, occasionally. - Family history:: not pertinent. ROS: 21:48 Constitutional: Negative for fever, chills, and weight loss, Eyes: Negative for injury, killian pain, redness, and discharge, ENT: Negative for injury, pain, and discharge, Neck: Negative for injury, pain, and swelling, Abdomen/GI: Negative for abdominal pain, nausea, vomiting, diarrhea, and constipation, Back: Negative for injury and pain, : Negative for injury, bleeding, discharge, and swelling, MS/Extremity: Negative for injury and deformity, Skin: Negative for injury, rash, and discoloration, Neuro: Negative for headache, weakness, numbness, tingling, and seizure, Psych: Negative for depression, anxiety, suicide ideation, homicidal ideation, and hallucinations, Allergy/Immunology: Negative for hives, rash, and allergies, Endocrine: Negative for neck swelling, polydipsia, polyuria, polyphagia, and marked weight changes, Hematologic/Lymphatic: Negative for swollen nodes, abnormal bleeding, and unusual bruising. 21:48 Cardiovascular: Positive for chest pain, of the chest. 21:48 Respiratory: Positive for shortness of breath, at rest. Exam: 21:48 Constitutional: This is a well developed, well nourished patient who is awake, alert, killian and in no acute distress. Head/Face: Normocephalic, atraumatic. Eyes: Pupils equal round and reactive to light, extra-ocular motions intact. Lids and lashes normal. Conjunctiva and sclera are non-icteric and not injected. Cornea within normal limits. Periorbital areas with no swelling, redness, or edema. ENT: Nares patent. No nasal discharge, no septal abnormalities noted. Tympanic membranes are normal and external auditory canals are clear. Oropharynx with no redness, swelling, or masses, exudates, or evidence of obstruction, uvula midline. Mucous membranes moist. Neck: Trachea midline, no thyromegaly or masses palpated, and no cervical lymphadenopathy. Supple, full range of motion without nuchal rigidity, or vertebral point tenderness. No Meningismus. Chest/axilla: Normal chest wall appearance and motion. Nontender with no deformity. No lesions are appreciated. Cardiovascular: Regular rate and rhythm with a normal S1 and S2. No gallops, murmurs, or rubs. Normal PMI, no JVD. No pulse deficits. Respiratory: Lungs have equal breath sounds bilaterally, clear to auscultation and percussion. No rales, rhonchi or wheezes noted. No increased work of breathing, no retractions or nasal flaring. Abdomen/GI: Soft, non-tender, with normal bowel sounds. No distension or tympany. No guarding or rebound. No evidence of tenderness throughout. Back: No spinal tenderness. No costovertebral tenderness. Full range of motion. Male : Normal genitalia with no discharge or lesions. Skin: Warm, dry with normal turgor. Normal color with no rashes, no lesions, and no evidence of cellulitis. MS/ Extremity: Pulses equal, no cyanosis. Neurovascular intact. Full, normal range of motion. Neuro: Awake and alert, GCS 15, oriented to person, place, time, and situation. Cranial nerves II-XII grossly intact. Motor strength 5/5 in all extremities. Sensory grossly intact. Cerebellar exam normal. Normal gait. Psych: Awake, alert, with orientation to person, place and time. Behavior, mood, and affect are within normal limits. 21:48 ECG was reviewed by the Attending Physician. 21:48 Musculoskeletal/extremity: DVT Exam: No signs of deep vein thrombosis. no pain, no swelling, no tenderness, negative Homans' sign noted on exam, no appreciated bluish discoloration, no erythema, no increased warmth. Vital Signs: 21:51 Weight 92.99 kg; Height 6 ft. 2 in. ; jw7 21:51 BP 146 / 97; Pulse 74; Resp 19 S; Temp 98.4(O); Pulse Ox 98% on R/A; Height 6 ft. 2 in. lg3 (R); 23:21 BP 120 / 83; Pulse 69; Resp 17 S; Pulse Ox 95% on R/A; jw7 21:51 Body Mass Index 26.32 (92.99 kg, 187.96 cm) lg3 MDM: 21:36 Patient medically screened. killian 21:54 Differential diagnosis: abnormal EKG, acute myocardial infarction, acute pericarditis, killian anxiety, coronary artery disease chest wall pain, congestive heart failure cholecystitis, Cholelithiasis costochondritis, esophagitis, hiatal hernia, myocarditis, pancreatitis, pneumothorax, thoracic aortic disection. HEART Score: History: Moderately Suspicious (1), ECG: Non specific repolarization disturbance / LBTB / PM (1), Age: > or = 65 years (2), Risk Factors: > or = 3 Risk factors for atherosclerotic disease (2), [Hypercholesterolemia] [Hypertension] [+ Family HX] Troponin: < or = 1 x Normal Limit (0). The patient was given aspirin in the Emergency Department. RANDA Risk Score: 1 - patient's age is greater or equal to 65 years, 1 - Three or more CAD risk factors, 1 - Elevated Cardiac Markers. Data reviewed: vital signs, nurses notes, lab test result(s), EKG, radiologic studies, plain films. Consideration of Admission/Observation Patient was admitted/placed on observation. Escalation of care including admission/observation considered. Management of patient was discussed with the following: Ironmolder: dr sara carpenter. I considered the following discharge prescriptions or medication management in the emergency department Medications were administered in the Emergency Department. See MAR. Independent interpretation of the following test(s) in the Emergency Department EKG: See my EKG interpretation above. Test considered but Not performed: Ultrasound no 2 d echo. Historians other than the Patient: Spouse/Significant Other: informed. Care significantly affected by the following chronic conditions: Hypertension, Obesity. Counseling: I had a detailed discussion with the patient and/or guardian regarding the historical points, exam findings, and any diagnostic results supporting the discharge/admit diagnosis, lab results, radiology results, the need to transfer to another facility, for higher level of care, [facility] does not immediately have the required specialist. 05/02 21:38 Order name: Basic Metabolic Panel; Complete Time: 22:57 [facility] 05/02 21:38 Order name: CBC with Diff; Complete Time: 22:32 killian 05/02 21:38 Order name: LFT's; Complete Time: 22:57 killian 05/02 21:38 Order name: Magnesium; Complete Time: 22:57 05/02 21:38 Order name: NT PRO-BNP; Complete Time: 22:57 [facility] 05/02 21:38 Order name: PT-INR; Complete Time: 22:37 05/02 21:38 Order name: Troponin HS; Complete Time: 22:57 05/02 21:38 Order name: Lipase; Complete Time: 22:57 [facility] 05/02 21:38 Order name: XRAY Chest (1 view) [facility] 05/02 21:38 Order name: EKG; Complete Time: 21:39 05/02 21:38 Order name: Cardiac monitoring; Complete Time: 21:49 05/02 21:38 Order name: EKG - Nurse/Tech; Complete Time: 21:49 [facility] 05/02 21:38 Order name: IV Saline Lock; Complete Time: 21:50 [facility] 05/02 21:38 Order name: Labs collected and sent; Complete Time: 21:50 [facility] 05/02 21:38 Order name: O2 Per Protocol; Complete Time: 21:48 [facility] 05/02 21:38 Order name: O2 Sat Monitoring; Complete Time: 21:48 [facility] 05/02 22:03 Order name: Misc. Order: RECOLLECT ALL LABS; Complete Time: 22:20 rv1 EC:48 Rate is 76 beats/min. Rhythm is regular. QRS Blanchard is Normal. IN interval is normal. QRS killian interval is normal. QT interval is normal. No Q waves. T waves are Normal. No ST changes noted. Clinical impression: NSR w/ Non-specific ST/T Changes and No evidence of ischemia. Interpreted by me. Reviewed by me. Administered Medications: 22:30 Drug: morphine IVP or IV 4 mg Route: IVP; Infused Over: 4 mins; Site: left forearm; jw7 23:23 Follow up: Response: No adverse reaction jw7 22:30 Drug: Ondansetron IVP 4 mg Route: IVP; Site: left forearm; jw7 23:23 Follow up: Response: No adverse reaction jw7 22:30 Drug: Clopidogrel PO 150 mg Route: PO; jw7 23:23 Follow up: Response: No adverse reaction jw7 22:30 Drug: Metoprolol PO 50 mg Route: PO; jw7 23:23 Follow up: Response: No adverse reaction jw7 22:30 Drug: Enoxaparin Sub-Q 1 mg/kg Route: Sub-Q; Site: abdomen; jw7 23:23 Follow up: Response: No adverse reaction jw7 22:31 Drug: NS 0.9% IV 1000 ml Route: IV; Rate: 125 ml/hr; Site: left forearm; jw7 23:24 Follow up: Response: No adverse reaction; IV Status: Order to discontinue infusion; IV jw7 Intake: 300ml 22:31 Drug: Famotidine IVP 20 mg Route: IVP; Site: left forearm; jw7 23:24 Follow up: Response: No adverse reaction jw7 22:31 Drug: Aspirin PO Chewable Tablet 162 mg Route: PO; jw7 23:24 Follow up: Response: No adverse reaction jw7 Disposition Summary: 05/02/23 23:00 Discharge Ordered Location: Home killian Problem: new(05/02/23 23:00) killian Symptoms: have improved(05/02/23 23:00) killian Condition: Stable(05/02/23 23:00) killian Diagnosis - Chest pain, unspecified(05/02/23 23:00) killian - Chronic kidney disease, unspecified killian Followup: killian - With: Osorio Granados MD - When: 1 - 2 days - Reason: Recheck today's complaints, Continuance of care, Re-evaluation by your physician Followup: killian - With: Alvin Carpenter MD - When: Tomorrow - Reason: Recheck today's complaints, Re-evaluation by your physician Discharge Instructions: - Discharge Summary Sheet killian - Nonspecific Chest Pain, Adult killian - Nonspecific Chest Pain, Adult, [id number] killian - Chronic Kidney Disease, Adult, [id number] killian Forms: - Medication Reconciliation Form killian - Thank You Letter killian - Antibiotic Education killian - Prescription Opioid Use killian - Patient Portal Instructions killian - Leadership Thank You Letter killian Signatures: Dispatcher [employer] Yandel Zhu MD MD cha Gibson, Lacie, RN RN lg3 Gaby Martinez, RN RN jw7 Abby Gardiner rv1 Corrections: (The following items were deleted from the chart) 22:59 22:[address] carpenter [facility] 22:59 22:00 Other Acute Care Facility [facility] 22:59 22:00 Higher level of care [facility] 22:59 22:00 Fair [facility] 22:59 22:00 new [facility] 22:59 22:00 have improved [facility] 22:59 22:00 Chest pain, unspecified [facility] 22:59 22:00 Dyspnea [facility]
[2023-05-02] MEDS ORDERED: ASPIRIN 81 MG CHEWABLE TABLET ONE (22:07)
[2023-05-02] MEDS ORDERED: METOPROLOL TAR 50 MG TAB ONE (22:07)
[2023-05-02] MEDS ORDERED: ONDANSETRON 4 MG/2 ML VIAL ONE (22:08)
[2023-05-02] MEDS ORDERED: CLOPIDOGREL 75 MG TABLET ONE (22:08)
[2023-05-02] MEDS ORDERED: MORPHINE 4 MG/ML SYR ONE (22:08)
[2023-05-02] MEDS ORDERED: FAMOTIDINE 20 MG/2 ML VIAL IV ONE (22:08)
[2023-05-02] MEDS ORDERED: NA CHLORIDE 0.9% 1,000 ML ONE (22:08)
[2023-05-02 22:26] LABS: Absolute Lymphocytes (CBC) 1.6 K/uL (0.7-4.9); Hematocrit 44.2 % (39.6-49.0); Lymphocytes % 25.2 % (15.3-44.8); MCV 87.9 fL (80-100); MPV 7.6 fL (7.6-11.3); Platelets 198 thou/uL (152-406); RBC Red Blood Cell Count 5.03 M/uL (4.33-5.43)
[2023-05-02 22:28] LABS: Protime INR 1.08
[2023-05-02] MEDS ORDERED: ENOXAPARIN 100 MG/ML SYR SQ ONE (22:30)
[2023-05-02 22:50] LABS: Albumin 3.3 g/dL (3.4-5.0); Bilirubin Direct 0.1 mg/dL (0-0.2); Bilirubin Indirect, Calculated 0.4 mg/dL (0.2-0.8); Bilirubin Total 0.5 mg/dL (0.2-1.0); Protein, Total 6.6 g/dL (6.4-8.2); Troponin High Sensitivity 11.3 pg/mL (<58.9)
[2023-05-02 22:54] LABS: Magnesium 1.9 mg/dL (1.6-2.4); Potassium 3.6 mEq/L (3.5-5.1)
[2023-05-02 23:47] VITALS: TEMP 98.4
[2023-05-02 23:48] VITALS: BP 120/83; O2SAT 95
[2023-05-03] MEDS ORDERED: MORPHINE 4 MG/ML SYR ONE (00:40)
[2023-05-03] MEDS ORDERED: ONDANSETRON 4 MG/2 ML VIAL ONE (00:40)
--- NOTE | 2023-05-03 08:09 | RAD REPORT ---
EXAM DESCRIPTION: RAD - Chest Single View - 05/02/2023 10:32 pm CLINICAL HISTORY: Chest pain;Dyspnea Chest pain. COMPARISON: Chest Single View dated 04/19/2023; Chest Pa And Lat (2 Views) dated 07/27/2022; Chest Pa And Lat (2 Views) dated 04/06/2021; Chest Pa And Lat (2 Views) dated 07/13/2018 FINDINGS: Portable technique limits examination quality. The lungs are grossly clear. The heart is normal in size. No displaced fractures. IMPRESSION: No acute intrathoracic process suspected.
--- NOTE | 2023-05-03 16:45 | EKG ---
Test Date: 2023-05-02 Test Time: 21:41:59 Automatic Print Developer: VENUS MEASUREMENT RESULTS: Intervals: Rate: 76 PA: 156 QRSD: 92 QT: 380 QTc: 427 [place]: P: 65 PA: 156 QRS: 19 T: 15 INTERPRETIVE STATEMENTS: Normal sinus rhythm Possible Anterior infarct, age undetermined Abnormal ECG Compared to ECG 04/19/2023 13:30:58 No significant changes Electronically Signed On 05-03-23 16:42:31 CDT by Brayan Lee
== END 2023-05-02 23:24 | disposition home or self-care (01) ==
LOC: ER 21:35
DX: R07.89 Other chest pain (principal); I12.9 Hypertensive chronic kidney disease with stage 1 through stage 4 chronic kidney disease, or unspecified chronic kidney disease; N18.9 Chronic kidney disease, unspecified; Z79.82 Long term (current) use of aspirin; Z96.641 Presence of right artificial hip joint; Z85.038 Personal history of other malignant neoplasm of large intestine
CPT/HCPCS: 96361; 93005; 85025; 80048; 36415; 83735; 85610; 80076; 84484; 83690; 83880; 71045; 96375; 96372; 96374; 99285; J1650; J2405; J7030

== ENCOUNTER 2023-10-05 07:59 | Day surgery (SDC) | payer OTHER, MEDICARE ==
[2023-10-03 08:58] LABS: Absolute Lymphocytes (CBC) 1.4 K/uL (0.7-4.9); Lymphocytes % 27.7 % (15.3-44.8); MCV 87.6 fL (80-100); MPV 7.6 fL (7.6-11.3); Platelets 188 thou/uL (152-406); RBC Red Blood Cell Count 4.91 M/uL (4.33-5.43)
[2023-10-03 09:15] LABS: Potassium 3.8 mEq/L (3.5-5.1)
[2023-10-05] MEDS: Ringers Lactate 1,000 ML IV ONE (08:15)
[2023-10-05] MEDS ORDERED: propofoL 200 MG/20 ML VIAL IV ONE (08:42)
[2023-10-05] MEDS ORDERED: LIDOCAINE 1% MPF 5 ML VIAL ONE (08:42)
[2023-10-05 11:29] VITALS: BP 123/75; TEMP 98; O2SAT 98
== END 2023-10-05 09:42 | disposition home or self-care (01) ==
LOC: OR 07:59
PROVIDERS: ATTEND Surgery
PROC: 0DJD8ZZ Inspection of Lower Intestinal Tract, Via Natural or Artificial Opening Endoscopic (ICD-10-PCS; principal; 2023-10-05 09:00)
DX: Z12.11 Encounter for screening for malignant neoplasm of colon (principal); Z80.0 Family history of malignant neoplasm of digestive organs; Z86.010 Personal history of colon polyps; Z85.038 Personal history of other malignant neoplasm of large intestine
CPT/HCPCS: 85025; 80048; 36415; J2704; J2001; J7120; G0105

== ENCOUNTER 2024-02-14 16:00 | Observation (INO) | payer OTHER, MEDICARE ==
[2024-02-14] MEDS ORDERED: ASPIRIN 81 MG CHEWABLE TABLET ONE (16:11)
[2024-02-14] MEDS ORDERED: MORPHINE 4 MG/ML SYR ONE (16:12)
[2024-02-14 16:28] LABS: Absolute Lymphocytes (CBC) 1.3 K/uL (0.7-4.9); Absolute Monocytes 0.6 K/uL (0.1-1.3); Absolute Neutrophil 5.4 K/uL (1.8-8.0); Basophils % 0.3 % (0-1.3); Eosinophils % 0.5 % (0-4.4); Hematocrit 49.1 % (39.6-49.0); Hemoglobin 16.7 g/dL (13.6-17.9); Lymphocytes % 17.5 % (15.3-44.8); MCH 30.2 pg (27.0-35.0); MCV 88.8 fL (80-100); MPV 7.8 fL (7.6-11.3); Monocytes % 8.7 % (3.3-12.3); Platelets 205 thou/uL (152-406); RBC Red Blood Cell Count 5.53 M/uL (4.33-5.43); Red Cell Distribution Width 14.7 % (12.1-15.2)
[2024-02-14 16:35] LABS: PT Prothrombin Time 11.6 SECONDS (9.5-12.5); Protime INR 1.06
--- NOTE | 2024-02-14 16:35 | RAD REPORT ---
EXAM DESCRIPTION: RAD - Chest Single View - 02/14/2024 4:28 pm CLINICAL HISTORY: CHEST PAIN Chest pain. FINDINGS: Portable technique limits examination quality. The lungs are grossly clear. The heart is normal in size. No displaced fractures. IMPRESSION: No acute intrathoracic process suspected.
[2024-02-14 16:56] LABS: Anion Gap 9.4 mEq/L (5.0-15.0); Potassium 3.4 mEq/L (3.5-5.1); Troponin High Sensitivity 14.6 pg/mL (<58.9)
[2024-02-14] MEDS ORDERED: ACETAMINOPHEN 500 MG TAB PO PRN (17:26)
[2024-02-14] MEDS ORDERED: ONDANSETRON 4 MG/2 ML VIAL IV PRN (17:26)
--- NOTE | 2024-02-14 18:13 | EDPHYS ---
Physician Documentation [facility] Name: Allan Driver Age: 68 yrs Sex: Male : 1955 Arrival Date: 02/14/2024 Time: 16:00 Bed 19 Private MD: ED Physician Demian Trejo HPI: 02/13 16:10 This 68 yrs old Male presents to ER via Ambulatory with complaints of Chest ec2 Pain, Back Pain. 16:10 Patient arrives today for evaluation of chest tightness. Reports chest tightness ec2 ongoing throughout the day. Intermittent, no specific alleviating or exacerbating factors. Reports history of CAD, reports that he is on Plavix. Patient reports no radiating symptoms . Historical: - Allergies: 16:06 No Known Allergies; iw - Home Meds: 16:06 Lotrel 10-20 mg oral capsule daily [Active]; sotalol 80 mg Oral tablet daily [Active]; iw losartan 25 mg oral tablet daily [Active]; clonidine HCl 0.3 mg Oral tablet 2 times per day [Active]; rosuvastatin 10 mg oral tablet daily [Active]; clopidogrel 75 mg oral tablet daily [Active]; - PMHx: 16:06 adrenal mass; Hypertension; Irregular heart rate; Enlarged Heart; colon cancer; iw - PSHx: 16:06 colon resection; hernia surgery; Right hip replacement; iw ROS: 16:10 Constitutional: as per hpi ec2 Exam: 16:10 Constitutional: GEN: NAD Head: atraumatic Eyes: EOMI Ears: External ears are ec2 normal. CV: regular rate LUNGS: no respiratory distress ABD: non-distended SKIN: no evidence of rashes MSK: no evidence of trauma NEURO: moves all extremities equally Vital Signs: 16:06 BP 131 / 94; Pulse 96; Resp 18; Temp 97.8; Pulse Ox 99% on R/A; iw 17:41 BP 151 / 95; Pulse 76; Resp 18; Pulse Ox 100% on R/A; mb9 MDM: 16:04 Patient medically screened. ec2 16:10 Data reviewed: vital signs. ED course: Patient arrives today for evaluation of chest ec2 tightness. Examination remarkable for well-appearing nontoxic but is otherwise in no acute distress with a reassuring imaging. Will obtain lumbar, chest x-ray and treat the patient's pain. Differential diagnosis includes ACS, doubt PE or dissection. Will also give the patient morphine for pain control. . 16:11 ED course: EKG obtained, independently reviewed and interpreted by me, shows normal ec2 sinus rhythm, rate of 97, no acute ST segment elevations, intervals are nonconcerning.. 16:37 ED course: CBC is reassuring, INR reassuring, chest x-ray independently reviewed and ec2 interpreted by me, shows no acute thoracic process. . 17:10 ED course: Metabolic profile shows renal dysfunction with a creatinine of 2.01 and GFR ec2 of 36, BNP elevated at 1200. Troponin within normal ranges . 17:15 ED course: On reassessment patient remains with chest tightness, will admit for chest ec2 pain evaluation. Discussed case with hospitalist who agrees to this patient for admission.. 17:15 ED course: MDM: Differential diagnosis as documented above in ED course; All lab tests ec2 ordered and reviewed as documented above; Independent interpretation of tests: EKG as above; imaging as above; Parenteral controlled substances: Yes; History gathered from independent historian: Yes; Discuss inpatient hospitalization: Yes; I discussed the case with: Hospitalist . 02/13 16:04 Order name: Basic Metabolic Panel; Complete Time: 17:09 ec2 02/13 16:04 Order name: CBC with Diff; Complete Time: 16:37 ec2 02/13 16:04 Order name: NT PRO-BNP; Complete Time: 17:09 ec2 02/13 16:04 Order name: PT-INR; Complete Time: 16:37 ec2 02/13 16:04 Order name: Troponin HS; Complete Time: 17:09 ec2 02/13 17:31 Order name: CBC with Automated Diff EDNV 02/13 17:31 Order name: Comprehensive Metabolic Panel EDNV 02/13 17:31 Order name: Troponin High Sensitivity EDNV 02/13 17:31 Order name: Urinalysis w/ reflexes EDNV 02/13 22:00 Order name: Troponin High Sensitivity EDNV 02/14 03:02 Order name: Basic Metabolic Panel EDNV 02/14 03:02 Order name: Troponin High Sensitivity EDNV 02/13 16:04 Order name: XRAY Chest (1 view); Complete Time: 16:37 ec2 02/13 16:04 Order name: EKG; Complete Time: 16:05 ec2 02/13 17:31 Order name: CONS Physician Consult EDMS 02/13 16:04 Order name: Cardiac monitoring; Complete Time: 16:52 ec2 02/13 16:04 Order name: EKG - Nurse/Tech; Complete Time: 16:09 ec2 02/13 16:04 Order name: IV Saline Lock; Complete Time: 16:13 ec2 02/13 16:04 Order name: Labs collected and sent; Complete Time: 16:13 ec2 02/13 16:04 Order name: O2 Per Protocol; Complete Time: 16:13 ec2 02/13 16:04 Order name: O2 Sat Monitoring; Complete Time: 16:13 ec2 Administered Medications: 16:22 Drug: morphine IVP or IV 4 mg IVP once over 4 mins Route: IVP; Infused Over: 4 mins; iw Site: right forearm; 17:52 Follow up: Response: No adverse reaction mb9 16:22 Drug: Aspirin PO Chewable Tablet 324 mg PO once; 81 mg tablets x 4 Route: PO; iw 17:52 Follow up: Response: No adverse reaction mb9 Disposition Summary: 02/14/24 17:16 Hospitalization Ordered Notes: Hospitalization Status: Inpatient Admission ec2 Provider: Osorio Granados ec2 Condition: Stable ec2 Problem: new ec2 Symptoms: have improved ec2 Bed/Room Type: Standard ec2 Location: [facility] ER HOLD(02/14/24 18:48) Room Assignment: ERHOLD-(02/14/24 18:48) bd Diagnosis - Chest pain, unspecified ec2 Forms: - Medication Reconciliation Form ec2 - SBAR form ec2 - Leadership Thank You Letter ec2 Signatures: Dispatcher [employer] EDRonel Valdez Irene, RN RN iw Demian Trejo MD MD ec2 Candi Segura RN mb9 Corrections: (The following items were deleted from the chart) 16:05 16:05 BASIC METABOLIC PANEL+C.LAB.BRZ ordered. EDMS EDMS 16:05 16:05 CBC+H.LAB.BRZ ordered. EDMS EDMS 16:05 16:05 PROBNP+C.LAB.BRZ ordered. EDMS EDMS 16:05 16:05 PROTIME (+INR)+COAG.LAB.BRZ ordered. EDMS EDMS 16:05 16:05 Troponin High Sensitivity+C.LAB.BRZ ordered. EDNV EDMS 18:48 17:16 Telemetry/MedSurg (Inpatient) ec2 18:48 17:16 ec2 bd
--- NOTE | 2024-02-14 18:13 | ER ---
Nurse's Notes [facility] Name: Allan Driver Age: 68 yrs Sex: Male : 1955 Arrival Date: 02/14/2024 Time: 16:00 Bed 19 Private MD: Diagnosis: Chest pain, unspecified Presentation: 02/13 16:06 Chief complaint: Patient states: lower back pain and chest pain started this afternoon iw at 1pm. Coronavirus screen: At this time, the client does not indicate any symptoms associated with coronavirus-19. Ebola Screen: Patient negative for fever greater than or equal to 101.5 degrees Fahrenheit, and additional compatible Ebola Virus Disease symptoms Patient denies exposure to infectious person. Patient denies travel to an Ebola-affected area in the 21 days before illness onset. No symptoms or risks identified at this time. Initial Sepsis Screen: Does the patient meet any 2 criteria? No. Patient's initial sepsis screen is negative. Does the patient have a suspected source of infection? No. Patient's initial sepsis screen is negative. Risk Assessment: Do you want to hurt yourself or someone else? Patient reports no desire to harm self or others. Onset of symptoms was February 14, 2024. 16:06 Method Of Arrival: Ambulatory iw 16:06 Acuity: NAYANA 3 iw Historical: - Allergies: 16:06 No Known Allergies; iw - Home Meds: 16:06 Lotrel 10-20 mg oral capsule daily [Active]; sotalol 80 mg Oral tablet daily [Active]; iw losartan 25 mg oral tablet daily [Active]; clonidine HCl 0.3 mg Oral tablet 2 times per day [Active]; rosuvastatin 10 mg oral tablet daily [Active]; clopidogrel 75 mg oral tablet daily [Active]; - PMHx: 16:06 adrenal mass; Hypertension; Irregular heart rate; Enlarged Heart; colon cancer; iw - PSHx: 16:06 colon resection; hernia surgery; Right hip replacement; iw Screenin:14 [facility] ED Fall Risk Assessment (Adult) History of falling in the last 3 months, iw including since admission No falls in past 3 months (0 pts) Confusion or Disorientation No (0 pts) Intoxicated or Sedated No (0 pts) Impaired Gait No (0 pts) Mobility Assist Device Used No (0 pt) Altered Elimination No (0 pt) Score/Fall Risk Level 0 - 2 = Low Risk Oriented to surroundings. Abuse screen: Denies threats or abuse. Denies injuries from another. Nutritional screening: No deficits noted. Tuberculosis screening: No symptoms or risk factors identified. Assessment: 16:13 General: Appears in no apparent distress. Behavior is calm, cooperative. Pain: iw Complains of pain in anterior aspect of left upper chest Pain radiates to left low back and right low back Pain began 3 hours ago. Neuro: Level of Consciousness is awake, alert, obeys commands, Oriented to person, place, time, situation, Moves all extremities. Full function. Cardiovascular: Reports chest pain, Patient's skin is warm and dry. Respiratory: Respiratory effort is even, unlabored, Respiratory pattern is regular, symmetrical. GI: Abdomen is flat, non-distended. : Reports pain in bilateral in lower back. 17:42 Reassessment: Patient appears in no apparent distress at this time. Patient and/or mb9 family updated on plan of care and expected duration. Pain level reassessed. Patient is alert, oriented x 3, equal unlabored respirations, skin warm/dry/pink. Patient states symptoms have improved. 18:15 Reassessment: see [facility] for further charting. mb9 Vital Signs: 16:06 BP 131 / 94; Pulse 96; Resp 18; Temp 97.8; Pulse Ox 99% on R/A; iw 17:41 BP 151 / 95; Pulse 76; Resp 18; Pulse Ox 100% on R/A; mb9 ED Course: 16:03 Patient arrived in ED. em1 16:04 Demian Trejo MD is Attending Physician. ec2 16:06 Triage completed. iw 16:06 Arm band placed on. iw 16:09 EKG done, by ED staff, reviewed by Demian Trejo MD. em1 16:13 Kate Jay, RN is Primary Nurse. iw 16:30 XRAY Chest (1 view) In Process Unspecified. EDMS 16:43 Inserted saline lock: 20 gauge in right forearm, using aseptic technique. Blood em1 collected. 17:16 Osorio Granados MD is Hospitalizing Provider. ec2 17:27 Placed in gown. Bed in low position. Call light in reach. Side rails up X 1. Provided mb9 Education on: press call light if needing anything. Client placed on continuous cardiac and pulse oximetry monitoring. NIBP monitoring applied. manager monitoring on. 20:01 No provider procedures requiring assistance completed. Patient admitted, IV remains in mb9 place. 02/14 07:54 Antonio Nugent, RN is Primary Nurse. bp Administered Medications: 02/13 16:22 Drug: morphine IVP or IV 4 mg IVP once over 4 mins Route: IVP; Infused Over: 4 mins; iw Site: right forearm; 17:52 Follow up: Response: No adverse reaction mb9 16:22 Drug: Aspirin PO Chewable Tablet 324 mg PO once; 81 mg tablets x 4 Route: PO; iw 17:52 Follow up: Response: No adverse reaction mb9 Medication: 16:14 VIS not applicable for this client. iw Outcome: 17:16 Decision to Hospitalize by Provider. ec2 20:01 Admitted to ER Hold. Please see [facility] for further documentation. mb9 20:01 Condition: stable 20:01 Instructed on the need for admit, 02/14 07:54 Patient left the ED. bp Signatures: Dispatcher [employer] Kate Bhandari, MERRY SOUSA Rolf Sosa em1 Antonio Nugent, RN RN bp Candi Segura RN RN mb9 Demian Trejo MD MD ec2
[2024-02-14 18:23] LABS: Specific Gravity > 1.030 (1.005-1.030); Sqamous Epithelial <5 /HPF (None Seen); Urine Bacteria <20 /HPF (<20); Urine Bilirubin NEGATIVE (Negative); Urine Blood Trace (Negative); Urine Clarity Turbid (Clear); Urine Color Yellow (Yellow); Urine Crystals Unidentified Few /HPF (None Seen); Urine Culture Reflex Order NOT NEEDED; Urine Glucose NEGATIVE (Negative); Urine Ketones NEGATIVE (Negative); Urine Microscopic Reflex YN ORDER UMIC; Urine Mucus 1+ /HPF (None Seen); Urine Nitrite NEGATIVE (Negative); Urine Protein 1+ (Negative); Urine RBC <5 /HPF (None Seen); Urine Urobilinogen 1+ (Normal); Urine WBC <5 /HPF (<5); Urine pH 5.5 (5.0-7.0)
[2024-02-14 19:09] VITALS: BMI 29.2
[2024-02-14] MEDS: cloNIDine HCL 0.1 MG TAB PO ONE (21:09)
[2024-02-14] MEDS ORDERED: SOTALOL HCL 80 MG TAB PO SCH (22:00)
[2024-02-14] MEDS: ROSUVASTATIN 10 MG TAB PO SCH (22:00)
[2024-02-14 22:26] LABS: Absolute Eosinophils 0.1 K/uL (0-0.5); Absolute Lymphocytes (CBC) 1.4 K/uL (0.7-4.9); Absolute Monocytes 0.5 K/uL (0.1-1.3); Absolute Neutrophil 3.1 K/uL (1.8-8.0); Basophils % 0.5 % (0-1.3); Eosinophils % 1.7 % (0-4.4); Hematocrit 45.9 % (39.6-49.0); Hemoglobin 15.5 g/dL (13.6-17.9); Lymphocytes % 28.1 % (15.3-44.8); MCHC 33.7 g/dL (32.0-36.0); MCV 88.9 fL (80-100); MPV 7.8 fL (7.6-11.3); Monocytes % 9.3 % (3.3-12.3); Neutrophils % 60.4 % (41.7-73.7); Platelets 176 thou/uL (152-406); RBC Red Blood Cell Count 5.17 M/uL (4.33-5.43); Red Cell Distribution Width 15.2 % (12.1-15.2)
[2024-02-14 22:43] LABS: ALT/SGPT 23 U/L (16-61); Albumin 3.1 g/dL (3.4-5.0); Alkaline Phosphatase 57 U/L (45-117); Anion Gap 6.5 mEq/L (5.0-15.0); BUN Blood Urea Nitrogen 27 mg/dL (7-18); Bicarbonate 30 mEq/L (21-32); Bilirubin Total 0.7 mg/dL (0.2-1.0); Glomerular Filtration Rate 41 ml/min (=/>90); Glucose Level 127 mg/dL (74-106); Potassium 3.5 mEq/L (3.5-5.1); Protein, Total 6.1 g/dL (6.4-8.2); Sodium Level 142 mEq/L (136-145); Troponin High Sensitivity 10.6 pg/mL (<58.9)
[2024-02-14 22:44] LABS: AST/SGOT < 10 U/L (15-37)
[2024-02-15 03:00] LABS: Anion Gap 7.1 mEq/L (5.0-15.0); Potassium 4.1 mEq/L (3.5-5.1); Troponin High Sensitivity 10.3 pg/mL (<58.9)
[2024-02-15 08:09] VITALS: BP 151/95; TEMP 97.8; O2SAT 100
[2024-02-15] MEDS ORDERED: AMLODIPINE 10 MG TAB PO SCH (09:00)
[2024-02-15] MEDS ORDERED: CLOPIDOGREL 75 MG TABLET PO SCH (09:00)
[2024-02-15] MEDS ORDERED: cloNIDine HCL 0.1 MG TAB PO SCH (09:00)
[2024-02-15] MEDS ORDERED: LOSARTAN POTASSIUM 50 MG TABLET PO SCH (09:00)
--- NOTE | 2024-02-16 02:19 | DS ---
Date of Discharge: 02/15/2024 Disposition: Discharged to go home. Physical Examination: HEENT: Unremarkable. Lungs: Clear to auscultation. Heart: Sounds normal. Abdomen: Soft. Bowel sounds normal. No guarding, rigidity, tenderness, distention. Extremities: No leg edema. Laboratory Data: Yesterday, white count 7.3, hemoglobin 16.7, platelets 205. Today, white count 5.1 , hemoglobin 15.5, and platelets 176. For chemistry yesterday, sodium 139, potassium 3.4, chloride 1 09, bicarb 24, BUN 29, creatinine 2.01, glucose 146. First troponin 15.6, second troponin 11.4, thir d troponin 10.6, and fourth troponin 10.3. Last chemistry today, sodium 143, potassium 4.1, chloride 110, bicarb 30, BUN 28, creatinine 0.78, glucose 115. Discharge Medications And Instructions: 1.Continue all prior home medication. 2.Follow up at my office next week. 3.Follow up with nurse plastics, Dr. Clark, next week. Hospital Course: This is a 68-year-old pleasant male patient, who was admitted to the hospital with complaints of chest pain. Please see dictated H and P for more information. The patient started to have this chest pain yesterday afternoon. Pain has been intermittent and described as tightness type of feeling in the left anterior chest wall area just below the left breast. Pain does not radiate a nywhere. Every time he has pain, it will last for just 1 or 2 seconds and then it is gone. Denies a ny fall or injury. No rash. No fever, cough, cold, congestion type of problem. He came into emerge ncy room after he was evaluated. He was admitted to the hospital. Overnight, his condition remained stable. SD was ruled out and this morning after I saw him, decision was made to discharge him to go home and he sees Dr. Clark as his nurse plastics and was encouraged to continue to follow up with jenny sin. Final Diagnoses: 1.Chest pain. 2.Hypertension. 3.Chronic kidney disease stage IIIB. NIEVES/MODL Voice ID: [id number] Report ID: [id number]
--- NOTE | 2024-02-16 06:16 | HP ---
Date of Admission: 02/14/2024 Chief Complaint: Chest pain. History Of Present Illness: This is a 68-year-old pleasant male patient who came into emergency room with complaints of left-sided chest pain that started around 1 p.m. today. The patient describes hi s chest pain as tightness type of feeling in the left anterior chest area just below the left breast. This pain is described as tightness type of feeling. It is localized. No radiation. No aggravati ng or relieving factor. No rash. No cough, cold, congestion, fever, chills. The patient reports th is pain lasts only for 1 to 2 seconds and then it goes away. He continued to have this intermittent pain after it started, so he came into emergency room, and after he was evaluated in the ER, I was co ntacted requesting admission to the hospital. I saw him in emergency room this evening for this admi ssion. Review of Systems: Cardiovascular: As mentioned above. All other systems reviewed and negative. Medications: List reviewed. Allergies: NO KNOWN ALLERGIES. Past Medical History: Significant for hypertension; mixed hyperlipidemia; benign prostatic hypertrop hy with lower urinary tract symptoms; chronic kidney disease, stage 3B; impaired fasting glucose; hyp okalemia; osteoarthritis at multiple sites; colon cancer; coronary artery disease. Past Surgical History: Inguinal hernia repair on November 09, 2021; partial resection of colon due to c olon cancer, and this was done in 2001 and 2005; right hip surgery, March 2021. Family History: Father , had hypertension and congestive heart failure. Mother had breast cance r and high cholesterol. Social History: Negative for smoking and negative for alcohol use. Physical Examination: Vital Signs: Blood pressure , respiratory rate , pulse , temperature _ , oxygen saturation , height 5 feet inches, weight pounds. General: Awake, alert, oriented, not in distress. HEENT: Head atraumatic, normocephalic. Conjunctivae nonerythematous. Sclerae white. Mouth, no thr ush or edema noted. Ears/Nose, no mass, lesion, discharge noted. Neck: Supple. No JVD, lymph nodes, bruit, thyromegaly noted. Lungs: Bilateral good equal air entry. Clear to auscultation. No rhonchi. No rales. Heart: Normal heart sounds, no murmur or gallop. Abdomen: Soft, bowel sounds normal. No guarding, rigidity, tenderness, mass, hepatosplenomegaly, dis tention, or bruit noted. Extremities: No leg edema. No calf tenderness. Skin: No rash, ulcer, cellulitis. Lymphatics: No lymph node enlargement in neck, supraclavicular, infraclavicular region. Neuro: No focal neurological deficit. Chest: Unremarkable. External Genitalia: Deferred. Rectal: Deferred. Laboratory Data: Chest x-ray: No acute cardiopulmonary changes. EKG: No acute ST-T changes. WBC 7.3, hemoglobin 16.7, and platelet count 205. Sodium 139, potassium 3.4, chloride 109, bicarb 24, BU N 29, creatinine 2.01, estimated GFR 36, glucose 146. Troponin 10.6. ProBNP 1193. Impression: 1.Chest pain. 2.Coronary artery disease. 3.Hypertension. 4.Mixed hyperlipidemia. 5.Hypokalemia. 6.Benign prostatic hypertrophy with lower urinary tract symptoms. 7.Osteoarthritis, multiple sites. 8.Chronic kidney disease, stage 3B. 9.Colon cancer. Plan: We will go ahead and admit the patient to hospital for further evaluation and management of th is problem. The patient is appropriate for observation. We will keep him in the hospital. Get seri al cardiac enzymes done to rule out myocardial infarction. On basis of his history, it appears that his chest pain is likely to be noncardiac in origin and details were discussed with the patient. He sees Dr. Clark on a regular basis and I have advised him to follow up with his senior commissions analyst upon kadie clark from our hospital. For blood pressure control, we will go ahead and continue antihypertensiv e medication as per order, monitor blood pressure if necessary, make adjustment. For hyperlipidemia, we will continue statin therapy per order. We will continue antiplatelet therapy per order. Detail s and plan of treatment discussed with the patient. I will see him tomorrow morning for followup. NIEVES/MODL Voice ID: [id number]
--- NOTE | 2024-02-16 16:21 | EKG ---
Test Date: 2024-02-14 Test Time: 16:05:06 Senior Hr Generalist: HALEY MEASUREMENT RESULTS: Intervals: Rate: 97 IA: 142 QRSD: 84 QT: 354 QTc: 449 [place]: P: 79 IA: 142 QRS: -32 T: 27 INTERPRETIVE STATEMENTS: Normal sinus rhythm Left axis deviation Anterior infarct, age undetermined Abnormal ECG Compared to ECG 05/02/2023 21:41:59 Left-axis deviation now present Myocardial infarct finding still present Electronically Signed On 02-16-24 16:17:19 CDT by Brayan Lee
== END 2024-02-15 07:56 | disposition home or self-care (01) ==
LOC: ER 16:00 → ERHOLD 17:26
PROVIDERS: ADMIT Internal Medicine; ATTEND Internal Medicine
DX: R07.9 Chest pain, unspecified (principal); E78.2 Mixed hyperlipidemia; N40.1 Benign prostatic hyperplasia with lower urinary tract symptoms; I12.9 Hypertensive chronic kidney disease with stage 1 through stage 4 chronic kidney disease, or unspecified chronic kidney disease; N18.32 Chronic kidney disease, stage 3b; E87.6 Hypokalemia; M19.90 Unspecified osteoarthritis, unspecified site; Z85.038 Personal history of other malignant neoplasm of large intestine
CPT/HCPCS: 36415; 71045; 80048; 80053; 81001; 83880; 84484; 85025; 85610; 93005; G0378

== ENCOUNTER 2025-04-17 19:03 | Emergency (ER) | payer OTHER, MEDICARE ==
--- OUTSIDE RECORDS SUMMARY | 2025-04-17 19:06 | XMS REPORT | Continuity of Care Document ---
Author Name Unknown Address [address] [facility] [address] [place] [address] Organization [facility] Address [address] [facility] [place] [address] Care Team Providers Care [facility] Associate Name Role Phone Hi Miguel A Attending Clinician Unavailable Alvin Clark Cardiology Attending Clinician Unavailable PURNIMA SON Attending Clinician Unavailable Purnima Garcia Attending Clinician [phone] Toby Franks MD Attending Clinician Ekaterina Huynh MD Attending Clinician EKATERINA HUYNH Attending Clinician Unavailable Doctor Unassigned, [place] Attending Clinician U navailable Alvin Clark Cardiology Admitting Clinician Unavailable Payers Payer Name Policy Type Policy Number Effective Date Expirati on Date Source COMMERCIAL NON-CONTRACT GENERIC [id number] 2020 00:00:00 [facility] [id number] 2013 00:00:00 Problems Condition Name Condition Details Condition Category Status Onset Date Resolution Date Last Treatment Date Treating Clinician Comments Source No known active problems No known active problems Disease Univers [facility] Malignant tumor of colon (disorder) Malignant tumor of colon (disorder) Active Problem 04/05/2022 [facility] Problem Active 2022-04-05 02:48:02 Matthew Garza Pain in lower limb (finding) Pain in lower limb (finding) Active Problem 04/05/2022 [facility] Problem Active 2022-04-05 02:48:02 Matthew Garza Paresthesi a (finding) Paresthesi a (finding) Active Problem 04/05/2022 [facility] Problem Active 2022-04-05 02:48:02 Matthew Garza Hip pain (finding) Hip pain (finding) Active Problem 04/05/2022 [facility] Problem Active 2022-04-05 02:48:02 Matthew Garza Hypertensi ve disorder, systemic arterial (disorder) Hypertensi ve disorder, systemic arterial (disorder) Active Problem 04/05/2022 [facility] Problem Active 2022-04-05 02:48:02 Matthew Garza Lumbar radiculopa thy (disorder) Lumbar radiculopa thy (disorder) Active Problem 04/05/2022 [facility] Problem Active 2022-04-05 02:48:02 Matthew Garza Allergies, Adverse Reactions, Alerts Allergy Name Allergy Type Status Severity Reaction(s) Onset Date Inactive Date Treating Clinician Comments Source No Known Allergie s DA Active U 04-28 00:00: 00 [facility] NO KNOWN ALLERGIE S Drug Class Active [facility] Social History Social Habit Start Date Stop Date Quantity Comments Source Exposure to SARS-CoV-2 (event) Not sure [facility] Tobacco use and exposure 2020-11-04 00:00:00 2020-11-04 00:00:00 Never used [facility] Alcohol intake 2020-11-04 00:00:00 2020-11-04 00:00:00 Current drinker of alcohol (finding) [facility] Social History 2020-01-09 23:35:06 2020-01-09 23:35:06 Swetha Garza Alcohol Comment 2016-01-27 00:00:00 2016-01-27 00:00:00 Approx. 1-2 beers daily [facility] Sex Assigned At 1955 00:00:00 1955 00:00:00 [facility] Smoking Status Start Date Stop Date Source Never smoker [facility] Medications Ordered Medication Name Filled Medication Name Start Date Stop Date Current Medication? Ordering Clinician Indication Dosage Frequency Signature (SIG) Comments Components Source meloxicam 15 mg tablet 05-16 00:00: 00 06-16 04:59 :00 No 15mg Take 1 tablet by mouth daily for 30 days. [facility] FENTanyl PF (SUBLIMAZE (PF)) injection 50 mcg 05-02 06:30: 00 05-02 05:25 :00 No 50ug 50 mcg, Intramuscu lar, ONCE, 1 dose, Tue05/02/20 at 0130, Routine [facility] HYDROcodone -acetaminop hen (NORCO) 10-325 mg tablet 1 tablet 05-02 06:15: 00 05-02 05:25 :00 No 1{tbl} 1 tablet, Oral, ONCE, 1 dose, Tue05/02/20 at 0115, Routine [facility] HYDROcodone -acetaminop hen 7.5-325 mg per tablet 05-02 00:00: 00 Yes TAKE 1 TABLET BY MOUTH TWICE A DAY FOR 15 DAYS [facility] hydroCHLORO thiazide 25 mg tablet 824 00:00: 00 Yes 25mg Take 25 mg by mouth every morning. [facility] cloNIDine HCL 0.1 mg tablet 31 00:00: 00 Yes 1{tbl} Take 1 tablet by mouth 2 (two) times daily. [facility] tamsulosin 0.4 mg 24 hr capsule 03 00:00: 00 Yes .4mg Take 0.4 mg by mouth daily. [facility] tramadol hydrochlori de 50 MG Oral Tablet 02-13 00:35: 00 Yes 50 mg = 1 tab, PO, Q8H, X 30 day, # 90 tab, 1 Refill(s), Pharmacy: [facility] #[id number], 187.96, cm, 02/01/20 11:28:00 CDT, Height, 90, kg, 02/01/20 11:28:00 CDT, Weight Matthew Garza gabapentin 300 MG Oral Capsule 01-31 17:15: 00 Yes 300 mg = 1 cap, PO, BID, # 60 cap, 2 Refill(s), [id number] Matthew Garza baclofen 10 mg oral tablet 01-08 16:59: 00 Yes 10 mg = 1 tab, PO, BID, # 60 tab, 4 Refill(s), Pharmacy: [facility] #[id number] Matthew Garza magnesium oxide 250 mg oral tablet 01-08 16:27: 00 Yes 250 mg = 1 tab, PO, Daily, 0 Refill(s) Matthew Garza Amlodipine 10 MG / Benazepril hydrochlori de 20 MG Oral Capsule [Lotrel 06/17] 01-08 16:27: 00 Yes 1 cap, PO, Daily, # 30 cap, 0 Refill(s) Matthew Ruelasann 24 HR Metoprolol Tartrate 200 MG Extended Release Tablet [Toprol] 01-08 16:27: 00 Yes 200 mg = 1 tab, PO, Daily, 0 Refill(s) Matthew Garza Clonidine Hydrochlori de 0.1 MG Oral Tablet 01-08 16:27: 00 Yes 0.1 mg = 1 tab, PO, Daily, 0 Refill(s) Matthew Ruelasann hydrochloro thiazide 12.5 mg oral tablet 01-08 16:27: 00 Yes 12.5 mg = 1 tab, PO, Daily, # 30 tab, 0 Refill(s) Matthew Garza cloniDINE (CATAPRES-T TS 3) 0.3 mg/24 hr patch 02-10 19:22: 14 Yes 1{patch } Apply 1 Patch to skin weekly. [facility] amlodipine- benazepril (LOTREL) 10-20 mg per capsule 02-10 19:22: 14 Yes 1{capsu le} Take 1 capsule by mouth daily. [facility] metoprolol succinate XL (TOPROL XL) 200 mg 24 hr tablet 02-10 19:22: 14 Yes 200mg Take 200 mg by mouth daily. [facility] Vital Signs Vital Name Observation Time Observation Value Comments Bianka bae Systolic blood pressure 2020-11-04 15:42:00 178 mm[Hg] [facility] Diastolic blood pressure 2020-11-04 15:42:00 100 mm[Hg] [facility] Heart rate 2020-11-04 15:42:00 70 /min Un[facility] Body height 2020-11-04 15:37:00 188 cm Univ [facility] Body weight 2020-11-04 15:37:00 88.451 kg Univ [facility] BMI 2020-11-04 15:37:00 25.04 kg/m2 [facility] Systolic blood pressure 2020-11-04 15:42:00 178 mm[Hg] [facility] Diastolic blood pressure 2020-11-04 15:42:00 100 mm[Hg] [facility] Heart rate 2020-11-04 15:42:00 70 /min Unive [facility] Body height 2020-11-04 15:37:00 188 cm Univ [facility] Body weight 2020-11-04 15:37:00 88.451 kg Univ [facility] BMI 2020-11-04 15:37:00 25.04 kg/m2 [facility] Systolic blood pressure 2020-05-22 13:52:00 147 mm[Hg] [facility] Diastolic blood pressure 2020-05-22 13:52:00 87 mm[Hg] [facility] Heart rate 2020-05-22 13:47:00 68 /min [facility] Systolic blood pressure 2020-05-15 14:02:00 168 mm[Hg] [facility] Diastolic blood pressure 2020-05-15 14:02:00 96 mm[Hg] [facility] Heart rate 2020-05-15 14:02:00 58 /min [facility] Body height 2020-05-15 13:57:00 188 cm Univ [facility] Body weight 2020-05-15 13:57:00 88.451 kg stated Univ [facility] BMI 2020-05-15 13:57:00 25.04 kg/m2 [facility] Systolic blood pressure 2020-05-02 05:00:00 150 mm[Hg] [facility] Diastolic blood pressure 2020-05-02 05:00:00 92 mm[Hg] [facility] Heart rate 2020-05-02 05:00:00 59 /min [facility] Body temperature 2020-05-02 05:00:00 36.22 Matilde [facility] Respiratory rate 2020-05-02 05:00:00 20 /min [facility] Body height 2020-05-02 05:00:00 188 cm [facility] Body weight 2020-05-02 05:00:00 88.451 kg [facility] BMI 2020-05-02 05:00:00 25.04 kg/m2 [facility] Oxygen saturation in Arterial blood by Pulse oximetry 2020-05-02 05:00:00 100 /min [facility] Systolic (mm Hg) 2020-02-01 16:28:00 [facility] Diastolic (mm Hg) 2020-02-01 16:28:00 [facility] Heart Rate 2020-02-01 16:28:00 [facility] Respitory Rate 2020-02-01 16:28:00 [facility] Height 2020-02-01 16:28:00 187.96 cm [facility] Weight 2020-02-01 16:28:00 [facility] BMI Calculated 2020-02-01 16:28:00 [facility] Temperature Oral (F) 2020-02-01 16:28:00 99.7 F [facility] Systolic (mm Hg) 2020-01-09 16:23:00 [facility] Diastolic (mm Hg) 2020-01-09 16:23:00 [facility] Heart Rate 2020-01-09 16:23:00 [facility] Respitory Rate 2020-01-09 16:23:00 M [facility] Height 2020-01-09 16:23:00 182.88 cm [facility] Weight 2020-01-09 16:23:00 [facility] BMI Calculated 2020-01-09 16:23:00 [facility] Procedures Procedure Date / Time Performed Performing Clinician Source XR HIP 1 VW BILATERAL 2020-05-15 14:12:34 Purnima Son [facility] ASSIGNMENT OF BENEFITS 2020-05-02 05:31:22 Docto r Unassigned, [place] [facility] EMERGENCY SERVICES AGREEMENTS AND AUTHORIZATIONS 2020-05-02 05:01:00 Doctor Unassigned, [place] [facility] NOTICE OF PRIVACY PRACTICES 2020-05-02 04:52:29 Doctor Unassigned, [place] [facility] Encounters Start Date/Time End Date/Time Encounter Type Admission Type Attending [facility] Care Department Encounter ID Source 2024-05-11 05:17:00 2024-05-11 05:17:00 Outpatient Miguel A Leyva [facility] OUTD [id number] [facility] 2023-04-30 06:13:00 2023-04-30 06:13:00 Outpatient Alvin Anderson [facility] [id number] [facility] 2022-04-01 13:32:36 2022-04-03 04:59:59 Outside Medical Records nullFlavo r [facility] [place] [id number] Matthew Garza 2020-11-04 10:00:00 2020-11-04 10:00:00 Outpatient PURNIMA JASSO [facility] [id number] [facility] 2020-11-04 09:31:29 2020-11-04 09:46:29 Office Visit Purnima Son [facility] [id number] 350.1.13.10 4.2.7.2.686 [id number] [facility] 2020-11-04 09:31:29 2020-11-04 09:46:29 Office Visit Purnima Son [facility] Lilly 1.2.840.114 350.1.13.10 4.2.7.2.686 [id number] 2020-10-28 11:00:00 2020-10-28 11:00:00 Outpatient PURNIMA JASSO [facility] [id number] [facility] 2020-06-12 00:00:00 2020-06-12 00:00:00 Telephone Toby Franks [facility] [place] 1.2.840.114 350.1.13.10 4.2.7.2.686 [id number] [facility] 2020-06-09 00:00:00 2020-06-09 00:00:00 Telephone Toby Franks [facility] [place] 1.2.840.114 350.1.13.10 4.2.7.2.686 [id number] [facility] 2020-05-22 08:41:49 2020-05-22 09:33:00 Office Visit Adelaida [facility] [place] 1.2.840.114 350.1.13.10 4.2.7.2.686 [id number] [facility] 2020-05-22 08:45:00 2020-05-22 08:45:00 Outpatient R SON [facility] [id number] [facility] 2020-05-22 00:00:00 2020-05-22 00:00:00 Telephone Adelaida [facility] Special[facility] ruy [place] 1.2.840.114 350.1.13.10 4.2.7.2.686 [id number] [facility] 2020-05-15 09:12:33 2020-05-15 23:59:00 Hospital Encounter Adelaida [facility] [place] 1.2.840.114 350.1.13.10 4.2.7.2.686 [id number] [facility] 2020-05-15 08:44:16 2020-05-15 08:59:16 Office Visit Adelaida [facility] [place] 1.2.840.114 350.1.13.10 4.2.7.2.686 [id number] [facility] 2020-05-15 08:45:00 2020-05-15 08:45:00 Outpatient R ADELAIDA [facility] [id number] [facility] 2020-05-15 00:00:00 2020-05-15 00:00:00 Telephone Son [facility] 1.2.840.114 350.1.13.10 4.2.7.2.686 [id number] [facility] 2020-05-02 00:02:00 2020-05-02 00:53:00 [facility] 1.2.840.114 350.1.13.10 4.2.7.2.686 [id number] [facility] 2020-05-02 00:02:00 2020-05-02 00:02:00 Emergency X EKATERINA HUYNH [facility] ERT [id number] [facility] 2020-05-02 00:00:00 2020-05-02 00:00:00 Orders Only Doctor Unassigned, [place] [facility] 1.2.840.114 350.1.13.10 4.2.7.2.686 [id number] [facility] 2020-04-15 14:13:53 2020-04-17 04:59:59 Outside Medical Records nullFlavo r [facility] [place] [id number] Matthew Garza 2020-03-04 20:45:00 2020-03-04 20:45:00 Ambulatory Pre-Reg nullFlavo r [facility] [place] [id number] Matthew Garza 2020-03-04 20:45:00 2020-03-04 20:45:00 Ambulatory Pre-Reg nullFlavo r [facility] [place] [id number] Matthew Garza 2020-02-01 16:15:00 2020-02-02 04:59:59 Outpatient nullFlavo r [facility] [place] [id number] Matthew Garza 2020-01-09 16:30:00 2020-01-10 04:59:59 Outpatient nullFlavo r [facility] [place] [id number] Matthew Garza Results Test Description Test Time Test Comments Results Result Co mments Source BASIC METABOLIC [id number] 12:22:00* Test Item Value Reference Range Interpretation Comme nts SODIUM (test code = NA) 142 mEq/L 134-147 N POTASSIUM (test code = K) 4.0 mEq/L 3.4-5.0 N CHLORIDE (test code = CL) 107 mEq/L 100-108 N CARBON DIOXIDE (test code = CO2) 29 mEq/l 21-33 N ANION GAP (test code = GAP) 10 0-20 N GLUCOSE (test code = GLU) 100 mg/dL 77-141 N BLOOD UREA NITROGEN (test code = BUN) 25 mg/dL 7-25 N GLOMERULAR FILTRATION RATE (test code = GFR) 43.4 80-90 L The Glomerular Filtration Rate is a calculated parameterbased on serum Creatinine, patient age and sex. GFR valuesless than 60 mL/min/1.73 square meters are indicative ofChronic Kidney Disease. Values less than 15 mL/min/1.73square meters indicate Kidney failure. The calculation forGFR is based on the CKD-EPI (2020) calculation. This formulais race indifferent and is the recommended formula for GFRby the National Kidney Foundation for Adults.The GFR will not calculate if the sex is unknown or if thepatient's age is <18 years. CREATININE (test code = CREAT) 1.7 mg/dL 0.6-1.3 H CALCIUM (test code = CA) 9.4 mg/dL 8.0-10.5 N PROTHROMBIN [id number] 12:16:00* Test Item Value Reference Range Interpretation Comme nts PROTHROMBIN TIME PATIENT (test code = PTP) 11.0 SECONDS 9.3-12.9 N INTERNATIONAL NORMAL RATIO (test code = INR) 1.0 0.8-1.2 N TARGET INR BY INDICATION Indication INR1. Prophylaxis of venous thrombosis 2.0 - 3.0 (orthopedic surgery), Prophylaxis of venous thrombosis (other than high-risk surgery), Treatment of Deep Vein Thrombosis/Pulmonary Embolism, Prevention of systemic embolism - Tissue heart valves, Acute Myocardial Infarction (to prevent systemic embolism), Valvular heart disease, Atrial Fibrillation, Bileaflet mechanical valve in aortic position.2. Mechanical prosthetic valves (high risk), 2.5 - 3.5 Presence of Lupus Anticoagulant or Antiphospholipid Antibodies, Prevention of systemic embolism - Acute Myocardial Infarction (to prevent recurrent infarct). CBC W/AUTO [id number] 12:14:00* Test Item Value Reference Range Interpretation Comme nts WHITE BLOOD CELL (test code = WBC) 6.0 x10 3/uL 4.5-11.0 N RED BLOOD CELL (test code = RBC) 5.36 x10 6/uL 4.00-5.60 N HEMOGLOBIN (test code = HGB) 16.2 g/dL 12.5-16.9 N HEMATOCRIT (test code = HCT) 49.9 % 37.5-50.7 N MEAN CELL VOLUME (test code = MCV) 93.1 fL 81.0-99.0 N MEAN CELL HGB (test code = MCH) 30.2 pg 27.0-33.0 N MEAN CELL HGB CONCETRATION (test code = MCHC) 32.5 g/dL 33.0-37.0 L RED CELL DISTRIBUTION WIDTH CV (test code = RDW) 12.8 % 11.5-14.5 N RED CELL DISTRIBUTION WIDTH SD (test code = RDW-SD) 43.8 fL 37.0-54.0 N PLATELET COUNT (test code = PLT) 190 x10 3/uL 150-400 N MEAN PLATELET VOLUME (test c ode = MPV) 9.6 fL 7.0-9.0 H NEUTROPHIL % (test code = NT%) 61.4 % 56.0-77.0 N IMMATURE GRANULOCYTE % (test code = IG%) 0.5 % 0.0-2.0 N LYMPHOCYTE % (test code = LY%) 25.0 % 14.0-32.0 N MONOCYTE % (test code = MO%) 10.1 % 4.8-9.0 H EOSINOPHIL % (test code = EO%) 2.7 % 0.3-3.7 N BASOPHIL % (test code = BA%) 0.3 % 0.0-2.0 N NUCLEATED RBC % (test code = NRBC%) 0.0 % 0-0 N NEUTROPHIL # (test code = NT#) 3.66 x10 3/uL 2.0-7.6 N IMMATURE GRANULOCYTE # (test code = IG#) 0.03 x10 3/uL 0.00-0.03 N LYMPHOCYTE # (test code = LY#) 1.49 x10 3/uL 1.0-3.8 N MONOCYTE # (test code = MO#) 0.60 x10 3/uL 0.1-0.8 N EOSINOPHIL # (test code = EO#) 0.16 x10 3/uL 0.0-0.2 N BASOPHIL # (test code = BA#) 0.02 x10 3/uL 0.0-0.2 N NUCLEATED RBC # (test code = NRBC#) 0.00 x10 3/uL 0.0-0.1 N [id number] 07:19:00* Test Item Value Reference Range Interpretation Comme nts MAGNESIUM (test code = MAG) 2.2 MG/DL 1.8-2.4 N COMPREHENSIVE METABOLIC [id number] 07:19:00* Test Item Value Reference Range Interpretation Comme nts SODIUM (test code = NA) 140 mmol/L 134-147 N POTASSIUM (test code = K) 3.4 mmol/L 3.4-5.0 N CHLORIDE (test code = CL) 106 mmol/L 100-108 N CARBON DIOXIDE (test code = CO2) 30 mmol/L 21-32 N ANION GAP (test code = GAP) 4.0 GAP calc 4.0-15.0 N GLUCOSE (test code = GLU) 109 MG/DL 70-110 N BLOOD UREA NITROGEN (test code = BUN) 27 MG/DL 7-18 H GLOMERULAR FILTRATION RATE (test code = GFR) 38 estGFR >60 L The Glomerular Filtration Rate is a calculated parameterbased on serum Creatinine, patient age and sex. GFR valuesless than 60 mL/min/1.73 square meters are indicative ofChronic Kidney Disease. Values less than 15 mL/min/1.73square meters indicate Kidney failure. The calculation forGFR is based on the CKD-EPI (2020) calculation. This formulais race indifferent and is the recommended formula for GFRby the National Kidney Foundation for Adults.The GFR will not calculate if the sex is unknown or if thepatient's age is <18 years. CREATININE (test code = CREAT) 1.9 MG/DL 0.8-1.3 H TOTAL PROTEIN (test code = PROT) 7.4 G/DL 6.4-8.2 N ALBUMIN (test code = ALB) 3.8 G/DL 3.4-5.0 N GLOBULIN (test code = GLOB) 3.6 GM/dL ALBUMIN/GLOBULIN RATIO (test code = A/G) 1.1 RATIO 1.2-2.2 L CALCIUM (test code = CA) 9.5 MG/DL 8.5-10.1 N BILIRUBIN TOTAL (test code = BILT) 0.60 MG/DL 0.2-1.2 N SGOT/AST (test code = AST) 9 Unit/L 15-37 L SGPT/ALT (test code = ALT) 20 Unit/L 12-78 N ALKALINE PHOSPHATASE TOTAL (test code = ALKP) 62 Unit/L 50-136 N LIPID PROFILE (CORONARY RISK)2023-04-30 07:19:00* Test Item Value Reference Range Interpretation Comme nts TRIGLYCERIDES (test code = TRIG) 357 MG/DL 0-150 H CHOLESTEROL (test code = CHOL) 196 MG/DL 133-200 N CHOLESTEROL/HDL RATIO (test code = CHOLHDL) 5.16 RATIO See_Comment RISK ASSOCIATED WITH CHOL/HDL RATIOS: RISK MALE FEMALE1/2 AVERAGE 3.43 3.27AVERAGE 4.97 4.442X AVERAGE 9.55 7.053X AVERAGE 23.39 11.04 NOTE THAT THE REFERENCE VALUE IS RELATED TO RISK LEVELS ASRECOMMENDED BY THE NATIONAL HEART, LUNG, AND BLOOD INSTITUTE. [Automated message] The system which generated this result transmitted reference range: 0-. The reference range was not used to interpret this result as normal/abnormal. HDL CHOLESTEROL (test code = HDL) 38 MG/DL 40-59 L NON-HDL CHOLESTEROL (test code = NHDL) 158 mg/dL <130 H LIPOPROTEIN LDL (test code = LDL) 76 MG/DL 0-129 N <100 [id number] 0 - 129 NEAR OPTIMAL/ABOVE [id number] - 159 [id number] - 189 HIGH>OR= 190 VERY HIGHNOTE THAT GUIDELINES ARE PROVIDED BY NATIONAL CHOLESTEROLEDUCATION PROGRAM ADULT TREATMENT PANEL III LDL/HDL (test code = LDL/HDL) 2.00 Ratio See_Comment N [Automated messa ge] The system which generated this result transmitted reference range: 1.48-3.22 Avg. The reference range was not used to interpret this result as normal/abnormal. PROTHROMBIN [id number] 07:09:00* Test Item Value Reference Range Interpretation Comme nts PT PATIENT (test code = PTP) 10.4 SECONDS 9.3-12.9 N INTERNATIONAL NORMAL RATIO (test code = INR) 0.94 INR Unit 0.8-1.2 N TARGET INR BY INDICATION Indication INR1. Prophylaxis of venous thrombosis 2.0 - 3.0 (orthopedic surgery), Prophylaxis of venous thrombosis (other than high-risk surgery), Treatment of Deep Vein Thrombosis/Pulmonary Embolism, Prevention of systemic embolism - Tissue heart valves, Acute Myocardial Infarction (to prevent systemic embolism), Valvular heart disease, Acute Myocardial Infarction (to prevent systemic embolism), Valvular heart disease, Atrial Fibrillation, Bileaflet mechanical valve in aortic position.2. Mechanical prosthetic valves (high risk), 2.5 - 3.5 Presence of Lupus Anticoagulant or Antiphospholipid Antibodies, Prevention of systemic embolism - Acute Myocardial Infarction (to prevent recurrent infarct). THROMBOPLASTIN TIME [id number] 07:09:00* Test Item Value Reference Range Interpretation Comme nts THROMBOPLASTIN TIME PARTIAL (test code = PTT) 31.2 SECONDS 26-35 N CBC W/AUTO [id number] 07:03:00* Test Item Value Reference Range Interpretation Comme nts WHITE BLOOD CELL (test code = WBC) 6.7 K/mm3 3.5-11.0 N RED BLOOD CELL (test code = RBC) 5.51 M/mm3 4.70-6.10 N HEMOGLOBIN (test code = HGB) 16.4 G/DL 12.3-15.9 H HEMATOCRIT (test code = HCT) 49.4 % 35.8-46.7 H MEAN CELL VOLUME (test code = MCV) 89.7 Fl 86.3-98.9 N MEAN CELL HGB (test code = MCH) 29.8 pg 28.9-34.4 N MEAN CELL HGB CONCETRATION (test code = MCHC) 33.2 G/DL 32.1-34.5 N RED CELL DISTRIBUTION WIDTH (test code = RDW) 13.1 SD 11.5-14.5 N PLATELET COUNT (test code = PLT) 159 K/mm3 150-450 N MEAN PLATELET VOLUME (test c ode = MPV) 10.50 fL 7.0-9.6 H NEUTROPHIL % (test code = NT%) 55.2 % 40-76 N IMMATURE GRANULOCYTE % (test code = IG%) 0.4 % 0.0-5.0 N LYMPHOCYTE % (test code = LY%) 31.3 % 20.5-51.1 N MONOCYTE % (test code = MO%) 9.7 % 1.7-9.3 H EOSINOPHIL % (test code = EO%) 3.0 % 0.0-6.0 N BASOPHIL % (test code = BA%) 0.4 % 0.0-2.0 N NUCLEATED RBC % (test code = NRBC%) 0.0 /100WBC% 0.0-1.0 N NEUTROPHIL # (test code = NT#) 3.7 K/mm3 1.8-7.6 N IMMATURE GRANULOCYTE # (test code = IG#) 0.03 x10 3/uL 0.00-0.03 N LYMPHOCYTE # (test code = LY#) 2.1 K/mm3 0.6-3.0 N MONOCYTE # (test code = MO#) 0.7 K/mm3 0.2-1.5 N EOSINOPHIL # (test code = EO#) 0.2 K/mm3 0.0-0.4 N BASOPHIL # (test code = BA#) 0.0 K/mm3 0.0-0.2 N NUCLEATED RBC # (test code = NRBC#) 0.0 K/mm3 0.00-0.01 N MANUAL DIFF REQUIRED (test c ode = MDIFF) NO DIFF/SCN CRITERIA XR HIP 1 VW [id number] 14:52:58X-rays reveal minor degenerative changes in the medial portion of [facility] right [facility] Date/Time Note Provider Source 2024-05-11 10:38:00 [facility] Cath Post Proc-Full REPORT#:[id number] REPORT STATUS: Signed REPORT INITIALIZATION DATE:05/11/24 TIME: 1038 PATIENT: MI DRIVER UNIT #: [id number] ROOM/BED: : 56 AGE: 69 SEX: M ATTEND: Miguel A Nascimento MD ADM AUTHOR: Miguel A Nascimento MD REPT SERVICE DT/TIME: 05/11/24 1038 * ALL edits or amendments must be made on the electronic/computer document * Miguel A Nascimento 05/11/24 1038: Cath Procedure Cath Procedure Procedure details: 69-year-old gentleman with known coronary artery disease were cardiac catheterization last year revealing moderate disease of the mid LAD now being evaluated for increasing shortness of breath angina as well as fatigue. Decision was to interrogate the LAD further with the intravascular ultrasound examination and intervention if needed. You have started procedure with right radial access for 6 slender sheath 5 [place] catheter selective left and right coronary angiography followed by coronary intervention using EBU 4 guiding catheter. Findings: Coronary anatomy: RCA: Moderate to large caliber dominant vessel with mild irregularity in the mid segment. The PL branch is small and okay PDA branch is large and it has distal segment with 80% stenosis. Left main: Large in caliber and normal LAD: Large in caliber it does have a long 95% stenosis in the mid third segment which appears to be flow-limiting and there is a RANDA grade II flow in the distal vessel which is a fairly large caliber vessel wraps around the apex. Diagonal septal branches are well-preserved. Left circumflex: Large caliber vessel continues as a large obtuse marginal branch. It does have a 40% eccentric stenosis involving the obtuse marginal branch. Interventional procedure: LAD stenosis: Following baseline angiography we decided to intervene. Next EBU 4 guiding catheter was used to perform the left main cannulation followed by Hi- Torque floppy wire. Lesion was crossed without any difficulty. Patient was given intravenous heparin for ACT of about 300 seconds. Following this predilation was performed using 2.5 mm x 12 mm balloon followed by stenting using 3.5 x 28 mm Synergy stent. Post dilation was performed using 4.0 x 12 noncompliant balloon. Following this we went in with intravascular ultrasound examination. Considering the IVUS showed no edge dissection. There is a good apposition of the stent. But definitely the stent diameter is well above 3.5 mm. At this point in time we were satisfied with the results contralateral orthogonal pictures showed no distal complications. At this point in time all balloons wires and catheters were removed. 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 Patient consent: The patient was informed of the potential benefits and risks regarding the procedure and agreed to proceed. Cath Procedure Cath Procedure Start date: 05/11/24 Start time: 919 Pre-procedure diagnosis: Chest Pain, Shortness of breath Post-procedure diagnosis: CAD Procedure performed: left heart cath, PCI, right heart cath, SCA, IVUS, Stent-- LAD Performed by: Dr Miguel A Nascimento Assurance Sourcing Manager(s): none Procedure details: Left and right heart cath performed. Findings: Left and right heart cath performed. Cor angio: Precath Mid LAD vessel stenosis 95%, RANDA 2, Post cath stenosis 0%, RANDA 3. Right coronary dominance Right Heart pressures RA 14/12 (11) PCW 16/15 (13) PA 27/17 (23) AO 82/68 (76) Complications: none Anesthesia type: local, moderate sedation Mod. sedation provided by me: yes Independent trained observer present monitored pt's resp. to the sedation no Estimated blood loss in ml's: 50 Access site closure: TR band Disposition: home Plan: Plan: Continue aspirin 81 mg daily, change plavix to Brilinta 90 mg BID Increase Crestor to 20 mg daily. Specimens removed/altered: none Implants: stent at 1159 at 1325 [facility] #:[id number] END OF REPORT [facility] 2024-05-11 09:40:00 [id number] [address] PATIENT NAME: MI DRIVER ADMIT DATE: 05/11/24 ACCOUNT NO: [id number] ROOM NO: AGE: 69 REPORT TYPE: eELECTROCARDIOGRAM REPORT SEX: M ADMITTING PHYSICIAN: ATTENDING PHYSICIAN:Miguel A Nascimento MD Order: [id number] Test Reason : S/P PCI Test Date/Time Stamp: TueMay 11 2024 09:40:15 Blood Pressure : / mmHG Vent. Rate : 062 BPM Atrial Rate : 062 BPM P-R Int : 158 ms QRS Dur : 096 ms QT Int : 452 ms P-R-T Axes : 074 003 -14 degrees QTc Int : 458 ms Normal sinus rhythm Poor R wave progression Cannot rule out Anterior infarct (cited on or before 30-APR-2023) Abnormal ECG Confirmed by MASHA NASCIMENTO ([id number]) on 06/04/2024 1:13:49 PM Referred By: Miguel A Nascimento Confirmed by:MASHA NASCIMENTO at 1313 PATIENT NAME: MI DRIVER [facility] 2024-05-09 11:44:00 [id number] [place] [address] PATIENT NAME: MI DRIVER ADMIT DATE: 05/11/24 ACCOUNT NO: [id number] ROOM NO: AGE: 69 REPORT TYPE: eELECTROCARDIOGRAM REPORT SEX: M ADMITTING PHYSICIAN: ATTENDING PHYSICIAN:Miguel A Nascimento MD Order: [id number] Test Reason : PREOP Test Date/Time Stamp: TueMay 09 2024 11:44:28 Blood Pressure : / mmHG Vent. Rate : 069 BPM Atrial Rate : 069 BPM P-R Int : 158 ms QRS Dur : 092 ms QT Int : 426 ms P-R-T Axes : 050 092 -25 degrees QTc Int : 456 ms Sinus rhythm with occasional premature ventricular complexes Rightward axis Poor R wave progression ST and T wave abnormality, consider inferior ischemia Abnormal ECG Confirmed by MASHA NASCIMENTO ([id number]) on 06/04/2024 12:49:38 PM Referred By: Miguel A Nascimento Confirmed by:MASHA NASCIMENTO at 1249 PATIENT NAME: MI DRIVER [facility] 2023-04-30 09:01:00 [id number] [facility] [address] [place] [address] PATIENT NAME: MI DRIVER ADMIT DATE: 04/30/23 ACCOUNT NO: [id number] ROOM NO: AGE: 68 REPORT TYPE: OPERATIVE REPORT SEX: M ADMITTING PHYSICIAN: ATTENDING PHYSICIAN: Alvin Clark MD Cardiology OPERATION DATE: 04/30/2023 ELECTRONIC DEVICE REPAIRER: Myself. TITLE OF PROCEDURE: Left heart catheterization and aortic root angiogram. PREOPERATIVE DIAGNOSIS: POSTOPERATIVE DIAGNOSIS: INDICATION FOR THE PROCEDURE: Angina, coronary artery disease, ischemia, dilated ascending aorta. ESTIMATED BLOOD LOSS: Minimal. COMPLICATIONS: None. CONTRAST: 50 mL SURGEON: Alvin Clark MD INSPECTOR WATCH TRAIN: ANESTHESIA: Conscious sedation with Versed and fentanyl. 1% lidocaine for local anesthesia. FINAL DIAGNOSES: Single vessel coronary artery disease, calcified arteries, elevated left ventricular end-diastolic pressure. The ascending aorta measures 4.05 cm. RECOMMENDATION: Medical therapy. DESCRIPTION OF PROCEDURE: After informed consent, the patient was brought to the cardiac catheterization lab in a stable fasting nonsedated state. He was prepped and draped in the usual standard fashion. After conscious sedation, 1% lidocaine was administered to the right common femoral artery area for local anesthesia. A 6-Hungarian sheath was placed in the right common femoral artery using standard techniques and fluoroscopy after heparinization. Left coronary angiogram showed a mildly calcified arteries. The LAD has 3 focal lesions, right after the origin of a large diagonal 30%, 50% and 60%. The first obtuse marginal is a big and branching vessel with an eccentric plaque 40%. The right coronary angiogram showed luminal irregularities was a dominant vessel. Left PATIENT NAME: MI DRIVER ventricular angiogram showed ejection fraction of 60%. Left ventricular end-diastolic pressure of 23. No wall motion abnormalities or aortic valve gradient. Aortic root angiogram showed the ascending aorta to measure around 4.05 cm. The [...] observation. He will be managed medically for his coronary artery disease, especially with his creatinine of 1.9. Patient will continue hydration and be discharged in few hours on medical therapy and risk factor modification. Dictated By: Alvin Clark MD Date Dictated: 04/30/2023 09:01:45 Date Transcribed: 04/30/2023 09:23:22 ATIF/PENNY Receipt ID: [id number] Authenticated by Alvin Clark MD On 04/30/2023 10:00:41 AM at 1000 PATIENT NAME: MI DRIVER [facility] 2023-04-30 06:52:00 [id number] [place] [id number] PATIENT NAME: MI DRIVER ADMIT DATE: 04/30/23 ACCOUNT NO: [id number] ROOM NO: AGE: 68 REPORT TYPE: eELECTROCARDIOGRAM SEX: M ADMITTING PHYSICIAN: ATTENDING PHYSICIAN: Alvin Clark MD Order: [id number] Test Reason : ABN STRESS Test Date/Time Stamp: TueApr 30 2023 06:52:23 Blood Pressure : / mmHG Vent. Rate : 060 BPM Atrial Rate : 060 BPM P-R Int : 152 ms QRS Dur : 094 ms QT Int : 410 ms P-R-T Axes : 050 -27 002 degrees QTc Int : 410 ms Sinus rhythm with premature supraventricular complexes Possible Anterior infarct , age undetermined Abnormal ECG No previous ECGs available Confirmed by ALVIN CLARK ([id number]) on 04/30/2023 8:10:08 AM Referred By: Alvin Clark Confirmed by:ALVIN CLARK at 0810 PATIENT NAME: MI DRIVER [facility] 2023-04-29 07:51:00 [id number] [address] PATIENT NAME: MI DRIVER ADMIT DATE: 04/30/23 ACCOUNT NO: [id number] ROOM NO: AGE: 68 REPORT TYPE: HISTORY AND PHYSICAL SEX: M ADMITTING PHYSICIAN: ATTENDING PHYSICIAN: Alvin Clark MD Cardiology PATIENT NAME: MI DRIVER ADMIT DATE:04/30/2023 ADMISSION DATE: 04/30/2023 05:30:00 ELECTRONIC DEVICE REPAIRER: Alvin Clark MD REASON FOR ADMISSION: Angina, abnormal nuclear stress test, dyspnea, for cardiac catheterization and possible revascularization. HISTORY OF PRESENT ILLNESS: Mi is a 68-year-old patient who I have been following in my office since March of 2018. The patient has had multiple cardiovascular risk factors and he has been followed up regularly over the years. Lately, he has been having worsening chest pains consistent with angina as well as dyspnea. He had an emergency room presentation on 04/19/2023 with negative Emergency Room workup, so he was worked up as an outpatient. His nuclear stress test showed ejection fraction of 49% with inferolateral and posterolateral ischemia, which is changed from previous evaluation. His last echocardiogram showed normal ejection fraction, mitral valve prolapse, [id number] aortic insufficiency, and mild mitral regurgitation. He has had angiograms of his renal arteries in the past that were normal. He has had a history of supraventricular tachycardia documented on Holter monitors for which I have been following. The patient was doing well until recently, when his symptoms started getting worse and the nuclear stress test changed. The patient denies any history of congestive heart failure, TIAs or strokes. PAST MEDICAL HISTORY: Remarkable for hypertension. He denies a history of hyperlipidemia. He had benign prostatic hyperplasia, sciatica, borderline diabetes, lumbar disk disease and allergies. PAST SURGICAL HISTORY: He has had cataracts, colon procedures, right total hip replacement and double hernia repair in 2021. ALLERGIES: NO KNOWN DRUG ALLERGIES. MEDICATIONS: Aspirin 81 mg daily, tamsulosin 0.4 mg daily, magnesium, he takes Lotrel 10/20 mg daily, hydrocodone as needed, clonidine 0.3 mg 2 times daily, hydrochlorothiazide 25 mg, he takes metoprolol 200 mg daily, and nitroglycerin as needed. SOCIAL HISTORY: There is no history of smoking. He does drink alcohol socially. There is no history of street drug use. FAMILY HISTORY: Positive for atherosclerotic cardiovascular disease at an early PATIENT NAME: MI DRIVER age. REVIEW OF SYSTEMS: Remarkable for the above, in addition to allergies, sciatica, anxiety. No acute GI or symptoms. No TIAs or strokes. PHYSICAL EXAMINATION: GENERAL: Reveals a pleasant 68-year-old patient in no acute distress. VITAL SIGNS: Blood pressure 128/86, pulse 52 and regular, bradycardic, respiratory rate 16 and unlabored, temperature afebrile. HEENT: Head atraumatic, normocephalic. EYES AND ENT: Within normal for age. NECK: Supple. No jugular venous distention, bruits or lymphadenopathy. Normal upstroke. LUNGS: Clear and resonant. HEART: Bradycardic, regular rate and rhythm, II/ systolic ejection murmur at the mitral area, II/ diastolic murmur at the aortic area. No gallops. ABDOMEN: Soft, no tenderness, no organomegaly, no masses or bruits. EXTREMITIES: Trace edema, 2+ distal pulses. No cyanosis or clubbing. NEUROLOGIC: Alert and oriented x3. Examination appears to be nonfocal. LABORATORY DATA: Pending. Noninvasive cardiovascular workup enclosed. IMPRESSION AND PLAN: This is a 68-year-old patient with angina, abnormal nuclear stress test, dyspnea, multiple cardiovascular risk factors, who has high likelihood of significant coronary artery disease. He is here for left heart catheterization and possible revascularization. The patient's ejection fraction was mildly diminished by a nuclear stress test. He has had normal ejection fraction by echo. He has had a stable mitral and aortic valve insufficiency. He has mitral valve prolapse and a dilated ascending aorta at 4.2, which has been stable. The symptoms and findings at this time are consistent with symptomatic coronary artery disease. The recommendation is we will proceed with left heart catheterization and possible revascularization. The risks and benefits of the planned procedures were discussed in detail with the patient and available family members, and he is willing to proceed. Rest as per orders. Dictated By: Alvin Clark MD Date Dictated: 04/29/2023 07:51:00 Date Transcribed: 04/29/2023 10:06:41 ATIF/NILTON/GILBERT Receipt ID: [id number] Authenticated and Edited by Alvin Clark MD On 04/30/23 6:30:49 AM at 0632 PATIENT NAME: DWIGHTMI [facility] M
--- NOTE | 2025-04-17 19:17 | ER ---
Nurse's Notes [facility] Name: Allan Driver Age: 70 yrs Sex: Male : 1955 Arrival Date: 04/17/2025 Time: 19:03 Bed IW5 Private MD: Diagnosis: Low back pain-chronic Presentation: 04/17 19:08 Chief complaint: Patient states: back injury in 2010 that is causing pain at bilateral ha1 leg and hip. Bilateral leg weakness due to nerve injury. 19:08 Coronavirus screen: Client denies travel out of the [place] in the last 14 days. Ebola ha1 Screen: No symptoms or risks identified at this time. Initial Sepsis Screen: Does the patient meet any 2 criteria? No. Patient's initial sepsis screen is negative. Does the patient have a suspected source of infection? No. Patient's initial sepsis screen is negative. Risk Assessment: Do you want to hurt yourself or someone else? Patient reports no desire to harm self or others. Onset of symptoms was April 17, 2025. 19:08 Method Of Arrival: Wheelchair ha1 19:08 Acuity: NAYANA 4 ha1 Triage Assessment: 19:14 General: Appears uncomfortable, Behavior is calm, cooperative. Pain: Complains of pain ha1 in right leg and left leg and hip Pain currently is 8 out of 10 on a pain scale. Neuro: Level of Consciousness is awake, alert, obeys commands, Oriented to person, place, time, situation. Cardiovascular: Capillary refill < 3 seconds Patient's skin is warm and dry. Respiratory: Airway is patent Respiratory effort is even, unlabored, Respiratory pattern is regular, symmetrical. Musculoskeletal: Circulation, motion, and sensation intact. Range of motion: intact in all extremities. Historical: - Allergies: 19:14 No Known Allergies; ha1 - Home Meds: 19:14 amlodipine 10 mg tablet daily [Active]; clopidogrel 75 mg Oral tablet daily [Active]; ha1 - PMHx: 19:14 adrenal mass; colon cancer; Enlarged Heart; Hypertension; Irregular heart rate; ha1 - PSHx: 19:14 colon resection; hernia surgery; Right hip replacement; ha1 - Immunization history:: Adult Immunizations up to date. - Infectious Disease History:: Denies. - Social history:: Smoking status: Patient denies any tobacco usage or history of. Screenin:08 [facility] ED Fall Risk Assessment (Adult) History of falling in the last 3 months, ha1 including since admission No falls in past 3 months (0 pts) Confusion or Disorientation No (0 pts) Intoxicated or Sedated No (0 pts) Impaired Gait Yes (1 pt) Mobility Assist Device Used Yes (1 pt) Altered Elimination No (0 pt) Score/Fall Risk Level 3 or more points = High Risk Oriented to surroundings, Maintained a safe environment, Educated pt \T\ family on fall prevention, incl call for assistance when getting out of bed, Hourly rounding (assess needs \T\ fall precautionary measures) done. Abuse screen: Denies threats or abuse. Denies injuries from another. Nutritional screening: No deficits noted. Tuberculosis screening: No symptoms or risk factors identified. Vital Signs: 19:08 BP 153 / 89; Pulse 70; Resp 16 S; Temp 97.6; Pulse Ox 100% on R/A; Weight 95.25 kg; ha1 Height 6 ft. 2 in. ; Pain 8/10; 19:08 Body Mass Index 26.96 (95.25 kg, 187.96 cm) ha1 19:08 Pain Scale: Adult ha1 ED Course: 19:05 Patient arrived in ED. mr 19:08 Corazon Og [facility]C [facility] kb 19:08 Rock Huang MD is Attending Physician. kb 19:08 Patient has correct armband on for positive identification. ha1 19:08 Provided Education on: plan of care . ha1 19:08 Arm band placed on right wrist. ha1 19:14 Triage completed. ha1 19:32 No provider procedures requiring assistance completed. Patient did not have IV access ha1 during this emergency room visit. Administered Medications: 19:30 Drug: Dexamethasone IM 10 mg IM once Route: IM; Site: right deltoid; ha1 19:33 Follow up: Response: No adverse reaction ha1 Medication: 19:32 VIS not applicable for this client. ha1 Outcome: 19:16 Discharge ordered by . kb 19:32 Discharged to home via wheelchair, ha1 19:32 Condition: stable 19:32 Discharge instructions given to patient, Instructed on discharge instructions, follow up and referral plans. medication usage, Demonstrated understanding of instructions, follow-up care, medications, Prescriptions given X 2, 19:33 Patient left the ED. ha1 Signatures: Corazon Og, KASIEC IMPREGNATOR AND DRIER-Candi Farrar, Phong Reg mr Bridget Ferrell, RN RN ha1
--- NOTE | 2025-04-17 19:17 | EDPHYS ---
Physician Documentation [facility] Name: Allan Driver Age: 70 yrs Sex: Male : 1955 Arrival Date: 04/17/2025 Time: 19:03 Bed IW5 Private MD: ED Physician Rock Huang HPI: 04/17 20:10 This 70 yrs old Male presents to ER via Wheelchair with complaints of Leg Pain, Back kb Pain, Leg weakness. 20:10 Patient is a 70-year-old male who presents for low back pain with intermittent kb radiation down his legs. States the initial injury was in 2010 and he has been having chronic pain since then but is gotten worse over the past several weeks. States he is seeing Dr. Coughlin for pain management, but the hydrocodone that he was prescribed does not work. He was seen by Dr. Granados, his PCP, and referred to a repair specialist in [place] but his appointment is not until June 05. Came in today to see if there is something else he could get to help with the symptoms until he is able to get to his appointment on June 05.. Historical: - Allergies: 19:14 No Known Allergies; ha1 - Home Meds: 19:14 amlodipine 10 mg tablet daily [Active]; clopidogrel 75 mg Oral tablet daily [Active]; ha1 - PMHx: 19:14 adrenal mass; colon cancer; Enlarged Heart; Hypertension; Irregular heart rate; ha1 - PSHx: 19:14 colon resection; hernia surgery; Right hip replacement; ha1 - Immunization history:: Adult Immunizations up to date. - Infectious Disease History:: Denies. - Social history:: Smoking status: Patient denies any tobacco usage or history of. ROS: 20:10 Constitutional: As per HPI kb Exam: 20:10 Constitutional: This is a well developed, well nourished patient who is awake, alert, kb and in no acute distress. Head/Face: Normocephalic, atraumatic. ENT: Moist Mucous membranes Cardiovascular: Regular rate Respiratory: Respirations even and unlabored. No increased work of breathing. Talking in full sentences Abdomen/GI: Soft, non-tender. No distention Back: No spinal tenderness. No costovertebral tenderness. Full range of motion. Skin: Warm, dry with normal turgor. Normal color. MS/ Extremity: Pulses equal, no cyanosis. Neurovascular intact. Full, normal range of motion. Neuro: Awake and alert, GCS 15, oriented to person, place, time, and situation. Vital Signs: 19:08 BP 153 / 89; Pulse 70; Resp 16 S; Temp 97.6; Pulse Ox 100% on R/A; Weight 95.25 kg; ha1 Height 6 ft. 2 in. ; Pain 8/10; 19:08 Body Mass Index 26.96 (95.25 kg, 187.96 cm) ha1 19:08 Pain Scale: Adult ha1 MDM: 19:08 Medical Screening Exam initiated kb 20:12 Differential diagnosis: sciatica, bulging disc, arthritis, chronic pain. Data reviewed: kb vital signs, nurses notes. Test considered but Not performed: MRI: MRI lumbar spine considered but pt has no indication for emergent MRI. . Counseling: I had a detailed discussion with the patient and/or guardian regarding the historical points, exam findings, and any diagnostic results supporting the discharge/admit diagnosis, the need for outpatient follow up, a family practitioner, to return to the emergency department if symptoms worsen or persist or if there are any questions or concerns that arise at home. Administered Medications: 19:30 Drug: Dexamethasone IM 10 mg IM once Route: IM; Site: right deltoid; [facility] 19:33 Follow up: Response: No adverse reaction ha1 Disposition: 04/18 01:10 Co-signature as Attending Physician, Rock Huang MD I agree with the assessment sp4 and plan of care. I reviewed the patient's care provided by the Advanced Practice Provider and agree with the diagnosis and treatment plan. Disposition Summary: 04/17/25 19:16 Discharge Ordered Notes: Location: Home Condition: Stable kb Diagnosis - Low back pain - chronic kb Followup: kb - With: Emergency Department - When: As needed - Reason: Worsening of condition Followup: kb - With: Private Physician - When: 2 - 3 days - Reason: Recheck today's complaints, Continuance of care, Re-evaluation by your physician Discharge Instructions: - Discharge Summary Sheet kb - Chronic Back Pain, [id number] kb Forms: - Medication Reconciliation Form kb - Antibiotic Education kb - Prescription Opioid Use kb - Patient Portal Instructions kb - Leadership Thank You Letter kb Prescriptions: - Prednisone 20 mg Oral Tablet - take 1 tablet ORAL route once daily for 5 days; 5 tablet; Refills: 0, Product kb Selection Permitted - orphenadrine citrate 100 mg Oral Tablet Sustained Release - take 1 tablet ORAL route 2 times per day As needed; 20 tablet; Refills: 0, kb Product Selection Permitted Signatures: Corazon Og FNP-C FNP-Ckb Ayala, Heidy, RN RN ha1 Rock Huang MD MD sp4
[2025-04-18 02:30] VITALS: BP 153/89; TEMP 97.6; O2SAT 100
== END 2025-04-17 19:33 | disposition home or self-care (01) ==
LOC: ER 19:03
DX: M54.50 Low back pain, unspecified (principal); I10 Essential (primary) hypertension
CPT/HCPCS: 96372; 99284; J1100